=== PATIENT | female | born 1930 | race Caucasian/White ===

== ENCOUNTER 2017-02-23 10:06 | Day surgery (SDC) | payer MEDICARE, OTHER ==
[~2017-02-23 10:06] MED LIST: Lactated Ringers 1,000 ML IV SCH; Sodium Chloride 0.9% 10 ML Syringe FLUSH PRN
--- NOTE | 2017-02-23 11:15 | PCM.HPR ---
H & P Addendum review - H & P Addendum Review Date of Original H & P: 02/13/17 Date Reviewed: 02/23/17 Time Reviewed: 11:14 Patient was examined: No Changes
[2017-02-23] MEDS ORDERED: Propofol 200 MG/20 ML SDV ONE ×2 (11:19→11:25)
[2017-02-23] MEDS ORDERED: Midazolam 1 MG/ML 2 ML SDV ONE ×2 (11:19→11:25)
--- NOTE | 2017-02-23 11:45 | PCM.OPNOTE ---
- General Post-Op/Procedure Note Date of Surgery/Procedure: 02/23/17 Operative Procedure(s): Colonoscopy Findings: tics Pre Op Diagnosis: Hx Colon Polyps Post-Op Diagnosis: Same Anesthesia Technique: MAC Primary Surgeon: Jeancarlos Rushing Anesthesia Provider: Louise Omalley EBL in mLs: 0 Complications: None Condition: Good
--- NOTE | 2017-02-23 13:01 | OR ---
Date of Procedure: 02/23/2017 PREOPERATIVE DIAGNOSIS: History of colon polyps. POSTOPERATIVE DIAGNOSIS: Diverticulosis. PROCEDURE: Colonoscopy. ANESTHESIA: IV sedation. DESCRIPTION OF PROCEDURE: The patient was brought to the procedure room, where she was placed on her left side and IV sedation administered. Digital rectal exam was performed, which was normal. Colonoscope was inserted and advanced to the level of the cecum with some difficulty getting through a tortuous colon, requiring pressure on the abdomen. Cecal position was confirmed by identifying the appendiceal lumen and ileocecal valve. Prep was good and surfaces were well visualized. Upon withdrawing the scope, the ascending, transverse, and descending colon had a few diverticula present. Anastomosis of the rectosigmoid area was normal. There were no polyps visualized. Rectum and retroflexion were normal. Air was removed and the scope was withdrawn. The patient tolerated the procedure well and returned to recovery in stable condition. I do not feel any further colon screening is necessary since her last two have been normal and she is 86 years old. SHANTI CHOE MD /[id number]
[2017-02-23 13:50] VITALS: BP 120/65
== END 2017-02-23 12:40 | disposition home or self-care (01) ==
LOC: LL.SDS 10:06
PROVIDERS: ATTEND Surgery
DX: Z12.11 Encounter for screening for malignant neoplasm of colon (principal); K57.30 Diverticulosis of large intestine without perforation or abscess without bleeding; I10 Essential (primary) hypertension; E78.00 Pure hypercholesterolemia, unspecified; I07.1 Rheumatic tricuspid insufficiency; Z79.899 Other long term (current) drug therapy; Z90.710 Acquired absence of both cervix and uterus; Z98.890 Other specified postprocedural states
CPT/HCPCS: 00810; G0105; J2250; J2704; J7120

== ENCOUNTER 2017-08-28 11:10 | Inpatient (IN) | payer MEDICARE, OTHER ==
--- NOTE | 2017-08-28 11:54 | EDM.PDOC ---
ED HPI GENERAL MEDICAL PROBLEM - General Chief Complaint: General Stated Complaint: eye infection Time Seen by Provider: 08/28/17 11:10 Source of Information: Reports: Patient, Family (Daughter), Old Records ([facility] chart/EMR) History Limitations: Reports: No Limitations - History of Present Illness INITIAL COMMENTS - FREE TEXT/NARRATIVE: Patient was brought to the emergency room via private automobile by her daughter after recent initial and brief evaluation at the [facility] in [place] with no treatment given in that facility. Note that the patient has a 2 day history of increasing mildly purulent right ocular drainage, right eye swelling, and severe periorbital erythema with no known exposure to infection. Some borderline decreased vision by patient history, however difficult to assess secondary to her not being able to open her eyes. She has had some nonspecific URI symptoms, sore throat, and nonproductive cough during the last week with no history of fever, recent use of antipyretic medication, etc.. She has not used any recent cold medications, etc., athough she does have some moderate caffeine intake as below. The patient denies any chest pain/pressure, heart flutter, dizziness, orthostasis, orthopnea, diaphoresis, paresthesias, recent decreased exercise tolerance, or any other anginal-type symptoms. No recent history of abdominal pain, heartburn, nausea, diarrhea, melena, gross hematochezia, or any food intolerance, including fatty foods, etc.. Onset: Gradual Onset Date: 08/26/17 Duration: Getting Worse Location: Reports: Face. Denies: Head, Neck, Chest, Abdomen, Back, Radiates to Quality: Reports: Burning (Mild facial) Severity: Mild Improves with: Reports: None Worsens with: Reports: None Context: Reports: Other (As above). Denies: Sick Contact Associated Symptoms: Reports: Cough, Rash. Denies: Confusion, Chest Pain, cough w sputum, Diaphoresis, Fever/Chills, Headaches, Loss of Appetite, Malaise , Nausea/Vomiting, Seizure, Shortness of Breath, Syncope, Weakness Treatments DRIVE IN WAITER/WAITRESS: Reports: Other (see below) (None) Right Eye Pain Score (Numeric/FACES): 2 - Related Data Allergies Allergy/AdvReac Type Severity Reaction Status Date / Time No Known Allergies Allergy Verified 02/23/17 11:07 Home Meds: Home Meds Multivitamin [Multivitamins] 1 each PO DAILY 12/05/13 [History] Crosby-3/DHA/Epa/Fish Oil [Fish Oil Dr 500 mg Softgel] 1,000 mg PO DAILY [History] Calcium Carbonate/Vitamin D3 [Calcium 1,000 + D3 Caplet] 1 tab PO DAILY [History] Cholecalciferol (Vitamin D3) [Vitamin D3] 1,000 unit PO DAILY 02/23/17 [History] Lutein Extract/Zeaxanthin Ext [Lutein 15 MG Softgel] 1 cap PO DAILY 02/23/17 [ History] Vitamin E 1,000 unit PO DAILY 08/28/17 [History] Past Medical History HEENT History: Reports: Cataract, Impaired Vision. Denies: Allergic Rhinitis, Glaucoma, Hard of Hearing, Macular Degeneration, Retinal Detachment Other HEENT History: Wears glasses Cardiovascular History: Reports: Cardiomyopathy, Heart Murmur, High Cholesterol , Hypertension. Denies: Afib, Aneurysm, Arrhythmia, Blood Clots/VTE/DVT, CAD, Heart Failure, W[place], Pacemaker, PTCA, Pulmonary Hypertension, PVD, Syncope Other Cardiovascular History: Severe aortic valve stenosis and moderate left atrial enlargement with additional grade 1 diastolic dysfunction initially diagnosed by echocardiogram on 03/31/16 with persistent mild mitral valve insufficiency, tricuspid valve insufficiency and pulmonary valve insufficiency by previous echocardiogram as below Respiratory History: Reports: None, Intubation, Previous. Denies: Bronchitis, Recurrent, COPD, PE, Pneumonia, Recurrent, Pneumothorax, Sleep Apnea, TB Gastrointestinal History: Reports: Cholelithiasis, Colon Polyp, Diverticulosis, Fecal Incontinence, Gastritis, GERD, Hemorrhoids, Other (See Below). 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 Recurrent benign colonic polyps including removal of tubular adenoma from the ascending colon 12/05/13 and history of tubulovillous adenoma of the ascending colon and benign polyp of the transverse colon at time of colonoscopy on 03/28/13 with no evidence of recurrence at time of last colonoscopy as below Genitourinary History: Reports: Pyelonephritis, Renal Calculus, Urinary Incontinence, Other (See Below). 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 Denies: Dysfunctional Uterine Bleeding, Endometriosis, Fibroids, Spontaneous : 3 Para: 3 (Full term without complications during pregnancies or deliveries) LMP (Approximate): Menopausal (Surgical menopause 1983) Musculoskeletal History: Reports: Arthritis, Back Pain, Chronic, Fracture, Neck Pain, Chronic, Osteoarthritis, Osteoporosis, Other (See Below). Denies: Amputation, Gout, RA, SLE Other Musculoskeletal History: L1 compression fracture Neurological History: Reports: None. Denies: Alzheimers Disease, Brain Injury, Cerebral Aneurysms, Concussion, CVA, Headaches, Chronic, Head Trauma, Migraines , MS, Neuropathy, Peripheral, Parkinson's, Seizure, TIA Psychiatric History: Reports: Anxiety, Depression, Other (See Below). Denies: Abuse, Victim of, ADD, ADHD, Addiction, Alzheimers Disease, Dementia, Psych Hospitalization(s), PTSD, Suicide Attempt, Suicidal Ideation Other Psychiatric History: Anxiety depression disorder not currently requiring medical therapy Endocrine/Metabolic History: Reports: Osteopenia, Osteoporosis, Other (See Below ). Denies: Diabetes, Type I, Diabetes, Type II, Hypothyroidism, IDDM Other Endocrine/Metabolic History: Borderline hyperglycemia Hematologic History: Reports: None. Denies: Anemia, Blood Transfusion(s), Iron Deficiency Immunologic History: Reports: None. Denies: AIDS, HIV, SLE Oncologic (Cancer) History: Reports: None. Denies: Basal Cell Carcinoma, Breast , Cervix, Colon, Hodgkin's Lymphoma, Lymphoma, Malignant Melanoma, Non-Hodgkin' s Lymphoma, Ovarian, Squamous Cell Carcinoma, Uterine Dermatologic History: Reports: Seborrheic Dermatitis, Other (See Below). Denies : Eczema, Psoriasis Other Dermatologic History: Seborrheic dermatitis of the scalp region - Infectious Disease History Infectious Disease History: Reports: Chicken Pox, Measles, Mumps, Shingles ( Facial region side and date unknown). Denies: C-Difficile, Helicobacter Pylori , Meningitis, Mononucleosis, MRSA, Pertussis (Whooping Cough), Rheumatic Fever, Rubella, Scarlet Fever, TB, VRE - Past Surgical History Head Surgeries/Procedures: Reports: None HEENT Surgical History: Reports: Cataract Surgery, Oral Surgery, Other (See Below). Denies: Adenoidectomy, Eye Surgery, Laser Surgery, LASIK, Myringotomy w Tube(s), Naso-Sinus Surgery, Tonsillectomy Other HEENT Surgeries/Procedures: Bunker teeth extraction 4 in the , right cataract surgery in about 2013 Cardiovascular Surgical History: Reports: None. Denies: Carotid Endarterectomy , Coronary Artery Stent, Varicose, Vascular Surgery Respiratory Surgical History: Reports: None. Denies: Thoracentesis GI Surgical History: Reports: Colonoscopy, Polypectomy, Other (See Below). Denies: Appendectomy, Cholecystectomy, EGD, Hernia, Abdominal, Hernia, Inguinal , Hernia Repair/Other Other GI Surgeries/Procedures: Last colonoscopy on 02/23/17 with no recurrence of her previous colonic polyps with previous colonoscopies on 03/06/08, 11/15/04, and 12/05/13, previous distal rectosigmoid bowel resection secondary to benign colonic tumor in October 2000 Female Surgical History: Reports: Hysterectomy, Lithotripsy/ESWL, Oophorectomy, Salpingo-Oophorectomy, Other (See Below). Denies: Breast Biopsy, D&C, Tubal Ligation Other Female Surgeries/Procedures: Hysterectomy with left-sided oophorectomy secondary to uterine prolapse in 1983, incidental right salpingo-oophorectomy at time of sigmoid resection in October 2000, lithotripsy in about 2004 Endocrine Surgical History: Reports: None. Denies: Thyroid Biopsy Neurological Surgical History: Reports: None. Denies: C-Spine, Discectomy, Laminectomy, Lumbar Spine, Sacral Spine, Spinal Fusion, Vertebroplasty Musculoskeletal Surgical History: Reports: None. Denies: Carpal Tunnel, Ganglion Cyst, Joint Replacement, ORIF, Shoulder Surgery Oncologic Surgical History: Reports: None Dermatological Surgical History: Reports: None - Past Imaging History Past Imaging History: Reports: Cardiac Echo (Last echocardiogram on 03/31/16 with ejection fraction of greater than 70% with findings as above with previous echocardiogram on 03/08/13 with ejection fraction of 66%), CAT Scan (CT of the chest, abdomen and pelvis on 08/13/09), DEXA Scan (Last on 03/15/11), Mammogram ( Last on 10/5/17) Social & Family History - Family History HEENT: Reports: None. Denies: Glaucoma, Macular Degeneration, Retinal Detachment Cardiac: Reports: CAD, Heart Failure, High Cholesterol, Hypertension, [place], Other (See Below). Denies: Afib, Arrhythmia, Blood Clots/VTE/DVT, Bypass, PVD/COD, Stent Other Cardiac Family History: Father with fatal WV and CHF at age 79, daughter with hyperlipidemia, sister with hypertension Respiratory: Reports: None. Denies: Asthma, COPD, PE, Pneumothorax GI: Reports: None. Denies: Celiac Disease, Cholelithiasis, Colon Polyps, GERD, GI bleed, Hepatitis, Inflammatory Bowel Disease, Irritable Bowel Syndrome, PUD : Reports: None. Denies: Renal Calculus, Renal Disease/Insufficiency OBGYN: Reports: None. Denies: Endometriosis, Recurrent Spontaneous Musculoskeletal: Reports: Arthritis, Gout, Osteoarthritis, Osteoporosis, Other ( See Below) Other Musculoskeletal Family History: Sister with osteoarthritis, father with gout Neurological: Reports: Other (See Below). Denies: Alzheimers Disease, Cerebral Aneurysms, CVA, Dementia, Migraines, MS, Parkinson's, Seizure, TIA Other Neurological Family History: Daughter with cavernous malformation requiring surgery some mild secondary dystaxia and weakness Psychiatric: Reports: None. Denies: Abuse, Victim of, ADD, ADHD, Anxiety, Depression, Psych Hospitalization(s), Suicide Attempt Endocrine/Metabolic: Reports: Diabetes, type II, Other (See Below). Denies: Diabetes, Type I, Hypothyroidism, IDDM Other Endocrine/Metabolic Family History: Father with diabetes mellitus Hematologic: Reports: None. Denies: Anemia, Transfusion Reaction Immunologic: Reports: None. Denies: AIDS, HIV, SLE Dermatologic: Reports: None. Denies: Eczema, Psoriasis Oncologic: Reports: None. Denies: Brain, Breast, Cervix, Colon, Hodgkin's Lymphoma, Leukemia, Lymphoma, Non-Hodgkin's Lymphoma, Skin, Uterine - Tobacco Use Smoking Status *Q: Never Smoker Used Tobacco, but Quit: No Smoking Cessation Information Provided To Patient: No Second Hand Smoke Exposure: No Source of Second Hand Smoke Exposure: Not currently but did smoke in the past Second Hand Smoke Education Provided: No - Caffeine Use Caffeine Use: Reports: Coffee (1/2 pot per day). Denies: Energy Drinks, Soda, Tea - Alcohol Use Alcohol Use History: Yes Days Per Week of Alcohol Use: 0 (No previous DWIs, problems with alcohol abuse, etc.) Number of Drinks Per Day: 1 (Occasional wine or mixed drinks about 23 times per year) Total Drinks Per Week: 0 Alcohol Use Frequency: Rarely - Recreational Drug Use Recreational Drug Use: No Drug Use in Last 12 Months: No Recreational Drug Type: Denies: Amphetamines (Speed), Cocaine, Heroin, Inhalants (Glues, Solvents, Aerosols), LSD (Acid), Marijuana/Hashish, Methamphetamine, Morphine - Living Situation & Occupation Living situation: Reports: (2006, 3 children), with Family (Daughter) Occupation: Retired ([employer] ) ED ROS GENERAL - Review of Systems Review Of Systems: See Below Constitutional: Denies: Fever, Chills, Weakness, Fatigue, Night Sweats, Diaphoresis, Decreased Appetite, Weight Loss, Weight Gain HEENT: Reports: Eye Discharge, Eye Pain, Glasses, Rhinitis, Throat Pain, Vision Change. Denies: Dental Pain, Ear Discharge, Ear Pain, Hearing Loss, Sinus Problem, Throat Swelling, Vertigo Respiratory: Reports: Cough. Denies: Shortness of Breath, Wheezing, Pleuritic Chest Pain, Sputum, Hemoptysis Cardiovascular: Reports: No Symptoms. Denies: Chest Pain, Blood Pressure Problem, Claudication, Edema, Lightheadedness, Orthopnea, Palpitations, Syncope Endocrine: Reports: No Symptoms. Denies: Fatigue GI/Abdominal: Reports: No Symptoms. Denies: Abdominal Pain, Anorexia, Black Stool, Bloody Stool, Constipation, Diarrhea, Decreased Appetite, Difficulty Swallowing, Distension, Flatus, Hematemesis, Hematochezia, Melena, Nausea, Stool Incontinence, Vomiting : Reports: Incontinence (Occasional). Denies: Discharge, Dysuria, Flank Pain , Frequency, Hematuria, Pain, Urgency, Urinary Retention Musculoskeletal: Reports: No Symptoms. Denies: Neck Pain, Shoulder Pain, Arm Pain, Back Pain, Leg Pain Skin: Reports: Pruritis (Periorbital region), Rash (Facial as above). Denies: Diaphoresis, Bruising, Wound Neurological: Denies: Confusion, Dizziness, Headache, Numbness, Paresthesia, Seizure, Tingling, Weakness Psychiatric: Reports: No Symptoms. Denies: Agitation, Anxiety, Confusion, Depression, Hallucinations, Homicidal Ideation, Suicidal Ideation Hematologic/Lymphatic: Reports: No Symptoms Immunologic: Reports: No Symptoms ED EXAM, GENERAL - Physical Exam Exam: See Below Exam Limited By: No Limitations General Appearance: Alert, WD/WN, No Apparent Distress Eye Exam: Right Eye: Conjunctival Injection (Mild right-sided), EOMI, Periorbital Changes (+3+4 erythema with occasional vesicular changes in the periorbital changes with maximal diameter of about 6-8 cm in area), PERRL (Mild anisocoria with right pupil about 5 mm in diameter and left pupil about 7 mm in diameter), Proptosis (Upper eyelidright), Vision Changes (By history), Bilateral Eye: Normal Fundi Ears: Normal External Exam, Normal Canal, Hearing Grossly Normal, Normal TMs Nose: Normal Mucosa, No Blood, Nasal Drainage, Clear Rhinorrhea Throat/Mouth: Normal Inspection, Normal Lips, Normal Teeth, Normal Gums, Normal Oropharynx, Normal Voice, No Airway Compromise. No: Dysphagia, Perioral Cyanosis Head: Facial Swelling (Surrounding right-sided periorbital infection as above), Facial Tenderness (Mild localized tenderness in the area of rash as above). No : Sinus Tenderness Neck: Supple, Non-Tender, Full Range of Motion, Carotid Bruit (Moderate bilateral carotid bruits versus transmitted heart sounds). No: Lymphadenopathy (L), Lymphadenopathy (R), Thyromegaly Respiratory/Chest: No Respiratory Distress, Lungs Clear, Normal Breath Sounds, No Accessory Muscle Use, Chest Non-Tender. No: Rales, Pleural Rub, Retractions Cardiovascular: Normal Peripheral Pulses, No Edema, No Gallop, No JVD, No Rub, Tachycardia (Regular rhythm), Systolic Murmur (3/6 RAYSHAWN at the aortic valve with 2/6 RAYSHAWN of mitral valve). No: Gallop/S3, Gallop/S4, Friction Rub Peripheral Pulses: 2+: Radial (L), Radial (R), Dorsalis Pedis (L), Dorsalis Pedis (R) GI/Abdominal: Normal Bowel Sounds, Soft, Non-Tender, No Organomegaly, No Distention, No Abnormal Bruit, No Mass, Pelvis Stable. No: Guarding (Female) Exam: Deferred Rectal (Female) Exam: Deferred Back Exam: Normal Inspection, Full Range of Motion, Muscle Spasm. No: CVA Tenderness (L), CVA Tenderness (R) Extremities: Normal Inspection, Normal Range of Motion, Non-Tender, Normal Capillary Refill, No Pedal Edema Neurological: Alert, Oriented, CN II-XII Intact, Normal Cognition, Normal Gait, No Motor/Sensory Deficits Psychiatric: Normal Affect, Normal Mood Skin Exam: Rash (As above in the facial region). No: Diaphoretic Lymphatic: No Adenopathy Course - Vital Signs Last Recorded V/S: Last Vital Signs Temp 37.6 C 08/28/17 14:30 Pulse 134 H 08/28/17 15:11 Resp 20 08/28/17 15:10 BP 120/47 L 08/28/17 15:11 Pulse Ox 98 08/28/17 15:10 Vital Signs - 24 hr 08/28/17 08/28/17 08/28/17 11:10 14:30 15:10 Temperature [ 37.1 C Oral] Temperature [ 36.3 C 37.6 C Temporal] Pulse, Peripheral Pulse, 129 H Peripheral [ Left Brachial] Pulse, 120 H 130 H 135 H Peripheral [ Left Radial] Respiratory 15 22 H 20 Rate Blood Pressure Blood Pressure 131/61 122/56 L 120/47 L [Left Upper Arm ] O2 Sat by Pulse 97 97 98 Oximetry 08/28/17 08/28/17 15:11 15:29 Temperature [ Oral] Temperature [ Temporal] Pulse, 134 H Peripheral Pulse, 113 H Peripheral [ Left Brachial] Pulse, 113 H Peripheral [ Left Radial] Respiratory 23 H Rate Blood Pressure 120/47 L Blood Pressure 114/52 L [Left Upper Arm ] O2 Sat by Pulse 97 Oximetry - Orders/Labs/Meds Orders: Active Orders 24 hr Category Date Time Status Cardiac Monitoring [RC] . DIRECTED Care 08/28/17 14:30 Active Peripheral IV Care [RC] . DIRECTED Care 08/28/17 11:55 Active Heart Healthy Diet [DIET] Diet 08/28/17 Lunch Active CULTURE BLOOD [BC] Stat Lab 08/28/17 11:40 Received CULTURE BLOOD [BC] Stat Lab 08/28/17 12:07 Received CULTURE EYE [RM] Stat Lab 08/28/17 11:55 Received VIRAL CULTURE (REFLEX) Stat Lab 08/28/17 12:00 Received Acyclovir [Zovirax] 1,000 mg Med 08/28/17 12:15 Active Sodium Chloride 0.9% [Normal Saline] 250 ml IV Q8H Sodium Chloride 0.9% [Saline Flush] Med 08/28/17 11:54 Active 10 ml FLUSH ASDIRECTED PRN Trifluridine [Viroptic 1% Ophth Soln] Med 08/28/17 16:00 Active 1 ml EYERT QID cefTRIAXone [Rocephin] 1 gm Med 08/28/17 12:15 Active Sodium Chloride 0.9% [Normal Saline] 100 ml IV Q12H Blood Culture x2 Reflex Set [OM.PC] Urgent Oth 08/28/17 11:55 Ordered Obtain Past Medical Record [OM.PC] Routine Oth 08/28/17 12:01 Active Peripheral IV Insertion Adult [OM.PC] Routine Ot 08/28/17 11:55 Ordered Medication Orders Ceftriaxone Sodium 1 gm/ (Sodium Chloride) 100 mls @ 200 mls/hr IV Q12H [facility] Last Admin: 08/28/17 14:08 Dose: 200 mls/hr Acyclovir 1,000 mg/ Sodium (Chloride) 250 mls @ 250 mls/hr IV Q8H [facility] Last Admin: 08/28/17 12:41 Dose: 250 mls/hr Sodium Chloride (Saline Flush) 10 ml FLUSH ASDIRECTED PRN PRN Reason: Keep Vein Open Last Admin: 08/28/17 15:12 Dose: 10 ml Admin: 08/28/17 12:43 Dose: 10 ml Trifluridine (Viroptic 1% Ophth Soln) 1 ml EYERT QID EDWIN Last Admin: 08/28/17 14:08 Dose: 3 drop Labs: Laboratory Tests 08/28/17 08/28/17 08/28/17 Range/Units 11:40 11:40 11:40 WBC 31.6 H (4.0-10.2) K/uL RBC 4.48 (3.77-5.09) M/uL Hgb 13.4 (11.7-15.5) g/dL Hct 41.4 (34.0-46.0) % MCV 92.4 (84.0-98.0) fL MCH 29.9 (28.2-33.3) pg MCHC 32.4 (31.7-36.0) g/dL RDW 13.7 (11.2-14.1) % Plt Count 262 (150-350) K/uL Neut % (Auto) 34.0 L (45.0-80.0) % Lymph % (Auto) 60.6 H (10.0-50.0) % [place] % (Auto) 5.2 (2.0-14.0) % Eos % (Auto) 0.1 (0.0-5.0) % Baso % (Auto) 0.1 (0.0-2.0) % Neut # (Auto) 10.74 H (1.40-7.00) K/uL Lymph # (Auto) 19.17 H (0.50-3.50) K/uL [place] # (Auto) 1.66 H (0.00-1.00) K/uL Eos # (Auto) 0.02 (0.00-0.50) K/uL Baso # (Auto) 0.04 (0.00-0.20) K/uL Sodium 137 (136-145) mmol/L Potassium 3.9 (3.5-5.1) mmol/L Chloride 100 (98-107) mmol/L Carbon Dioxide 29.8 (21.0-32.0) mmol/L BUN 23 H (7-18) mg/dL Creatinine 0.80 (0.51-1.17) mg/dL Est Cr Clr Drug Dosing TNP Estimated GFR (MDRD) > 60 mL/min Glucose 151 H (74-106) mg/dL Lactic Acid 1.4 (0.4-2.0) mmol/L Calcium 9.8 (8.5-10.1) mg/dL Total Bilirubin 0.8 (0.2-1.0) mg/dL AST 18 (15-37) U/L ALT 18 (12-78) U/L Alkaline Phosphatase 90 (46-116) IU/L C-Reactive Protein 12.9 H (<=0.9) mg/dL Total Protein 8.1 (6.4-8.2) g/dL Albumin 3.6 (3.4-5.0) g/dL Blood cultures 2 collected Meds: Medications Generic Name Dose Route Start Last Admin Trade Name Freq PRN Reason Stop Dose Admin Ceftriaxone Sodium 1 gm/ 100 mls @ 200 mls/hr 08/28/17 12:15 08/28/17 14:08 Sodium Chloride IV 200 mls/hr Q12H EDWIN Administration Acyclovir 1,000 mg/ Sodium 250 mls @ 250 mls/hr 08/28/17 12:15 08/28/17 12:41 Chloride IV 250 mls/hr Q8H EDWIN Administration Sodium Chloride 10 ml 08/28/17 11:54 08/28/17 15:12 Saline Flush FLUSH 10 ml ASDIRECTED PRN Administration Keep Vein Open Trifluridine 1 ml 08/28/17 16:00 08/28/17 14:08 Viroptic 1% Ophth Soln EYERT 3 drop QID EDWIN Administration Discontinued Medications Generic Name Dose Route Start Last Admin Trade Name Freq PRN Reason Stop Dose Admin Metoprolol Tartrate 2.5 mg 08/28/17 15:02 08/28/17 15:11 Lopressor IVPUSH 08/28/17 15:03 2.5 mg ONETIME ONE Administration - Radiology Interpretation Free Text/Narrative:: learning and development 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 shows sinus tachycardia with heart rates in the 120s to 130s with no ectopy or arrhythmia and improved pulse in the 100s prior to admission Departure - Departure Time of Disposition: 16:05 Disposition: Admitted As Inpatient 68 Condition: Fair Clinical Impression: Herpes zoster ophthalmicus, Cellulitis, Sinus tachycardia, Osteoarthritis, Peptic reflux disease, Hyperlipidemia, Aortic valve stenosis, Mixed anxiety depressive disorder, Hyperglycemia - Discharge Information Instructions: Contact Precautions, Ceftriaxone injection, Shingles, Easy-to- Read, Acyclovir injection Referrals: lFor Frias PA [Primary Care Provider] - Forms: ED Department Discharge Care Plan Goals: See plan - Problem List & Annotations (1) Herpes zoster ophthalmicus SNOMED Code(s): 58808121 Code(s): B02.30 - ZOSTER OCULAR DISEASE, UNSPECIFIED Status: Acute Priority: High Current Visit: Yes Onset Date: ~08/26/17 Annotation/Comment :: IV acyclovir therapy and topical Viroptic initiated in the emergency room. Some delay in admission to inpatient bed secondary to multiple emergency room patients. No sequelae. Ophthalmology consultation depending on her clinical course. Further hospital transfer, etc., as symptoms remain refractory. Note significant lymphocytosis secondary to current viral infection with no direct evidence or history of leukemia, etc. in past. Further workup depending on her clinical course (2) Cellulitis SNOMED Code(s): 889314664 Code(s): L03.90 - CELLULITIS, UNSPECIFIED Status: Acute Priority: High Current Visit: Yes Onset Date: 08/26/17 Annotation/Comment:: IV Rocephin initiated in the emergency room. Continue during inpatient care. CT of the maxillofacial region to be conducted after admission Qualifiers: Site of cellulitis: face Qualified Code(s): L03.211 - Cellulitis of face (3) Aortic valve stenosis SNOMED Code(s): 77032070 Code(s): I35.0 - NONRHEUMATIC AORTIC (VALVE) STENOSIS Status: Acute Priority: Medium Current Visit: Yes Onset Date: 03/31/16 Annotation/ Comment:: No chest pain or anginal complaints. Note recent echocardiogram on . Continue telemetry for now. Note sinus tachycardia with no direct evidence of sepsis with normal lactic acid level. EKG and repeat blood work, including cardiac enzymes, TSH, etc. to be conducted in the a.m. Qualifiers: Cardiac valve disease etiology: nonrheumatic Qualified Code(s): I35.0 - Nonrheumatic aortic (valve) stenosis (4) Sinus tachycardia SNOMED Code(s): 19482477 Code(s): R00.0 - TACHYCARDIA, UNSPECIFIED Status: Acute Priority: Medium Current Visit: Yes Onset Date: 08/28/17 Annotation/Comment:: As above. Low-dose IV Lopressor given in the emergency room with overall good results. (5) Hyperlipidemia SNOMED Code(s): 48088934 Code(s): E78.5 - HYPERLIPIDEMIA, UNSPECIFIED Status: Chronic Priority: Medium Current Visit: Yes Annotation/Comment:: Observe for now with no current medical therapy Qualifiers: Hyperlipidemia type: unspecified Qualified Code(s): E78.5 - Hyperlipidemia , unspecified (6) Mixed anxiety depressive disorder SNOMED Code(s): 921060240 Code(s): F41.8 - OTHER SPECIFIED ANXIETY DISORDERS Status: Chronic Priority: Medium Current Visit: Yes Annotation/Comment:: Stable by patient history (7) Osteoarthritis SNOMED Code(s): 732485443 Code(s): M19.90 - UNSPECIFIED OSTEOARTHRITIS, UNSPECIFIED SITE Status: Chronic Priority: Medium Current Visit: Yes Annotation/Comment:: Stable by patient history with no history of gout however note previous history of urolithiasis Qualifiers: Osteoarthritis location: multiple joints Osteoarthritis type: primary Qualified Code(s): M15.0 - Primary generalized (osteo)arthritis (8) Peptic reflux disease SNOMED Code(s): 47449978 Code(s): K21.9 - GASTRO-ESOPHAGEAL REFLUX DISEASE WITHOUT ESOPHAGITIS Status: Chronic Priority: Medium Current Visit: Yes Annotation/Comment:: Stable by history (9) Hyperglycemia SNOMED Code(s): 10643471 Code(s): R73.9 - HYPERGLYCEMIA, UNSPECIFIED Status: Chronic Priority: Medium Current Visit: Yes Annotation/Comment:: Elevated random glucose today. Glycosylated hemoglobin in the a.m. - Problem List Review Problem List Initiated/Reviewed/Updated: Yes - My Orders Last 24 Hours: My Active Orders 08/28/17 11:40 CULTURE BLOOD [BC] Stat 08/28/17 11:54 Sodium Chloride 0.9% [Saline Flush] 10 ml FLUSH ASDIRECTED PRN 08/28/17 11:55 Peripheral IV Care [RC] . DIRECTED CULTURE EYE [RM] Stat Blood Culture x2 Reflex Set [OM.PC] Urgent Peripheral IV Insertion Adult [OM.PC] Routine 08/28/17 12:00 VIRAL CULTURE (REFLEX) Stat 08/28/17 12:01 Obtain Past Medical Record [OM.PC] Routine 08/28/17 12:07 CULTURE BLOOD [BC] Stat 08/28/17 12:15 Acyclovir [Zovirax] 1,000 mg Sodium Chloride 0.9% [Normal Saline] 250 ml IV Q8H cefTRIAXone [Rocephin] 1 gm Sodium Chloride 0.9% [Normal Saline] 100 ml IV Q12H 08/28/17 14:30 Cardiac Monitoring [RC] . DIRECTED 08/28/17 16:00 Trifluridine [Viroptic 1% Ophth Soln] 1 ml EYERT QID 08/28/17 Lunch Heart Healthy Diet [DIET] - Assessment/Plan Admission H&P: Please use this note as an admission H&P Last 24 Hours: My Active Orders 08/28/17 11:40 CULTURE BLOOD [BC] Stat 08/28/17 11:54 Sodium Chloride 0.9% [Saline Flush] 10 ml FLUSH ASDIRECTED PRN 08/28/17 11:55 Peripheral IV Care [RC] . DIRECTED CULTURE EYE [RM] Stat Blood Culture x2 Reflex Set [OM.PC] Urgent Peripheral IV Insertion Adult [OM.PC] Routine 08/28/17 12:00 VIRAL CULTURE (REFLEX) Stat 08/28/17 12:01 Obtain Past Medical Record [OM.PC] Routine 08/28/17 12:07 CULTURE BLOOD [BC] Stat 08/28/17 12:15 Acyclovir [Zovirax] 1,000 mg Sodium Chloride 0.9% [Normal Saline] 250 ml IV Q8H cefTRIAXone [Rocephin] 1 gm Sodium Chloride 0.9% [Normal Saline] 100 ml IV Q12H 08/28/17 14:30 Cardiac Monitoring [RC] . DIRECTED 08/28/17 16:00 Trifluridine [Viroptic 1% Ophth Soln] 1 ml EYERT QID 08/28/17 Lunch Heart Healthy Diet [DIET] Assessment:: As above Plan: As above. Extensive precautions were given to the patient and her 2 daughters, who are in agreement with the treatment plan. The patient will require about 3- 4 days of inpatient/acute care secondary to multiple health problems as above.
[2017-08-28 12:16] LABS: CHLORIDE,CL 100 mmol/L (98-107); SODIUM,NA 137 mmol/L (136-145)
[2017-08-28] MEDS: Sodium Chloride 0.9% 10 ML Syringe FLUSH PRN ×3 (12:43→23:36)
[2017-08-28] MEDS: TRIFLURIDINE EYERT SCH ×2 (14:08→21:14)
[2017-08-28] MEDS: cefTRIAXone 1 GM in Sodium Chloride 0.9% 100 ML IV SCH ×2 (14:08→23:36)
[2017-08-28] MEDS ORDERED: Metoprolol Tartrate 5 MG/5 ML SDV IVPUSH ONE (15:02)
[2017-08-28] MEDS ORDERED: Sodium Chloride 0.9% 10 ML Syringe FLUSH PRN (17:42)
[2017-08-28] MEDS ORDERED: Acetaminophen 325 MG Tab PO PRN (17:42)
[2017-08-28] MEDS ORDERED: Temazepam 15 MG Cap PO PRN (17:42)
[2017-08-29] MEDS: Sodium Chloride 0.9% 10 ML Syringe FLUSH PRN ×7 (03:16→23:33)
[2017-08-29 07:45] LABS: CHLORIDE,CL 105 mmol/L (98-107); SODIUM,NA 142 mmol/L (136-145)
[2017-08-29] MEDS ORDERED: Iopamidol 612 MG/ML 100 ML Bottle IVPUSH ONE (07:59)
[2017-08-29] MEDS ORDERED: LUTEIN EXTRACT PO SCH (08:00)
[2017-08-29] MEDS ORDERED: [UNRECOGNIZED DRUG - OTHER] PO SCH (08:00)
[2017-08-29] MEDS ORDERED: ZEAXANTHIN EXT PO SCH (08:00)
[2017-08-29] MEDS: TRIFLURIDINE EYERT SCH ×4 (08:44→19:53)
--- NOTE | 2017-08-29 09:29 | PCM.PN ---
- General Info Date of Service: 08/29/17 Admission Dx/Problem (Free Text): 1. Herpes zoster ophthalmicus 2. Right periorbital cellulitis Functional Status: Reports: Pain Controlled, Tolerating Diet, Ambulating, Urinating, New Symptoms. Denies: Incentive Spirometry Pain Score: 0 - Review of Systems General: Denies: Fever (Afebrile this morning with maximum temperature 37.6 during hospitalization), Weakness, Fatigue, Malaise, Chills, Night Sweats, Appetite (Appetite good) HEENT: Reports: Glasses, Rhinitis. Denies: Ear Pain, Eye Pain (Despite herpes infection), Headaches, Post Nasal Drip, Sinus Congestion, Sore Throat, Visual Changes Pulmonary: Reports: No Symptoms. Denies: Shortness of Breath, Pleuritic Chest Pain, Cough, Sputum, Hemoptysis, Wheezing Cardiovascular: Reports: Palpitations. Denies: Chest Pain, Dyspnea on Exertion , Orthopnea, PND, Edema, Lightheadedness Gastrointestinal: Reports: No Symptoms, Other (Normal bowel movement earlier this morning). Denies: Abdominal Pain, Constipation, Decreased Appetite, Diarrhea, Difficulty Swallowing, Flatus, Hematochezia, Melena, Nausea, Vomiting Genitourinary: Reports: No Symptoms. Denies: Dysuria, Frequency, Burning, Pain , Urgency, Incontinence, Hematuria, Retention, Flank Pain Musculoskeletal: Reports: No Symptoms. Denies: Neck Pain, Shoulder Pain, Arm Pain, Hand Pain, Back Pain, Leg Pain, Foot Pain, Joint Pain, Joint Swelling Skin: Reports: Rash (Persistent facial infection). Denies: Diaphoresis, Bruising, Pruritis Neurological: Reports: No Symptoms. Denies: Confusion, Dizziness, Headache, Numbness, Paresthesia, Tingling, Weakness Psychiatric: Reports: No Symptoms. Denies: Confusion, Depression, Anxiety, Agitation, Cravings, Hallucinations, Suicidal Ideation - Patient Data Vitals - Most Recent: Last Vital Signs Temp 36.7 C 08/29/17 04:00 Pulse 102 H 08/29/17 04:00 Resp 16 08/29/17 04:00 BP 131/74 08/29/17 04:00 Pulse Ox 100 08/29/17 04:00 Vital Signs - 24 hr 08/28/17 08/28/17 08/28/17 14:30 15:10 15:11 Temperature [ 37.6 C Temporal] Pulse, 134 H Peripheral Pulse, Peripheral [ Left Brachial] Pulse, 130 H 135 H Peripheral [ Left Radial] Respiratory 22 H 20 Rate Blood Pressure 120/47 L Blood Pressure 122/56 L 120/47 L [Left Upper Arm ] O2 Sat by Pulse 97 98 Oximetry 08/28/17 08/28/17 08/28/17 15:29 16:05 17:41 Temperature [ 37.6 C Temporal] Pulse, Peripheral Pulse, 113 H Peripheral [ Left Brachial] Pulse, 113 H 115 H Peripheral [ Left Radial] Respiratory 23 H 20 Rate Blood Pressure Blood Pressure 114/52 L 107/58 L [Left Upper Arm ] O2 Sat by Pulse 97 100 100 Oximetry 08/29/17 08/29/17 08/29/17 00:00 04:00 10:33 Temperature [ 37.3 C 36.7 C Temporal] Pulse, 113 H Peripheral Pulse, Peripheral [ Left Brachial] Pulse, 112 H 102 H Peripheral [ Left Radial] Respiratory 18 16 Rate Blood Pressure 129/65 Blood Pressure 124/60 131/74 [Left Upper Arm ] O2 Sat by Pulse 93 L 100 Oximetry Weight - Most Recent: 53.615 kg I&O - Last 24 Hours: Intake & Output 08/28/17 08/29/17 08/29/17 22:59 06:59 14:59 Intake Total 360 Balance 360 Imaging Impressions - Last 24 Hours: Senior Technical Support Engineer shows sinus tachycardia with heart rates in the 90s to 100s early this morning with maximum previous heart rate of 134 and average heart rate in the 110s no ectopy or other arrhythmia Chest x-ray, PA and lateral, shows moderate COPD changes with no pulmonary infiltrates. No cardiomegaly with mild aortic valve calcification present. Additional evidence of probable pulmonary hypertension and mild centralized CHF. No pneumothorax. Moderate osteophytic and osteoporotic changes present Lab Results Last 24 Hours: Laboratory Results - last 24 hr 08/29/17 08/29/17 08/29/17 Range/Units 05:00 07:05 07:05 Sodium 142 (136-145) mmol/L Potassium 4.5 (3.5-5.1) mmol/L Chloride 105 (98-107) mmol/L Carbon Dioxide 28.7 (21.0-32.0) mmol/L BUN 19 H (7-18) mg/dL Creatinine 0.70 (0.51-1.17) mg/dL Est Cr Clr Drug Dosing 50.64 mL/min Estimated GFR (MDRD) > 60 mL/min Glucose 107 H (74-106) mg/dL Hemoglobin A1c 5.7 (4.3-5.7) % Uric Acid 3.0 (2.6-7.2) mg/dL Calcium 8.6 (8.5-10.1) mg/dL Magnesium 2.0 (1.8-2.4) mg/dL Total Bilirubin 0.5 (0.2-1.0) mg/dL AST 17 (15-37) U/L ALT 13 (12-78) U/L Alkaline Phosphatase 71 (46-116) IU/L Creatine Kinase 57 (26-308) U/L Creatine Kinase Index 2.1 (0.0-2.5) % CK-MB (CK-2) 1.20 (0.00-3.60) ng/mL Troponin I 0.032 (0.000-0.056) ng/mL C-Reactive Protein 13.3 H (<=0.9) mg/dL NT-Pro-B Natriuret Pep 1990 H (0-125) pg/mL Total Protein 6.8 (6.4-8.2) g/dL Albumin 2.9 L (3.4-5.0) g/dL Triglycerides 71 (30-150) mg/dL Cholesterol 137 (100-200) mg/dL LDL Cholesterol, Calc 81 (0-100) mg/dL HDL Cholesterol 42 (40-60) mg/dL TSH, Ultra Sensitive 0.650 (0.358-3.740) mIU/mL Specimen Type Urincc Urine Color Yellow Urine Appearance Clear Urine pH 6.0 (5.0-9.0) Ur Specific [place] 1.015 (1.005-1.030) Urine Protein 30 H (NEGATIVE) mg/dL Urine Glucose (UA) Negative (NEGATIVE) mg/dL Urine Ketones Trace H (NEGATIVE) mg/dL Urine Occult Blood Small H (NEGATIVE) Urine Nitrite Negative (NEGATIVE) Urine Bilirubin Negative (NEGATIVE) Urine Urobilinogen 0.2 (0.2-1.0) E.U./dL Ur Leukocyte Esterase Negative (NEGATIVE) Urine RBC 5-10 H /HPF Urine WBC 5-10 H /HPF Ur Epithelial Cells Few /LPF Urine Bacteria Moderate H (NONE TO FEW) /HPF Hyaline Casts Few H (NEGATIVE) /LPF Urine Mucus Few H (NEGATIVE) /LPF Laboratory Tests 08/28/17 08/28/17 08/28/17 Range/Units 11:40 11:40 11:40 WBC 31.6 H (4.0-10.2) K/uL RBC 4.48 (3.77-5.09) M/uL Hgb 13.4 (11.7-15.5) g/dL Hct 41.4 (34.0-46.0) % MCV 92.4 (84.0-98.0) fL MCH 29.9 (28.2-33.3) pg MCHC 32.4 (31.7-36.0) g/dL RDW 13.7 (11.2-14.1) % Plt Count 262 (150-350) K/uL Neut % (Auto) 34.0 L (45.0-80.0) % Lymph % (Auto) 60.6 H (10.0-50.0) % [place] % (Auto) 5.2 (2.0-14.0) % Eos % (Auto) 0.1 (0.0-5.0) % Baso % (Auto) 0.1 (0.0-2.0) % Neut # (Auto) 10.74 H (1.40-7.00) K/uL Lymph # (Auto) 19.17 H (0.50-3.50) K/uL [place] # (Auto) 1.66 H (0.00-1.00) K/uL Eos # (Auto) 0.02 (0.00-0.50) K/uL Baso # (Auto) 0.04 (0.00-0.20) K/uL Add Manual Diff Neutrophils % (Manual) Band Neutrophils % Lymphocytes % (Manual) Monocytes % (Manual) Eosinophils % (Manual) Absolute Neutrophils Lymphocytes # (Manual) Monocytes # (Manual) Eosinophils # (Manual) Sodium 137 (136-145) mmol/L Potassium 3.9 (3.5-5.1) mmol/L Chloride 100 (98-107) mmol/L Carbon Dioxide 29.8 (21.0-32.0) mmol/L BUN 23 H (7-18) mg/dL Creatinine 0.80 (0.51-1.17) mg/dL Est Cr Clr Drug Dosing TNP Estimated GFR (MDRD) > 60 mL/min Glucose 151 H (74-106) mg/dL Hemoglobin A1c (4.3-5.7) % Lactic Acid 1.4 (0.4-2.0) mmol/L Uric Acid (2.6-7.2) mg/dL Calcium 9.8 (8.5-10.1) mg/dL Magnesium (1.8-2.4) mg/dL Total Bilirubin 0.8 (0.2-1.0) mg/dL AST 18 (15-37) U/L ALT 18 (12-78) U/L Alkaline Phosphatase 90 (46-116) IU/L Creatine Kinase (26-308) U/L Creatine Kinase Index (0.0-2.5) % CK-MB (CK-2) (0.00-3.60) ng/mL Troponin I (0.000-0.056) ng/mL C-Reactive Protein 12.9 H (<=0.9) mg/dL NT-Pro-B Natriuret Pep (0-125) pg/mL Total Protein 8.1 (6.4-8.2) g/dL Albumin 3.6 (3.4-5.0) g/dL Triglycerides (30-150) mg/dL Cholesterol (100-200) mg/dL LDL Cholesterol, Calc (0-100) mg/dL HDL Cholesterol (40-60) mg/dL TSH, Ultra Sensitive (0.358-3.740) mIU/mL Specimen Type Urine Color Urine Appearance Urine pH (5.0-9.0) Ur Specific [place] (1.005-1.030) Urine Protein (NEGATIVE) mg/dL Urine Glucose (UA) (NEGATIVE) mg/dL Urine Ketones (NEGATIVE) mg/dL Urine Occult Blood (NEGATIVE) Urine Nitrite (NEGATIVE) Urine Bilirubin (NEGATIVE) Urine Urobilinogen (0.2-1.0) E.U./dL Ur Leukocyte Esterase (NEGATIVE) Urine RBC /HPF Urine WBC /HPF Ur Epithelial Cells /LPF Urine Bacteria (NONE TO FEW) /HPF Hyaline Casts (NEGATIVE) /LPF Urine Mucus (NEGATIVE) /LPF 08/29/17 08/29/17 08/29/17 Range/Units 05:00 07:05 07:05 WBC 32.3 H (4.0-10.2) K/uL RBC 3.87 (3.77-5.09) M/uL Hgb 11.7 D (11.7-15.5) g/dL Hct 36.0 (34.0-46.0) % MCV 93.0 (84.0-98.0) fL MCH 30.2 (28.2-33.3) pg MCHC 32.5 (31.7-36.0) g/dL RDW 13.6 (11.2-14.1) % Plt Count 215 (150-350) K/uL Neut % (Auto) (45.0-80.0) % Lymph % (Auto) (10.0-50.0) % [place] % (Auto) (2.0-14.0) % Eos % (Auto) (0.0-5.0) % Baso % (Auto) (0.0-2.0) % Neut # (Auto) (1.40-7.00) K/uL Lymph # (Auto) (0.50-3.50) K/uL [place] # (Auto) (0.00-1.00) K/uL Eos # (Auto) (0.00-0.50) K/uL Baso # (Auto) (0.00-0.20) K/uL Add Manual Diff Yes Neutrophils % (Manual) 12 Band Neutrophils % 2 Lymphocytes % (Manual) 80 Monocytes % (Manual) 5 Eosinophils % (Manual) 1 Absolute Neutrophils 4.5220 Lymphocytes # (Manual) 25.8400 Monocytes # (Manual) 1.6150 Eosinophils # (Manual) 0.3230 Sodium 142 (136-145) mmol/L Potassium 4.5 (3.5-5.1) mmol/L Chloride 105 (98-107) mmol/L Carbon Dioxide 28.7 (21.0-32.0) mmol/L BUN 19 H (7-18) mg/dL Creatinine 0.70 (0.51-1.17) mg/dL Est Cr Clr Drug Dosing 50.64 Estimated GFR (MDRD) > 60 mL/min Glucose 107 H (74-106) mg/dL Hemoglobin A1c (4.3-5.7) % Lactic Acid (0.4-2.0) mmol/L Uric Acid 3.0 (2.6-7.2) mg/dL Calcium 8.6 (8.5-10.1) mg/dL Magnesium 2.0 (1.8-2.4) mg/dL Total Bilirubin 0.5 (0.2-1.0) mg/dL AST 17 (15-37) U/L ALT 13 (12-78) U/L Alkaline Phosphatase 71 (46-116) IU/L Creatine Kinase 57 (26-308) U/L Creatine Kinase Index 2.1 (0.0-2.5) % CK-MB (CK-2) 1.20 (0.00-3.60) ng/mL Troponin I 0.032 (0.000-0.056) ng/mL C-Reactive Protein 13.3 H (<=0.9) mg/dL NT-Pro-B Natriuret Pep 1990 H (0-125) pg/mL Total Protein 6.8 (6.4-8.2) g/dL Albumin 2.9 L (3.4-5.0) g/dL Triglycerides 71 (30-150) mg/dL Cholesterol 137 (100-200) mg/dL LDL Cholesterol, Calc 81 (0-100) mg/dL HDL Cholesterol 42 (40-60) mg/dL TSH, Ultra Sensitive 0.650 (0.358-3.740) mIU/mL Specimen Type Urincc Urine Color Yellow Urine Appearance Clear Urine pH 6.0 (5.0-9.0) Ur Specific [place] 1.015 (1.005-1.030) Urine Protein 30 H (NEGATIVE) mg/dL Urine Glucose (UA) Negative (NEGATIVE) mg/dL Urine Ketones Trace H (NEGATIVE) mg/dL Urine Occult Blood Small H (NEGATIVE) Urine Nitrite Negative (NEGATIVE) Urine Bilirubin Negative (NEGATIVE) Urine Urobilinogen 0.2 (0.2-1.0) E.U./dL Ur Leukocyte Esterase Negative (NEGATIVE) Urine RBC 5-10 H /HPF Urine WBC 5-10 H /HPF Ur Epithelial Cells Few /LPF Urine Bacteria Moderate H (NONE TO FEW) /HPF Hyaline Casts Few H (NEGATIVE) /LPF Urine Mucus Few H (NEGATIVE) /LPF 08/29/17 Range/Units 07:05 WBC (4.0-10.2) K/uL RBC (3.77-5.09) M/uL Hgb (11.7-15.5) g/dL Hct (34.0-46.0) % MCV (84.0-98.0) fL MCH (28.2-33.3) pg MCHC (31.7-36.0) g/dL RDW (11.2-14.1) % Plt Count (150-350) K/uL Neut % (Auto) (45.0-80.0) % Lymph % (Auto) (10.0-50.0) % [place] % (Auto) (2.0-14.0) % Eos % (Auto) (0.0-5.0) % Baso % (Auto) (0.0-2.0) % Neut # (Auto) (1.40-7.00) K/uL Lymph # (Auto) (0.50-3.50) K/uL [place] # (Auto) (0.00-1.00) K/uL Eos # (Auto) (0.00-0.50) K/uL Baso # (Auto) (0.00-0.20) K/uL Add Manual Diff Neutrophils % (Manual) Band Neutrophils % Lymphocytes % (Manual) Monocytes % (Manual) Eosinophils % (Manual) Absolute Neutrophils Lymphocytes # (Manual) Monocytes # (Manual) Eosinophils # (Manual) Sodium (136-145) mmol/L Potassium (3.5-5.1) mmol/L Chloride (98-107) mmol/L Carbon Dioxide (21.0-32.0) mmol/L BUN (7-18) mg/dL Creatinine (0.51-1.17) mg/dL Est Cr Clr Drug Dosing Estimated GFR (MDRD) mL/min Glucose (74-106) mg/dL Hemoglobin A1c 5.7 (4.3-5.7) % Lactic Acid (0.4-2.0) mmol/L Uric Acid (2.6-7.2) mg/dL Calcium (8.5-10.1) mg/dL Magnesium (1.8-2.4) mg/dL Total Bilirubin (0.2-1.0) mg/dL AST (15-37) U/L ALT (12-78) U/L Alkaline Phosphatase (46-116) IU/L Creatine Kinase (26-308) U/L Creatine Kinase Index (0.0-2.5) % CK-MB (CK-2) (0.00-3.60) ng/mL Troponin I (0.000-0.056) ng/mL C-Reactive Protein (<=0.9) mg/dL NT-Pro-B Natriuret Pep (0-125) pg/mL Total Protein (6.4-8.2) g/dL Albumin (3.4-5.0) g/dL Triglycerides (30-150) mg/dL Cholesterol (100-200) mg/dL LDL Cholesterol, Calc (0-100) mg/dL HDL Cholesterol (40-60) mg/dL TSH, Ultra Sensitive (0.358-3.740) mIU/mL Specimen Type Urine Color Urine Appearance Urine pH (5.0-9.0) Ur Specific [place] (1.005-1.030) Urine Protein (NEGATIVE) mg/dL Urine Glucose (UA) (NEGATIVE) mg/dL Urine Ketones (NEGATIVE) mg/dL Urine Occult Blood (NEGATIVE) Urine Nitrite (NEGATIVE) Urine Bilirubin (NEGATIVE) Urine Urobilinogen (0.2-1.0) E.U./dL Ur Leukocyte Esterase (NEGATIVE) Urine RBC /HPF Urine WBC /HPF Ur Epithelial Cells /LPF Urine Bacteria (NONE TO FEW) /HPF Hyaline Casts (NEGATIVE) /LPF Urine Mucus (NEGATIVE) /LPF Hemal Results Last 24 Hours: Microbiology 08/28/17 12:07 Blood - Venous - Lab Draw Aerobic Blood Culture - Preliminary NO GROWTH AFTER 1 DAY 08/28/17 12:07 Blood - Venous - Lab Draw Anaerobic Blood Culture - Preliminary NO GROWTH AFTER 1 DAY 08/28/17 11:40 Blood - Venous Aerobic Blood Culture - Preliminary NO GROWTH AFTER 1 DAY 08/28/17 11:40 Blood - Venous Anaerobic Blood Culture - Preliminary NO GROWTH AFTER 1 DAY Note pulmonary report of culture and sensitivity from the right eye does indicate possible Haemophilus infection with final culture and sensitivity pending Viral culture and sensitivity report from the right eye still pending Med Orders - Current: Current Medications Acetaminophen (Tylenol) 650 mg PO Q4H PRN PRN Reason: Pain (Mild 1-3)/fever Ceftriaxone Sodium 1 gm/ (Sodium Chloride) 100 mls @ 200 mls/hr IV Q12H [facility] Last Admin: 08/28/17 23:36 Dose: 200 mls/hr Acyclovir 1,000 mg/ Sodium (Chloride) 250 mls @ 250 mls/hr IV Q8H [facility] Last Admin: 08/29/17 03:15 Dose: 250 mls/hr Non-Formulary Medication (Lutein Extract/Zeaxanthin Ext [Lutein 15 Mg Softgel]) 1 cap PO DAILY [facility] Sodium Chloride (Saline Flush) 10 ml FLUSH ASDIRECTED PRN PRN Reason: Keep Vein Open Last Admin: 08/29/17 03:16 Dose: 10 ml Sodium Chloride (Saline Flush) 10 ml FLUSH Q12H PRN PRN Reason: Keep Vein Open Temazepam (Restoril) 15 mg PO BEDTIME PRN PRN Reason: Insomnia Trifluridine (Viroptic 1% Ophth Soln) 1 ml EYERT QID [facility] Last Admin: 08/29/17 08:44 Dose: 3 drop Discontinued Medications Iopamidol (Isovue-300 (61%)) 100 ml IVPUSH ONETIME ONE Stop: 08/29/17 08:00 Metoprolol Tartrate (Lopressor) 2.5 mg IVPUSH ONETIME ONE Stop: 08/28/17 15:03 Last Admin: 08/28/17 15:11 Dose: 2.5 mg - Exam Quality Assessment: Supplemental Oxygen, DVT Prophylaxis. No: Central Line/PICC , Urine Catheter, Skin Breakdown, Restraints General: Alert, Oriented, Cooperative, No Acute Distress HEENT: Pupils Equal, Pupils Reactive, EOMI, Mucous Membr. Moist/[place], Other ( Persistent mild right-sided conjunctival injection with improved/resolved previous anisocoria persistent mildly purulent drainage; no foreign body sensation or pain in the right eye despite current infection). No: Scleral Icterus Neck: Supple, Trachea Midline, No JVD, No Thyromegaly, Carotid Bruit (Moderate bilateral carotid bruits versus transmitted heart sounds). No: Lymphadenopathy , Thyromegaly Lungs: Normal Respiratory Effort, Rales (Mild bilateral basilar rales). No: Rhonchi, Rub, Wheezing Cardiovascular: Regular Rhythm, Tachycardia (As above), Murmurs (3/6 RAYSHAWN of the aortic valve with 2/6 RAYSHAWN at the mitral valve). No: Gallops, Rubs GI/Abdominal Exam: Normal Bowel Sounds, Soft, Non-Tender, No Organomegaly, No Distention, No Abnormal Bruit, No Mass. No: Guarding (Female) Exam: Deferred Back Exam: Normal Inspection, Full Range of Motion. No: CVA Tenderness (L), CVA Tenderness (R), Muscle Spasm Extremities: Normal Inspection, Normal Range of Motion, Non-Tender, No Pedal Edema, Normal Capillary Refill. No: Rj's Sign Peripheral Pulses: 2+: Radial (L), Radial (R), Dorsalis Pedis (L), Dorsalis Pedis (R) Skin: Rash (Somewhat improved +2 to +3 erythema in the right periorbital region with no significant drainage and improved vesicular formation) Wound/Incisions: Healing Well, Erythema Improving Neurological: No New Focal Deficit Psy/Mental Status: Alert, Normal Affect, Normal Mood. No: Agitated, Hallucinations, Withdrawal Symptoms EKG INTERPRETATION EKG Date: 08/29/17 Time: 07:28 Rhythm: Other (Sinus tachycardia) Rate (Beats/Min): 106 [place]: Normal (Neutral) P-Wave: Enlarged (Mild diffuse biphasic P waves) QRS: Normal (QRS interval of 0.09 seconds representing repolarization changes with T-wave inversion in lead V1 and extreme poor R-wave progression in the anterior leads) ST-T: Normal QT: Normal MS/PQ Interval: 0.14 seconds with no delta waves noted Comparison: NA - No Prior EKG (No recent EKG for comparison) EKG Interpretation Comments: 1. Sinus tachycardia 2. Left Atrial enlargement - Problem List & Annotations (1) Herpes zoster ophthalmicus SNOMED Code(s): 99302819 Code(s): B02.30 - ZOSTER OCULAR DISEASE, UNSPECIFIED Status: Acute Priority: High Current Visit: Yes Onset Date: ~08/26/17 Annotation/Comment :: Right eye viral culture still pending. Still clinical evidence of herpes zoster ophthalmicus. IV acyclovir therapy and topical Viroptic initiated in the emergency room and will be continued at this time. Ophthalmology consultation depending on her clinical course. Further hospital transfer, etc., if symptoms remain refractory. Note significant mildly progressive lymphocytosis secondary to current viral infection additional mild progression of her CRP elevation with no direct evidence or history of leukemia, etc. in past. Further workup depending on her clinical course (2) Cellulitis SNOMED Code(s): 162123433 Code(s): L03.90 - CELLULITIS, UNSPECIFIED Status: Acute Priority: High Current Visit: Yes Onset Date: 08/26/17 Qualifiers: Site of cellulitis: face Qualified Code(s): L03.211 - Cellulitis of face Annotation/Comment:: Secondary to progressive CRP elevation and leukocytosis additional IV vancomycin therapy to be initiated today. IV Rocephin initiated in the emergency room and this will be continued at this time. Note positive eye culture for possible Haemophilus as above. Continue during inpatient care. CT of the maxillofacial region was conducted earlier this morning with final report pending. employee relations assistant physician assumes care in a.m. I will follow the patient once again on 08/31. (3) Aortic valve stenosis SNOMED Code(s): 42785352 Code(s): I35.0 - NONRHEUMATIC AORTIC (VALVE) STENOSIS Status: Acute Priority: Medium Current Visit: Yes Onset Date: 03/31/16 Qualifiers: Cardiac valve disease etiology: nonrheumatic Qualified Code(s): I35.0 - Nonrheumatic aortic (valve) stenosis Annotation/Comment:: No chest pain or anginal complaints. Negative EKG and cardiac enzymes with exception of mild change in troponin I secondary to her CHF. Initiate Toprol-XL therapy this morning. Note recent echocardiogram on 03/31. Continue telemetry for now. Note sinus tachycardia with no direct evidence of sepsis with normal lactic acid level on admission. TSH normal this morning. Note mild persistent tachycardia this morning (4) CHF (congestive heart failure) SNOMED Code(s): 89929021 Code(s): I50.9 - HEART FAILURE, UNSPECIFIED Status: Acute Current Visit: Yes Qualifiers: Congestive heart failure type: combined Congestive heart failure chronicity : acute on chronic Qualified Code(s): I50.43 - Acute on chronic combined systolic (congestive) and diastolic (congestive) heart failure Annotation/Comment:: Initiate IV Lasix today. Repeat cardiac enzymes and blood work in 2 days. Note recent echocardiogram as above (5) Sinus tachycardia SNOMED Code(s): 62988255 Code(s): R00.0 - TACHYCARDIA, UNSPECIFIED Status: Acute Priority: Medium Current Visit: Yes Onset Date: 08/28/17 Annotation/Comment:: As above. Low-dose IV Lopressor given in the emergency room with initial overall good results. (6) Hyperlipidemia SNOMED Code(s): 97759584 Code(s): E78.5 - HYPERLIPIDEMIA, UNSPECIFIED Status: Chronic Priority: Medium Current Visit: Yes Qualifiers: Hyperlipidemia type: unspecified Qualified Code(s): E78.5 - Hyperlipidemia , unspecified Annotation/Comment:: Observe for now with no current medical therapy (7) Mixed anxiety depressive disorder SNOMED Code(s): 067741738 Code(s): F41.8 - OTHER SPECIFIED ANXIETY DISORDERS Status: Chronic Priority: Medium Current Visit: Yes Annotation/Comment:: Stable by patient history (8) Osteoarthritis SNOMED Code(s): 381481840 Code(s): M19.90 - UNSPECIFIED OSTEOARTHRITIS, UNSPECIFIED SITE Status: Chronic Priority: Medium Current Visit: Yes Qualifiers: Osteoarthritis location: multiple joints Osteoarthritis type: primary Qualified Code(s): M15.0 - Primary generalized (osteo)arthritis Annotation/Comment:: Stable by patient history with no history of gout however note previous history of urolithiasis (9) Peptic reflux disease SNOMED Code(s): 28812653 Code(s): K21.9 - GASTRO-ESOPHAGEAL REFLUX DISEASE WITHOUT ESOPHAGITIS Status: Chronic Priority: Medium Current Visit: Yes Annotation/Comment:: Stable by history (10) Hyperglycemia SNOMED Code(s): 06779497 Code(s): R73.9 - HYPERGLYCEMIA, UNSPECIFIED Status: Chronic Priority: Medium Current Visit: Yes Annotation/Comment:: Elevated random glucose in the emergency room. Glycosylated hemoglobin is normal today. (11) Hypoalbuminemia SNOMED Code(s): 048949545 Code(s): E88.09 - OTH DISORDERS OF PLASMA-PROTEIN METABOLISM, NEC Status: Acute Priority: Medium Current Visit: Yes Onset Date: 08/29/17 Annotation/Comment:: Initiate high-protein Glucerna supplements as snacks (12) UTI (urinary tract infection) SNOMED Code(s): 74107767 Code(s): N39.0 - URINARY TRACT INFECTION, SITE NOT SPECIFIED Status: Acute Priority: Medium Current Visit: Yes Onset Date: 08/29/17 Qualifiers: Urinary tract infection type: acute cystitis Annotation/Comment:: Possible UTI versus contamination. Urine culture and sensitivity pending. Note above antibiotic therapy (13) Anemia SNOMED Code(s): 496491951 Code(s): D64.9 - ANEMIA, UNSPECIFIED Status: Acute Current Visit: Yes Onset Date: 08/29/17 Qualifiers: Anemia type: unspecified type Qualified Code(s): D64.9 - Anemia, unspecified Annotation/Comment:: Mild progressive anemia today with no abdominal pain or evidence of GI bleed. Repeat CBC in the a.m. Hemoccults ordered. Further workup depending on her clinical course - Problem List Review Problem List Initiated/Reviewed/Updated: Yes - My Orders Last 24 Hours: My Active Orders 08/28/17 17:36 Anti-Embolism Stockings AK [Antiembolic Hose] [OM.PC] Routine Resuscitation Status Routine 08/28/17 17:37 Communication Order [RC] ROUTINE CULTURE URINE [RM] Routine DVT/VTE Prophylaxis Reflex [OM.PC] Routine 08/28/17 17:39 Daily Weight [Height and Weight] [RC] DAILY Intake and Output Strict [RC] ASDIRECTED GM Immunization Reflex [OM.PC] Click To Edit 08/28/17 17:40 Oxygen Therapy [RC] PRN OCCULT BLOOD DIAGNOSTIC [OP] Stat 08/28/17 17:41 Pulse Oximetry [RC] ASDIRECTED 08/28/17 17:42 Up With Assistance [RC] ASDIRECTED Vital Signs [RC] Q4HR Acetaminophen [Tylenol] 650 mg PO Q4H PRN Sodium Chloride 0.9% [Saline Flush] 10 ml FLUSH Q12H PRN Temazepam [Restoril] 15 mg PO BEDTIME PRN 08/28/17 17:43 Antiembolic Devices [RC] .Routine Antiembolic Devices [RC] 08,20 VTE/DVT Education [RC] PER UNIT ROUTINE 08/28/17 Dinner Heart Healthy Diet [DIET] 08/29/17 05:11 EKG Documentation Completion [RC] ASDIRECTED Chest 2V [CR] Routine Max Facial Sinus wo Cont [CT] Routine 08/29/17 07:05 CBC WITH AUTO DIFF [HEME] Routine 08/29/17 08:00 Lutein Extract/Zeaxanthin Ext [Lutein 15 MG Softgel] 1 cap PO DAILY - Assessment Assessment:: As above - Plan Plan:: As above. Anticipate an additional 2-3 days of inpatient care. Extensive precautions were given to the patient, who is in agreement with the treatment plan.
[2017-08-29] MEDS: Metoprolol Succinate 25 MG Tab.ER PO SCH (10:33)
[2017-08-29] MEDS: Furosemide 40 MG/4 ML VIAL IVPUSH SCH ×3 (10:33→23:34)
[2017-08-29] MEDS: Potassium Chloride 20 MEQ Tab.ER PO SCH ×2 (10:33→17:37)
--- NOTE | 2017-08-29 13:26 | PCM.SN ---
- Free Text/Narrative Note: Telephone consultation at 13:15 hours with the radiology department at [facility] in [place] discussing CT scan with IV contrast of the maxillofacial region. Positive findings for ethmoid sinus and facial abscess with mild preseptal ocular involvement. Patient informed of the above test results. Continue aggressive antibiotic therapy as above. Patient may need possible transfer to [place] in the future versus outpatient care for ENT evaluation and treatment. Continue IV antibiotics therapy secondary to suspicions of concomitant herpes zoster ophthalmicus.
[2017-08-29] MEDS: cefTRIAXone 1 GM in Sodium Chloride 0.9% 100 ML IV SCH ×2 (14:36→23:33)
[2017-08-30] MEDS: Sodium Chloride 0.9% 10 ML Syringe FLUSH PRN ×3 (03:44→13:25)
[2017-08-30] MEDS: Potassium Chloride 20 MEQ Tab.ER PO SCH (08:05)
[2017-08-30] MEDS: TRIFLURIDINE EYERT SCH ×2 (08:06→11:29)
[2017-08-30] MEDS: Metoprolol Succinate 25 MG Tab.ER PO SCH (08:06)
[2017-08-30] MEDS: Furosemide 40 MG/4 ML VIAL IVPUSH SCH (09:52)
--- NOTE | 2017-08-30 10:18 | PCM.DCSUM1 ---
Discharge Summary - Hospital Course Brief History: Patient admitted for treatment of will-ocular infection - Discharge Data Discharge Date: 08/30/17 Discharge Disposition: Home, Self-Care 01 Condition: Good - Discharge Diagnosis/Problem(s) (1) Cellulitis SNOMED Code(s): 270086612 ICD Code: L03.90 - CELLULITIS, UNSPECIFIED Status: Acute Priority: High Current Visit: Yes Onset Date: 08/26/17 Problem Details: Patient currently receiving IV Vancomycin and IV Rocephin. Note positive eye culture for possible Haemophilus as above. Continue during inpatient care. CT of the maxillofacial region showed area suspicious for Ethmoid sinus/facial abscess eith preseptal ocular involvment. Qualifiers: Site of cellulitis: face Qualified Code(s): L03.211 - Cellulitis of face (2) Herpes zoster ophthalmicus SNOMED Code(s): 14452604 ICD Code: B02.30 - ZOSTER OCULAR DISEASE, UNSPECIFIED Status: Acute Priority: High Current Visit: Yes Onset Date: ~08/26/17 Problem Details: Right eye viral culture still pending. Still clinical evidence of herpes zoster ophthalmicus. IV acyclovir therapy and topical Viroptic initiated in the emergency room. (3) Lymphocytosis SNOMED Code(s): 12868270 ICD Code: D72.820 - LYMPHOCYTOSIS (SYMPTOMATIC) Status: Acute Priority: High Current Visit: Yes Onset Date: Unknown Problem Details: Continued increasing WBC count with significant portion comprised of lymphocytes. (4) Aortic valve stenosis SNOMED Code(s): 35339005 ICD Code: I35.0 - NONRHEUMATIC AORTIC (VALVE) STENOSIS Status: Acute Priority: Medium Current Visit: Yes Onset Date: 03/31/16 Problem Details: No chest pain or anginal complaints. Negative EKG and cardiac enzymes with exception of mild change in troponin I secondary to her CHF. Initiated Toprol- XL therapy. Note recent echocardiogram on 03/31/16. Telemetry during stay. No direct evidence of sepsis. Normal lactic acid level. TSH normal. Note mild persistent tachycardia. Qualifiers: Cardiac valve disease etiology: nonrheumatic Qualified Code(s): I35.0 - Nonrheumatic aortic (valve) stenosis (5) Hyperglycemia SNOMED Code(s): 14888033 ICD Code: R73.9 - HYPERGLYCEMIA, UNSPECIFIED Status: Chronic Priority: Medium Current Visit: Yes Problem Details: Elevated random glucose in the emergency room. Glycosylated hemoglobin is normal. (6) Sinus tachycardia SNOMED Code(s): 66922679 ICD Code: R00.0 - TACHYCARDIA, UNSPECIFIED Status: Acute Priority: Medium Current Visit: Yes Onset Date: 08/28/17 Problem Details: As above. Low-dose IV Lopressor given in the emergency room with initial overall good results. (7) Hyperlipidemia SNOMED Code(s): 15008890 ICD Code: E78.5 - HYPERLIPIDEMIA, UNSPECIFIED Status: Chronic Priority: Medium Current Visit: Yes Problem Details: Observe for now with no current medical therapy Qualifiers: Hyperlipidemia type: unspecified Qualified Code(s): E78.5 - Hyperlipidemia , unspecified (8) Mixed anxiety depressive disorder SNOMED Code(s): 443556110 ICD Code: F41.8 - OTHER SPECIFIED ANXIETY DISORDERS Status: Chronic Priority: Medium Current Visit: Yes Problem Details: Stable by patient history (9) Osteoarthritis SNOMED Code(s): 404851099 ICD Code: M19.90 - UNSPECIFIED OSTEOARTHRITIS, UNSPECIFIED SITE Status: Chronic Priority: Medium Current Visit: Yes Problem Details: Stable by patient history with no history of gout however note previous history of urolithiasis Qualifiers: Osteoarthritis location: multiple joints Osteoarthritis type: primary Qualified Code(s): M15.0 - Primary generalized (osteo)arthritis (10) Peptic reflux disease SNOMED Code(s): 46081749 ICD Code: K21.9 - GASTRO-ESOPHAGEAL REFLUX DISEASE WITHOUT ESOPHAGITIS Status: Chronic Priority: Medium Current Visit: Yes Problem Details: Stable by history (11) Anemia SNOMED Code(s): 584346469 ICD Code: D64.9 - ANEMIA, UNSPECIFIED Status: Acute Current Visit: Yes Onset Date: 08/29/17 Problem Details: Mild progressive anemia noted. Stable today. Qualifiers: Anemia type: unspecified type Qualified Code(s): D64.9 - Anemia, unspecified (12) CHF (congestive heart failure) SNOMED Code(s): 60432304 ICD Code: I50.9 - HEART FAILURE, UNSPECIFIED Status: Acute Current Visit : Yes Problem Details: Initiate IV Lasix. Note recent echocardiogram as above Qualifiers: Congestive heart failure type: combined Congestive heart failure chronicity : acute on chronic Qualified Code(s): I50.43 - Acute on chronic combined systolic (congestive) and diastolic (congestive) heart failure (13) Hypoalbuminemia SNOMED Code(s): 449917320 ICD Code: E88.09 - OTH DISORDERS OF PLASMA-PROTEIN METABOLISM, NEC Status: Acute Priority: Medium Current Visit: Yes Onset Date: 08/29/17 Problem Details: Initiate high-protein Glucerna supplements as snacks (14) UTI (urinary tract infection) SNOMED Code(s): 77806264 ICD Code: N39.0 - URINARY TRACT INFECTION, SITE NOT SPECIFIED Status: Acute Priority: Medium Current Visit: Yes Onset Date: 08/29/17 Problem Details: Possible UTI versus contamination. Urine culture and sensitivity pending. Note above antibiotic therapy Qualifiers: Urinary tract infection type: acute cystitis - Patient Summary/Data Complications: None Hospital Course: Patient treated with IV Vanco, Rocephin, Acyclovir. Eye discomfort improved overall. CT however shows area concerning for possible abscess. Additionally, patient continues to have increasingly elevated WBC/lymphocytosis. Cannot rule out possible leukemia. Discussed patient with , hospitalist at [facility] [place] that patient would benefit from transfer in order to obtain ENT/ Ophth consult. May need involvement of Heme Onc. - Discharge Plan Home Medications: Home Meds Multivitamin [Multivitamins] 1 each PO DAILY 12/05/13 [History] [place]-3/DHA/Epa/Fish Oil [Fish Oil Dr 500 mg Softgel] 1,000 mg PO DAILY [History] Calcium Carbonate/Vitamin D3 [Calcium 1,000 + D3 Caplet] 1 tab PO DAILY [History] Cholecalciferol (Vitamin D3) [Vitamin D3] 1,000 unit PO DAILY 02/23/17 [History] Lutein Extract/Zeaxanthin Ext [Lutein 15 MG Softgel] 1 cap PO DAILY 02/23/17 [ History] Vitamin E 1,000 unit PO DAILY 08/28/17 [History] Patient Handouts: Contact Precautions, Ceftriaxone injection, Shingles, Easy-to -Read, Acyclovir injection Forms: ED Department Discharge Referrals: Flor Frias PA [Primary Care Provider] - - Discharge Summary/Plan Comment DC Time >30 min.: Yes (Waiting for bed to become available at [facility]. ) - General Info Date of Service: 08/30/17 Admission Dx/Problem (Free Text: 1. Herpes zoster ophthalmicus 2. Right periorbital cellulitis Subjective Update: Patient continues to have some crusting/weeping involving right eye. Mild self- reported vision change. Itchy. No overall change from yesterday. Denies worsening symptoms. Functional Status: Reports: Pain Controlled, Tolerating Diet, Ambulating, Urinating. Denies: New Symptoms - Review of Systems General: Reports: No Symptoms HEENT: Reports: Glasses, Visual Changes, Other (Redness/irritation/swelling around right eye, moreso underneath. Some report of mild throat discomfort/ sinus congestion. ) Pulmonary: Reports: No Symptoms Cardiovascular: Reports: No Symptoms Gastrointestinal: Reports: No Symptoms Genitourinary: Reports: No Symptoms Musculoskeletal: Reports: No Symptoms Skin: Reports: Pruritis, Other (see above) Neurological: Reports: No Symptoms Psychiatric: Reports: No Symptoms - Patient Data Vitals - Most Recent: Last Vital Signs Temp 36.8 C 08/30/17 06:00 Pulse 118 H 08/30/17 08:06 Resp 18 08/30/17 06:00 BP 114/54 L 08/30/17 08:06 Pulse Ox 94 L 08/30/17 06:00 Weight - Most Recent: 50.984 kg I&O - Last 24 hours: Intake & Output 08/29/17 08/30/17 08/30/17 22:59 06:59 14:59 Intake Total 240 700 120 Output Total 300 1200 Balance -60 -500 120 Lab Results - Last 24 hrs: Laboratory Results - last 24 hr 08/30/17 08/30/17 08/30/17 Range/Units 06:40 06:40 06:40 WBC 37.0 H (4.0-10.2) K/uL RBC 3.96 (3.77-5.09) M/uL Hgb 11.9 (11.7-15.5) g/dL Hct 36.7 (34.0-46.0) % MCV 92.7 (84.0-98.0) fL MCH 30.1 (28.2-33.3) pg MCHC 32.4 (31.7-36.0) g/dL RDW 13.7 (11.2-14.1) % Plt Count 266 (150-350) K/uL Add Manual Diff Yes Neutrophils % (Manual) 16 Lymphocytes % (Manual) 79 Monocytes % (Manual) 2 Eosinophils % (Manual) 3 Absolute Neutrophils 5.9200 Lymphocytes # (Manual) 29.2300 Monocytes # (Manual) 0.7400 Eosinophils # (Manual) 1.1100 Sodium 143 (136-145) mmol/L Potassium 3.5 (3.5-5.1) mmol/L Chloride 105 (98-107) mmol/L Carbon Dioxide 27.8 (21.0-32.0) mmol/L BUN 24 H (7-18) mg/dL Creatinine 0.90 (0.51-1.17) mg/dL Est Cr Clr Drug Dosing 39.38 mL/min Estimated GFR (MDRD) 60 mL/min Glucose 104 (74-106) mg/dL Lactic Acid 0.9 (0.4-2.0) mmol/L Calcium 8.8 (8.5-10.1) mg/dL CELE Results - Last 24 hrs: Microbiology 08/29/17 05:00 Urine Culture - Preliminary Urine, Clean Catch NO GROWTH AFTER 1 DAY Med Orders - Current: Current Medications Acetaminophen (Tylenol) 650 mg PO Q4H PRN PRN Reason: Pain (Mild 1-3)/fever Furosemide (Lasix) 40 mg IVPUSH Q12H [facility] Last Admin: 08/30/17 09:52 Dose: 40 mg Ceftriaxone Sodium 1 gm/ (Sodium Chloride) 100 mls @ 200 mls/hr IV Q12H [facility] Last Admin: 08/29/17 23:33 Dose: 200 mls/hr Acyclovir 1,000 mg/ Sodium (Chloride) 250 mls @ 250 mls/hr IV Q8H [facility] Last Admin: 08/30/17 03:43 Dose: 250 mls/hr Vancomycin HCl 1 gm/ Dextrose/ (Water) 250 mls @ 165 mls/hr IV Q24H [facility] Last Admin: 08/29/17 12:39 Dose: 165 mls/hr Metoprolol Succinate (Toprol Xl) 25 mg PO DAILY [facility] Last Admin: 08/30/17 08:06 Dose: 25 mg Potassium Chloride (Klor-Con M20) 20 meq PO BID [facility] Last Admin: 08/30/17 08:05 Dose: 20 meq Sodium Chloride (Saline Flush) 10 ml FLUSH ASDIRECTED PRN PRN Reason: Keep Vein Open Last Admin: 08/30/17 09:53 Dose: 10 ml Sodium Chloride (Saline Flush) 10 ml FLUSH Q12H PRN PRN Reason: Keep Vein Open Temazepam (Restoril) 15 mg PO BEDTIME PRN PRN Reason: Insomnia Trifluridine (Viroptic 1% Ophth Soln) 1 ml EYERT QID [facility] Last Admin: 08/30/17 08:06 Dose: 3 drop Discontinued Medications Iopamidol (Isovue-300 (61%)) 100 ml IVPUSH ONETIME ONE Stop: 08/29/17 08:00 Last Admin: 08/29/17 17:38 Dose: 100 ml Metoprolol Tartrate (Lopressor) 2.5 mg IVPUSH ONETIME ONE Stop: 08/28/17 15:03 Last Admin: 08/28/17 15:11 Dose: 2.5 mg Non-Formulary Medication (Lutein Extract/Zeaxanthin Ext [Lutein 15 Mg Softgel]) 1 cap PO DAILY [facility] Last Admin: 08/29/17 15:59 Dose: Not Given - Exam General: Reports: Alert, Oriented, Cooperative, No Acute Distress HEENT: Reports: Pupils Equal, Pupils Reactive, EOMI, Mucous Membr. Moist/[place], Other (mild edema upper and lower lids right eye, swollen/red/firm under right eye. Some crusting. ) Neck: Reports: Supple Lungs: Reports: Clear to Auscultation, Normal Respiratory Effort Cardiovascular: Reports: Regular Rhythm, Tachycardia, Murmurs GI/Abdominal Exam: Normal Bowel Sounds, Soft, Non-Tender (Female) Exam: Deferred Rectal (Female) Exam: Deferred Back Exam: Reports: Normal Inspection Extremities: Normal Inspection, Normal Range of Motion, Non-Tender, No Pedal Edema, Normal Capillary Refill Skin: Reports: Warm, Rash (see above) Neurological: Reports: No New Focal Deficit *Q Meaningful Use (DIS) - VTE *Q VTE Criteria *Q: - Stroke *Q Stroke Criteria *Q: - AMI *Q AMI Criteria *Q:
[2017-08-30 12:35] VITALS: BP 104/62
[2017-08-30] MEDS: cefTRIAXone 1 GM in Sodium Chloride 0.9% 100 ML IV SCH (13:21)
== END 2017-08-30 14:37 | DRG 602 ==
LOC: LL.ED 11:10 → LL.MS 16:01
PROVIDERS: ADMIT Family Medicine; ATTEND Family Medicine
DX: L03.213 Periorbital cellulitis (principal); L03.90 Cellulitis, unspecified; I50.43 Acute on chronic combined systolic (congestive) and diastolic (congestive) heart failure; B02.30 Zoster ocular disease, unspecified; I42.9 Cardiomyopathy, unspecified; N39.0 Urinary tract infection, site not specified; L03.211 Cellulitis of face; D72.820 Lymphocytosis (symptomatic); I10 Essential (primary) hypertension; R00.0 Tachycardia, unspecified; R73.9 Hyperglycemia, unspecified; M19.90 Unspecified osteoarthritis, unspecified site; K21.9 Gastro-esophageal reflux disease without esophagitis; E78.5 Hyperlipidemia, unspecified; I35.0 Nonrheumatic aortic (valve) stenosis; F41.8 Other specified anxiety disorders; K80.20 Calculus of gallbladder without cholecystitis without obstruction; N28.1 Cyst of kidney, acquired; H54.7 Unspecified visual loss; R32 Unspecified urinary incontinence; I11.0 Hypertensive heart disease with heart failure; D64.9 Anemia, unspecified
CPT/HCPCS: 96365; 96367; 99284; 85025; 36415; 80053; 83605; 86140; 87070; 87040 ×2; 87252; 87077; J0133; J0696; J7050 ×4; 70487; 71020; 80048; 80061; 81001; 82550; 82553; 83036; 83735; 83880; 84443; 84484; 84550; 87086; 87186; 93005; A9270-GY; J1940; J3370; J3490; J7060; Q9967

== ENCOUNTER 2018-04-14 18:48 | Emergency (ER) | payer MEDICARE, OTHER ==
[2018-04-14 19:18] VITALS: BP 131/45
[2018-04-14] MEDS: Ondansetron 4 MG/2 ML SDV IM SCH (19:33)
--- NOTE | 2018-04-14 19:35 | EDM.PDOC ---
ED HPI GENERAL MEDICAL PROBLEM - General Chief Complaint: Abdominal Pain Stated Complaint: lower abdominal cramping and nausea with dry heave Time Seen by Provider: 04/14/18 19:00 Source of Information: Reports: Patient History Limitations: Reports: No Limitations - History of Present Illness INITIAL COMMENTS - FREE TEXT/NARRATIVE: patient is a 87-year-old active female who is seen in the ER with chief complaint of lower abdominal cramping pain denies vomiting or diarrhea does have nausea this is been going on for the past 24 hours. Onset: Today Duration: Hour(s):, Intermittent Location: Reports: Abdomen Quality: Reports: Ache, Other (crampy) Severity: Mild Improves with: Reports: None Worsens with: Reports: None Context: Reports: Other Associated Symptoms: Reports: No Other Symptoms Lower Abdominal Pain Score (Numeric/FACES): 4 - Related Data Allergies Allergy/AdvReac Type Severity Reaction Status Date / Time No Known Allergies Allergy Verified 04/14/18 18:50 Home Meds: Home Meds Multivitamin [Multivitamins] 1 each PO DAILY 12/05/13 [History] [place]-3/DHA/Epa/Fish Oil [Fish Oil Dr 500 mg Softgel] 1,000 mg PO DAILY [History] Calcium Carbonate/Vitamin D3 [Calcium 1,000 + D3 Caplet] 1 tab PO DAILY [History] Cholecalciferol (Vitamin D3) [Vitamin D3] 1,000 unit PO DAILY 02/23/17 [History] Lutein Extract/Zeaxanthin Ext [Lutein 15 MG Softgel] 1 cap PO DAILY 02/23/17 [ History] Vitamin E 1,000 unit PO DAILY 08/28/17 [History] Past Medical History HEENT History: Reports: Cataract, Impaired Vision Other HEENT History: Wears glasses Cardiovascular History: Reports: Cardiomyopathy, Heart Murmur, High Cholesterol , Hypertension Other Cardiovascular History: Severe aortic valve stenosis and moderate left atrial enlargement with additional grade 1 diastolic dysfunction initially diagnosed by echocardiogram on 03/31/16 with persistent mild mitral valve insufficiency, tricuspid valve insufficiency and pulmonary valve insufficiency by previous echocardiogram as below Respiratory History: Reports: None, Intubation, Previous Gastrointestinal History: Reports: Cholelithiasis, Colon Polyp, Diverticulosis, Fecal Incontinence, Gastritis, GERD, Hemorrhoids, Other (See Below) Other Gastrointestinal History: 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 Recurrent benign colonic polyps including removal of tubular adenoma from the ascending colon 12/05/13 and history of tubulovillous adenoma of the ascending colon and benign polyp of the transverse colon at time of colonoscopy on 03/28/13 with no evidence of recurrence at time of last colonoscopy as below Genitourinary History: Reports: Pyelonephritis, Renal Calculus, Urinary Incontinence, Other (See Below) Other Genitourinary History: history of urolithiasis with procedure as below but side not known AERODYNAMICIST History: Reports: , Prolapsed Uterus Musculoskeletal History: Reports: Arthritis, Back Pain, Chronic, Fracture, Neck Pain, Chronic, Osteoarthritis, Osteoporosis, Other (See Below) Other Musculoskeletal History: L1 compression fracture Neurological History: Reports: None Psychiatric History: Reports: Anxiety, Depression, Other (See Below) Other Psychiatric History: Anxiety depression disorder not currently requiring medical therapy Endocrine/Metabolic History: Reports: Osteopenia, Osteoporosis, Other (See Below ) Other Endocrine/Metabolic History: Borderline hyperglycemia Hematologic History: Reports: None Immunologic History: Reports: None Oncologic (Cancer) History: Reports: None Dermatologic History: Reports: Seborrheic Dermatitis, Other (See Below) Other Dermatologic History: Seborrheic dermatitis of the scalp region - Infectious Disease History Infectious Disease History: Reports: Chicken Pox, Measles, Mumps, Shingles - Past Surgical History Head Surgeries/Procedures: Reports: None HEENT Surgical History: Reports: Cataract Surgery, Oral Surgery, Other (See Below) Other HEENT Surgeries/Procedures: [place] teeth extraction 4 in the , right cataract surgery in about 2013 Cardiovascular Surgical History: Reports: None Respiratory Surgical History: Reports: None GI Surgical History: Reports: Colonoscopy, Polypectomy, Other (See Below) Other GI Surgeries/Procedures: Last colonoscopy on 02/23/17 with no recurrence of her previous colonic polyps with previous colonoscopies on 03/06/08, 11/15/04, and 12/05/13, previous distal rectosigmoid bowel resection secondary to benign colonic tumor in October 2000 Female Surgical History: Reports: Hysterectomy, Lithotripsy/ESWL, Oophorectomy, Salpingo-Oophorectomy, Other (See Below) Other Female Surgeries/Procedures: Hysterectomy with left-sided oophorectomy secondary to uterine prolapse in 1983, incidental right salpingo-oophorectomy at time of sigmoid resection in October 2000, lithotripsy in about 2004 Endocrine Surgical History: Reports: None Neurological Surgical History: Reports: None Musculoskeletal Surgical History: Reports: None Oncologic Surgical History: Reports: None Dermatological Surgical History: Reports: None - Past Imaging History Past Imaging History: Reports: Cardiac Echo (Last echocardiogram on 03/31/16 with ejection fraction of greater than 70% with findings as above with previous echocardiogram on 03/08/13 with ejection fraction of 66%), CAT Scan (CT of the chest, abdomen and pelvis on 08/13/09), DEXA Scan (Last on 03/15/11), Mammogram ( Last on 08/10/17) Social & Family History - Family History HEENT: Reports: None Cardiac: Reports: CAD, Heart Failure, High Cholesterol, Hypertension, PA, Other (See Below) Other Cardiac Family History: Father with fatal PA and CHF at age 79, daughter with hyperlipidemia, sister with hypertension Respiratory: Reports: None GI: Reports: None : Reports: None OBGYN: Reports: None Musculoskeletal: Reports: Arthritis, Gout, Osteoarthritis, Osteoporosis, Other ( See Below) Other Musculoskeletal Family History: Sister with osteoarthritis, father with gout Neurological: Reports: Other (See Below) Other Neurological Family History: Daughter with cavernous malformation requiring surgery some mild secondary dystaxia and weakness Psychiatric: Reports: None Endocrine/Metabolic: Reports: Diabetes, type II, Other (See Below) Other Endocrine/Metabolic Family History: Father with diabetes mellitus Hematologic: Reports: None Immunologic: Reports: None Dermatologic: Reports: None Oncologic: Reports: None - Tobacco Use Smoking Status *Q: Never Smoker Second Hand Smoke Exposure: No - Caffeine Use Caffeine Use: Reports: Coffee - Recreational Drug Use Recreational Drug Use: No - Living Situation & Occupation Living situation: Reports: (2006, 3 children), with Family (Daughter) Occupation: Retired ([employer] ) ED ROS GENERAL - Review of Systems Review Of Systems: See Below Constitutional: Reports: Weakness HEENT: Reports: No Symptoms Respiratory: Reports: No Symptoms Cardiovascular: Reports: No Symptoms Endocrine: Reports: No Symptoms GI/Abdominal: Reports: Nausea, Other (abdominal cramping) : Reports: No Symptoms Musculoskeletal: Reports: No Symptoms Skin: Reports: No Symptoms ED EXAM, GI/ABD - Physical Exam Exam: See Below Exam Limited By: No Limitations General Appearance: Alert, WD/WN, No Apparent Distress Ears: Normal External Exam, Normal Canal, Hearing Grossly Normal, Normal TMs Nose: Normal Inspection, Normal Mucosa, No Blood Throat/Mouth: Normal Inspection, Normal Lips, Normal Teeth, Normal Gums, Normal Oropharynx, Normal Voice, No Airway Compromise Head: Atraumatic, Normocephalic Neck: Normal Inspection, Supple, Non-Tender, Full Range of Motion Respiratory/Chest: No Respiratory Distress, Lungs Clear, Normal Breath Sounds, No Accessory Muscle Use, Chest Non-Tender Cardiovascular: Systolic Murmur GI/Abdominal Exam: Normal Bowel Sounds, Soft, Non-Tender, No Organomegaly, No Distention, No Abnormal Bruit, No Mass (Female) Exam: Normal Bimanual Exam, Deferred Rectal (Female) Exam: Deferred Back Exam: Normal Inspection, Full Range of Motion, NT Extremities: Normal Inspection, Normal Range of Motion, Non-Tender, Normal Capillary Refill, No Pedal Edema Neurological: Alert, Oriented, CN II-XII Intact, Normal Cognition, Normal Gait, Normal Reflexes, No Motor/Sensory Deficits Psychiatric: Normal Affect, Normal Mood Skin Exam: Warm, Dry, Intact, Normal Color, No Rash Course - Vital Signs Last Recorded V/S: Last Vital Signs Temp 97.5 F 04/14/18 18:53 Pulse 101 H 04/14/18 18:53 Resp 18 04/14/18 18:53 BP 131/45 L 04/14/18 19:17 Pulse Ox 98 04/14/18 18:53 - Orders/Labs/Meds Orders: Active Orders 24 hr Category Date Time Status UA W/MICROSCOPIC [URIN] Stat Lab 04/14/18 19:37 Ordered Ondansetron [Zofran] Med 04/14/18 19:30 Active 4 mg IM Q8H Medication Orders Ondansetron HCl (Zofran) 4 mg IM Q8H [facility] Last Admin: 04/14/18 19:33 Dose: 4 mg Labs: Laboratory Tests 04/14/18 04/14/18 04/14/18 Range/Units 19:37 19:40 19:44 WBC 25.4 H (4.0-10.2) K/uL RBC 4.24 (3.77-5.09) M/uL Hgb 12.7 (11.7-15.5) g/dL Hct 39.6 (34.0-46.0) % MCV 93.4 (84.0-98.0) fL MCH 30.0 (28.2-33.3) pg MCHC 32.1 (31.7-36.0) g/dL RDW 13.9 (11.2-14.1) % Plt Count 180 D (150-350) K/uL Neut % (Auto) 34.6 L (45.0-80.0) % Lymph % (Auto) 57.7 H (10.0-50.0) % [place] % (Auto) 7.4 (2.0-14.0) % Eos % (Auto) 0.1 (0.0-5.0) % Baso % (Auto) 0.2 (0.0-2.0) % Neut # (Auto) 8.80 H (1.40-7.00) K/uL Lymph # (Auto) 14.64 H (0.50-3.50) K/uL [place] # (Auto) 1.89 H (0.00-1.00) K/uL Eos # (Auto) 0.02 (0.00-0.50) K/uL Baso # (Auto) 0.04 (0.00-0.20) K/uL Sodium 141 (136-145) mmol/L Potassium 4.4 (3.5-5.1) mmol/L Chloride 103 (98-107) mmol/L Carbon Dioxide 26.8 (21.0-32.0) mmol/L BUN 32 H (7-18) mg/dL Creatinine 0.84 (0.51-1.17) mg/dL Est Cr Clr Drug Dosing 40.25 mL/min Estimated GFR (MDRD) > 60 mL/min Glucose 206 H (74-106) mg/dL Calcium 9.7 (8.5-10.1) mg/dL Specimen Type Urinvoid Urine Color Yellow Urine Appearance Clear Urine pH 5.5 (5.0-9.0) Ur Specific [place] 1.020 (1.005-1.030) Urine Protein 30 H (NEGATIVE) mg/dL Urine Glucose (UA) Negative (NEGATIVE) mg/dL Urine Ketones 40 H (NEGATIVE) mg/dL Urine Occult Blood Moderate H (NEGATIVE) Urine Nitrite Negative (NEGATIVE) Urine Bilirubin Negative (NEGATIVE) Urine Urobilinogen 0.2 (0.2-1.0) E.U./dL Ur Leukocyte Esterase Negative (NEGATIVE) Urine RBC 50-75 H /HPF Urine WBC 0-5 /HPF Ur Epithelial Cells Few /LPF Urine Bacteria Rare (NONE TO FEW) /HPF Meds: Medications Generic Name Dose Route Start Last Admin Trade Name Freq PRN Reason Stop Dose Admin Ondansetron HCl 4 mg 04/14/18 19:30 04/14/18 19:33 Zofran IM 4 mg Q8H [facility] Administration Departure - Departure Time of Disposition: 20:10 Disposition: Home, Self-Care 01 Condition: Fair Clinical Impression: Hematuria due to acute cystitis - Discharge Information Referrals: Venessa Husain PA-C [Primary Care Provider] - Forms: ED Department Discharge Care Plan Goals: patient will be started on peritoneum. Him 100 mg 3 times a day for 3 days and Septra DS one tablet twice a day for 7 days of Septrafollow-up with primary physician for repeat UA. Patient's glucose was greater then 200 will refer back to primary for workup - My Orders Last 24 Hours: My Active Orders 04/14/18 19:30 Ondansetron [Zofran] 4 mg IM Q8H 04/14/18 19:37 UA W/MICROSCOPIC [URIN] Stat - Assessment/Plan Last 24 Hours: My Active Orders 04/14/18 19:30 Ondansetron [Zofran] 4 mg IM Q8H 04/14/18 19:37 UA W/MICROSCOPIC [URIN] Stat
[2018-04-14 19:57] LABS: CHLORIDE,CL 103 mmol/L (98-107); SODIUM,NA 141 mmol/L (136-145)
== END 2018-04-14 20:20 | disposition home or self-care (01) ==
LOC: LL.ED 18:48
DX: N30.01 Acute cystitis with hematuria (principal); E78.00 Pure hypercholesterolemia, unspecified; I10 Essential (primary) hypertension; F41.9 Anxiety disorder, unspecified; F32.9 Major depressive disorder, single episode, unspecified; Z79.899 Other long term (current) drug therapy
CPT/HCPCS: 36415; 80048; 81001; 83036; 85025; 96372; 99284; J2405

== ENCOUNTER 2018-04-15 19:10 | Inpatient (IN) | payer MEDICARE, OTHER ==
--- NOTE | 2018-04-15 19:26 | EDM.PDOC ---
ED HPI GENERAL MEDICAL PROBLEM - General Chief Complaint: Gastrointestinal Problem Stated Complaint: abdominal cramping, dark emesis Time Seen by Provider: 04/15/18 19:17 Source of Information: Reports: Patient History Limitations: Reports: No Limitations - History of Present Illness INITIAL COMMENTS - FREE TEXT/NARRATIVE: patient is a 87-year-old who was seen yesterday with lower abdominal cramps. exam revealed good bowel sounds urine was positive for blood. patient was started on Pyridium and Septra secondary to cystitis. Today woke up with occasional crampy pain & have multiple emesis. She states that there were dark in color described as coffee-ground. Onset: Gradual Duration: Day(s):, Getting Worse, Intermittent (pain) Location: Reports: Abdomen (lower abdomen) Quality: Reports: Other (crampy) Severity: Moderate Improves with: Reports: None, Other (has not had an appetite) Worsens with: Reports: Movement Context: Reports: Other (illness) Associated Symptoms: Reports: Nausea/Vomiting Abdominal Pain Score (Numeric/FACES): 5 - Related Data Allergies Allergy/AdvReac Type Severity Reaction Status Date / Time No Known Allergies Allergy Verified 04/15/18 19:12 Home Meds: Home Meds Multivitamin [Multivitamins] 1 each PO DAILY 12/05/13 [History] [place]-3/DHA/Epa/Fish Oil [Fish Oil Dr 500 mg Softgel] 1,000 mg PO DAILY [History] Calcium Carbonate/Vitamin D3 [Calcium 1,000 + D3 Caplet] 1 tab PO DAILY [History] Cholecalciferol (Vitamin D3) [Vitamin D3] 1,000 unit PO DAILY 02/23/17 [History] Lutein Extract/Zeaxanthin Ext [Lutein 15 MG Softgel] 1 cap PO DAILY 02/23/17 [ History] Vitamin E 1,000 unit PO DAILY 08/28/17 [History] Phenazopyridine [Pyridium] 100 mg PO TID PRN 04/15/18 [History] Sulfamethoxazole/Trimethoprim [Sulfamethoxazole-Tmp Ss Tablet] 1 each PO BID 08/23 [History] Past Medical History HEENT History: Reports: Cataract, Impaired Vision Other HEENT History: Wears glasses Cardiovascular History: Reports: Cardiomyopathy, Heart Murmur, High Cholesterol , Hypertension Other Cardiovascular History: Severe aortic valve stenosis and moderate left atrial enlargement with additional grade 1 diastolic dysfunction initially diagnosed by echocardiogram on 03/31/16 with persistent mild mitral valve insufficiency, tricuspid valve insufficiency and pulmonary valve insufficiency by previous echocardiogram as below Respiratory History: Reports: None, Intubation, Previous Gastrointestinal History: Reports: Cholelithiasis, Colon Polyp, Diverticulosis, Fecal Incontinence, Gastritis, GERD, Hemorrhoids, Other (See Below) Other Gastrointestinal History: 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 Recurrent benign colonic polyps including removal of tubular adenoma from the ascending colon 12/05/13 and history of tubulovillous adenoma of the ascending colon and benign polyp of the transverse colon at time of colonoscopy on 03/28/13 with no evidence of recurrence at time of last colonoscopy as below Genitourinary History: Reports: Pyelonephritis, Renal Calculus, Urinary Incontinence, Other (See Below) Other Genitourinary History: history of urolithiasis with procedure as below but side not known [employer] History: Reports: , Prolapsed Uterus Musculoskeletal History: Reports: Arthritis, Back Pain, Chronic, Fracture, Neck Pain, Chronic, Osteoarthritis, Osteoporosis, Other (See Below) Other Musculoskeletal History: L1 compression fracture Neurological History: Reports: None Psychiatric History: Reports: Anxiety, Depression, Other (See Below) Other Psychiatric History: Anxiety depression disorder not currently requiring medical therapy Endocrine/Metabolic History: Reports: Osteopenia, Osteoporosis, Other (See Below ) Other Endocrine/Metabolic History: Borderline hyperglycemia Hematologic History: Reports: None Immunologic History: Reports: None Oncologic (Cancer) History: Reports: None Dermatologic History: Reports: Seborrheic Dermatitis, Other (See Below) Other Dermatologic History: Seborrheic dermatitis of the scalp region - Infectious Disease History Infectious Disease History: Reports: Chicken Pox, Measles, Mumps, Shingles - Past Surgical History Head Surgeries/Procedures: Reports: None HEENT Surgical History: Reports: Cataract Surgery, Oral Surgery, Other (See Below) Other HEENT Surgeries/Procedures: [place] teeth extraction 4 in the , right cataract surgery in about 2013 Cardiovascular Surgical History: Reports: None Respiratory Surgical History: Reports: None GI Surgical History: Reports: Colonoscopy, Polypectomy, Other (See Below) Other GI Surgeries/Procedures: Last colonoscopy on 02/23/17 with no recurrence of her previous colonic polyps with previous colonoscopies on 03/06/08, 11/15/04, and 12/05/13, previous distal rectosigmoid bowel resection secondary to benign colonic tumor in October 2000 Female Surgical History: Reports: Hysterectomy, Lithotripsy/ESWL, Oophorectomy, Salpingo-Oophorectomy, Other (See Below) Other Female Surgeries/Procedures: Hysterectomy with left-sided oophorectomy secondary to uterine prolapse in 1983, incidental right salpingo-oophorectomy at time of sigmoid resection in October 2000, lithotripsy in about 2004 Endocrine Surgical History: Reports: None Neurological Surgical History: Reports: None Musculoskeletal Surgical History: Reports: None Oncologic Surgical History: Reports: None Dermatological Surgical History: Reports: None - Past Imaging History Past Imaging History: Reports: Cardiac Echo (Last echocardiogram on 03/31/16 with ejection fraction of greater than 70% with findings as above with previous echocardiogram on 03/08/13 with ejection fraction of 66%), CAT Scan (CT of the chest, abdomen and pelvis on 08/13/09), DEXA Scan (Last on 03/15/11), Mammogram ( Last on 08/10/17) Social & Family History - Family History HEENT: Reports: None Cardiac: Reports: CAD, Heart Failure, High Cholesterol, Hypertension, DC, Other (See Below) Other Cardiac Family History: Father with fatal DC and CHF at age 79, daughter with hyperlipidemia, sister with hypertension Respiratory: Reports: None GI: Reports: None : Reports: None OBGYN: Reports: None Musculoskeletal: Reports: Arthritis, Gout, Osteoarthritis, Osteoporosis, Other ( See Below) Other Musculoskeletal Family History: Sister with osteoarthritis, father with gout Neurological: Reports: Other (See Below) Other Neurological Family History: Daughter with cavernous malformation requiring surgery some mild secondary dystaxia and weakness Psychiatric: Reports: None Endocrine/Metabolic: Reports: Diabetes, type II, Other (See Below) Other Endocrine/Metabolic Family History: Father with diabetes mellitus Hematologic: Reports: None Immunologic: Reports: None Dermatologic: Reports: None Oncologic: Reports: None - Caffeine Use Caffeine Use: Reports: Coffee - Living Situation & Occupation Living situation: Reports: (2006, 3 children), with Family (Daughter) Occupation: Retired ([employer] ) ED ROS GENERAL - Review of Systems Review Of Systems: See Below Constitutional: Reports: No Symptoms HEENT: Reports: No Symptoms Respiratory: Reports: No Symptoms Cardiovascular: Reports: No Symptoms Endocrine: Reports: No Symptoms GI/Abdominal: Reports: Abdominal Pain (rampy), Distension. Denies: Other : Reports: No Symptoms Musculoskeletal: Reports: No Symptoms Skin: Reports: No Symptoms Neurological: Reports: No Symptoms Psychiatric: Reports: Anxiety Hematologic/Lymphatic: Reports: No Symptoms Immunologic: Reports: No Symptoms ED EXAM, GI/ABD - Physical Exam Exam: See Below Exam Limited By: No Limitations General Appearance: Alert, WD/WN, No Apparent Distress Ears: Normal External Exam, Normal Canal, Hearing Grossly Normal, Normal TMs Nose: Normal Inspection, Normal Mucosa, No Blood Throat/Mouth: Normal Inspection, Normal Lips, Normal Teeth, Normal Gums, Normal Oropharynx, Normal Voice, No Airway Compromise Head: Atraumatic, Normocephalic Neck: Normal Inspection, Supple, Non-Tender, Full Range of Motion Respiratory/Chest: No Respiratory Distress, Lungs Clear, Normal Breath Sounds, No Accessory Muscle Use, Chest Non-Tender Cardiovascular: Systolic Murmur, Other (3/6 systolic murmur) GI/Abdominal Exam: Tender, Abnormal Bowel Sounds (hypoactive), Other (multiple emesis coffee-ground) (Female) Exam: Deferred Rectal (Female) Exam: Deferred Back Exam: Normal Inspection, Full Range of Motion, NT Extremities: Normal Inspection, Normal Range of Motion, Non-Tender, Normal Capillary Refill, No Pedal Edema Neurological: Alert, Oriented, CN II-XII Intact, Normal Cognition, Normal Gait, Normal Reflexes, No Motor/Sensory Deficits Psychiatric: Normal Affect, Normal Mood Skin Exam: Warm, Dry, Intact, Normal Color, No Rash Lymphatic: No Adenopathy Course - Vital Signs Last Recorded V/S: Last Vital Signs Temp 97.5 F 04/17/18 08:00 Pulse 118 H 04/17/18 08:00 Resp 18 04/17/18 08:00 BP 139/42 L 04/17/18 08:00 Pulse Ox 93 L 04/17/18 08:00 - Orders/Labs/Meds Orders: Active Orders 24 hr Category Date Time Status OCCULT BLOOD, GASTRIC [OP] Stat Lab 04/16/18 20:00 Ordered Medication Orders Acetaminophen (Tylenol) 650 mg PO Q4H PRN PRN Reason: Pain Last Admin: 04/16/18 20:37 Dose: 650 mg Admin: 04/16/18 13:30 Dose: 650 mg Admin: 04/16/18 07:32 Dose: 650 mg Calcium Carbonate (Caltrate 600+D 1500 Mg-400 Units) 2 tab PO DAILY [facility] Last Admin: 04/17/18 07:57 Dose: 2 tab Cholecalciferol (Vitamin D3) 1,000 units PO DAILY [facility] Last Admin: 04/17/18 07:59 Dose: 1,000 units Docusate Sodium (Colace) 100 mg PO BID PRN PRN Reason: Constipation Last Admin: 04/17/18 07:59 Dose: 100 mg Admin: 04/16/18 20:36 Dose: 100 mg Admin: 04/16/18 07:33 Dose: 100 mg Fish Oil (Fish Oil) 1 gm PO DAILY [facility] Last Admin: 04/17/18 07:58 Dose: 1 gm Sodium Chloride (Normal Saline) 1,000 mls @ 150 mls/hr IV ASDIRECTED [facility] Last Admin: 04/17/18 12:10 Dose: 150 mls/hr Infusion: 04/17/18 12:10 Dose: 150 mls/hr Admin: 04/17/18 05:51 Dose: 150 mls/hr Infusion: 04/17/18 05:28 Dose: 150 mls/hr Admin: 04/16/18 22:47 Dose: 150 mls/hr Infusion: 04/16/18 22:47 Dose: 150 mls/hr Admin: 04/16/18 16:26 Dose: 150 mls/hr Infusion: 04/16/18 16:26 Dose: 150 mls/hr Admin: 04/16/18 09:47 Dose: 150 mls/hr Infusion: 04/16/18 09:35 Dose: 150 mls/hr Admin: 04/16/18 02:54 Dose: 150 mls/hr Infusion: 04/16/18 02:18 Dose: 150 mls/hr Admin: 04/15/18 19:37 Dose: 150 mls/hr Lorazepam (Ativan) 0.5 mg PO Q6H PRN PRN Reason: Anxiety Last Admin: 04/16/18 22:45 Dose: 0.5 mg Admin: 04/16/18 16:26 Dose: 0.5 mg Magnesium Hydroxide (Milk Of Magnesia) 30 ml PO DAILY PRN PRN Reason: Constipation Last Admin: 04/16/18 16:26 Dose: 30 ml Metoclopramide HCl (Reglan) 10 mg IVPUSH Q6H [facility] Stop: 04/18/18 13:00 Last Admin: 04/17/18 12:06 Dose: 10 mg Admin: 04/17/18 08:00 Dose: 10 mg Admin: 04/17/18 00:13 Dose: 10 mg Admin: 04/16/18 20:32 Dose: 10 mg Admin: 04/16/18 13:26 Dose: 10 mg Multivitamins/Minerals/Vitamin C (Tab-A-Sridhar) 1 tab PO DAILY [facility] Last Admin: 04/17/18 07:59 Dose: 1 tab Ondansetron HCl (Zofran) 4 mg IVPUSH Q6H PRN PRN Reason: Nausea/Vomiting Last Admin: 04/17/18 09:39 Dose: 4 mg Admin: 04/17/18 03:06 Dose: 4 mg Phenazopyridine HCl (Urinary Pain Relief) 95 mg PO TID PRN PRN Reason: Pain Sodium Chloride (Saline Flush) 10 ml FLUSH ASDIRECTED PRN PRN Reason: Keep Vein Open Last Admin: 04/17/18 12:06 Dose: 10 ml Admin: 04/17/18 09:39 Dose: 10 ml Admin: 04/17/18 08:00 Dose: 10 ml Trimethoprim/Sulfamethoxazole (Septra Ds) 1 tab PO BID@08,20 [facility] Last Admin: 04/17/18 07:59 Dose: 1 tab Admin: 04/16/18 20:31 Dose: 1 tab Admin: 04/16/18 16:26 Dose: 1 tab Vitamin E (Vitamin E) 1,200 units PO DAILY [facility] Last Admin: 04/17/18 07:58 Dose: 1,200 units Labs: Laboratory Tests 04/15/18 04/15/18 Range/Units 19:35 19:35 WBC 67.7 H* (4.0-10.2) K/uL RBC 4.43 (3.77-5.09) M/uL Hgb 13.3 (11.7-15.5) g/dL Hct 40.6 (34.0-46.0) % MCV 91.6 (84.0-98.0) fL MCH 30.0 (28.2-33.3) pg MCHC 32.8 (31.7-36.0) g/dL RDW 14.1 (11.2-14.1) % Plt Count 215 (150-350) K/uL Add Manual Diff Yes Neutrophils % (Manual) 30 Band Neutrophils % 4 Lymphocytes % (Manual) 64 Monocytes % (Manual) 2 Sodium 136 (136-145) mmol/L Potassium 4.2 (3.5-5.1) mmol/L Chloride 99 (98-107) mmol/L Carbon Dioxide 26.5 (21.0-32.0) mmol/L BUN 34 H (7-18) mg/dL Creatinine 0.89 (0.51-1.17) mg/dL Est Cr Clr Drug Dosing 38.09 mL/min Estimated GFR (MDRD) > 60 mL/min Glucose 156 H (74-106) mg/dL Calcium 9.3 (8.5-10.1) mg/dL Meds: Medications Generic Name Dose Route Start Last Admin Trade Name [place] PRN Reason Stop Dose Admin Acetaminophen 650 mg 04/16/18 07:18 04/16/18 20:37 Tylenol PO 650 mg Q4H PRN Administration Pain Calcium Carbonate 2 tab 04/16/18 16:27 04/17/18 07:57 Caltrate 600+D 1500 Mg-400 Units PO 2 tab DAILY [facility] Administration Cholecalciferol 1,000 units 04/16/18 16:26 04/17/18 07:59 Vitamin D3 PO 1,000 units DAILY [facility] Administration Docusate Sodium 100 mg 04/16/18 07:18 04/17/18 07:59 Colace PO 100 mg BID PRN Administration Constipation Fish Oil 1 gm 04/16/18 16:25 04/17/18 07:58 Fish Oil PO 1 gm DAILY [facility] Administration Sodium Chloride 1,000 mls @ 150 mls/hr 04/15/18 19:30 04/17/18 12:10 Normal Saline IV 150 mls/hr ASDIRECTED [facility] Administration Lorazepam 0.5 mg 04/15/18 20:50 04/16/18 22:45 Ativan PO 0.5 mg Q6H PRN Administration Anxiety Magnesium Hydroxide 30 ml 04/16/18 16:13 04/16/18 16:26 Milk Of Magnesia PO 30 ml DAILY PRN Administration Constipation Metoclopramide HCl 10 mg 04/16/18 13:00 04/17/18 12:06 Reglan IVPUSH 04/18/18 13:00 10 mg Q6H [facility] Administration Multivitamins/Minerals/Vitamin C 1 tab 04/16/18 16:25 04/17/18 07:59 Tab-A-Sridhar PO 1 tab DAILY [facility] Administration Ondansetron HCl 4 mg 04/15/18 20:43 04/17/18 09:39 Zofran IVPUSH 4 mg Q6H PRN Administration Nausea/Vomiting Phenazopyridine HCl 95 mg 04/16/18 16:24 Urinary Pain Relief PO TID PRN Pain Sodium Chloride 10 ml 04/15/18 19:18 04/17/18 12:06 Saline Flush FLUSH 10 ml ASDIRECTED PRN Administration Keep Vein Open Trimethoprim/Sulfamethoxazole 1 tab 04/16/18 15:42 04/17/18 07:59 Septra Ds PO 1 tab BID@08,20 [facility] Administration Vitamin E 1,200 units 04/16/18 16:23 04/17/18 07:58 Vitamin E PO 1,200 units DAILY [facility] Administration Discontinued Medications Generic Name Dose Route Start Last Admin Trade Name Freq PRN Reason Stop Dose Admin Pantoprazole Sodium 40 mg/ 100 mls @ 200 mls/hr 04/15/18 19:51 04/15/18 20:08 Sodium Chloride IV 04/15/18 20:20 200 mls/hr ONETIME ONE Administration Pantoprazole Sodium 40 mg/ 100 mls @ 200 mls/hr 04/15/18 20:42 04/15/18 21:12 Sodium Chloride IV 04/15/18 21:11 Not Given DAILY ONE Non-Formulary Medication 1 tab 04/16/18 08:00 04/16/18 07:34 Calcium Carbonate/Vitamin D3 [Calcium 1,000 + D3 Caplet] PO Not Given DAILY [facility] Non-Formulary Medication 1,000 unit 04/16/18 08:00 04/16/18 07:34 Cholecalciferol (Vitamin D3) [Vitamin D3] PO Not Given DAILY [facility] Non-Formulary Medication 1 each 04/16/18 08:00 04/16/18 07:34 Multivitamin [Multivitamins] PO Not Given DAILY [facility] Non-Formulary Medication 1,000 mg 04/16/18 08:00 04/16/18 07:34 [place]-3/Dha/Epa/Fish Oil [Fish Oil Dr 500 Mg Softgel] PO Not Given DAILY [facility] Non-Formulary Medication 100 mg 04/15/18 20:40 Phenazopyridine [Pyridium] PO TID PRN Pain Non-Formulary Medication 1,000 unit 04/16/18 08:00 04/16/18 07:34 Vitamin E [Vitamin E] PO Not Given DAILY [facility] Ondansetron HCl 8 mg 04/15/18 19:52 04/15/18 20:04 Zofran IVPUSH 04/15/18 19:53 8 mg ONETIME ONE Administration Departure - Departure Time of Disposition: 20:25 Disposition: Refer to Observation Clinical Impression: Dehydration, Gastroenteritis Gastritis Qualifiers: Gastritis type: unspecified gastritis Chronicity: acute Gastritis bleeding: presence of bleeding unspecified Qualified Code(s): K29.00 - Acute gastritis without bleeding - Discharge Information - Problem List & Annotations (1) Gastritis SNOMED Code(s): 7248744 Code(s): K29.70 - GASTRITIS, UNSPECIFIED, WITHOUT BLEEDING Status: Acute Current Visit: Yes Annotation/Comment:: Patient states that prior to coming she had a couple of emesis with coffee-ground stained Hemoccult was done negative were pending on further Hemoccult an orogastric occult Qualifiers: Gastritis type: unspecified gastritis Chronicity: acute Gastritis bleeding: presence of bleeding unspecified Qualified Code(s): K29.00 - Acute gastritis without bleeding (2) Dehydration SNOMED Code(s): 12886761 Code(s): E86.0 - DEHYDRATION Status: Acute Current Visit: Yes Annotation/Comment:: IV fluids initiated (3) Gastroenteritis SNOMED Code(s): 91552774 Code(s): K52.9 - NONINFECTIVE GASTROENTERITIS AND COLITIS, UNSPECIFIED Status: Acute Current Visit: Yes - Problem List Review Problem List Initiated/Reviewed/Updated: Yes - My Orders Last 24 Hours: My Active Orders 04/16/18 20:00 OCCULT BLOOD, GASTRIC [OP] Stat - Assessment/Plan Admission H&P: Please use this note as an admission H&P Last 24 Hours: My Active Orders 04/16/18 20:00 OCCULT BLOOD, GASTRIC [OP] Stat Plan: Plan to refer patient to [facility] for IV fluids and control of abdominal pain
[2018-04-15] MEDS: Sodium Chloride 0.9% 1,000 ML IV SCH (19:37)
[2018-04-15] MEDS ORDERED: Pantoprazole 40 MG in Sodium Chloride 0.9% 100 ML IV ONE ×2 (19:51→20:42)
[2018-04-15] MEDS ORDERED: Ondansetron 4 MG/2 ML SDV IVPUSH ONE (19:52)
[2018-04-15 19:53] LABS: CHLORIDE,CL 99 mmol/L (98-107); SODIUM,NA 136 mmol/L (136-145)
[2018-04-15] MEDS ORDERED: PHENAZOPYRIDINE 100 MG PO PRN (20:40)
[2018-04-16] MEDS: Sodium Chloride 0.9% 1,000 ML IV SCH ×4 (02:54→22:47)
[2018-04-16] MEDS: Acetaminophen 325 MG Tab PO PRN ×3 (07:32→20:37)
[2018-04-16] MEDS: Docusate Sodium 100 MG Cap PO PRN ×2 (07:33→20:36)
[2018-04-16] MEDS ORDERED: EPA PO SCH (08:00)
[2018-04-16] MEDS ORDERED: Non-Formulary Medication 1 Each (Multivitamin [Multivitamins] 1 EACH) PO SCH (08:00)
[2018-04-16] MEDS ORDERED: OMEGA PO SCH (08:00)
[2018-04-16] MEDS ORDERED: [UNRECOGNIZED DRUG - OTHER] PO SCH (08:00)
[2018-04-16] MEDS ORDERED: FISH OIL PO SCH (08:00)
[2018-04-16] MEDS ORDERED: DHA PO SCH (08:00)
[2018-04-16] MEDS ORDERED: VITAMIN E 1000 UNIT PO SCH (08:00)
[2018-04-16] MEDS ORDERED: Non-Formulary Medication 1 Each (Cholecalciferol (Vitamin D3) [Vitamin D3] 1,000 UNIT) PO SCH (08:00)
--- NOTE | 2018-04-16 12:54 | PCM.PN ---
- General Info Date of Service: 04/16/18 Functional Status: Reports: Ambulating - Review of Systems General: Reports: No Symptoms HEENT: Reports: No Symptoms Pulmonary: Reports: No Symptoms Cardiovascular: Reports: No Symptoms Gastrointestinal: Reports: Abdominal Pain, Constipation, Hematochezia, Nausea ( Overall symptoms improving) Genitourinary: Reports: No Symptoms Musculoskeletal: Reports: No Symptoms Skin: Reports: No Symptoms Neurological: Reports: No Symptoms Psychiatric: Reports: Anxiety, Agitation - Patient Data Vitals - Most Recent: Last Vital Signs Temp 98.5 F 04/16/18 08:00 Pulse 115 H 04/16/18 08:00 Resp 18 04/16/18 08:00 BP 123/63 04/16/18 08:00 Pulse Ox 93 L 04/16/18 08:00 Weight - Most Recent: 115 lb 1.583 oz I&O - Last 24 Hours: Intake & Output 04/15/18 04/16/18 04/16/18 22:59 06:59 14:59 Intake Total 1359 944 Balance 1359 944 Lab Results Last 24 Hours: Laboratory Results - last 24 hr 04/15/18 04/15/18 Range/Units 19:35 19:35 WBC 67.7 H* (4.0-10.2) K/uL RBC 4.43 (3.77-5.09) M/uL Hgb 13.3 (11.7-15.5) g/dL Hct 40.6 (34.0-46.0) % MCV 91.6 (84.0-98.0) fL MCH 30.0 (28.2-33.3) pg MCHC 32.8 (31.7-36.0) g/dL RDW 14.1 (11.2-14.1) % Plt Count 215 (150-350) K/uL Add Manual Diff Yes Neutrophils % (Manual) 30 Band Neutrophils % 4 Lymphocytes % (Manual) 64 Monocytes % (Manual) 2 Sodium 136 (136-145) mmol/L Potassium 4.2 (3.5-5.1) mmol/L Chloride 99 (98-107) mmol/L Carbon Dioxide 26.5 (21.0-32.0) mmol/L BUN 34 H (7-18) mg/dL Creatinine 0.89 (0.51-1.17) mg/dL Est Cr Clr Drug Dosing 38.09 mL/min Estimated GFR (MDRD) > 60 mL/min Glucose 156 H (74-106) mg/dL Calcium 9.3 (8.5-10.1) mg/dL Hemal Results Last 24 Hours: Microbiology 04/15/18 20:02 Stool Occult Blood (HEMAL) - Final Stool / Feces NEGATIVE OCCULT BLOOD Med Orders - Current: Current Medications Acetaminophen (Tylenol) 650 mg PO Q4H PRN PRN Reason: Pain Last Admin: 04/16/18 07:32 Dose: 650 mg Docusate Sodium (Colace) 100 mg PO BID PRN PRN Reason: Constipation Last Admin: 04/16/18 07:33 Dose: 100 mg Sodium Chloride (Normal Saline) 1,000 mls @ 150 mls/hr IV ASDIRECTED [facility] Last Admin: 04/16/18 09:47 Dose: 150 mls/hr Lorazepam (Ativan) 0.5 mg PO Q6H PRN PRN Reason: Anxiety Non-Formulary Medication (Calcium Carbonate/Vitamin D3 [Calcium 1,000 + D3 Caplet]) 1 tab PO DAILY [facility] Last Admin: 04/16/18 07:34 Dose: Not Given Non-Formulary Medication (Cholecalciferol (Vitamin D3) [Vitamin D3]) 1,000 unit PO DAILY [facility] Last Admin: 04/16/18 07:34 Dose: Not Given Non-Formulary Medication (Multivitamin [Multivitamins]) 1 each PO DAILY [facility] Last Admin: 04/16/18 07:34 Dose: Not Given Non-Formulary Medication ([place]-3/Dha/Epa/Fish Oil [Fish Oil Dr 500 Mg Softgel] ) 1,000 mg PO DAILY [facility] Last Admin: 04/16/18 07:34 Dose: Not Given Non-Formulary Medication (Phenazopyridine [Pyridium]) 100 mg PO TID PRN PRN Reason: Pain Non-Formulary Medication (Vitamin E [Vitamin E]) 1,000 unit PO DAILY [facility] Last Admin: 04/16/18 07:34 Dose: Not Given Ondansetron HCl (Zofran) 4 mg IVPUSH Q6H PRN PRN Reason: Nausea/Vomiting Sodium Chloride (Saline Flush) 10 ml FLUSH ASDIRECTED PRN PRN Reason: Keep Vein Open Discontinued Medications Pantoprazole Sodium 40 mg/ (Sodium Chloride) 100 mls @ 200 mls/hr IV ONETIME ONE Stop: 04/15/18 20:20 Last Admin: 04/15/18 20:08 Dose: 200 mls/hr Pantoprazole Sodium 40 mg/ (Sodium Chloride) 100 mls @ 200 mls/hr IV DAILY ONE Stop: 04/15/18 21:11 Last Admin: 04/15/18 21:12 Dose: Not Given Ondansetron HCl (Zofran) 8 mg IVPUSH ONETIME ONE Stop: 04/15/18 19:53 Last Admin: 04/15/18 20:04 Dose: 8 mg - Exam General: Alert, Oriented HEENT: Pupils Equal, Pupils Reactive, EOMI, Mucous Membr. Moist/[place] Neck: Supple Lungs: Clear to Auscultation, Normal Respiratory Effort Cardiovascular: Regular Rate, Regular Rhythm GI/Abdominal Exam: Distended, Abnormal Bowel Sounds (Hypoactive) (Female) Exam: Deferred Back Exam: Normal Inspection, Full Range of Motion Extremities: Normal Inspection, Normal Range of Motion, Non-Tender, No Pedal Edema, Normal Capillary Refill Skin: Warm, Dry, Intact Neurological: No New Focal Deficit Psy/Mental Status: Anxious - Problem List & Annotations (1) Dehydration SNOMED Code(s): 82782055 Code(s): E86.0 - DEHYDRATION Status: Acute Current Visit: Yes Annotation/Comment:: Patient started on IV fluids last night doing much better today (2) Gastritis SNOMED Code(s): 7202840 Code(s): K29.70 - GASTRITIS, UNSPECIFIED, WITHOUT BLEEDING Status: Acute Current Visit: Yes Qualifiers: Gastritis type: unspecified gastritis Chronicity: acute Gastritis bleeding: presence of bleeding unspecified Qualified Code(s): K29.00 - Acute gastritis without bleeding Annotation/Comment:: Patient states that prior to coming she had a couple of emesis with coffee-ground stained Hemoccult was done negative were pending on further Hemoccult an orogastric occult - Problem List Review Problem List Initiated/Reviewed/Updated: Yes - My Orders Last 24 Hours: My Active Orders 04/15/18 19:17 Saline Lock Insert [OM.PC] Stat 04/15/18 19:18 Abdomen 2V AP Flat Upright [CR] Stat Sodium Chloride 0.9% [Saline Flush] 10 ml FLUSH ASDIRECTED PRN 04/15/18 19:30 Sodium Chloride 0.9% [Normal Saline] 1,000 ml IV ASDIRECTED 04/15/18 19:48 OCCULT BLOOD, GASTRIC [OP] Stat 04/15/18 20:02 OCCULT BLOOD DIAGNOSTIC [OP] Stat 04/15/18 20:28 Patient Status [ADT] Routine Ambulate [RC] ASDIRECTED Bedrest Bathroom Privileges [RC] ASDIRECTED Oxygen Therapy [RC] PRN Up to Chair [RC] ASDIRECTED VTE/DVT Education [RC] PER UNIT ROUTINE Vital Signs [RC] Q4H Resuscitation Status Routine 04/15/18 20:39 Pulse Oximetry [RC] PRN 04/15/18 20:40 Phenazopyridine [Pyridium] 100 mg PO TID PRN 04/15/18 20:43 Ondansetron [Zofran] 4 mg IVPUSH Q6H PRN 04/15/18 20:45 Communication Order [RC] ASDIRECTED 04/15/18 20:50 LORazepam [Ativan] 0.5 mg PO Q6H PRN 04/15/18 Dinner Full Liquid Diet [DIET] 04/16/18 07:18 Acetaminophen [Tylenol] 650 mg PO Q4H PRN Docusate Sodium [Colace] 100 mg PO BID PRN 04/16/18 08:00 Calcium Carbonate/Vitamin D3 [Calcium 1,000 + D3 Caplet] 1 tab PO DAILY Cholecalciferol (Vitamin D3) [Vitamin D3] 1,000 unit PO DAILY Multivitamin [Multivitamins] 1 each PO DAILY [place]-3/DHA/Epa/Fish Oil [Fish Oil Dr 500 mg Softgel] 1,000 mg PO DAILY Vitamin E [Vitamin E] 1,000 unit PO DAILY 04/16/18 12:42 Antiembolic Devices [RC] .Routine VTE/DVT Education [RC] PER UNIT ROUTINE VTE Pharmacological Contraindications [AST] Per Unit Routine - Plan Plan:: Continue hydrating once bowel movement start we will release her consider doing upper and lower GI
[2018-04-16] MEDS: Metoclopramide 10 MG/2 ML SDV IVPUSH SCH ×2 (13:26→20:32)
[2018-04-16] MEDS ORDERED: Magnesium Hydroxide 400 MG/5 ML Susp 30 ML Cup PO PRN (16:13)
[2018-04-16] MEDS ORDERED: Phenazopyridine 95 MG Tab PO PRN (16:24)
[2018-04-16] MEDS: LORazepam 0.5 MG Tab PO PRN ×2 (16:26→22:45)
[2018-04-16] MEDS: Sulfamethoxazole/Trimethoprim 800-160 MG Tab PO SCH ×2 (16:26→20:31)
[2018-04-17] MEDS: Metoclopramide 10 MG/2 ML SDV IVPUSH SCH ×4 (00:13→20:00)
[2018-04-17] MEDS: Ondansetron 4 MG/2 ML SDV IVPUSH PRN ×2 (03:06→09:39)
[2018-04-17] MEDS: Sodium Chloride 0.9% 1,000 ML IV SCH ×3 (05:51→20:09)
[2018-04-17] MEDS: Calcium Carbonate/Vitamin D3 1500 MG-400 Units Tab PO SCH (07:57)
[2018-04-17] MEDS: Fish Oil/Omega-3 Fatty Acids 1 Gm Cap PO SCH (07:58)
[2018-04-17] MEDS: Vitamin E (dl-alpha-tocopherol acetate) 400 Unit Cap PO SCH (07:58)
[2018-04-17] MEDS: Sulfamethoxazole/Trimethoprim 800-160 MG Tab PO SCH ×2 (07:59→20:00)
[2018-04-17] MEDS: Cholecalciferol (Vitamin D3) 1,000 Unit Tab PO SCH (07:59)
[2018-04-17] MEDS: Docusate Sodium 100 MG Cap PO PRN (07:59)
[2018-04-17] MEDS: Multivitamin Tab PO SCH (07:59)
[2018-04-17] MEDS: Sodium Chloride 0.9% 10 ML Syringe FLUSH PRN ×3 (08:00→12:06)
[2018-04-17 08:50] LABS: CHLORIDE,CL 101 mmol/L (98-107); SODIUM,NA 136 mmol/L (136-145)
--- NOTE | 2018-04-17 14:37 | PCM.PN ---
- General Info Date of Service: 04/17/18 Functional Status: Reports: Pain Controlled (Patient reports its better), Urinating. Denies: Tolerating Diet (only taking in liquids at this time) - Review of Systems General: Reports: No Symptoms HEENT: Reports: No Symptoms Pulmonary: Reports: No Symptoms Cardiovascular: Reports: No Symptoms Gastrointestinal: Reports: Abdominal Pain, Constipation, Decreased Appetite, Nausea, Vomiting Genitourinary: Reports: No Symptoms Musculoskeletal: Reports: No Symptoms Skin: Reports: No Symptoms Neurological: Reports: No Symptoms Psychiatric: Reports: No Symptoms - Patient Data Vitals - Most Recent: Last Vital Signs Temp 97.5 F 04/17/18 08:00 Pulse 118 H 04/17/18 08:00 Resp 18 04/17/18 08:00 BP 139/42 L 04/17/18 08:00 Pulse Ox 93 L 04/17/18 08:00 Weight - Most Recent: 115 lb 1.583 oz I&O - Last 24 Hours: Intake & Output 04/16/18 04/17/18 04/17/18 22:59 06:59 14:59 Intake Total 2047 1450 1168 Output Total 1725 300 Balance 2047 -275 868 Lab Results Last 24 Hours: Laboratory Results - last 24 hr 04/17/18 04/17/18 Range/Units 08:31 08:31 WBC 43.0 H* (4.0-10.2) K/uL RBC 4.03 (3.77-5.09) M/uL Hgb 12.1 (11.7-15.5) g/dL Hct 37.5 (34.0-46.0) % MCV 93.1 (84.0-98.0) fL MCH 30.0 (28.2-33.3) pg MCHC 32.3 (31.7-36.0) g/dL RDW 14.1 (11.2-14.1) % Plt Count 193 (150-350) K/uL Neut % (Auto) Physician Scientist Lymph % (Auto) Physician Scientist [place] % (Auto) Physician Scientist Eos % (Auto) Physician Scientist Baso % (Auto) Physician Scientist Neut # (Auto) Physician Scientist Lymph # (Auto) Physician Scientist [place] # (Auto) Physician Scientist Eos # (Auto) Physician Scientist Baso # (Auto) Physician Scientist Add Manual Diff Yes Neutrophils % (Manual) 36 Band Neutrophils % 5 Lymphocytes % (Manual) 21 Monocytes % (Manual) 8 Sodium 136 (136-145) mmol/L Potassium 4.0 (3.5-5.1) mmol/L Chloride 101 (98-107) mmol/L Carbon Dioxide 24.3 (21.0-32.0) mmol/L BUN 21 H (7-18) mg/dL Creatinine 0.74 (0.51-1.17) mg/dL Est Cr Clr Drug Dosing 45.81 mL/min Estimated GFR (MDRD) > 60 mL/min Glucose 150 H (74-106) mg/dL Calcium 8.3 L (8.5-10.1) mg/dL Hemal Results Last 24 Hours: Microbiology 04/17/18 00:05 Gastric Occult Blood - Final Gastric Fluid 04/16/18 20:00 Gastric Occult Blood - Final Gastric Fluid Med Orders - Current: Current Medications Acetaminophen (Tylenol) 650 mg PO Q4H PRN PRN Reason: Pain Last Admin: 04/16/18 20:37 Dose: 650 mg Calcium Carbonate (Caltrate 600+D 1500 Mg-400 Units) 2 tab PO DAILY [facility] Last Admin: 04/17/18 07:57 Dose: 2 tab Cholecalciferol (Vitamin D3) 1,000 units PO DAILY [facility] Last Admin: 04/17/18 07:59 Dose: 1,000 units Docusate Sodium (Colace) 100 mg PO BID PRN PRN Reason: Constipation Last Admin: 04/17/18 07:59 Dose: 100 mg Fish Oil (Fish Oil) 1 gm PO DAILY [facility] Last Admin: 04/17/18 07:58 Dose: 1 gm Sodium Chloride (Normal Saline) 1,000 mls @ 150 mls/hr IV ASDIRECTED [facility] Last Admin: 04/17/18 12:10 Dose: 150 mls/hr Lorazepam (Ativan) 0.5 mg PO Q6H PRN PRN Reason: Anxiety Last Admin: 04/16/18 22:45 Dose: 0.5 mg Magnesium Hydroxide (Milk Of Magnesia) 30 ml PO DAILY PRN PRN Reason: Constipation Last Admin: 04/16/18 16:26 Dose: 30 ml Metoclopramide HCl (Reglan) 10 mg IVPUSH Q6H [facility] Stop: 04/18/18 13:00 Last Admin: 04/17/18 12:06 Dose: 10 mg Multivitamins/Minerals/Vitamin C (Tab-A-Sridhar) 1 tab PO DAILY [facility] Last Admin: 04/17/18 07:59 Dose: 1 tab Ondansetron HCl (Zofran) 4 mg IVPUSH Q6H PRN PRN Reason: Nausea/Vomiting Last Admin: 04/17/18 09:39 Dose: 4 mg Phenazopyridine HCl (Urinary Pain Relief) 95 mg PO TID PRN PRN Reason: Pain Sodium Chloride (Saline Flush) 10 ml FLUSH ASDIRECTED PRN PRN Reason: Keep Vein Open Last Admin: 04/17/18 12:06 Dose: 10 ml Trimethoprim/Sulfamethoxazole (Septra Ds) 1 tab PO BID@08,20 [facility] Last Admin: 04/17/18 07:59 Dose: 1 tab Vitamin E (Vitamin E) 1,200 units PO DAILY [facility] Last Admin: 04/17/18 07:58 Dose: 1,200 units Discontinued Medications Pantoprazole Sodium 40 mg/ (Sodium Chloride) 100 mls @ 200 mls/hr IV ONETIME ONE Stop: 04/15/18 20:20 Last Admin: 04/15/18 20:08 Dose: 200 mls/hr Pantoprazole Sodium 40 mg/ (Sodium Chloride) 100 mls @ 200 mls/hr IV DAILY ONE Stop: 04/15/18 21:11 Last Admin: 04/15/18 21:12 Dose: Not Given Non-Formulary Medication (Calcium Carbonate/Vitamin D3 [Calcium 1,000 + D3 Caplet]) 1 tab PO DAILY [facility] Last Admin: 04/16/18 07:34 Dose: Not Given Non-Formulary Medication (Cholecalciferol (Vitamin D3) [Vitamin D3]) 1,000 unit PO DAILY [facility] Last Admin: 04/16/18 07:34 Dose: Not Given Non-Formulary Medication (Multivitamin [Multivitamins]) 1 each PO DAILY [facility] Last Admin: 04/16/18 07:34 Dose: Not Given Non-Formulary Medication ([place]-3/Dha/Epa/Fish Oil [Fish Oil Dr 500 Mg Softgel] ) 1,000 mg PO DAILY [facility] Last Admin: 04/16/18 07:34 Dose: Not Given Non-Formulary Medication (Phenazopyridine [Pyridium]) 100 mg PO TID PRN PRN Reason: Pain Non-Formulary Medication (Vitamin E [Vitamin E]) 1,000 unit PO DAILY [facility] Last Admin: 04/16/18 07:34 Dose: Not Given Ondansetron HCl (Zofran) 8 mg IVPUSH ONETIME ONE Stop: 04/15/18 19:53 Last Admin: 04/15/18 20:04 Dose: 8 mg - Exam General: Alert, Oriented HEENT: Pupils Equal, Pupils Reactive, EOMI, Mucous Membr. Moist/[place]: Supple Lungs: Clear to Auscultation, Normal Respiratory Effort Cardiovascular: Regular Rate, Regular Rhythm GI/Abdominal Exam: Soft, No Abnormal Bruit, No Mass, Pelvis Stable, Tender, Abnormal Bowel Sounds (Female) Exam: Deferred Back Exam: Normal Inspection, Full Range of Motion Extremities: Normal Inspection, Normal Range of Motion, Non-Tender, No Pedal Edema, Normal Capillary Refill Skin: Warm, Dry, Intact Neurological: No New Focal Deficit Psy/Mental Status: Alert, Normal Affect, Normal Mood - Problem List & Annotations (1) Gastritis SNOMED Code(s): 8658464 Code(s): K29.70 - GASTRITIS, UNSPECIFIED, WITHOUT BLEEDING Status: Acute Current Visit: Yes Qualifiers: Gastritis type: unspecified gastritis Chronicity: acute Gastritis bleeding: presence of bleeding unspecified Qualified Code(s): K29.00 - Acute gastritis without bleeding Annotation/Comment:: Gastrocult positive. Will schedule for gastroscopy on . Patient had multiple emesis today. Considered NG tube but will hold on since patient tolerated liquids for lunch. (2) Dehydration SNOMED Code(s): 66875019 Code(s): E86.0 - DEHYDRATION Status: Acute Current Visit: Yes Annotation/Comment:: IV fluids still running (3) Gastroenteritis SNOMED Code(s): 12440511 Code(s): K52.9 - NONINFECTIVE GASTROENTERITIS AND COLITIS, UNSPECIFIED Status: Acute Current Visit: Yes (4) Nausea & vomiting SNOMED Code(s): 52573615 Code(s): R11.2 - NAUSEA WITH VOMITING, UNSPECIFIED Status: Acute Current Visit: Yes Qualifiers: Vomiting type: hematemesis Qualified Code(s): K92.0 - Hematemesis Annotation/Comment:: considered NG tube. Will hold off due to patient tolerating liquids for lunch. Will schedule gastroscopy on . (5) Anxiety SNOMED Code(s): 36131137 Code(s): F41.9 - ANXIETY DISORDER, UNSPECIFIED Status: Acute Current Visit: Yes - Problem List Review Problem List Initiated/Reviewed/Updated: Yes - My Orders Last 24 Hours: My Active Orders 04/16/18 15:42 Sulfamethoxazole/Trimethoprim [Septra DS] 1 tab PO BID@08,20 04/16/18 16:13 Magnesium Hydroxide [Milk of Magnesia] 30 ml PO DAILY PRN 04/16/18 16:23 Vitamin E (dl, acetate) [Vitamin E] 1,200 units PO DAILY 04/16/18 16:24 Phenazopyridine [Urinary Pain Relief] 95 mg PO TID PRN 04/16/18 16:25 Fish Oil/[place]-3 Fatty Acids [Fish Oil] 1 gm PO DAILY Multivitamins [Tab-A-Sridhar] 1 tab PO DAILY 04/16/18 16:26 Cholecalciferol (Vitamin D3) [Vitamin D3] 1,000 units PO DAILY 04/16/18 16:27 Calcium Carbonate/Vitamin D3 [Caltrate 600+D 1500 MG-400 Units] 2 tab PO DAILY 04/16/18 20:00 OCCULT BLOOD, GASTRIC [OP] Stat 04/17/18 00:05 OCCULT BLOOD, GASTRIC [OP] Stat 04/17/18 08:24 Abdomen 2V AP Flat Upright [CR] Routine 04/17/18 14:30 Patient Status [ADT] Routine - Plan Plan:: Plan is to schedule patient for gastroscopy . Will consult surgeon. Will hold off on NG tube since patient tolerating clear liquids at lunch. Will consider CT scan with oral and/or IV contrast if still vomiting. Patient reports pain has improved, but still having nausea/vomiting. Switched patient to inpatient today r/to vomiting and positive gastrocult.
[2018-04-17] MEDS ORDERED: Iopamidol 612 MG/ML 100 ML Bottle IARTIC ONE (15:36)
[2018-04-17] MEDS ORDERED: Iopamidol 612 MG/ML 100 ML Bottle IVPUSH ONE (15:48)
[2018-04-18] MEDS ORDERED: Pantoprazole 40 MG Vial IVPUSH SCH
[2018-04-18] MEDS ORDERED: cefTRIAXone 1 GM in Sodium Chloride 0.9% 100 ML IV SCH (00:01)
[2018-04-18] MEDS: Metoclopramide 10 MG/2 ML SDV IVPUSH SCH ×2 (00:02→07:15)
[2018-04-18] MEDS: Sodium Chloride 0.9% 10 ML Syringe FLUSH PRN (00:04)
[2018-04-18] MEDS: metroNIDAZOLE/Normal Saline 500 MG in Premix Bag 1 BAG IV SCH ×2 (02:11→07:15)
[2018-04-18] MEDS: Sodium Chloride 0.9% 1,000 ML IV SCH (06:15)
--- NOTE | 2018-04-18 06:56 | PCM.SN ---
- Free Text/Narrative Note: Patient hasn't had a bowel movement for several days with several episodes of emeses yesterday, although only one emesis earlier this evening. Note posiitive Gastroccult with surgical consult already ordered. Significant leukocytosis although improved- ALL vs. CLL? IV Protonix, Rocephin and Flagyl ordered last evening. Extra labs ordered for this AM. CT of the abdomen/pelvis report from yesterday afternoon still pending. Consider Acute abdominal xray, NG tube, etc. depending on clinical course. Note NO CODE status with extremely poor stem assembler prognosis. Patient afebrile with mild tachycardia but otherwise VSS. Lactic acid also ordered for this AM. IV fluids in effect with rate to be evaluated by Dr. Hua this AM, and nurses to update him STEPHEN at rounds. No sign of CHF to this point.
[2018-04-18] MEDS: Cholecalciferol (Vitamin D3) 1,000 Unit Tab PO SCH (07:15)
[2018-04-18] MEDS: Calcium Carbonate/Vitamin D3 1500 MG-400 Units Tab PO SCH (07:15)
[2018-04-18] MEDS: Multivitamin Tab PO SCH (07:15)
[2018-04-18] MEDS: Sulfamethoxazole/Trimethoprim 800-160 MG Tab PO SCH (07:15)
[2018-04-18] MEDS: Fish Oil/Omega-3 Fatty Acids 1 Gm Cap PO SCH (07:15)
[2018-04-18] MEDS: Vitamin E (dl-alpha-tocopherol acetate) 400 Unit Cap PO SCH (07:15)
[2018-04-18 07:42] LABS: CHLORIDE,CL 101 mmol/L (98-107); SODIUM,NA 135 mmol/L (136-145)
[2018-04-18] MEDS ORDERED: Sodium Chloride 0.9% 1,000 ML IV SCH (08:00)
--- NOTE | 2018-04-18 09:37 | PCM.PN ---
- General Info Date of Service: 04/18/18 Functional Status: Reports: Ambulating. Denies: Tolerating Diet - Review of Systems General: Reports: Other (Multiple emesis during the day) HEENT: Reports: No Symptoms Pulmonary: Reports: Shortness of Breath, Cough, Other (Hypoxia) Cardiovascular: Reports: No Symptoms Gastrointestinal: Reports: Constipation, Nausea, Vomiting Genitourinary: Reports: No Symptoms Musculoskeletal: Reports: No Symptoms Skin: Reports: No Symptoms Neurological: Reports: No Symptoms Psychiatric: Reports: No Symptoms - Patient Data Vitals - Most Recent: Last Vital Signs Temp 98.2 F 04/18/18 08:00 Pulse 121 H 04/18/18 08:00 Resp 17 04/18/18 08:00 BP 116/60 04/18/18 08:00 Pulse Ox 92 L 04/18/18 08:00 Weight - Most Recent: 115 lb 1.583 oz I&O - Last 24 Hours: Intake & Output 04/17/18 04/18/18 04/18/18 22:59 06:59 14:59 Intake Total 120 2629 120 Output Total 900 1200 Balance -780 1429 120 Lab Results Last 24 Hours: Laboratory Results - last 24 hr 04/18/18 04/18/18 04/18/18 Range/Units 07:10 07:10 07:10 WBC 33.5 H (4.0-10.2) K/uL RBC 3.98 (3.77-5.09) M/uL Hgb 11.9 (11.7-15.5) g/dL Hct 36.2 (34.0-46.0) % MCV 91.0 (84.0-98.0) fL MCH 29.9 (28.2-33.3) pg MCHC 32.9 (31.7-36.0) g/dL RDW 13.9 (11.2-14.1) % Plt Count 221 (150-350) K/uL Neut % (Auto) 38.5 L (45.0-80.0) % Lymph % (Auto) 54.2 H (10.0-50.0) % [place] % (Auto) 7.3 (2.0-14.0) % Eos % (Auto) 0.0 (0.0-5.0) % Baso % (Auto) 0.0 (0.0-2.0) % Neut # (Auto) 12.86 H (1.40-7.00) K/uL Lymph # (Auto) 18.16 H (0.50-3.50) K/uL [place] # (Auto) 2.45 H (0.00-1.00) K/uL Eos # (Auto) 0.00 (0.00-0.50) K/uL Baso # (Auto) 0.01 (0.00-0.20) K/uL Sodium 135 L (136-145) mmol/L Potassium 3.5 (3.5-5.1) mmol/L Chloride 101 (98-107) mmol/L Carbon Dioxide 21.9 (21.0-32.0) mmol/L BUN 19 H (7-18) mg/dL Creatinine 0.68 (0.51-1.17) mg/dL Est Cr Clr Drug Dosing 49.85 mL/min Estimated GFR (MDRD) > 60 mL/min Glucose 122 H (74-106) mg/dL Lactic Acid 1.4 (0.4-2.0) mmol/L Calcium 8.1 L (8.5-10.1) mg/dL Total Bilirubin 1.0 (0.2-1.0) mg/dL Direct Bilirubin 0.3 H (0.0-0.2) mg/dL AST 36 (15-37) U/L ALT 26 (12-78) U/L Alkaline Phosphatase 63 (46-116) IU/L Lactate Dehydrogenase 262 H (81-234) U/L Total Protein 6.2 L (6.4-8.2) g/dL Albumin 2.5 L (3.4-5.0) g/dL Amylase 25 (25-115) U/L Lipase 48 L (73-393) U/L Hemal Results Last 24 Hours: Microbiology 04/17/18 00:05 Gastric Occult Blood - Final Gastric Fluid 04/16/18 20:00 Gastric Occult Blood - Final Gastric Fluid Med Orders - Current: Current Medications Acetaminophen (Tylenol) 650 mg PO Q4H PRN PRN Reason: Pain Last Admin: 04/16/18 20:37 Dose: 650 mg Calcium Carbonate (Caltrate 600+D 1500 Mg-400 Units) 2 tab PO DAILY [facility] Last Admin: 04/18/18 07:15 Dose: 2 tab Cholecalciferol (Vitamin D3) 1,000 units PO DAILY [facility] Last Admin: 04/18/18 07:15 Dose: 1,000 units Docusate Sodium (Colace) 100 mg PO BID PRN PRN Reason: Constipation Last Admin: 04/17/18 07:59 Dose: 100 mg Fish Oil (Fish Oil) 1 gm PO DAILY [facility] Last Admin: 04/18/18 07:15 Dose: 1 gm Ceftriaxone Sodium 1 gm/ (Sodium Chloride) 100 mls @ 200 mls/hr IV Q12H [facility] Last Admin: 04/18/18 01:16 Dose: 200 mls/hr Metronidazole 500 mg/ Premix 100 mls @ 100 mls/hr IV Q8H [facility] Last Admin: 04/18/18 07:15 Dose: 100 mls/hr Sodium Chloride (Normal Saline) 1,000 mls @ 100 mls/hr IV ASDIRECTED [facility] Last Admin: 04/18/18 09:31 Dose: 100 mls/hr Lorazepam (Ativan) 0.5 mg PO Q6H PRN PRN Reason: Anxiety Last Admin: 04/16/18 22:45 Dose: 0.5 mg Magnesium Hydroxide (Milk Of Magnesia) 30 ml PO DAILY PRN PRN Reason: Constipation Last Admin: 04/16/18 16:26 Dose: 30 ml Metoclopramide HCl (Reglan) 10 mg IVPUSH Q6H [facility] Stop: 04/18/18 13:00 Last Admin: 04/18/18 07:15 Dose: 10 mg Multivitamins/Minerals/Vitamin C (Tab-A-Sridhar) 1 tab PO DAILY [facility] Last Admin: 04/18/18 07:15 Dose: 1 tab Ondansetron HCl (Zofran) 4 mg IVPUSH Q6H PRN PRN Reason: Nausea/Vomiting Last Admin: 04/17/18 09:39 Dose: 4 mg Pantoprazole Sodium (Protonix Iv) 40 mg IVPUSH Q12H [facility] Last Admin: 04/18/18 01:16 Dose: 40 mg Phenazopyridine HCl (Urinary Pain Relief) 95 mg PO TID PRN PRN Reason: Pain Sodium Chloride (Saline Flush) 10 ml FLUSH ASDIRECTED PRN PRN Reason: Keep Vein Open Last Admin: 04/18/18 00:04 Dose: 10 ml Trimethoprim/Sulfamethoxazole (Septra Ds) 1 tab PO BID@08,20 [facility] Last Admin: 04/18/18 07:15 Dose: 1 tab Vitamin E (Vitamin E) 1,200 units PO DAILY [facility] Last Admin: 04/18/18 07:15 Dose: 1,200 units Discontinued Medications Sodium Chloride (Normal Saline) 1,000 mls @ 150 mls/hr IV ASDIRECTED [facility] Last Admin: 04/18/18 06:15 Dose: 150 mls/hr Pantoprazole Sodium 40 mg/ (Sodium Chloride) 100 mls @ 200 mls/hr IV ONETIME ONE Stop: 04/15/18 20:20 Last Admin: 04/15/18 20:08 Dose: 200 mls/hr Pantoprazole Sodium 40 mg/ (Sodium Chloride) 100 mls @ 200 mls/hr IV DAILY ONE Stop: 04/15/18 21:11 Last Admin: 04/15/18 21:12 Dose: Not Given Iopamidol (Isovue-300 (61%)) 100 ml IVPUSH ONETIME ONE Stop: 04/17/18 15:49 Non-Formulary Medication (Calcium Carbonate/Vitamin D3 [Calcium 1,000 + D3 Caplet]) 1 tab PO DAILY [facility] Last Admin: 04/16/18 07:34 Dose: Not Given Non-Formulary Medication (Cholecalciferol (Vitamin D3) [Vitamin D3]) 1,000 unit PO DAILY [facility] Last Admin: 04/16/18 07:34 Dose: Not Given Non-Formulary Medication (Multivitamin [Multivitamins]) 1 each PO DAILY [facility] Last Admin: 04/16/18 07:34 Dose: Not Given Non-Formulary Medication ([place]-3/Dha/Epa/Fish Oil [Fish Oil Dr 500 Mg Softgel] ) 1,000 mg PO DAILY [facility] Last Admin: 04/16/18 07:34 Dose: Not Given Non-Formulary Medication (Phenazopyridine [Pyridium]) 100 mg PO TID PRN PRN Reason: Pain Non-Formulary Medication (Vitamin E [Vitamin E]) 1,000 unit PO DAILY [facility] Last Admin: 04/16/18 07:34 Dose: Not Given Ondansetron HCl (Zofran) 8 mg IVPUSH ONETIME ONE Stop: 04/15/18 19:53 Last Admin: 04/15/18 20:04 Dose: 8 mg - Problem List & Annotations (1) Gastritis SNOMED Code(s): 1095479 Code(s): K29.70 - GASTRITIS, UNSPECIFIED, WITHOUT BLEEDING Status: Acute Current Visit: Yes Qualifiers: Gastritis type: unspecified gastritis Chronicity: acute Gastritis bleeding: presence of bleeding unspecified Qualified Code(s): K29.00 - Acute gastritis without bleeding Annotation/Comment:: Today review CT no obstruction seen still multiple bowel sounds heard CT shows significant stool in the rectal vault we'll go ahead and do soapsuds enema 2 digital exam removed multiple small hard stool Hemoccult negative. (2) Dehydration SNOMED Code(s): 04029872 Code(s): E86.0 - DEHYDRATION Status: Acute Current Visit: Yes Annotation/Comment:: IV fluids still running (3) Gastroenteritis SNOMED Code(s): 26358191 Code(s): K52.9 - NONINFECTIVE GASTROENTERITIS AND COLITIS, UNSPECIFIED Status: Acute Current Visit: Yes Annotation/Comment:: CT showed significant stool in the rectal bolt and dilated loops of bowel I could not see any obstruction radiology report pending (4) Nausea & vomiting SNOMED Code(s): 59576418 Code(s): R11.2 - NAUSEA WITH VOMITING, UNSPECIFIED Status: Acute Current Visit: Yes Qualifiers: Vomiting type: hematemesis Qualified Code(s): K92.0 - Hematemesis Annotation/Comment:: considered NG tube. Will hold off due to patient tolerating liquids for lunch. Will schedule gastroscopy on . (5) Anxiety SNOMED Code(s): 41234049 Code(s): F41.9 - ANXIETY DISORDER, UNSPECIFIED Status: Acute Current Visit: Yes (6) Pneumonia SNOMED Code(s): 353366978 Code(s): J18.9 - PNEUMONIA, UNSPECIFIED ORGANISM Status: Acute Current Visit: Yes Qualifiers: Pneumonia type: due to unspecified organism Laterality: left Lung location: lower lobe of lung Qualified Code(s): J18.1 - Lobar pneumonia, unspecified organism Annotation/Comment:: CT of abdomen and pelvis revealed consolidation on the left lower lobe with a small pleural effusion at this time we will treat with Unasyn and Levaquin pharmacy to adjust dose for age and renal function (7) Pneumonia SNOMED Code(s): 981074037 Code(s): J18.9 - PNEUMONIA, UNSPECIFIED ORGANISM Status: Acute Current Visit: Yes - Problem List Review Problem List Initiated/Reviewed/Updated: Yes - My Orders Last 24 Hours: My Active Orders 04/17/18 14:30 Patient Status [ADT] Routine 04/17/18 14:38 Abdomen w Cont [CT] Routine 04/17/18 14:39 Consult to Physician [CONS] Routine 04/17/18 14:41 Communication Order [RC] ASDIRECTED Notify Provider Consults [RC] ASDIRECTED 04/17/18 15:10 Abdomen Pelvis w Cont [CT] Routine 04/18/18 07:55 Chest 2V [CR] Routine 04/18/18 08:00 Sodium Chloride 0.9% [Normal Saline] 1,000 ml IV ASDIRECTED 04/19/18 05:11 BASIC METABOLIC PANEL,BMP [CHEM] AM CBC WITH AUTO DIFF [HEME] AM - Plan Plan:: Plan is to schedule patient for gastroscopy . Will consult surgeon. Will hold off on NG tube since patient tolerating clear liquids at lunch. Will consider CT scan with oral and/or IV contrast if still vomiting. Patient reports pain has improved, but still having nausea/vomiting. Switched patient to inpatient today r/to vomiting and positive gastrocult.
--- NOTE | 2018-04-18 11:05 | PCM.DCSUM1 ---
Discharge Summary - Hospital Course Free Text/Narrative:: Patient is a 87-year-old female who was seen in the ER with chief complaint of abdominal pain and constipation we went ahead and admitted her with gastroenteritis and AND dehydration hydrated her and did serial lipase and upright of the abdomen patient was not improving and a CT was done which revealed free fluid in the pelvis and air in the abdominal cavity therefore we decided to transfer her to [facility]. - Discharge Data Discharge Date: 04/18/18 Discharge Disposition: DC/Tfer to Acute Hospital 02 Condition: Stable - Discharge Diagnosis/Problem(s) (1) Gastritis SNOMED Code(s): 6680572 ICD Code: K29.70 - GASTRITIS, UNSPECIFIED, WITHOUT BLEEDING Status: Acute Current Visit: Yes Problem Details: Spoke with radiologist Dr. Balbuena revealed that there was some free fluid in the pelvis and some air in the abdominal cavity. At this time the diagnosis change to perforation of bowel and therefore we will go ahead and transfer her to [facility]. Qualifiers: Gastritis type: unspecified gastritis Chronicity: acute Gastritis bleeding: presence of bleeding unspecified Qualified Code(s): K29.00 - Acute gastritis without bleeding (2) Dehydration SNOMED Code(s): 26460789 ICD Code: E86.0 - DEHYDRATION Status: Acute Current Visit: Yes Problem Details: IV fluids still running (3) Gastroenteritis SNOMED Code(s): 21084724 ICD Code: K52.9 - NONINFECTIVE GASTROENTERITIS AND COLITIS, UNSPECIFIED Status: Acute Current Visit: Yes Problem Details: CT showed significant stool in the rectal bolt and dilated loops of bowel I could not see any obstruction radiology report pending (4) Nausea & vomiting SNOMED Code(s): 17160394 ICD Code: R11.2 - NAUSEA WITH VOMITING, UNSPECIFIED Status: Acute Current Visit: Yes Problem Details: considered NG tube. Will hold off due to patient tolerating liquids for lunch. Will schedule gastroscopy on . Qualifiers: Vomiting type: hematemesis Qualified Code(s): K92.0 - Hematemesis (5) Anxiety SNOMED Code(s): 43268725 ICD Code: F41.9 - ANXIETY DISORDER, UNSPECIFIED Status: Acute Current Visit: Yes (6) Pneumonia SNOMED Code(s): 205798920 ICD Code: J18.9 - PNEUMONIA, UNSPECIFIED ORGANISM Status: Acute Current Visit: Yes Problem Details: CT of abdomen and pelvis revealed consolidation on the left lower lobe with a small pleural effusion at this time we will treat with Unasyn and Levaquin pharmacy to adjust dose for age and renal function Qualifiers: Pneumonia type: due to unspecified organism Laterality: left Lung location: lower lobe of lung Qualified Code(s): J18.1 - Lobar pneumonia, unspecified organism (7) Pneumonia SNOMED Code(s): 225036111 ICD Code: J18.9 - PNEUMONIA, UNSPECIFIED ORGANISM Status: Acute Current Visit: Yes - Patient Summary/Data Consults: Consultations 04/17/18 14:39 Consult to Physician [CONS] Routine - Patient Instructions Notify Provider of: Nausea and/or Vomiting - Discharge Plan Home Medications: Home Meds Multivitamin [Multivitamins] 1 each PO DAILY 12/05/13 [History] [place]-3/DHA/Epa/Fish Oil [Fish Oil Dr 500 mg Softgel] 1,000 mg PO DAILY [History] Calcium Carbonate/Vitamin D3 [Calcium 1,000 + D3 Caplet] 1 tab PO DAILY [History] Cholecalciferol (Vitamin D3) [Vitamin D3] 1,000 unit PO DAILY 02/23/17 [History] Lutein Extract/Zeaxanthin Ext [Lutein 15 MG Softgel] 1 cap PO DAILY 02/23/17 [ History] Vitamin E 1,000 unit PO DAILY 08/28/17 [History] Phenazopyridine [Pyridium] 100 mg PO TID PRN 04/15/18 [History] Sulfamethoxazole/Trimethoprim [Sulfamethoxazole-Tmp Ss Tablet] 1 each PO BID 08/23 [History] Patient Handouts: Metoclopramide injection Forms: ED Department Discharge Referrals: Av Hua MD [Emergency Provider] - Venessa Husain PA-C [Primary Care Provider] - - Discharge Summary/Plan Comment DC Time >30 min.: Yes Discharge Summary/Plan Comment: Patient will be discharged and transferred via ambulance to [facility] for general surgery secondary to perforation of bowel - General Info Functional Status: Reports: Ambulating - Review of Systems General: Reports: No Symptoms HEENT: Reports: No Symptoms Pulmonary: Reports: Shortness of Breath, Other (CT showed pleural effusion and consolidation left lower lobe) Cardiovascular: Reports: No Symptoms Gastrointestinal: Reports: Abdominal Pain (Minimal), Constipation, Nausea, Vomiting Genitourinary: Reports: No Symptoms Musculoskeletal: Reports: No Symptoms Skin: Reports: No Symptoms Neurological: Reports: No Symptoms Psychiatric: Reports: No Symptoms - Patient Data Vitals - Most Recent: Last Vital Signs Temp 98.2 F 04/18/18 08:00 Pulse 121 H 04/18/18 08:00 Resp 17 04/18/18 08:00 BP 116/60 04/18/18 08:00 Pulse Ox 92 L 04/18/18 08:00 Weight - Most Recent: 115 lb 1.583 oz I&O - Last 24 hours: Intake & Output 04/17/18 04/18/18 04/18/18 22:59 06:59 14:59 Intake Total 120 2629 120 Output Total 900 1200 Balance -780 1429 120 Lab Results - Last 24 hrs: Laboratory Results - last 24 hr 04/18/18 04/18/18 04/18/18 Range/Units 07:10 07:10 07:10 WBC 33.5 H (4.0-10.2) K/uL RBC 3.98 (3.77-5.09) M/uL Hgb 11.9 (11.7-15.5) g/dL Hct 36.2 (34.0-46.0) % MCV 91.0 (84.0-98.0) fL MCH 29.9 (28.2-33.3) pg MCHC 32.9 (31.7-36.0) g/dL RDW 13.9 (11.2-14.1) % Plt Count 221 (150-350) K/uL Neut % (Auto) 38.5 L (45.0-80.0) % Lymph % (Auto) 54.2 H (10.0-50.0) % [place] % (Auto) 7.3 (2.0-14.0) % Eos % (Auto) 0.0 (0.0-5.0) % Baso % (Auto) 0.0 (0.0-2.0) % Neut # (Auto) 12.86 H (1.40-7.00) K/uL Lymph # (Auto) 18.16 H (0.50-3.50) K/uL [place] # (Auto) 2.45 H (0.00-1.00) K/uL Eos # (Auto) 0.00 (0.00-0.50) K/uL Baso # (Auto) 0.01 (0.00-0.20) K/uL Sodium 135 L (136-145) mmol/L Potassium 3.5 (3.5-5.1) mmol/L Chloride 101 (98-107) mmol/L Carbon Dioxide 21.9 (21.0-32.0) mmol/L BUN 19 H (7-18) mg/dL Creatinine 0.68 (0.51-1.17) mg/dL Est Cr Clr Drug Dosing 49.85 mL/min Estimated GFR (MDRD) > 60 mL/min Glucose 122 H (74-106) mg/dL Lactic Acid 1.4 (0.4-2.0) mmol/L Calcium 8.1 L (8.5-10.1) mg/dL Total Bilirubin 1.0 (0.2-1.0) mg/dL Direct Bilirubin 0.3 H (0.0-0.2) mg/dL AST 36 (15-37) U/L ALT 26 (12-78) U/L Alkaline Phosphatase 63 (46-116) IU/L Lactate Dehydrogenase 262 H (81-234) U/L Total Protein 6.2 L (6.4-8.2) g/dL Albumin 2.5 L (3.4-5.0) g/dL Amylase 25 (25-115) U/L Lipase 48 L (73-393) U/L Med Orders - Current: Current Medications Acetaminophen (Tylenol) 650 mg PO Q4H PRN PRN Reason: Pain Last Admin: 04/16/18 20:37 Dose: 650 mg Calcium Carbonate (Caltrate 600+D 1500 Mg-400 Units) 2 tab PO DAILY EDWIN Last Admin: 04/18/18 07:15 Dose: 2 tab Cholecalciferol (Vitamin D3) 1,000 units PO DAILY EDWIN Last Admin: 04/18/18 07:15 Dose: 1,000 units Docusate Sodium (Colace) 100 mg PO BID PRN PRN Reason: Constipation Last Admin: 04/17/18 07:59 Dose: 100 mg Fish Oil (Fish Oil) 1 gm PO DAILY EDWIN Last Admin: 04/18/18 07:15 Dose: 1 gm Metronidazole 500 mg/ Premix 100 mls @ 100 mls/hr IV Q8H COUNT INCLUDES THE [facility] Last Admin: 04/18/18 07:15 Dose: 100 mls/hr Sodium Chloride (Normal Saline) 1,000 mls @ 100 mls/hr IV ASDIRECTED COUNT INCLUDES THE [facility] Last Admin: 04/18/18 09:31 Dose: 100 mls/hr Levofloxacin/Dextrose 750 mg/ (Premix) 150 mls @ 100 mls/hr IV Q48H COUNT INCLUDES THE [facility] Piperacillin Sod/Tazobactam (Sod 2.25 gm/ Sodium Chloride) 100 mls @ 200 mls/ hr IV Q6H COUNT INCLUDES THE [facility] Lorazepam (Ativan) 0.5 mg PO Q6H PRN PRN Reason: Anxiety Last Admin: 04/16/18 22:45 Dose: 0.5 mg Magnesium Hydroxide (Milk Of Magnesia) 30 ml PO DAILY PRN PRN Reason: Constipation Last Admin: 04/16/18 16:26 Dose: 30 ml Metoclopramide HCl (Reglan) 10 mg IVPUSH Q6H COUNT INCLUDES THE [facility] Stop: 04/18/18 13:00 Last Admin: 04/18/18 07:15 Dose: 10 mg Multivitamins/Minerals/Vitamin C (Tab-A-Sridhar) 1 tab PO DAILY COUNT INCLUDES THE [facility] Last Admin: 04/18/18 07:15 Dose: 1 tab Ondansetron HCl (Zofran) 4 mg IVPUSH Q6H PRN PRN Reason: Nausea/Vomiting Last Admin: 04/17/18 09:39 Dose: 4 mg Pantoprazole Sodium (Protonix Iv) 40 mg IVPUSH Q12H COUNT INCLUDES THE [facility] Last Admin: 04/18/18 01:16 Dose: 40 mg Phenazopyridine HCl (Urinary Pain Relief) 95 mg PO TID PRN PRN Reason: Pain Sodium Chloride (Saline Flush) 10 ml FLUSH ASDIRECTED PRN PRN Reason: Keep Vein Open Last Admin: 04/18/18 00:04 Dose: 10 ml Trimethoprim/Sulfamethoxazole (Septra Ds) 1 tab PO BID@08,20 COUNT INCLUDES THE [facility] Last Admin: 04/18/18 07:15 Dose: 1 tab Vitamin E (Vitamin E) 1,200 units PO DAILY COUNT INCLUDES THE [facility] Last Admin: 04/18/18 07:15 Dose: 1,200 units Discontinued Medications Sodium Chloride (Normal Saline) 1,000 mls @ 150 mls/hr IV ASDIRECTED COUNT INCLUDES THE [facility] Last Admin: 04/18/18 06:15 Dose: 150 mls/hr Pantoprazole Sodium 40 mg/ (Sodium Chloride) 100 mls @ 200 mls/hr IV ONETIME ONE Stop: 04/15/18 20:20 Last Admin: 04/15/18 20:08 Dose: 200 mls/hr Pantoprazole Sodium 40 mg/ (Sodium Chloride) 100 mls @ 200 mls/hr IV DAILY ONE Stop: 04/15/18 21:11 Last Admin: 04/15/18 21:12 Dose: Not Given Ceftriaxone Sodium 1 gm/ (Sodium Chloride) 100 mls @ 200 mls/hr IV Q12H COUNT INCLUDES THE [facility] Last Admin: 04/18/18 01:16 Dose: 200 mls/hr Iopamidol (Isovue-300 (61%)) 100 ml IVPUSH ONETIME ONE Stop: 04/17/18 15:49 Non-Formulary Medication (Calcium Carbonate/Vitamin D3 [Calcium 1,000 + D3 Caplet]) 1 tab PO DAILY COUNT INCLUDES THE [facility] Last Admin: 04/16/18 07:34 Dose: Not Given Non-Formulary Medication (Cholecalciferol (Vitamin D3) [Vitamin D3]) 1,000 unit PO DAILY COUNT INCLUDES THE [facility] Last Admin: 04/16/18 07:34 Dose: Not Given Non-Formulary Medication (Multivitamin [Multivitamins]) 1 each PO DAILY COUNT INCLUDES THE [facility] Last Admin: 04/16/18 07:34 Dose: Not Given Non-Formulary Medication ([place]-3/Dha/Epa/Fish Oil [Fish Oil Dr 500 Mg Softgel] ) 1,000 mg PO DAILY COUNT INCLUDES THE [facility] Last Admin: 04/16/18 07:34 Dose: Not Given Non-Formulary Medication (Phenazopyridine [Pyridium]) 100 mg PO TID PRN PRN Reason: Pain Non-Formulary Medication (Vitamin E [Vitamin E]) 1,000 unit PO DAILY COUNT INCLUDES THE [facility] Last Admin: 04/16/18 07:34 Dose: Not Given Ondansetron HCl (Zofran) 8 mg IVPUSH ONETIME ONE Stop: 04/15/18 19:53 Last Admin: 04/15/18 20:04 Dose: 8 mg - Exam Quality Assessment: Reports: Supplemental Oxygen General: Reports: Alert, Oriented HEENT: Reports: Pupils Equal, Pupils Reactive, EOMI, Mucous Membr. Moist/[place] Neck: Reports: Supple Lungs: Reports: Rales (Left base) Cardiovascular: Reports: Regular Rate, Regular Rhythm, Murmurs (36 systolic murmur) GI/Abdominal Exam: Distended, Abnormal Bowel Sounds (No bowel sounds), Other ( Rectal exam revealed stool in vault removed manually Hemoccult-negative) (Female) Exam: Normal External Exam, Normal Speculum Exam, Normal Bimanual Exam Rectal (Female) Exam: Decreased Rectal Tone Back Exam: Reports: Normal Inspection, Full Range of Motion Extremities: Normal Inspection, Normal Range of Motion, Non-Tender, No Pedal Edema, Normal Capillary Refill Skin: Reports: Warm, Dry, Intact Neurological: Reports: No New Focal Deficit *Q Meaningful Use (DIS) - VTE *Q VTE Pharmacological Contraindications *Q: Risk of Bleeding
[2018-04-18 11:07] VITALS: BP 99/70
[2018-04-18] MEDS ORDERED: Piperacillin/Tazobactam 2.25 GM in Sodium Chloride 0.9% 100 ML IV SCH (13:00)
[2018-04-18] MEDS ORDERED: Levofloxacin/Dextrose 5%-Water 750 MG in Premix Bag 1 BAG IV SCH (14:00)
== END 2018-04-18 11:45 | DRG 393 ==
LOC: LL.ED 19:10 → LL.MS 20:25 → OBSVTOIN 04-17 14:30
PROVIDERS: ADMIT Family Medicine; ATTEND Family Medicine
DX: K63.1 Perforation of intestine (nontraumatic) (principal); J18.9 Pneumonia, unspecified organism; I42.9 Cardiomyopathy, unspecified; E86.0 Dehydration; K29.00 Acute gastritis without bleeding; K52.9 Noninfective gastroenteritis and colitis, unspecified; I35.0 Nonrheumatic aortic (valve) stenosis; K21.9 Gastro-esophageal reflux disease without esophagitis; Z86.010 Personal history of colon polyps; F41.9 Anxiety disorder, unspecified; Z79.899 Other long term (current) drug therapy; E78.00 Pure hypercholesterolemia, unspecified; I10 Essential (primary) hypertension
CPT/HCPCS: 36415; 71046; 74019; 74177; 80048; 80076; 82150; 82270; 82271; 82272; 83605; 83615; 83690; 85025; 96374; 96375; 99285; A9270-GY; C9113; J0696; J2405; J2765; J7030; J7050

== ENCOUNTER 2019-08-07 11:17 | Emergency (ER) | payer MEDICARE, OTHER ==
[2019-08-07] MEDS ORDERED: Famotidine 20 MG/2 ML SDV IVPUSH ONE (11:29)
--- NOTE | 2019-08-07 11:29 | EDM.PDOC ---
ED HPI GENERAL MEDICAL PROBLEM - General Chief Complaint: Cardiovascular Problem Stated Complaint: Shortness of breath Time Seen by Provider: 08/07/19 11:17 Source of Information: Reports: Patient, Family (Daughter, Stephanie), Old Records ([facility] chart/EMR), Other ([facility]) History Limitations: Reports: No Limitations - History of Present Illness INITIAL COMMENTS - FREE TEXT/NARRATIVE: The patient was brought to the emergency room via private automobile by her daughter for evaluation of progressive one-week history of moderate dyspnea, dependent edema, and nonspecific generalized fatigue and weakness with patient seeing her regular provider about one week ago. At the time of that visit her metoprolol was decreased and patient was started on Celexa, however the patient has been somewhat noncompliant with this medication secondary to nonspecific intolerance, including nausea, dizziness, etc.. She did restart her low-dose Lopressor yesterday, however. She has also had a known history of critical aortic valve stenosis by previous echocardiogram as below with apparent current observation. The patient denies any chest pain/pressure, heart flutter, orthostasis, orthopnea, diaphoresis, paresthesias, or any other anginal-type symptoms, however no decreased exercise tolerance during the last week as above. He has had some nonspecific epigastric spasms during the last week with these usually only lasting a few seconds. She did have a normal bowel movement earlier today. No recent history of other abdominal pain, heartburn, emesis, diarrhea, melena, gross hematochezia, or any food intolerance, including fatty foods, etc.. She denies any gross hematuria, colic, or other UTI symptoms. Onset: Gradual Duration: Getting Worse Location: Reports: Abdomen (Nonspecific spasms as above). Denies: Head, Face, Neck, Chest, Back, Pelvis, Upper Extremity, Left, Upper Extremity, Right, Radiates to Quality: Reports: Same as Previous Episode Severity: Moderate (Dyspnea) Improves with: Reports: Rest Worsens with: Reports: Movement Context: Reports: Other (As above). Denies: Sick Contact, Trauma Associated Symptoms: Reports: Nausea/Vomiting (Secondary to medications?), Shortness of Breath, Weakness (Nonspecific generalized). Denies: Confusion, Chest Pain, Cough, Diaphoresis, Fever/Chills, Headaches, Loss of Appetite, Malaise, Rash, Seizure, Syncope Treatments ETL PROGRAMMER: Reports: Other (see below) (None) - Related Data Allergies Allergy/AdvReac Type Severity Reaction Status Date / Time No Known Allergies Allergy Verified 08/07/19 11:27 Home Meds: Home Meds Multivitamin [Multivitamins] 1 each PO DAILY@1200 12/05/13 [History] [place]-3/DHA/Epa/Fish Oil [Fish Oil Dr 500 mg Softgel] 1,000 mg PO DAILY@1800 [History] Calcium Carbonate/Vitamin D3 [Calcium 1,000 + D3 Caplet] 1 tab PO DAILY@1200, 1800 02/23/17 [History] Lutein Extract/Zeaxanthin Ext [Lutein 15 MG Softgel] 1 cap PO DAILY 02/23/17 [ History] Vitamin E 1,000 unit PO DAILY@1800 08/28/17 [History] L.acidoph,Paracasei, B.lactis [Probiotic] 1 each PO DAILY@1200 08/07/19 [History ] Metoprolol Tartrate 25 mg PO BID@08,20 08/07/19 [History] Non-Formulary Medication [NF Drug] 1 tab PO DAILY 08/07/19 [History] Past Medical History HEENT History: Reports: Cataract, Impaired Vision. Denies: Allergic Rhinitis, Epistaxis, Glaucoma, Hard of Hearing, Macular Degeneration, Otitis Media, Retinal Detachment Other HEENT History: Wears glasses Cardiovascular History: Reports: Arrhythmia, Cardiomyopathy, Heart Failure, Heart Murmur, High Cholesterol, Hypertension. Denies: Afib, Aneurysm, Blood Clots/VTE/DVT, CAD, MT, PTCA, PVD, Stents, Syncope Other Cardiovascular History: Note critical aortic valve stenosis by recent echocardiogram on 04/18/18 with ejection fraction of 65% and previous echocardiogram showing Severe aortic valve stenosis and moderate left atrial enlargement with additional grade 1 diastolic dysfunction initially diagnosed by echocardiogram on 03/31/16 with persistent mild mitral valve insufficiency, tricuspid valve insufficiency and pulmonary valve insufficiency by previous echocardiogram as below. PACs, PVCs, couplets, bigeminy, and brief runs by Holter monitors her study in July 2014 as below. Respiratory History: Reports: Intubation, Previous. Denies: Asthma, Bronchitis , Recurrent, COPD, Intubation, Difficult, PE, Pneumothorax, Pulmonary Fibrosis, Sleep Apnea, TB Gastrointestinal History: Reports: Bowel Obstruction, Cholelithiasis, Colon Polyp, Diverticulosis, Fecal Incontinence, Gastritis, GERD, Hemorrhoids, Other ( See Below). Denies: Celiac Disease, Chronic Constipation, Chronic Diarrhea Other Gastrointestinal History: History of small bowel obstruction requiring surgery as below in April 2018. Right peritoneal abscess requiring aspiration as below in April 2018. 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 Recurrent benign colonic polyps including removal of tubular adenoma from the ascending colon 12/05/13 and history of tubulovillous adenoma of the ascending colon and benign polyp of the transverse colon at time of colonoscopy on 03/28/13 with no evidence of recurrence at time of last colonoscopy as below. Nonsymptomatic cholelithiasis by CT scan. Fatty liver. Genitourinary History: Reports: Pyelonephritis, Renal Calculus, Urinary Incontinence, Other (See Below). Denies: Acute Renal Failure, Chronic Renal Insuffiency, STD, UTI, Recurrent Other Genitourinary History: History of urolithiasis with lithotripsy as below. Benign renal cysts. LEATHER FLESHER History: Reports: , Prolapsed Uterus : 3 Para: 3 LMP (Approximate): Other (See Below) Other LEATHER FLESHER History: Surgical menopause in 1984 secondary to prolapsed uterus as below. Full term without complications during pregnancies or deliveries Musculoskeletal History: Reports: Arthritis, Back Pain, Chronic, Fracture, Neck Pain, Chronic, Osteoarthritis, Osteoporosis, Other (See Below). Denies: Amputation, Gout, RA, SLE Other Musculoskeletal History: L1L2 compression fractures Neurological History: Reports: None. Denies: Cerebral Aneurysms, Concussion, CVA, Headaches, Chronic, Head Trauma, Migraines, Neuropathy, Peripheral, Parkinson's, Seizure, TIA, Vertigo Psychiatric History: Reports: Anxiety, Depression, Other (See Below). Denies: Abuse, Victim of, ADD, ADHD, Addiction, Alzheimers Disease, Dementia, Hallucinations, PTSD, Suicide Attempt, Suicidal Ideation Other Psychiatric History: Anxiety depression disorder with initiation of medical therapy in July 2019. Endocrine/Metabolic History: Reports: Osteopenia, Osteoporosis, Other (See Below ). Denies: Diabetes, Gestational, Diabetes, Type II, Diabetes Mellitus, Type 3c , Hyperparathyroidism, Hypothyroidism, IDDM Other Endocrine/Metabolic History: Borderline hyperglycemia. Hypoalbuminemia. Hematologic History: Reports: Other (See Below). Denies: Anemia, B12 Deficiency , Blood Transfusion(s), Iron Deficiency Other Hematologic History: CLL as below. Immunologic History: Reports: Immunosuppression, Other (See Below). Denies: AIDS, HIV, SLE Other Immunologic History: CLL Oncologic (Cancer) History: Reports: Leukemia, Other (See Below). Denies: Basal Cell Carcinoma, Breast, Cervix, Colon, Hodgkin's Lymphoma, Lymphoma, Malignant Melanoma, Non-Hodgkin's Lymphoma, Ovarian, Squamous Cell Carcinoma, Uterine Other Oncologic History: CLL currently under observation. Dermatologic History: Reports: Cellulitis, Seborrheic Dermatitis, Other (See Below). Denies: Eczema, Psoriasis, Venous Stasis Dermatitis Other Dermatologic History: Severe right periorbital cellulitis with borderline sinus abscess by CT scan on 08/29/17. Seborrheic dermatitis of the scalp region - Infectious Disease History Infectious Disease History: Reports: Chicken Pox, Measles, Mumps, Shingles ( Herpes zoster ophthalmicusright sided in August 2017). Denies: C-Difficile, Meningitis, Mononucleosis, MRSA, Pertussis (Whooping Cough), Rheumatic Fever, Rubella, Scarlet Fever, TB, VRE - Past Surgical History Head Surgeries/Procedures: Reports: None HEENT Surgical History: Reports: Cataract Surgery, Oral Surgery, Other (See Below). Denies: Adenoidectomy, Eye Surgery, Laser Surgery, LASIK, Myringotomy w Tube(s), Naso-Sinus Surgery, Tonsillectomy Other HEENT Surgeries/Procedures: [place] teeth extraction 4 in the , right cataract surgery in about 2013 Cardiovascular Surgical History: Reports: None. Denies: Varicose Respiratory Surgical History: Reports: Thoracentesis, Other (See Below) Other Respiratory Surgeries/Procedures: Left-sided thoracentesis secondary to pleural effusion on 04/24/18. GI Surgical History: Reports: Colon, Colonoscopy, Polypectomy, Small Bowel, Other (See Below). Denies: Appendectomy, Cholecystectomy, EGD, Hernia, Abdominal, Hernia, Inguinal, Hernia Repair/Other Other GI Surgeries/Procedures: Distal small bowel resection on 04/22/18 secondary to obstruction with additional aspiration of large right pelvic/ peritoneal abscess at that time. Last colonoscopy on 02/23/17 with no recurrence of her previous colonic polyps with previous colonoscopies on 03/06/08, 11/15/04, and 12/05/13, previous distal rectosigmoid bowel resection secondary to benign colonic tumor in October 2000. Excision of multiple colonic polyps as above. Female Surgical History: Reports: Hysterectomy, Lithotripsy/ESWL, Oophorectomy, Salpingo-Oophorectomy, Other (See Below). Denies: Breast Biopsy, Section, D&C Other Female Surgeries/Procedures: Hysterectomy with left-sided oophorectomy secondary to uterine prolapse in 1984, incidental right salpingo-oophorectomy at time of sigmoid resection in October 2000, left-sided lithotripsy in about 1988. Endocrine Surgical History: Reports: None. Denies: Thyroid Biopsy Neurological Surgical History: Reports: None. Denies: C-Spine, Discectomy, Laminectomy, Lumbar Spine, Sacral Spine, Spinal Fusion, Thoracic Spine, Vertebroplasty Musculoskeletal Surgical History: Reports: None. Denies: Arthroscopic Knee, Arthroscopic Procedure, Carpal Tunnel, Ganglion Cyst, Joint Replacement, ORIF, Shoulder Surgery Oncologic Surgical History: Reports: None. Denies: Bone Marrow Aspiration Dermatological Surgical History: Reports: None - Past Imaging History Past Imaging History: Reports: Cardiac Echo (Last echocardiogram on 04/22/18 with critical aortic valve stenosis at that time with ejection fraction of 65% and otherwise findings as above. Previous echocardiogram on 01/11/16, 03/31/16, and 03/08/13), CAT Scan (CT of the abdomen and pelvis on 04/22/18 and 04/17/18. CTA of the abdomen and pelvis on 04/19/18. CT of the maxillofacial region on . CT of the chest, abdomen and pelvis on 08/13/09), DEXA Scan (Last on 03/31/15 and 03/15/11), Holter Monitor (07/24/19 positive for arrhythmia as above.), Mammogram (Last on 08/10/17) Social & Family History - Family History HEENT: Reports: None. Denies: Glaucoma, Macular Degeneration, Retinal Detachment Cardiac: Reports: CAD, Heart Failure, High Cholesterol, Hypertension, MT, Other (See Below). Denies: Afib, Aneurysm, Arrhythmia, Blood Clots/VTE/DVT, Bypass, Heart Murmur, PVD/COD, Syncope Other Cardiac Family History: Father with fatal MT and CHF at age 79, daughter and son with hyperlipidemia, sister with hypertension Respiratory: Reports: None. Denies: Asthma, COPD, PE, Pneumothorax, Sleep Apnea GI: Reports: None. Denies: Celiac Disease, Cholelithiasis, Colon Polyps, GERD, GI bleed, Inflammatory Bowel Disease, Irritable Bowel Syndrome, PUD : Reports: None. Denies: Renal Calculus, Renal Disease/Insufficiency OBGYN: Reports: None. Denies: Dysfunctional uterine bleeding, Endometriosis, Recurrent Spontaneous Musculoskeletal: Reports: Arthritis, Gout, Osteoarthritis, Osteoporosis, Other ( See Below). Denies: RA, SLE Other Musculoskeletal Family History: Sister with osteoarthritis, father with gout Neurological: Reports: Other (See Below). Denies: Alzheimers Disease, Cerebral Aneurysms, CVA, Dementia, Migraines, MS, Parkinson's, Seizure, TIA Other Neurological Family History: Daughter with cavernous malformation requiring surgery some mild secondary dystaxia and weakness Psychiatric: Reports: None. Denies: Abuse, Victim of, ADD, ADHD, Anxiety, Depression, Psych Hospitalization(s), PTSD, Suicide Attempt Endocrine/Metabolic: Reports: Diabetes, type II, Other (See Below). Denies: Diabetes, Gestational, Diabetes, Type I, Diabetes Mellitus, Type 3c, Hypothyroidism, IDDM Other Endocrine/Metabolic Family History: Father with diabetes mellitus Hematologic: Reports: None. Denies: Anemia Immunologic: Reports: None. Denies: AIDS, HIV, SLE Dermatologic: Reports: None, Angiodema. Denies: Eczema, Psoriasis Oncologic: Reports: None - Tobacco Use Smoking Status *Q: Never Smoker Tobacco Use Within Last Twelve Months: No Used Tobacco, but Quit: No Smoking Cessation Information Provided To Patient: No Second Hand Smoke Exposure: No Second Hand Smoke Education Provided: No - Caffeine Use Caffeine Use: Reports: Coffee (12 cups per day). Denies: Energy Drinks, Soda, Tea - Alcohol Use Alcohol Use History: Yes Days Per Week of Alcohol Use: 0 Number of Drinks Per Day: 1 Total Drinks Per Week: 0 Total Drinks Per Week Comment: Occasional wine or mixed drinks about 23 times per year. No previous DWIs, problems with alcohol abuse, etc. Alcohol Use in Last Twelve Months: Yes - Recreational Drug Use Recreational Drug Use: No Drug Use in Last 12 Months: No Recreational Drug Type: Denies: Amphetamines (Speed), Cocaine, Heroin, Inhalants (Glues, Solvents, Aerosols), LSD (Acid), Marijuana/Hashish, Methamphetamine, Morphine, Oxycodone - Living Situation & Occupation Living situation: Reports: (2006, 3 children), with Family (Daughter) Occupation: Retired ([employer] ) ED ROS GENERAL - Review of Systems Review Of Systems: ROS reveals no pertinent complaints other than HPI. ED EXAM, GENERAL - Physical Exam Exam: See Below Exam Limited By: No Limitations General Appearance: Alert, WD/WN, No Apparent Distress, Anxious (Mild) Eye Exam: Bilateral Eye: EOMI, Normal Inspection (Patient wearing glasses. No nystagmus), PERRL Ears: Normal External Exam, Normal Canal, Hearing Grossly Normal, Normal TMs Nose: Normal Inspection, Normal Mucosa, No Blood Throat/Mouth: Normal Inspection, Normal Lips, Normal Teeth, Normal Gums, Normal Oropharynx, Normal Voice, No Airway Compromise. No: Dysphagia, Perioral Cyanosis Head: Atraumatic, Normocephalic. No: Facial Swelling, Facial Tenderness, Sinus Tenderness Neck: Supple, Non-Tender, Full Range of Motion, Carotid Bruit (Moderate bilateral carotid bruits versus transmitted heart sounds.). No: Limited Range of Motion, Lymphadenopathy (L), Lymphadenopathy (R), Thyromegaly Respiratory/Chest: No Accessory Muscle Use, Chest Non-Tender, Respiratory Distress (Brief borderline with episodes of bradycardia and arrhythmia as below) , Decreased Breath Sounds (As below), Rales (Moderate diffuse bilateral basilar rales with decreased breath sounds in the bases bilaterally), Accessory Muscle Use. No: Pleural Rub, Retractions Cardiovascular: Normal Peripheral Pulses, No Gallop, No JVD, No Rub, Systolic Murmur (23/6 RAYSHAWN of the aortic and mitral valves.), Extra Beats (Regular rate) . No: No Edema (Dependent edema as below), No Murmur, Gallop/S3, Gallop/S4, Friction Rub Peripheral Pulses: 2+: Radial (L), Radial (R), Dorsalis Pedis (L), Dorsalis Pedis (R) GI/Abdominal: Normal Bowel Sounds, Soft, Non-Tender, No Organomegaly, No Distention, No Abnormal Bruit, No Mass, Pelvis Stable. No: Guarding (Female) Exam: Deferred Rectal (Female) Exam: Deferred Back Exam: Normal Inspection, Full Range of Motion. No: CVA Tenderness (L), CVA Tenderness (R), Muscle Spasm Extremities: Normal Range of Motion, Non-Tender, Normal Capillary Refill, Pedal Edema (+1+2 bilateral pedal/pretibial edema). No: No Pedal Edema, Rj's Sign Neurological: Alert, Oriented, CN II-XII Intact, Normal Cognition, Normal Gait, Normal Reflexes (Negative Babinski's), No Motor/Sensory Deficits Psychiatric: Anxious (Mild). No: Depressed Mood Skin Exam: Warm. No: Diaphoretic, Ecchymosis, Wound/Incision Lymphatic: No Adenopathy EKG INTERPRETATION EKG Date: 08/07/19 Time: 11:35 Rhythm: NSR Rate (Beats/Min): 85 [place]: RAD-Right [place] Deviation (Right cardiac axis) P-Wave: Enlarged (Mild diffuse biphasic P waves with extreme poor R-wave progression in the anterior leads) QRS: Normal (0.08 seconds with left ventricular hypertrophy by voltage) ST-T: Other (1 mm downsloping depressions in leads 2, 3, aVF, and V5V6 consistent with new inferolateral cardiac ischemia) QT: Normal IL/PQ Interval: 0.15 seconds Comparison: Change From Previous EKG (New Inferolateral cardiac ischemia and change from neutral to right cardiac axis since last EKG on 08/29/17) EKG Interpretation Comments: 1. Inferolateral cardiac ischemia 2. Left Atrial enlargement 3. Left ventricular hypertrophy by voltage Repeat EKG at 14:00 hours shows change from previous right to a neutral cardiac axis with resolution of previous downsloping ST changes in leads 2, 3, and aVF, however increased prominence of [address] depressions in leads V5 and V6 KG earlier today Course - Vital Signs Last Recorded V/S: Last Vital Signs Temp 36.4 C 08/07/19 14:55 Pulse 94 08/07/19 14:55 Resp 24 H 08/07/19 14:55 BP 123/53 L 08/07/19 14:55 Pulse Ox 96 08/07/19 14:55 Vital Signs - 24 hr 08/07/19 08/07/19 08/07/19 11:20 11:29 11:31 Temperature [ 36.8 C 36.8 C Temporal] Pulse, 86 83 Peripheral [ Left Pulse Oximetry] Respiratory 18 18 Rate Blood Pressure 131/56 L 114/52 L [Left Upper Arm ] O2 Sat by Pulse 100 98 Oximetry O2 Sat by Pulse 99 Oximetry [Room Air] 08/07/19 08/07/19 08/07/19 11:40 12:13 12:25 Temperature [ 36.7 C Temporal] Pulse, 85 86 90 Peripheral [ Left Pulse Oximetry] Respiratory 16 16 18 Rate Blood Pressure 117/47 L 115/52 L 110/85 [Left Upper Arm ] O2 Sat by Pulse 94 L 95 97 Oximetry O2 Sat by Pulse Oximetry [Room Air] 08/07/19 08/07/19 08/07/19 12:55 13:10 13:45 Temperature [ 36.6 C Temporal] Pulse, 89 90 91 Peripheral [ Left Pulse Oximetry] Respiratory 18 18 20 Rate Blood Pressure 115/56 L 102/40 L 106/77 [Left Upper Arm ] O2 Sat by Pulse 95 96 97 Oximetry O2 Sat by Pulse Oximetry [Room Air] 08/07/19 08/07/19 08/07/19 13:55 14:10 14:40 Temperature [ Temporal] Pulse, 92 95 89 Peripheral [ Left Pulse Oximetry] Respiratory 20 20 24 H Rate Blood Pressure 132/49 L 160/46 H 122/39 L [Left Upper Arm ] O2 Sat by Pulse 97 96 97 Oximetry O2 Sat by Pulse Oximetry [Room Air] 08/07/19 14:55 Temperature [ 36.4 C Temporal] Pulse, 94 Peripheral [ Left Pulse Oximetry] Respiratory 24 H Rate Blood Pressure 123/53 L [Left Upper Arm ] O2 Sat by Pulse 96 Oximetry O2 Sat by Pulse Oximetry [Room Air] - Orders/Labs/Meds Orders: Active Orders 24 hr Category Date Time Status Cardiac Monitoring [RC] . DIRECTED Care 08/07/19 11:29 Active EKG Documentation Completion [RC] ASDIRECTED Care 08/07/19 11:29 Active EKG Documentation Completion [RC] ASDIRECTED Care 08/07/19 13:59 Active Influenza Vaccine Charge [RC] .DISCHARGE Care 08/07/19 12:04 Active Oxygen Therapy, ED [RC] PRN Care 08/07/19 11:29 Active Peripheral IV Care [RC] . DIRECTED Care 08/07/19 11:29 Active Pulse Oximetry [RC] CONTINUOUS Care 08/07/19 11:29 Active Up With Assistance [RC] PFP Care 08/07/19 11:29 Active Vital Signs [RC] PFP Care 08/07/19 11:29 Active Nothing per Oral Now Diet [DIET] Diet 08/07/19 Breakfast Active Chest 1V Frontal [CR] Stat Exams 08/07/19 11:29 Taken Chest PE [Ang Chest] [CT] Stat Exams 08/07/19 12:20 Taken Pharmacy to Dose - InFluenza V [Pharmacy to Dose - Med 08/07/19 12:03 Pending InFluenza Vaccine] 1 each IM ONETIME ONE Sodium Chloride 0.9% [Saline Flush] Med 08/07/19 11:29 Active 10 ml FLUSH ASDIRECTED PRN Obtain Past Medical Record [OM.PC] Urgent Oth 08/07/19 11:29 Active Peripheral IV Insertion Adult [OM.PC] Stat Oth 08/07/19 11:29 Ordered Resuscitation Status Stat Resus Stat 08/07/19 11:29 Ordered Medication Orders Influenza Virus Vaccine (Pharmacy To Dose - Influenza Vaccine) 1 each IM ONETIME ONE Stop: 08/07/19 12:04 Sodium Chloride (Saline Flush) 10 ml FLUSH ASDIRECTED PRN PRN Reason: Keep Vein Open Last Admin: 08/07/19 12:31 Dose: 10 ml Admin: 08/07/19 12:11 Dose: 10 ml Labs: Laboratory Tests 08/07/19 08/07/19 08/07/19 Range/Units 11:35 11:35 11:35 WBC 67.0 H* (4.0-10.2) K/uL RBC 4.40 (3.77-5.09) M/uL Hgb 13.0 (11.7-15.5) g/dL Hct 41.9 (34.0-46.0) % MCV 95.2 D (84.0-98.0) fL MCH 29.5 (28.2-33.3) pg MCHC 31.0 L (31.7-36.0) g/dL RDW 15.8 H (11.2-14.1) % Plt Count 216 (150-350) K/uL Add Manual Diff Yes Neutrophils % (Manual) 2 Lymphocytes % (Manual) 95 Monocytes % (Manual) 2 Eosinophils % (Manual) 1 Absolute Neutrophils 1.3400 Lymphocytes # (Manual) 63.6500 Monocytes # (Manual) 1.3400 Eosinophils # (Manual) 0.6700 PT 11.5 (9.5-12.0) SEC INR 1.1 APTT 25.7 (21.0-31.3) SEC D-Dimer, Quantitative 868 H (0-400) ng/mL Sodium (136-145) mmol/L Potassium (3.5-5.1) mmol/L Chloride (98-107) mmol/L Carbon Dioxide (21.0-32.0) mmol/L BUN (7-18) mg/dL Creatinine (0.51-1.17) mg/dL Est Cr Clr Drug Dosing Estimated GFR (MDRD) mL/min Glucose (74-106) mg/dL Lactic Acid (0.4-2.0) mmol/L Uric Acid (2.6-7.2) mg/dL Calcium (8.5-10.1) mg/dL Magnesium (1.8-2.4) mg/dL Total Bilirubin (0.2-1.0) mg/dL AST (15-37) U/L ALT (12-78) U/L Alkaline Phosphatase (46-116) IU/L Creatine Kinase (26-308) U/L Creatine Kinase Index (0.0-2.5) % CK-MB (CK-2) (0.00-3.60) ng/mL Troponin I (0.000-0.056) ng/mL NT-Pro-B Natriuret Pep (0-125) pg/mL Total Protein (6.4-8.2) g/dL Albumin (3.4-5.0) g/dL TSH, Ultra Sensitive (0.358-3.740) mIU/mL 08/07/19 08/07/19 Range/Units 11:35 11:35 WBC (4.0-10.2) K/uL RBC (3.77-5.09) M/uL Hgb (11.7-15.5) g/dL Hct (34.0-46.0) % MCV (84.0-98.0) fL MCH (28.2-33.3) pg MCHC (31.7-36.0) g/dL RDW (11.2-14.1) % Plt Count (150-350) K/uL Add Manual Diff Neutrophils % (Manual) Lymphocytes % (Manual) Monocytes % (Manual) Eosinophils % (Manual) Absolute Neutrophils Lymphocytes # (Manual) Monocytes # (Manual) Eosinophils # (Manual) PT (9.5-12.0) SEC INR APTT (21.0-31.3) SEC D-Dimer, Quantitative (0-400) ng/mL Sodium 148 H D (136-145) mmol/L Potassium 3.7 (3.5-5.1) mmol/L Chloride 111 H (98-107) mmol/L Carbon Dioxide 22.8 (21.0-32.0) mmol/L BUN 34 H (7-18) mg/dL Creatinine 0.99 (0.51-1.17) mg/dL Est Cr Clr Drug Dosing TNP Estimated GFR (MDRD) 53 mL/min Glucose 143 H (74-106) mg/dL Lactic Acid 2.4 H (0.4-2.0) mmol/L Uric Acid 6.0 (2.6-7.2) mg/dL Calcium 9.1 (8.5-10.1) mg/dL Magnesium 1.8 (1.8-2.4) mg/dL Total Bilirubin 1.1 H (0.2-1.0) mg/dL AST 57 H (15-37) U/L ALT 81 H (12-78) U/L Alkaline Phosphatase 122 H (46-116) IU/L Creatine Kinase 66 (26-308) U/L Creatine Kinase Index 4.4 H (0.0-2.5) % CK-MB (CK-2) 2.90 (0.00-3.60) ng/mL Troponin I 0.178 H* (0.000-0.056) ng/mL NT-Pro-B Natriuret Pep 23563 H (0-125) pg/mL Total Protein 7.3 (6.4-8.2) g/dL Albumin 4.0 (3.4-5.0) g/dL TSH, Ultra Sensitive 3.128 (0.358-3.740) mIU/mL Meds: Medications Generic Name Dose Route Start Last Admin Trade Name Freq PRN Reason Stop Dose Admin Influenza Virus Vaccine 1 each 08/07/19 12:03 Pharmacy To Dose - Influenza Vaccine IM 08/07/19 12:04 ONETIME ONE Sodium Chloride 10 ml 08/07/19 11:29 08/07/19 12:31 Saline Flush FLUSH 10 ml ASDIRECTED PRN Administration Keep Vein Open Discontinued Medications Generic Name Dose Route Start Last Admin Trade Name Freq PRN Reason Stop Dose Admin Aspirin 324 mg 08/07/19 12:18 08/07/19 12:22 Aspirin CHEW 08/07/19 12:19 324 mg ONETIME ONE Administration Famotidine 40 mg 08/07/19 11:29 08/07/19 12:06 Pepcid IVPUSH 08/07/19 11:30 40 mg ONETIME ONE Administration Furosemide 60 mg 08/07/19 12:20 08/07/19 12:25 Lasix IVPUSH 08/07/19 12:21 60 mg NOW ONE Administration Iopamidol 100 ml 08/07/19 12:23 08/07/19 13:19 Isovue-370 (76%) IVPUSH 08/07/19 12:24 100 ml ONETIME ONE Administration Iopamidol Confirm 08/07/19 12:28 Isovue-370 (76%) Administered 08/07/19 12:29 Dose 100 ml .ROUTE .STK-MED ONE Ticagrelor 180 mg 08/07/19 12:19 08/07/19 12:22 Brilinta PO 08/07/19 12:20 180 mg ONETIME ONE Administration - Radiology Interpretation Free Text/Narrative:: monitoring manager shows sinus rhythm with occasional uniform PVCs and PACs with average heart rate in the ascending 90s. No tachycardia or other significant arrhythmia. At the end of your care of the patient began to exhibit recurrent short periods of brief bradycardia in the 40s-60s with brief bigeminy and trigeminy with subsequent brief tachycardia in the 100s however return to previous sinus rhythm in the 90s as above. Chest x-ray, portable, shows evidence of mild to moderate mostly centralized CHF with mild to moderate bilateral pleural effusions. Moderate aortic valve calcification. No cardiomegaly, pneumothorax, etc. Possible right middle lobe atelectasis versus pulmonary infiltrates. Telephone consultation at 13:36 hours with the radiology department at [facility] in [place] with preliminary verbal report of CTA of the chest using PE protocol. This study was negative for PE, however confirmation of pleural effusions and likely right-sided heart failure. CT Results Date: 08/07/19 CT Results Time: 13:36 Departure - Departure Time of Disposition: 15:10 Disposition: DC/Tfer to Acute Hospital 02 Reason for Transfer *Q: Other (Cardiology consultation on arrival) Condition: Fair Clinical Impression: CLL (chronic lymphocytic leukemia), Hyperlipidemia, Mixed anxiety depressive disorder, CHF (congestive heart failure), Peptic reflux disease, Osteoarthritis , Aortic valve stenosis, Elevated d-dimer, Hyponatremia, Elevated lactic acid level Referrals: Venessa Husain PA-C [Primary Care Provider] - Forms: ED Department Discharge, Interfacility Transfer EMTALA - Problem List & Annotations (1) Aortic valve stenosis SNOMED Code(s): 81457610 Code(s): I35.0 - NONRHEUMATIC AORTIC (VALVE) STENOSIS Status: Acute Priority: Medium Current Visit: Yes Onset Date: 03/31/16 Annotation/ Comment:: Note progressive symptomatically aortic valve stenosis during the last week as above. Patient did exhibit several episodes of brief dyspnea associated with bradycardia, increased arrhythmia, etc., however no chest pain with symptoms usually lasting only a few seconds. Symptoms were relieved when the patient leaned forward. Note echocardiogram on 04/22/18 show progressive critical aortic Stenosis with otherwise findings as above. Patient is currently apparently under observation for this disorder. Telephone consultation at 14:[address] Reddy, hospitalist at [facility] in [place], who does accept the patient for direct admission, with no further treatment recommendations given. Chest pain protocol was not initiated upon patient's arrival to the emergency room secondary to absence of anginal type symptoms, however ASA 81 mg 4 and Brilinta 180 mg by mouth were given after cardiac enzyme results were obtained. Note moderate troponin I elevation likely secondary to her CHF with artifactually elevated CK index secondary to her low baseline CK. Note significant BNP elevation and positive d-dimer. Ambulance transfer with bowling ball grader and marker accompaniment. Vital signs and clinical exam are stable at time of transfer. Note that the patient had not taken any metoprolol during the last week until 11 AM yesterday with reduced dose at that time per instructions from her regular provider in one week ago. Qualifiers: Cardiac valve disease etiology: nonrheumatic Qualified Code(s): I35.0 - Nonrheumatic aortic (valve) stenosis (2) CHF (congestive heart failure) SNOMED Code(s): 44871232 Code(s): I50.9 - HEART FAILURE, UNSPECIFIED Status: Acute Current Visit: Yes Annotation/Comment:: Known history of diastolic dysfunction with acute CHF likely secondary to her critical aortic valve stenosis. Patient was not previously on any diuretic therapy. High-dose IV Lasix initiated in the emergency room with overall good results prior to transfer.. Note previous echocardiogram as above with cardiology consultation and repeat echocardiogram advisable. (3) Hyperlipidemia SNOMED Code(s): 01238557 Code(s): E78.5 - HYPERLIPIDEMIA, UNSPECIFIED Status: Chronic Priority: Medium Current Visit: Yes Annotation/Comment:: Observe for now with no current medical therapy Qualifiers: Hyperlipidemia type: unspecified Qualified Code(s): E78.5 - Hyperlipidemia , unspecified (4) Mixed anxiety depressive disorder SNOMED Code(s): 892436097 Code(s): F41.8 - OTHER SPECIFIED ANXIETY DISORDERS Status: Chronic Priority: Medium Current Visit: Yes Annotation/Comment:: The patient was initiated on Lexapro about one week ago by her regular provider, although she shortly stopped these medications thereafter secondary to her cardiac symptoms as above. (5) Osteoarthritis SNOMED Code(s): 864999485 Code(s): M19.90 - UNSPECIFIED OSTEOARTHRITIS, UNSPECIFIED SITE Status: Chronic Priority: Medium Current Visit: Yes Annotation/Comment:: Stable by patient history with no history of gout however note previous history of urolithiasis Qualifiers: Osteoarthritis location: multiple joints Osteoarthritis type: primary Qualified Code(s): M15.0 - Primary generalized (osteo)arthritis (6) Peptic reflux disease SNOMED Code(s): 401677592 Code(s): K21.9 - GASTRO-ESOPHAGEAL REFLUX DISEASE WITHOUT ESOPHAGITIS Status: Chronic Priority: Medium Current Visit: Yes Annotation/Comment:: Stable by history. High-dose IV Pepcid given as GI prophylaxis. No evidence of abdominal pain or acute GI bleed. (7) CLL (chronic lymphocytic leukemia) SNOMED Code(s): 05844491 Code(s): C91.10 - CHRONIC LYMPHOCYTIC LEUK OF B-CELL TYPE NOT ACHIEVE REMIS Status: Chronic Priority: High Current Visit: Yes Annotation/Comment:: Note significant leukocytosis secondary to her CLL, which is currently under observation program. No recent fever, signs of infection, bronchitic type symptoms, etc. (8) Elevated d-dimer SNOMED Code(s): 757909878 Code(s): R79.89 - OTHER SPECIFIED ABNORMAL FINDINGS OF BLOOD CHEMISTRY Status: Acute Priority: High Current Visit: Yes Onset Date: 08/07/19 Annotation/Comment:: Note negative CTA of the chest as above. Final report received prior to patient transfer. No clinical evidence of DVT or PE. Venous Doppler studies of the lower extremities advisable. (9) Elevated lactic acid level SNOMED Code(s): 6944651 Code(s): R79.89 - OTHER SPECIFIED ABNORMAL FINDINGS OF BLOOD CHEMISTRY Status: Acute Priority: High Current Visit: Yes Onset Date: 08/07/19 Annotation/Comment:: Mildly elevated lactic acid level with no history of fever , known exposure to infection, or evidence of sepsis. Consider repeating lactic acid level upon patient's arrival to [place]. (10) Hyponatremia SNOMED Code(s): 98542806 Code(s): E87.1 - HYPO-OSMOLALITY AND HYPONATREMIA Status: Acute Priority : Medium Current Visit: Yes Onset Date: 08/07/19 Annotation/Comment:: Observe for now. IV Lasix given in the emergency room. No clinical evidence of dehydration. - Problem List Review Problem List Initiated/Reviewed/Updated: Yes - My Orders Last 24 Hours: My Active Orders 08/07/19 11:29 Cardiac Monitoring [RC] . DIRECTED EKG Documentation Completion [RC] ASDIRECTED Oxygen Therapy, ED [RC] PRN Peripheral IV Care [RC] . DIRECTED Pulse Oximetry [RC] CONTINUOUS Up With Assistance [RC] PFP Vital Signs [RC] PFP Chest 1V Frontal [CR] Stat Sodium Chloride 0.9% [Saline Flush] 10 ml FLUSH ASDIRECTED PRN Obtain Past Medical Record [OM.PC] Urgent Peripheral IV Insertion Adult [OM.PC] Stat Resuscitation Status Stat 08/07/19 12:03 Pharmacy to Dose - InFluenza V [Pharmacy to Dose - InFluenza Vaccine] 1 each IM ONETIME ONE 08/07/19 12:04 Influenza Vaccine Charge [RC] .DISCHARGE 08/07/19 12:20 Chest PE [Ang Chest] [CT] Stat 08/07/19 13:59 EKG Documentation Completion [RC] ASDIRECTED 08/07/19 Breakfast Nothing per Oral Now Diet [DIET] - Assessment/Plan Last 24 Hours: My Active Orders 08/07/19 11:29 Cardiac Monitoring [RC] . DIRECTED EKG Documentation Completion [RC] ASDIRECTED Oxygen Therapy, ED [RC] PRN Peripheral IV Care [RC] . DIRECTED Pulse Oximetry [RC] CONTINUOUS Up With Assistance [RC] PFP Vital Signs [RC] PFP Chest 1V Frontal [CR] Stat Sodium Chloride 0.9% [Saline Flush] 10 ml FLUSH ASDIRECTED PRN Obtain Past Medical Record [OM.PC] Urgent Peripheral IV Insertion Adult [OM.PC] Stat Resuscitation Status Stat 08/07/19 12:03 Pharmacy to Dose - InFluenza V [Pharmacy to Dose - InFluenza Vaccine] 1 each IM ONETIME ONE 08/07/19 12:04 Influenza Vaccine Charge [RC] .DISCHARGE 08/07/19 12:20 Chest PE [Ang Chest] [CT] Stat 08/07/19 13:59 EKG Documentation Completion [RC] ASDIRECTED 08/07/19 Breakfast Nothing per Oral Now Diet [DIET] Assessment:: As above Plan: As above. Extensive precautions were given to the patient and her daughter, Rhonda, who are in agreement with the treatment plan. Ambulance transfer with bowling ball grader and marker accompaniment to [facility] in [place].
[2019-08-07] MEDS: Sodium Chloride 0.9% 10 ML Syringe FLUSH PRN ×2 (12:11→12:31)
[2019-08-07 12:16] LABS: CHLORIDE,CL 111 mmol/L (98-107); SODIUM,NA 148 mmol/L (136-145)
[2019-08-07] MEDS ORDERED: Aspirin 81 MG Tab.Chew CHEW ONE (12:18)
[2019-08-07] MEDS ORDERED: Ticagrelor 90 MG Tab PO ONE (12:19)
[2019-08-07] MEDS ORDERED: Furosemide 40 MG/4 ML VIAL IVPUSH ONE (12:20)
[2019-08-07] MEDS ORDERED: Iopamidol 755 Mg/ML 100 ML Bottle IVPUSH ONE (12:23)
[2019-08-07] MEDS ORDERED: Iopamidol 755 Mg/ML 100 ML Bottle ONE (12:28)
[2019-08-07 15:03] VITALS: BP 123/53; PULSE 94
--- OUTSIDE RECORDS SUMMARY | 2019-08-12 16:11 | XMSREPORT ---
:1930 Author Organization and [facility] Address [address] [place] [address] Care Team Providers Name Role Phone Venessa Husain PA-C Primary Care Provider Venessa Husain PA-C Attributed Provider Reason for Referral [facility] (Routine) Status Reason Specialty Diagnoses / Referred By Referred To Procedures Contact Contact New Request CARDIOLOGY Diagnoses Aortic valve stenosis, etiology of cardiac valve disease unspecified Sunny Cardoza Cardiology Sc MD Roly [address] [facility] [address] [place], [place] [id number] Phone: Scheduling Instructions This is an electronic referral. Reason for Visit Reason Comments Auth/Cert Status Reason Specialty Diagnoses / Procedures Referred By Contact Referred To Contact Encounter Details Date Type Department Care Team Description 08/07/2019 - Hospital Encounter [facility] Provider, Generic Hosp Procedure NSTEMI (non-ST 08/12/2019 CENTER 6CD Parish Song MD [address] [place] [address] [phone] elevated myocardial [address] Roly Cardoza MD [address] [place] [address] [phone] infarction) (FORMERLY [facility]) [place] [address] Yulisa Reddy MD [address] [place] [address] [phone] Allergies No Known Allergiesdocumented as of this encounter (statuses as of 08/12/2019) Medications Medication Sig Dispensed Refills Start Date End Date Status aspirin (ECOTRIN Take 1 tablet 30 tablet 0 08/13/2019 Active LOW STRENGTH) 81 (81 mg) by MG enteric coated mouth 1 time tabletIndications per day : NSTEMI (non-ST elevated myocardial infarction) ([facility]) furosemide Take 1 tablet 30 tablet 0 08/13/2019 Active (LASIX) 40 mg (40 mg) by 9 tabletIndications mouth 1 time : Lactic acidosis per day magnesium oxide Take 1 tablet 8 tablet 0 08/12/2019 Active 500 mg TABS (500 mg) by 9 tabletIndications mouth 2 times : Acute diastolic a day for 4 CHF (congestive days heart failure) ([facility]) metoprolol Take 1 tablet 30 tablet 0 08/13/2019 Active succinate (TOPROL (25 mg) by XL) 25 mg SR mouth 1 time tablet (24 per day hr)Indications: NSTEMI (non-ST elevated myocardial infarction) ([facility]) potassium Take 2 60 tablet 0 08/13/2019 Active chloride (K-TAB) tablets (20 9 10 mEq CR mEq) by mouth tabletIndications 1 time per : Acute diastolic day CHF (congestive heart failure) ([facility]) omega-3 fatty Take 1,000 mg 0 Discontinued acids (FISH OIL) by mouth 1 9 (Stop Taking at 1000 mg capsule time per day. Discharge) Multiple Vitamin Take 1 tablet 0 Discontinued (MULTI-VITAMIN) by mouth 1 9 (Stop Taking at tablet time per day. Discharge) calcium carbonate Take 500 mg 0 Discontinued (OSCAL 500) 500 by mouth 3 9 (Stop Taking at mg tablet times a day Discharge) with meals. vitamin D3, Take 1,000 0 Discontinued cholecalciferol, Units by 9 (Stop Taking at 1000 UNITS tablet mouth 1 time Discharge) per day. Lutein-Zeaxanthin Take 1 0 Discontinued 20-1 MG CAPS capsule by 9 (Stop Taking at mouth 1 time Discharge) per day metoprolol Take 0.5 30 tablet 0 08/05/2019 Discontinued tartrate tablets (12.5 9 (Stop Taking at (LOPRESSOR) 25 mg mg) by mouth Discharge) tabletIndications 2 times a day : Chronic tachycardia documented as of this encounter (statuses as of 08/12/2019) Active Problems Problem Noted Date Nonrheumatic mitral valve stenosis with insufficiency 08/09/2019 Pulmonary HTN 08/09/2019 NSTEMI (non-ST elevated myocardial infarction) 08/07/2019 Acute diastolic CHF (congestive heart failure) 08/07/2019 Lactic acidosis 08/07/2019 Hypernatremia 08/07/2019 Leukocytosis 08/07/2019 Pleural effusion, bilateral 08/07/2019 CLL (chronic lymphocytic leukemia) 09/13/2017 Hx of colonic polyps 02/14/2017 Aortic stenosis 05/07/2015 Overview: Echocardiogram done at outside facility 2009 did not show any significant stenosis and an echocardiogram done 03/31/2015 shows a peak velocity of 437 cm so second calculated aortic valve area 0.87 cm with a mean gradient of 46. Asymptomatic Tricuspid regurgitation 01/12/2015 History of benign colon tumor 01/12/2015 Abnormal glucose 01/12/2015 Osteoporosis 03/20/2007 Hemorrhoids 02/08/2006 Pure hypercholesterolemia 12/19/2003 Essential hypertension 12/19/2003 Seborrheic dermatitis 12/19/2003 documented as of this encounter (statuses as of 08/12/2019) Resolved Problems Problem Noted Date Resolved Date Bowel perforation 04/18/2018 08/07/2019 Cellulitis, face 08/30/2017 08/07/2019 documented as of this encounter (statuses as of 08/12/2019) Immunizations Name Administration Dates Next Due FLU VACCINE HIGH DOSE 65YR+(Fluzone) 08/08/2019, 08/06/2018, 08/02/2017, 08/16/2016, 08/10/2015, 08/07/2014, 08/05/2013, 08/02/2011 Influenza Vaccine,unspecified 07/22/2009, 09/03/2008, 09/28/2004 Pneumococcal Conj PCV13 02/02/2016 Pneumococcal Polysaccharide PPSV23 03/12/2012, 02/27/2008 TDAP 04/03/2014 Td 02/27/2008 Tetanus Toxoid,not adsorbed 02/27/2008 Zoster Live(Zostavax) 10/18/2010 documented as of this encounter Social History Tobacco Use Types Packs/Day Years Used Date Never Smoker Smokeless Tobacco: Never Used Alcohol Use Drinks/Week oz/Week Comments No 0 Standard drinks or equivalent 0.0 Sex Assigned at Date Recorded Not on file Job Start Date Occupation Industry Not on file Not on file Not on file Travel History Travel Start Travel End No recent travel history available. documented as of this encounter Last Filed Vital Signs Vital Sign Reading Time Taken Comments Blood Pressure 101/53 08/12/2019 12:20 PM CDT Pulse 95 08/12/2019 12:20 PM CDT Temperature 36.6 C (97.8 F) 08/12/2019 12:20 PM CDT Respiratory Rate 16 08/12/2019 12:20 PM CDT Oxygen Saturation 97% 08/12/2019 12:20 PM CDT Inhaled Oxygen Concentration - - Weight 46.2 kg (101 lb 12.8 oz) 08/12/2019 7:00 AM CDT Height 162.6 cm (5' 4") 08/07/2019 4:56 PM CDT Body Mass Index 17.47 08/07/2019 4:56 PM CDT documented in this encounter Functional Status Functional Status Response Date of Assessment Is the person deaf or does he/she have serious difficulty No 08/07/2019 hearing? Is this person blind or does he/she have difficulty Yes 08/07/2019 seeing even when wearing glasses? Do you have difficulty with walking, balance, climbing No 08/07/2019 stairs, or had a fall in the last 3 months? Does the patient have difficulty dressing or bathing? No 08/07/2019 Because of a physical, mental, or emotional condition; No 08/07/2019 does this person have difficulty doing errands alone such as visiting a doctor's office or shopping? Cognitive Status Response Date of Assessment Because of a physical, mental, or emotional condition; No 08/07/2019 does this person have serious difficulty concentrating, remembering, or making decisions? documented as of this encounter Discharge Summaries Not on filedocumented in this encounter Discharge Instructions Vanessa Bonilla RN - 08/12/2019 Heart Failure: Being Active You have a condition called heart failure. Being active doesnt mean that you have to wear yourself out. Even a little movement each day helps to strengthen your heart. If you cant get out to exercise, you can do simple stretching and strengthening exercises at home. These are good ways to keep you well- conditioned and prevent you and your heart from becoming excessively weak. Ideas to get you started Add a little movement to things you do now. Walk to mail letters. Park your car at the far end ofthe parking lot and walk to the store. Walk up a flight of stairs instead of taking the elevator. Choose activities you enjoy. You might walk, swim, or ride an exercise bike. Things like gardening and washing the car count, too. Other possibilities include: washing dishes, walking the dog, walking around the mall, and doing aerobic activities with friends. Join a group exercise program at a [facility] or [facility], a senior center, or a community center. Or look into a hospital cardiac rehabilitation program. Ask your doctor if you qualify. Tips to keep you going Get up and get dressed each day. Go to a coffee shop and read a newspaper or go somewhere that you'll be in the presence of other active people. Youll feel more like being active. Make a plan. Choose one or more activities that you enjoy and that you can easily do. Then plan to do at least one each day. You might write your plan on a calendar. Go with a friend or a group if you like company. This can help you feel supported and stay motivated, too. Plan social events that you enjoy. This will keep you mentally engaged as well as physically motivated to do things you find pleasure in. For your safety Talk with your healthcare provider before starting an exercise program. Exercise indoors when its too hot or too cold outside, or when the air quality is poor. Try walking at a shopping mall. Wear socks and sturdy shoes to maintain your balance and prevent falls. Start slowly. Do a few minutes several times a day at first. Increase your time and speed little by little. Stop and rest whenever you feel tired or get short of breath. Dont push yourself on days when you dont feel well. Date Last Reviewed: 01/24/201619997736-0377 [employer]. [address] [place] [address], [place] [address]. All rights reserved. This information is not intended as a substitute for professional medical care. Always follow your healthcare professional's instructions. documented in this encounter Medications at Time of Discharge Medication Sig Dispensed Refills Start Date End Date aspirin (ECOTRIN LOW Take 1 tablet (81 mg) 30 tablet 0 08/13/2019 STRENGTH) 81 MG enteric by mouth 1 time per coated day tabletIndications: NSTEMI (non-ST elevated myocardial infarction) ([facility]) furosemide (LASIX) 40 mg Take 1 tablet (40 mg) 30 tablet 0 08/13/201905/2019 tabletIndications: by mouth 1 time per Lactic acidosis day magnesium oxide 500 mg Take 1 tablet (500 8 tablet 0 08/12/2019 08/16/2019 TABS tabletIndications: mg) by mouth 2 times Acute diastolic CHF a day for 4 days (congestive heart failure) ([facility]) metoprolol succinate Take 1 tablet (25 mg) 30 tablet 0 08/13/2019 (TOPROL XL) 25 mg SR by mouth 1 time per tablet (24 day hr)Indications: NSTEMI (non-ST elevated myocardial infarction) ([facility]) potassium chloride Take 2 tablets (20 60 tablet 0 08/13/2019 09/12/2019 (K-TAB) 10 mEq CR mEq) by mouth 1 time tabletIndications: Acute per day diastolic CHF (congestive heart failure) ([facility]) documented as of this encounter Progress Notes Oscar Ayon MD - 08/12/2019 10:50 AM CDTCT Surgery Pt seen and studies reviewed Admitted with severe SOB/MEEK MEEK last 3-4 months worsening in intensity Known since 2016 Severe by criteria High risk for SAVR Agree with indication for TAVR For TAVR this week I have discussed risks benefits and alternatives with patient who understands and wishes to proceed.Electronically signed by Oscar Ayon MD at 2018 10:52 AM RONANroxGorge vaughan MD - 08/11/2019 6:53 AM CDT DAILY PROGRESS NOTE Jaylon Bray is a 88yr old female admitted on 08/07/2019 4:29 PM. Impression / Plan Active Problems: Pure hypercholesterolemia Essential hypertension Tricuspid regurgitation Aortic stenosis NSTEMI (non-ST elevated myocardial infarction) ([facility]) Acute diastolic CHF (congestive heart failure) (HCC) Lactic acidosis Hypernatremia Leukocytosis Pleural effusion, bilateral Nonrheumatic mitral valve stenosis with insufficiency Pulmonary HTN (HCC) Resolved Problems: * No resolved hospital problems. * Summary of care from OSH: Recently had holter monitor placed by primary care and showed tachycardia with heart rate in 130s. avg heart rate of 97. Xray chest done on 08/07 showed moderate-large pleural effusion w/compressive atelectasis. CT chest done 08/07 showed no PE, bilateral pleural effusion and reflux of IV contrast consistent w / HF. D dimer at OSH elevated at 868. Lactic at OSH was 2.4, total bili 1.1, AST -57, ALT 81, WBC-67. EKG showed NSR with LVH and T wave inversion in lateral leads consistent with ischemia. # NSTEMI, Type 2 secondary to demand from Aortic Stenosis Troponin at outside facility was 0.178. Last troponin was 0.155. Currently stable. Plan: - Cardiology following - Toprol XL 25mg once daily. - hydroxyzine prn for anxiety # Systolic CHF secondary to aortic stenosis and mitral stenosis # Pleural effusion secondary to above Previous echo in April of 2018 showed an EF of 65% with critical aortic stenosis and mean gradient of100 mmhg. Estimated aortic valve area is 0.6. Mild to moderate mitral stenosis. Echo done 08/08 showing EF of 40% with diffuse hypokinesis of left ventricle. Severe with eccentrically directed regurgitant jet. Aortic valve mean gradient is 72mmhg estimated aortic valve gradient is 0.6. Severe mitral stenosis with moderate mitral regurgitation. Lipomatous hypertrophy of atrial septum. Thoracentesis done 08/08 in addition to angiogram. Patient 750 ml drained from right and 550 from theleft. Fluid was sent for analysis. A repeat CXR was done and showed decrease in pleural effusion. CTchest and abdomen done 08/10 and showed small pleural effusions, hepatomegaly, splenomegaly, cholelithiasis, non obstructive nephrolithiasis, and compression of L1. Plan: - Lasix 40mg PO - Gonzalo to be done at [facility] next week. - K 20meq daily # moderate (non-severe) protein calorie malnutrition Plan: - nutrition following - K and mg supplemented Chronic Conditions # CLL- last white count was 63.8 # hyperlipidemia Code status: full Pain Meds: prn tylenol DVT prophylaxis: heparin 5000U Therapies: nutrition Disposition: med/surg Diet: Heart Healthy Interval History HPI Patient seen at bedside this am and reports that she is doing well and has no issues. State sthat she has been urinating and having bowel movements regularly. States that she has not had nay chest painor shortness of breath. Reports that she has been sleeping well and not having any issues with lyingflat. She has been ambulating the hallways. Review of Systems Review of Systems Constitutional: Negative for activity change, appetite change, diaphoresis and fatigue. HENT: Negative for congestion and trouble swallowing. Eyes: Negative for photophobia, discharge, redness and visual disturbance. Respiratory: Negative for cough, choking, chest tightness and shortness of breath. Cardiovascular: Negative for chest pain, palpitations and leg swelling. Gastrointestinal: Negative for abdominal distention, abdominal pain, constipation, diarrhea, nausea and vomiting. Endocrine: Negative for cold intolerance and heat intolerance. Genitourinary: Negative for difficulty urinating and dysuria. Musculoskeletal: Negative for arthralgias, neck pain and neck stiffness. Skin: Negative for color change. Neurological: Negative for seizures, syncope and light-headedness. Psychiatric/Behavioral: Negative for agitation, behavioral problems, confusion, decreased concentration and hallucinations. The patient is not nervous/anxious and is not hyperactive. Physical Exam Vital Signs: Temp: 97.8 F (36.6 C) | BP: 103/47 | Pulse: 90 | Resp: 18 | Pain Ratin (out of 10) | Weight: 46.9 kg (103 lb 6.4 oz) | O2 Device: Room Air O2 Flow Rate (L/min): 0 l/min | SpO2: 96 % Maximum Temperatures (last 24 hours) Temperature Maximum Max Temp 98.4 F (36.9 C) Intake and Output: 08/10 0700 - 08/11 0659 In: 600 [Oral:600] Out: 1375 [Urine:1375] Physical Exam Constitutional: She is oriented to person, place, and time. She appears well- developed and well-nourished. No distress. HENT: Head: Normocephalic and atraumatic. Eyes: EOM are normal. Right eye exhibits no discharge. Left eye exhibits no discharge. No scleral icterus. Neck: Normal range of motion. Neck supple. No tracheal deviation present. Cardiovascular: Normal rate and regular rhythm. Murmur heard. Pulmonary/Chest: Effort normal. No respiratory distress. She exhibits no tenderness. Crackles on left and right base, improved Abdominal: Soft. Bowel sounds are normal. She exhibits no distension. There is no tenderness. There is no rebound. Musculoskeletal: Normal range of motion. She exhibits no edema, tenderness or deformity. Neurological: She is alert and oriented to person, place, and time. No cranial nerve deficit. Skin: Skin is warm. She is not diaphoretic. Psychiatric: She has a normal mood and affect. Her behavior is normal. Thought content normal. Labs Labs (Last day) 08/10/19811 - 08/10/19811 CBC 08/10/19811 CBC WBC 4.0-11.0 (K/uL) 63.8 RBC 3.80-5.30 (M/uL) 4.20 Hemoglobin 11.5-15.8 (g/dL) 11.9 Hematocrit 35.0-45.0 (%) 39.6 MCV 80.0-98.0 (fL) 94.3 MCH 25.5-34.0 (pg) 28.3 MCHC 31.5-36.5 (g/dL) 30.1 RDW-CV 11.5-15.5 (%) 14.8 RDW-SD 35.5-50.0 (fl) 50.3 Platelet Count 140-400 (K/uL) 161 MPV 8.5-12.0 (fL) 11.2 08/10/19811 - 08/10/19811 CHEMISTRY 08/10/1981108/10/19811 CHEMISTRY Glucose 70-100 (mg/dL) 95 Sodium 135-145 (meq/L) 143 Potassium 3.5-5.3 (meq/L) 3.7 Chloride 99-110 (meq/L) 105 CO2 20-29 (meq/L) 26 Anion Gap with K 6-20 (meq/L) 16 BUN 6-22 (mg/dL) 33 Creatinine 0.60-1.10 (mg/dL) 1.07 BUN/Creatinine Ratio 10.0-25.0 30.8 Calcium 8.5-10.5 (mg/dL) 9.4 Phosphorus 2.5-4.5 (mg/dL) 3.4 Magnesium 1.8-2.4 (mg/dL) 1.7 Albumin 3.5-5.0 (g/dL) 4.2 eGFR >=60 (mL/min/1.73m2) 59 eGFR Non- >=60 (mL/min/1.73m2) 49 08/10/19 0812 - 08/10/19 0812 OTHER 08/10/19 0812 OTHER Age (Years) 88 Medical Decision making Medical Decision Making 9 :07 PM CDT Associated attestation - Parish [place] MD - 08/11/2019 9:07 PM CDTI discussed the patient with the resident and personally interviewed and examined the patient. I agree with the resident's diagnosis and management. Gorge Lynn MD - 08/10/2019 6:59 AM CDT DAILY PROGRESS NOTE Jaylon Bray is a 88yr old female admitted on 08/07/2019 4:29 PM. Impression / Plan Active Problems: Pure hypercholesterolemia Essential hypertension Tricuspid regurgitation Aortic stenosis NSTEMI (non-ST elevated myocardial infarction) (HCC) Acute diastolic CHF (congestive heart failure) (HCC) Lactic acidosis Hypernatremia Leukocytosis Pleural effusion, bilateral Nonrheumatic mitral valve stenosis with insufficiency Pulmonary HTN (HCC) Resolved Problems: * No resolved hospital problems. * Summary of care from OSH: Recently had holter monitor placed by primary care and showed tachycardia with heart rate in 130s. avg heart rate of 97. Xray chest done on 08/07 showed moderate-large pleural effusion w/compressive atelectasis. CT chest done 08/07 showed no PE, bilateral pleural effusion and reflux of IV contrast consistent w / HF. D dimer at OSH elevated at 868. Lactic at OSH was 2.4, total bili 1.1, AST -57, ALT 81, WBC-67. EKG showed NSR with LVH and T wave inversion in lateral leads consistent with ischemia. CMP showed ALT of 62 and AST of 45. LDH is 328. MG normal. GFR of 49. # NSTEMI, Type 2 secondary to demand from Aortic Stenosis Troponin at outside facility was 0.178. Last troponin was 0.155. Currently stable. Plan: - Tele monitoring- sinus rhythm, with PACs and occasional PVC rate in 80s. - IVF at 75ml/hr - Cardiology following - Lopressor 12.5 BID - Toprol XL 25mg once daily. - hydroxyzine prn for anxiety # Systolic CHF secondary to aortic stenosis and mitral stenosis # Pleural effusion secondary to above Previous echo in April of 2018 showed an EF of 65% with critical aortic stenosis and mean gradient of100 mmhg. Estimated aortic valve area is 0.6. Mild to moderate mitral stenosis. Echo done 08/08 showing EF of 40% with diffuse hypokinesis of left ventricle. Severe with eccentrically directed regurgitant jet. Aortic valve mean gradient is 72mmhg estimated aortic valve gradient is 0.6. Severe mitral stenosis with moderate mitral regurgitation. Lipomatous hypertrophy of atrial septum. Thoracentesis done 08/08 in addition to angiogram. Patient 750 ml drained from right and 550 from theleft. Fluid was sent for analysis. A repeat CXR was done and showed decrease in pleural effusion. CTchest and abdomen done 08/10 and showed small pleural effusions, hepatomegaly, splenomegaly, cholelithiasis, non obstructive nephrolithiasis, and compression of L1. Plan: - Lasix 40mg PO started - Gonzalo to be done at [facility] next week. - K 20meq daily # moderate (non-severe) protein calorie malnutrition Plan: - nutrition following - K and mg supplemented Chronic Conditions # CLL- last white count was 63.8 # hyperlipidemia Code status: full Pain Meds: prn tylenol DVT prophylaxis: heparin 5000U Therapies: nutrition Disposition: med/surg Diet: Heart Healthy Interval History HPI Patient seen at bedside this am and reports that she is doing very well ever since the fluid was drained off of her lungs. We discussed her treatment and the cause and effect of aortic valve stenosis and the reasons for procedures. She states that she feels better than she has in a while and that she was able to lie flat last night for the first time while she slept. Denied having any further episodes of confusion and reports that she has not had any chest pain or shortness of breath. Denied cough. Last BM was yesterday. Denied any issues with urination. Review of Systems Review of Systems Constitutional: Negative for activity change, appetite change, diaphoresis and fatigue. HENT: Negative for congestion and trouble swallowing. Eyes: Negative for photophobia, discharge, redness and visual disturbance. Respiratory: Negative for cough, choking, chest tightness and shortness of breath. Cardiovascular: Negative for chest pain, palpitations and leg swelling. Gastrointestinal: Negative for abdominal distention, abdominal pain, constipation, diarrhea, nausea and vomiting. Endocrine: Negative for cold intolerance and heat intolerance. Genitourinary: Negative for difficulty urinating and dysuria. Musculoskeletal: Negative for arthralgias, neck pain and neck stiffness. Skin: Negative for color change. Neurological: Negative for seizures, syncope and light-headedness. Psychiatric/Behavioral: Negative for agitation, behavioral problems, confusion, decreased concentration and hallucinations. The patient is not nervous/anxious and is not hyperactive. Physical Exam Vital Signs: Temp: 98.2 F (36.8 C) | BP: 97/63 | Pulse: 89 | Resp: 18 | Pain Ratin (out of 10) | Weight: 48.3 kg (106 lb 7.7 oz) | O2 Device: Room Air | SpO2: 97 % Maximum Temperatures (last 24 hours) Temperature Maximum Max Temp 98.2 F (36.8 C) Intake and Output: 08/09 0700 - 08/10 0659 In: 240 [Oral:240] Out: - Physical Exam Constitutional: She is oriented to person, place, and time. She appears well- developed and well-nourished. No distress. HENT: Head: Normocephalic and atraumatic. Eyes: EOM are normal. Right eye exhibits no discharge. Left eye exhibits no discharge. No scleral icterus. Neck: Normal range of motion. Neck supple. No tracheal deviation present. Cardiovascular: Normal rate and regular rhythm. Murmur heard. Pulmonary/Chest: Effort normal. No respiratory distress. She exhibits no tenderness. Crackles on left and right base, improved Abdominal: Soft. Bowel sounds are normal. She exhibits no distension. There is no tenderness. There is no rebound. Musculoskeletal: Normal range of motion. She exhibits edema. She exhibits no tenderness or deformity. Neurological: She is alert and oriented to person, place, and time. No cranial nerve deficit. Skin: Skin is warm. She is not diaphoretic. Psychiatric: She has a normal mood and affect. Her behavior is normal. Thought content normal. Labs Labs (Last day) No results found within the past day. Medical Decision making Medical Decision Making 9 :07 PM CDT Associated attestation - Parish [place] MD - 08/11/2019 9:07 PM CDTI discussed the patient with the resident and personally interviewed and examined the patient. I agree with the resident's diagnosis and management. Kusum Pierce, [employer] - 08/09/2019 10:49 AM CDT CARDIOLOGY PROGRESS NOTE Patient ID: Jaylon Bray is a 88yr female. PCP: Venessa Husain PA-C Attending Provider: Parish Stephens MD Date of admission: 08/07/2019 Date of service: 08/09/2019 Primary Manager Planning: Dr. Cyndie Gregorio Active Problems: Active Problems: Pure hypercholesterolemia Essential hypertension Tricuspid regurgitation Aortic stenosis NSTEMI (non-ST elevated myocardial infarction) ([facility]) Acute diastolic CHF (congestive heart failure) ([facility]) Lactic acidosis Hypernatremia Leukocytosis Pleural effusion, bilateral Resolved Problems: * No resolved hospital problems. * Assessment & Plan: Plan: - CTA of chest, abd pelvis pre- TAVR - given metoprolol prior - Planning TAVR next with Dr. Gregorio - K=3.3 - given 40 meq - Start aspirin 81mg EC - General cardiology will be here over weekend if any issues. Please call if any concerns. Otherwise interventional cardiology will see again on Monday. #. Valvular heart disease #. Critical Aortic stenosis with severe AI #. Severe mitral stenosis with moderate MR #. Pulmonary HTN - 08/07/19 Echo - EF=40% with basal anterior, mid anterior, mid anteroseptal, apical anterior, apical septal, apical lateral and apex wall segments are hypokinetic. DD2, Severe AI, Critical with AV mean grad 72mmHg. JULIA 0.6. Mitral Valve: Restricted mobility of the posterior mitral leaflet. Moderate mitral regurgitation. Severe mitral stenosis. Mitral valve mean gradient is 10 mmHg.(Heart rate=95bpm.) Reduced RV systolic fxn. Severe Pulm HTN with PASP 65mmHg. Mild TR & CO. No significant pericardial effusion. Bilateral pleural effusion. - TAVR next 08/15/[address] Gregorio #. Non - ST-Elevated Myocardial Infarction type II #. Acute on Chronic Systolic, Diastolic & Valvular Congestive Heart Failure - 08/08/19 LHC - normal coronaries. AV mean gradient 54mmHg - 08/07/19 Echo - EF=40% with basal anterior, mid anterior, mid anteroseptal, apical anterior, apical septal, apical lateral and apex wall segments are hypokinetic. DD2, Severe AI, Critical with AV mean grad 72mmHg. JULIA 0.6. Mitral Valve: Restricted mobility of the posterior mitral leaflet. Moderate mitral regurgitation. Severe mitral stenosis. Mitral valve mean gradient is 10 mmHg.(Heart rate=95bpm.) Reduced RV systolic fxn. Severe Pulm HTN with PASP 65mmHg. Mild TR & CO. No significant pericardial effusion. Bilateral pleural effusion. - Troponin trending flat - I/O=(-) 1800, Admit Weight: 51.7 kg (113 lb 14.4 oz) -> 47.9 today - Hbg=10.8 Vp=617, K=3.3 Cr=1.0, Mg=1.8 - healthy heart low sodium diet, strict I/O, daily weights - Tobacco status: never smoked - Heart medications: - Aspirin 81mg daily. - metoprolol 12.5mg tonight and change to XL tomorrow (EF40 & WMA) - Low B/p so no BRIAN-I but consider in future - Lasix 40mg IV daily - KCL 40meq today Recent Labs 08/07/19 1846 08/08/19 0011 TROPONINI 0.157* 0.155* Subjective: Jaylon Bray is awake and alert. Denies chest pain, shortness of breath, nausea or dizziness. Denies any significant pain or swelling in her right wrist.. [facility] any [facility] symptoms. She relates she is feeling much better with her breathing. Diuresing well with IV lasix. Got CTA for valve sizing and TAVR planning. Patient is tolerating oral intake. Urine output is adequate. Telemetry: sinus rhythm in 80s. Physical Exam & Vital Signs: Temp: 98 F (36.7 C) BP: 100/50 Pulse: 77 O2 Device: Room Air Resp: 17 Pain Ratin (out of 10) Weight: 47.9 kg (105 lb 9.6 oz) SpO2: 99 % Body mass index is 18.13 kg/m. Admit Weight: Weight: 51.7 kg (113 lb 14.4 oz) Wt Readings from Last 1 Encounters: 08/09/19 47.9 kg (105 lb 9.6 oz) Intake/Output Summary (Last 24 hours) at 08/09/2019 1049 Last data filed at 08/08/2019 1859 Gross per 24 hour Intake 200 ml Output 1900 ml Net -1700 ml Physical Exam Constitutional:Jaylon Bray is a 88yr old female who is alert and orientated and in no apparent distress. Skin: Skin is pink, warm, and dry. Good color and turgor. Respiratory: chest symmetrical expansion, lungs clear to auscultation throughout bilaterally. Cardiovascular: heart rate regular, normal S1, S2. 26 soft systolic murmur, No rubs, clicks, or gallops. Neck Supple. No jugular venous distention. Bilateral trace ankle edema. Right radial non-tender, without hematoma. Right radial artery 2+. CMS and ROM intact right hand. Gastrointestinal: abdomen soft, nontender, bowel sounds active x 4 quadrants. No bruits appreciated. Musculoskeletal: strength equal bilaterally of all extremities. Full ROM Neurologic: Grossly intact. Psychiatric: Mood and affect appropriate. Labs & Imaging: Recent Labs 05/02/19 0803 06/03/19 0808 07/18/19 1407 08/08/19 0826 08/09/19 0700 WBC 67.8* 47.3* 69.6* 65.5* 65.1* NEUTROABS 4.7 3.3 5.6 -- -- HEMOGLOBIN 13.0 12.5 12.2 11.6 10.8* HEMATOCRIT 42.5 42.7 38.9 38.1 35.0 MCV 97.9 99.3* 94.6 94.1 92.8 PLTCOUNT 257 185 206 178 146 Recent Labs 07/18/19 1407 08/08/19 0826 08/09/19 0700 NA 140 144 145 POTASSIUM 4.3 3.8 3.3* CL 105 109 110 CO2 25 24 22 BUN 29* 35* 34* CREATSERUM 0.92 1.07 1.00 CA 10.1 9.4 8.6 MAGNESIUM -- 1.8 -- PHOSPHORUS -- -- 4.3 GLUCOSE 122* 105* 95 Recent Labs 08/07/19 1846 08/08/19 0011 TROPONINI 0.157* 0.155* Recent Labs 05/02/19 0803 07/18/19 1407 08/08/19 0826 08/09/19 0700 AST 28 33 45* -- ALT 17 26 62* -- ALKPHOS 107 94 90 -- BILITOTAL 0.7 1.0 1.1 -- PROTEINTOTAL 7.7 7.3 6.4 -- ALBUMIN 4.6 4.6 4.1 3.5 Recent Labs 01/10/19 0904 HGBA1C 5.0 Recent Labs 01/10/19 0904 CHOLESTEROL 195 TRIGLYCERIDE 74 HDLCHOL 70 LDL 110 Recent Labs 07/18/19 1407 TSH 1.40 MILO Ayala Interventional Cardiology [facility] Gorge churchill MD - 08/09/2019 8:50 AM CDT DAILY PROGRESS NOTE Jaylon Bray is a 88yr old female admitted on 08/07/2019 4:29 PM. Impression / Plan Active Problems: Pure hypercholesterolemia Essential hypertension Tricuspid regurgitation Aortic stenosis NSTEMI (non-ST elevated myocardial infarction) (HCC) Acute diastolic CHF (congestive heart failure) (HCC) Lactic acidosis Hypernatremia Leukocytosis Pleural effusion, bilateral Resolved Problems: * No resolved hospital problems. * Summary: Patient is very anxious and reports worsening in the past week. Recently had holter monitor placed by primary care and showed tachycardia with heart rate in 130s. avg heart rate of 97. Xray chest done on 08/07 showed moderate-large pleural effusion w/compressive atelectasis. CT chest done 08/07 showed no PE, bilateral pleural effusion and reflux of IV contrast consistent w/ HF. D dimer at OSH elevated at 868. Lactic at OSH was 2.4, total bili 1.1, AST-57, ALT 81, WBC-67. EKG showed NSR with LVH and Twave inversion in lateral leads consistent with ischemia. CMP showed ALT of 62 and AST of 45. LDH is328. MG normal. GFR of 49. # NSTEMI, Type 2 secondary to demand from Aortic Stenosis Troponin at outside facility was 0.178. Last troponin was 0.155. EKG done showed NSR with left ventricular hypertrophy. Plan: - Tele monitoring- sinus rhythm, with PACs and occasional PVC rate in 80s. - IVF at 75ml/hr - Cardiology following - hydroxyzine prn for anxiety # Systolic CHF secondary to aortic stenosis and mitral stenosis # Pleural effusion secondary to above Previous echo in April of 2018 showed an EF of 65% with critical aortic stenosis and mean gradient of100 mmhg. Estimated aortic valve area is 0.6. Mild to moderate mitral stenosis. Echo done 08/08 showing EF of 40% with diffuse hypokinesis of left ventricle. Severe with eccentrically directed regurgitant jet. Aortic valve mean gradient is 72mmhg estimated aortic valve gradient is 0.6. Severe mitral stenosis with moderate mitral regurgitation. Lipomatous hypertrophy of atrial septum. Thoracentesis done 08/08 in addition to angiogram. Patient 750 ml drained from right and 550 from theleft. Fluid was sent for analysis. A repeat CXR was done and showed decrease in pleural effusion. Labs on 08/09 show K of 3.3. Plan: - Lasix 40mg IV daily. Transition to oral tomorrow. - Gonzalo to be done at [facility] next week. - Lopressor changed to 50 BID - CT chest and abdomen scheduled today. - K supplemented via 40meq dose today and 20meq ktabs starting tomorrow. # moderate (non-severe) protein calorie malnutrition Plan: - nutrition following Chronic Conditions # CLL # hyperlipidemia Code status: full Pain Meds: prn tylenol DVT prophylaxis: heparin 5000U Therapies: nutrition Disposition: med/surg Diet: clear liquid Interval History HPI Patient seen at bedside this am and reports that overnight she had a few episodes of confusion in which she woke up and thought she was at home. She states that she was able to go to the window and recognize that she was in the hospital but still was unsure why she wasn't at home. She states that it took some redirection to realize she was in the hospital. Reports that she has never had this before. She had a catheterization and thoracentesis was done yesterday. She states that today she has significantly less issues with breathing and that she was able to sleep well at night with slight elevation of the bed. She reports that she went up to go to the bathroom and di not have any lightheadedness asbefore. Denied chest pain. Reports that she has not had a cough and overall has not felt short of breath. Review of Systems Review of Systems Constitutional: Negative for activity change, appetite change, diaphoresis and fatigue. HENT: Negative for congestion and trouble swallowing. Eyes: Negative for photophobia, discharge, redness and visual disturbance. Respiratory: Positive for shortness of breath. Negative for cough, choking and chest tightness. Cardiovascular: Negative for chest pain, palpitations and leg swelling. Gastrointestinal: Negative for abdominal distention, abdominal pain, constipation, diarrhea, nausea and vomiting. Endocrine: Negative for cold intolerance and heat intolerance. Genitourinary: Negative for difficulty urinating and dysuria. Musculoskeletal: Negative for arthralgias, neck pain and neck stiffness. Skin: Negative for color change. Neurological: Negative for seizures, syncope and light-headedness. Psychiatric/Behavioral: Positive for confusion. Negative for agitation, behavioral problems, decreased concentration and hallucinations. The patient is nervous/anxious. The patient is not hyperactive. Physical Exam Vital Signs: Temp: 98 F (36.7 C) | BP: 98/50 | Pulse: 93 | Resp: 17 | Pain Ratin (out of 10)| Weight: 47.9 kg (105 lb 9.6 oz) | O2 Device: Room Air | SpO2: 93 % Maximum Temperatures (last 24 hours) Temperature Maximum Max Temp 98 F (36.7 C) Intake and Output: 08/08 0700 - 08/09 0659 In: 200 [Oral:200] Out: 2000 [Urine:700] Physical Exam Constitutional: She is oriented to person, place, and time. She appears well- developed and well-nourished. No distress. HENT: Head: Normocephalic and atraumatic. Eyes: EOM are normal. Right eye exhibits no discharge. Left eye exhibits no discharge. No scleral icterus. Neck: Normal range of motion. Neck supple. No tracheal deviation present. Cardiovascular: Normal rate and regular rhythm. Murmur heard. Pulmonary/Chest: Effort normal. No respiratory distress. She exhibits no tenderness. Crackles on left base, improved Abdominal: Soft. Bowel sounds are normal. She exhibits no distension. There is no tenderness. There is no rebound. Musculoskeletal: Normal range of motion. She exhibits edema. She exhibits no tenderness or deformity. Neurological: She is alert and oriented to person, place, and time. No cranial nerve deficit. Skin: Skin is warm. She is not diaphoretic. Psychiatric: She has a normal mood and affect. Her behavior is normal. Thought content normal. Labs Labs (Last day) 08/09/19 07 - 08/09/19 07 CBC 08/09/19 07 CBC WBC 4.0-11.0 (K/uL) 65.1 RBC 3.80-5.30 (M/uL) 3.77 Hemoglobin 11.5-15.8 (g/dL) 10.8 Hematocrit 35.0-45.0 (%) 35.0 MCV 80.0-98.0 (fL) 92.8 MCH 25.5-34.0 (pg) 28.6 MCHC 31.5-36.5 (g/dL) 30.9 RDW-CV 11.5-15.5 (%) 14.8 RDW-SD 35.5-50.0 (fl) 49.5 Platelet Count 140-400 (K/uL) 146 MPV 8.5-12.0 (fL) 10.8 08/09/19 07 - 08/08/19 1137 CHEMISTRY 08/09/19 0700 08/08/19 1137 CHEMISTRY Glucose 70-100 (mg/dL) 95 Sodium 135-145 (meq/L) 145 Potassium 3.5-5.3 (meq/L) 3.3 Chloride 99-110 (meq/L) 110 CO2 20-29 (meq/L) 22 Anion Gap with K 6-20 (meq/L) 16 BUN 6-22 (mg/dL) 34 Creatinine 0.60-1.10 (mg/dL) 1.00 BUN/Creatinine Ratio 10.0-25.0 34.0 Calcium 8.5-10.5 (mg/dL) 8.6 Corrected Calcium 8.5-10.5 (mg/dL) 9.0 Phosphorus 2.5-4.5 (mg/dL) 4.3 LDH Total 125-245 (U/L) 328 Albumin 3.5-5.0 (g/dL) 3.5 eGFR >=60 (mL/min/1.73m2) 64 eGFR Non- >=60 (mL/min/1.73m2) 53 08/08/19 1427 - 08/08/19 142 MISCELLANEOUS MICRO 08/08/19 1427 08/08/19 1427 08/08/19 1427 08/08/19 142 MISCELLANEOUS MICRO Gram Stain Many (>25/LPF) WBC's Many (>25/LPF) RBC's No epithelial cells seen No organisms seen 08/08/191426 - 08/08/191426 OTHER BODY FLUIDS 08/08/19142608/08/19 1427 08/08/19 1427 08/08/19 1427 01/22 OTHER BODY FLUIDS Specimen Source Pleural Fluid-Right Pleural Fluid Pleural Fluid Pleural Fluid Pleural Fluid BF Clarity/Appearance Slightly Cloudy BF Nucleated Cells (/uL) 1,510 Glucose Body Fluid (mg/dL) 113 LDH Body Fluid (U/L) 102 pH Body Fluid 7.48 Protein Body Fluid (g/dL) 1.9 08/08/191426 - 08/08/191426 OTHER BODY FLUIDS 08/08/191426 OTHER BODY FLUIDS % Neutrophils BF (%) 1 % Lymphocytes BF (%) 95 % Macrophage/Monocyte BF (%) 4 08/09/19 0700 - 08/09/19 0700 OTHER 08/09/19 0700 OTHER Age (Years) 88 Medical Decision making Medical Decision Making 3 :22 PM CDT Associated attestation - Parish Stephens MD - 08/09/2019 3:22 PM CDTI discussed the patient with the resident and personally interviewed and examined the patient. I agree with the resident's diagnosis and management. Kirill Cormier, MED STUDENT - 08/09/2019 6:47 AM CDT Hospital Progress Note Jaylon Bray is a 88yr old female with PMH of CLL, hyperlipidemia, and aortic stenosis with CHF admitted on 08/07/2019 with anxiety and worsening SOB. Assessment / Plan On 07/24/19 had holter monitor placed by primary care and showed tachycardia with heart rate in 130s.avg heart rate of 97. Xray chest done on 08/07 showed moderate-large pleural effusion w/compressive atelectasis. CT chest done 08/07 showed no PE, bilateral pleural effusion and reflux of IV contrast consistent w / HF. D dimer at OSH elevated at 868. Lactic at OSH was 2.4, total bili 1.1, AST -57, ALT 81,WBC-67. EKG showed NSR with LVH and T wave inversion in lateral leads consistent with ischemia. CMP showed ALT of 62 and AST of 45. LDH is 328. MG normal. GFR of 49. Systolic CHF with worsening Bilateral pleural effusion secondary to CHF History of aortic stenosis, tricuspid regurgitation, and mitral stenosis. Previous echo in April of 2018 showed an EF of 65% with critical aortic stenosis and mean gradient of 100 mmhg. Estimated aortic valve area is 0.6. Mild to moderate mitral stenosis. Echo done 08/08 showing EF of 40% with diffusehypokinesis of left ventricle. Severe with eccentrically directed regurgitant jet. Aortic valve mean gradient is 72 mmHg estimated aortic valve gradient is 0.6. Severe mitral stenosis with moderate mitral regurgitation. Lipomatous hypertrophy of atrial septum. IR did bilateral thoracentesis in clinical laboratory director and followed with balloon valvuloplasty 08/08: right 750ml fluid, left 550 mls fluid removed. Net I/Os were 2625 mL out and weight was 47.9kg (08/09). Plan: - Lasix 40mg IV - Monitor for increase in pleural fluid -Cardiology consult -CTA planned for Monday, 08/12 -Possible transcatheter aortic valve replacement NSTEMI Type II Troponin at outside facility was 0.178 08/07. Last troponin was 0.155 on 08/08. EKG done showed NSR with left ventricular hypertrophy. Plan: - Tele monitoring- NSR with PACs overnight with rate in 90s. - Cardiology following -coronary angiogram 08/08 normal coronaries. - continue home lopressor 12.5 bid - hydroxyzine prn for anxiety Chronic Conditions CLL: WBC 65 08/09 Hyperlipidemia HTN: Lopressor 50 mg BID Code status:full Pain Meds:prn tylenol DVT prophylaxis:heparin 5000U Therapies:nutrition Disposition:med/surg Diet:clear liquid Interval History: This morning 08/09 Jaylon was sitting up in bed, alert. She stated that when she woke up she was confused about where she was. She thought she was at home. She stated it took her a while to recognize thatesvine was in the hospital. She was very talkative and concerned about not remembering that she was hospitalized. Her SOB has much improved since yesterday. She is able to get to and from the bathroom without much difficulty since the thoracentesis 08/08. She stated she has no pain. She denies chest pain, palpitations, nausea. She had a BM yesterday. HPI / History / ROS Patient presents after becoming extremely short of breath overnight while she was lying flat. She karla direct admit from [facility] in [place]. She reports an ongoing history of this shortness of breath for the past few months and states that her breathing had been worsening when she lied flat or when she walked around outside or did things in the garden. She also reports that she had issues going up the stairs at her daughters home. She states that when she gets short of breath that she sometimes feels nauseated but denied any episodes of chest pain during these events. She states that lately she has become significantly more anxious than usual and has even sought treatment for her anxiety in the form ofa SSRI which she states made her nauseous. She states that overnight she became so short of breath when she lied flat that she continuously hadto get up from bed to sit up or walk around due to her shortness of breath. She states that this wasvery concerning to her and she decided to seek treatment due to the acute worsening of the shortnessof breath. Review of Systems Constitutional: Negative for appetite change, chills and fever. HENT: Negative for congestion and facial swelling. Eyes: Negative for visual disturbance. Respiratory: Negative for cough and wheezing. SOB had improved Cardiovascular: Negative for chest pain and palpitations. Gastrointestinal: Negative for abdominal pain, constipation, nausea and vomiting. Genitourinary: Negative for difficulty urinating. Musculoskeletal: Negative for back pain and neck pain. Skin: Negative for rash. Neurological: Negative for dizziness and light-headedness. Psychiatric/Behavioral: Positive for confusion. Had some confusion when she woke up this morning. She was aware of where she was when I spoke with her. Physical / Results Current Vital Signs Temp: 97.6 F (36.4 C) BP: 93/52 Weight: 47.9 kg (105 lb 9.6 oz) SpO2: 97 % Resp: 18 Pulse: 88 Current BMI (>50=increased risk): 19.54 O2 Device: Room Air Pain Ratin Physical Exam Constitutional: She is oriented to person, place, and time. She appears well- developed and well-nourished. HENT: Head: Normocephalic and atraumatic. Eyes: EOM are normal. Neck: No thyromegaly present. Cardiovascular: Normal rate, regular rhythm and intact distal pulses. Systolic murmur heard over left sternal border. Diastolic murmur heard under left axilla in 5th intercostal space. Pulmonary/Chest: Effort normal. No respiratory distress. She has no wheezes. She exhibits no tenderness. Mild crackles at the base of left lung. Abdominal: Soft. Bowel sounds are normal. Musculoskeletal: Normal range of motion. Mild non-pitting edema. Lymphadenopathy: She has no cervical adenopathy. Neurological: She is alert and oriented to person, place, and time. Skin: Skin is warm and dry. Psychiatric: She has a normal mood and affect. Her behavior is normal. Nursing note and vitals reviewed. Cyndie Clark MD - 08/08/2019 2:08 PM CDT Physician Pre-Procedure Sedation Plan (Moderate Sedation) (Note: A complete H&P is required for procedures requiring anesthesia and for inpatients.) Indication for Care: I affirm the indication for the procedure is still present. History & Physical: [x] An up to date H&P has been completed and is available for this procedure. [] Short form H&P for this procedure is documented below: Vitals: Temp: 97.8 F (36.6 C) | BP: 96/48 | Pulse: 77 | Resp: 16 | Pain Ratin | O2 Device: Room Air | SpO2: 97 % Weight: 49.8 kg (109 lb 12.8 oz) Height: 162.6 cm (5' 4") Chief Complaint/HPI/Reason for Procedure: SOB Past Medical History: Past Medical History: Diagnosis Date Anxiety Bowel perforation (HCC) 04/18/2018 CHF (congestive heart failure) (HCC) Hemorrhoids History of benign colon tumor 1999 Hyperlipidemia Hypertension Nephrolithiasis 1897 lithotripsy Osteoporosis completed 5 years of fosamax therapy 03/2013 Seborrheic dermatitis of scalp Tricuspid regurgitation 03/2010 per ECHO 2009 in [place], EF 66% Current medications: Current Facility-Administered Medications Medication Dose Route Frequency Last Rate Last Dose sodium chloride 0.9% flush (adult) 10 mL 10 mL IV 2 times a day and prn sodium chloride 0.9% IV solution IV Continuous fentaNYL 100 mcg/2 mL preservative free injection solution 25-300 mcg 25- 300 mcg IV PRN per parameter midazolam (VERSED) injection solution 0.5-10 mg 0.5-10 mg IV PRN per parameter nitroglycerin (100 mcg/mL) in NS 100-300 mcg Intra-arterial PRN per parameter verapamil-hEParin in normal saline (radial cocktail) Intra-arterial Now lidocaine PF (XYLOCAINE-MPF) 1 % preservative free injection solution 1-10 mL 1-10 mL Subcutaneous 1 time iohexol (OMNIPAQUE) 350 mg/mL solution 0-300 mL 0-300 mL Intra-arterial 1 time sodium chloride 0.9% flush (adult) 10 mL 10 mL IV 2 times a day and prn 10 mL at 08/08/19 0936 acetaminophen (TYLENOL) tablet 650 mg 650 mg Oral Every 4 hours prn metoclopramide (REGLAN) inj soln 5 mg 5 mg IV Every 6 hours prn vitamin D3 (cholecalciferol) tablet 1,000 Units 1,000 Units Oral daily 1, 000 Units at 08/08/19 0935 metoprolol tartrate (LOPRESSOR) half-tablet 12.5 mg 12.5 mg Oral 2 times a day 12.5 mg at 08/08/19 0935 nitroglycerin (NITROSTAT) sublingual tablet 0.4 mg 0.4 mg Sublingual Every 5 minutes prn furosemide (LASIX) injection solution 40 mg 40 mg IV daily 40 mg at 08/08 0935 heparin (porcine) injection solution 5,000 Units 5,000 Units Subcutaneous Every 12 hours 5,000 Units at 08/08/19 0935 melatonin tablet 3 mg 3 mg Oral Bedtime prn senna-docusate sodium (SENOKOT-S;PERICOLACE) tablet 2 tablet 2 tablet Oral 2 times a day prn And bisacodyl (DULCOLAX) suppository 10 mg 10 mg Rectal 1 time a day prn And docusate sodium (THEREVAC-SB MINI;ENEMEEZ MINI) 283 MG enema 1 enema 1 enema Rectal 1 time a day prn ondansetron (ZOFRAN ODT) dispersible tablet 4 mg 4 mg Oral Every 4 hours prn And ondansetron (ZOFRAN) injection solution 4 mg 4 mg IV Every 4 hours prn hydrOXYzine (ATARAX) tablet 25 mg 25 mg Oral 4 times a day prn influenza immunization reminder 1 each Does not apply Give STEPHEN if patient qualifies for vaccine Medications Prior to Admission Medication Sig Dispense Refill Last Dose metoprolol tartrate (LOPRESSOR) 25 mg tablet Take 0.5 tablets (12.5 mg) by mouth 2 times a day 30 tablet 0 08/07/2019 at 0800 Lutein-Zeaxanthin 20-1 MG CAPS Take 1 capsule by mouth 1 time per day 08/07 at 0800 vitamin D3, cholecalciferol, 1000 UNITS tablet Take 1,000 Units by mouth 1 time per day. 08/06/2019 at 2100 Multiple Vitamin (MULTI-VITAMIN) tablet Take 1 tablet by mouth 1 time per day. 08/07/2019 at 0900 calcium carbonate (OSCAL 500) 500 mg tablet Take 500 mg by mouth 3 times a day with meals. 08/07/2019 at 0800 omega-3 fatty acids (FISH OIL) 1000 mg capsule Take 1,000 mg by mouth 1 time per day. 08/06/2019 at 2100 Physical Examination: Surgical Site: Normal Mental Status: Normal Lung: Normal Heart: Normal Sedation Plan: Moderate Sedation: ASA Score=2 Mallampati Class=II (soft palate, uvula, fauces visible) Physician's Affirmation of Discussion: I have explained the known risks, benefits, potential complications, and alternatives to the procedure or treatment and/or sedation. I have assessed the patient and vital signs immediately prior to sedation and concur with sedation plan. Gorge Rai MD - 08/08/2019 1:57 PM CDT DAILY PROGRESS NOTE Jaylon Bray is a 88yr old female admitted on 08/07/2019 4:29 PM. Impression / Plan Active Problems: Pure hypercholesterolemia Essential hypertension Tricuspid regurgitation Aortic stenosis NSTEMI (non-ST elevated myocardial infarction) (HCC) Acute diastolic CHF (congestive heart failure) (HCC) Lactic acidosis Hypernatremia Leukocytosis Pleural effusion, bilateral Resolved Problems: * No resolved hospital problems. * Patient is very anxious and reports worsening in the past week. Recently had holter monitor placed by primary care and showed tachycardia with heart rate in 130s. avg heart rate of 97. Xray chest done on 08/07 showed moderate-large pleural effusion w/compressive atelectasis. CT chest done 08/07 showed no PE, bilateral pleural effusion and reflux of IV contrast consistent w/ HF. D dimer at OSH elevated at 868. Lactic at OSH was 2.4, total bili 1.1, AST-57, ALT 81, WBC-67. EKG showed NSR with LVH and Twave inversion in lateral leads consistent with ischemia. CMP showed ALT of 62 and AST of 45. LDH is328. MG normal. GFR of 49. # NSTEMI Troponin at outside facility was 0.178. Last troponin was 0.155. EKG done showed NSR with left ventricular hypertrophy. Plan: - Tele monitoring- NSR with PACs overnight with rate in 90s. - Cardiology following - continue home lopressor 12.5 bid - hydroxyzine prn for anxiety # Diastolic CHF presumably due to worsening # Pleural effusion secondary to above Previous echo in April of 2018 showed an EF of 65% with critical aortic stenosis and mean gradient of100 mmhg. Estimated aortic valve area is 0.6. Mild to moderate mitral stenosis. Echo done 08/08 showing EF of 40% with diffuse hypokinesis of left ventricle. Severe with eccentrically directed regurgitant jet. Aortic valve mean gradient is 72mmhg estimated aortic valve gradient is 0.6. Severe mitral stenosis with moderate mitral regurgitation. Lipomatous hypertrophy of atrial septum. Plan: - Lasix 40mg IV - IR to do thoracentesis in clinical laboratory director and follow this with balloon valvuloplasty. Likely to have TAVIoutpatient. Chronic Conditions # CLL # hyperlipidemia Code status: full Pain Meds: prn tylenol DVT prophylaxis: heparin 5000U Therapies: nutrition Disposition: med/surg Diet: clear liquid Interval History HPI Patient seen at bedside this am and states that her shortness of breath has improved compared to yesterday. Still reports some residual difficulties with lying down flat and reports poor sleep overnight. Denied having any chest pain overnight and states that she is not having any issues with urination. Reports having a bowel movement this am. Denied having any issues with nausea or vomiting. Review of Systems Review of Systems Constitutional: Negative for activity change, appetite change, diaphoresis and fatigue. HENT: Negative for congestion and trouble swallowing. Eyes: Negative for photophobia, discharge, redness and visual disturbance. Respiratory: Positive for shortness of breath. Negative for cough, choking and chest tightness. Cardiovascular: Negative for chest pain, palpitations and leg swelling. Gastrointestinal: Negative for abdominal distention, abdominal pain, constipation, diarrhea, nausea and vomiting. Endocrine: Negative for cold intolerance and heat intolerance. Genitourinary: Negative for difficulty urinating and dysuria. Musculoskeletal: Negative for arthralgias, neck pain and neck stiffness. Skin: Negative for color change. Neurological: Negative for seizures, syncope and light-headedness. Psychiatric/Behavioral: Negative for agitation, behavioral problems, confusion, decreased concentration and hallucinations. The patient is nervous/anxious. The patient is not hyperactive. Physical Exam Vital Signs: Temp: 97.8 F (36.6 C) | BP: 96/48 | Pulse: 77 | Resp: 16 | Pain Ratin (out of 10) | Weight: 49.8 kg (109 lb 12.8 oz) | O2 Device: Room Air | SpO2: 97 % Maximum Temperatures (last 24 hours) Temperature Maximum Max Temp 98.3 F (36.8 C) Intake and Output: 08/07 0700 - 08/08 0659 In: - Out: 825 [Urine:825] Physical Exam Constitutional: She is oriented to person, place, and time. She appears well- developed and well-nourished. No distress. HENT: Head: Normocephalic and atraumatic. Eyes: EOM are normal. Right eye exhibits no discharge. Left eye exhibits no discharge. No scleral icterus. Neck: Normal range of motion. Neck supple. No tracheal deviation present. Cardiovascular: Normal rate and regular rhythm. Murmur heard. Pulmonary/Chest: Effort normal. No respiratory distress. She exhibits no tenderness. Crackles on left base Abdominal: Soft. Bowel sounds are normal. She exhibits no distension. There is no tenderness. There is no rebound. Musculoskeletal: Normal range of motion. She exhibits edema. She exhibits no tenderness or deformity. Neurological: She is alert and oriented to person, place, and time. No cranial nerve deficit. Skin: Skin is warm. She is not diaphoretic. Psychiatric: She has a normal mood and affect. Her behavior is normal. Thought content normal. Labs Labs (Last day) 08/08/19 001 - 08/07/191845 CARDIAC MARKERS 08/08/191008/07/191845 CARDIAC MARKERS Troponin I 0.000-0.028 (ng/mL) 0.155 0.157 08/08/19825 - 08/08/19825 CBC 08/08/19825 CBC WBC 4.0-11.0 (K/uL) 65.5 RBC 3.80-5.30 (M/uL) 4.05 Hemoglobin 11.5-15.8 (g/dL) 11.6 Hematocrit 35.0-45.0 (%) 38.1 MCV 80.0-98.0 (fL) 94.1 MCH 25.5-34.0 (pg) 28.6 MCHC 31.5-36.5 (g/dL) 30.4 RDW-CV 11.5-15.5 (%) 14.8 RDW-SD 35.5-50.0 (fl) 50.5 Platelet Count 140-400 (K/uL) 178 MPV 8.5-12.0 (fL) 11.6 08/08/19 1137 - 08/07/191845 CHEMISTRY 08/08/19 1137 08/08/19 0808/08/19 0808/08/1982508/07/191845 CHEMISTRY Glucose 70-100 (mg/dL) 105 Sodium 135-145 (meq/L) 144 Potassium 3.5-5.3 (meq/L) 3.8 Chloride 99-110 (meq/L) 109 CO2 20-29 (meq/L) 24 Anion Gap with K 6-20 (meq/L) 15 BUN 6-22 (mg/dL) 35 Creatinine 0.60-1.10 (mg/dL) 1.07 BUN/Creatinine Ratio 10.0-25.0 32.7 Calcium 8.5-10.5 (mg/dL) 9.4 Magnesium 1.8-2.4 (mg/dL) 1.8 Bilirubin Total 0.2-1.2 (mg/dL) 1.1 Bilirubin Direct 0.0-0.4 (mg/dL) 0.5 Bilirubin Indirect 0.0-0.8 (mg/dL) 0.6 Alkaline Phosphatase 30-150 (U/L) 90 ALT - SGPT 0-55 (U/L) 62 AST - SGOT 0-35 (U/L) 45 LDH Total 125-245 (U/L) 328 Protein Total 6.0-8.2 (g/dL) 6.4 Albumin 3.5-5.0 (g/dL) 4.1 Lactic Acid 0.5-2.2 (mmol/L) 2.2 eGFR >=60 (mL/min/1.73m2) 59 eGFR Non- >=60 (mL/min/1.73m2) 49 08/07/191825 - 08/07/191825 ECG/EKG 08/07/191825 ECG/EKG EKG WAVEFORM Normal sinus rhythm Possible Left atrial enlargement LVH with repolarization abnormality Cannot exclude Septal infarct , age undetermined Abnormal ECG When compared with ECG of 18-APR-2018 14:34, Nonspecific T wave abnormality now evident in Inferior leads T wave inversion now evident in Lateral leads Ventricular Rate: 86 BPM Atrial Rate: 86 BPM P-R Interval: 148 ms QRS Duration: 100 ms Q-T Interval: 392 ms QTc Calculation(Bazett): 469 ms Calculated P [place]: 34 degrees Calculated R [place]: 24 degrees Calculated T [place]: 122 degrees 08/08/19 0826 - 08/08/19 0826 OTHER 08/08/19 08 OTHER Age (Years) 88 Medical Decision making Medical Decision Making 3 :22 PM CDT Associated attestation - Parish Stephens MD - 08/09/2019 3:22 PM CDTI discussed the patient with the resident and personally interviewed and examined the patient. I agree with the resident's diagnosis and management. documented in this encounter Plan of Treatment Date Type Specialty Care Team Description 08/12/2019 Anesthesia Event Waiter/Waitress First Class Rito Wayne MD [address] [place] [address] [phone] 08/15/2019 Hospital Encounter General Surgery Oscar Ayon, Aortic valve stenosis [address] [place] [address] [phone] 08/15/2019 Surgery General Surgery Oscar Ayon, TRANSFEMORAL AORTIC MD VALVE IMPLANT, [address] [place], NO OR, [place] [address] RM #5, SENTINEL [phone] DEVICE 08/21/2019 [facility] Visit [facility] V[facility]a [facility]ain, TRUMAN [address] [place] [phone] Name Type Priority Associated Diagnoses Order Schedule CLINIC REFERRAL Referral Routine Aortic valve stenosis, Ordered: 08/12/2019 CARDIOLOGY ONE CHART etiology of cardiac valve disease unspecified documented as of this encounter Procedures Procedure Name Priority Date/Time Associated Comments Diagnosis PROTIME/INR STAT 08/12/2019 11:34 Results for this AM CDT procedure are in the results section. FIBRINOGEN STAT 08/12/2019 11:34 Results for this AM CDT procedure are in the results section. LAB ONLY-MANUAL Routine 08/12/2019 11:30 Results for this DIFFERENTIAL AM CDT procedure are in the results section. LAB ONLY-COMPLETE STAT 08/12/2019 11:30 Results for this BLOOD COUNT WITH AM CDT procedure are in DIFFERENTIAL the results section. TYPE AND SCREEN STAT 08/12/2019 11:30 Results for this AM CDT procedure are in the results section. BASIC METABOLIC PANEL STAT 08/12/2019 11:30 Results for this AM CDT procedure are in the results section. LAB ONLY-COMPLETE STAT 08/12/2019 11:30 Results for this BLOOD COUNT WITH AM CDT procedure are in DIFFERENTIAL the results section. LAB ONLY-URINE STAT 08/12/2019 11:22 Results for this MICROSCOPIC REFLEX AM CDT procedure are in the results section. URINE DIP, REFLEX TO STAT 08/12/2019 11:22 Results for this MICROSCOPIC, REFLEX AM CDT procedure are in TO CULTURE the results section. MAGNESIUM Routine 08/11/2019 10:34 Results for this AM CDT procedure are in the results section. RENAL FUNCTION PANEL Routine 08/11/2019 10:34 Results for this AM CDT procedure are in the results section. COMPLETE BLOOD COUNT Routine 08/10/2019 8:12 Results for this WITHOUT DIFFERENTIAL AM CDT procedure are in the results section. MAGNESIUM Routine 08/10/2019 8:12 Results for this AM CDT procedure are in the results section. RENAL FUNCTION PANEL Routine 08/10/2019 8:12 Results for this AM CDT procedure are in the results section. CTA ABDOMEN PELVIS STEPHEN 08/09/2019 10:45 Results for this AM CDT procedure are in the results section. CTA CHEST STEPHEN 08/09/2019 10:45 Results for this AM CDT procedure are in the results section. COMPLETE BLOOD COUNT Routine 08/09/2019 7:00 Results for this WITHOUT DIFFERENTIAL AM CDT procedure are in the results section. RENAL FUNCTION PANEL Routine 08/09/2019 7:00 Results for this AM CDT procedure are in the results section. XRAY CHEST PORTABLE Routine 08/08/2019 5:32 Results for this PM CDT procedure are in the results section. CARDIAC CATH POSSIBLE Routine 08/08/2019 3:06 Results for this ANGIOPLASTY STENT PM CDT procedure are in BOX CLOSING MACHINE OPERATOR the results section. IR THORACENTESIS Routine 08/08/2019 2:30 Results for this PM CDT procedure are in the results section. LAB Routine 08/08/2019 2:27 Results for this ONLY-DIFFERENTIAL, PM CDT procedure are in BODY FLUID the results section. LAB ONLY-CELL COUNT, Routine 08/08/2019 2:27 Results for this BODY FLUID PM CDT procedure are in the results section. CULTURE BACTERIAL, Routine 08/08/2019 2:27 Results for this OTHER WITH GRAM STAIN PM CDT procedure are in the results section. CELL COUNT AND DIFF, Routine 08/08/2019 2:27 Results for this BODY FLUID PM CDT procedure are in the results section. PH, BODY FLUID Routine 08/08/2019 2:27 Results for this PM CDT procedure are in the results section. PROTEIN, BODY FLUID Routine 08/08/2019 2:27 Results for this PM CDT procedure are in the results section. LDH, BODY FLUID Routine 08/08/2019 2:27 Results for this PM CDT procedure are in the results section. GLUCOSE, BODY FLUID Routine 08/08/2019 2:27 Results for this PM CDT procedure are in the results section. LDH TOTAL Routine 08/08/2019 11:37 Results for this AM CDT procedure are in the results section. ECHO ADULT COMPLETE Routine 08/08/2019 10:08 Results for this AM CDT procedure are in the results section. COMPLETE BLOOD COUNT Routine 08/08/2019 8:26 Results for this WITHOUT DIFFERENTIAL AM CDT procedure are in the results section. HEPATIC FUNCTION Routine 08/08/2019 8:26 Results for this PANEL AM CDT procedure are in the results section. MAGNESIUM Routine 08/08/2019 8:26 Results for this AM CDT procedure are in the results section. BASIC METABOLIC PANEL Routine 08/08/2019 8:26 Results for this AM CDT procedure are in the results section. TROPONIN I Timed Routine 08/08/2019 12:11 Results for this AM CDT procedure are in the results section. CYTOLOGY-BODY Routine 08/08/2019 Results for this FLUID/OTHER procedure are in the results section. TROPONIN I Timed Routine 08/07/2019 6:46 Results for this PM CDT procedure are in the results section. LACTIC ACID Routine 08/07/2019 6:46 Results for this PM CDT procedure are in the results section. EKG Routine 08/07/2019 6:26 Results for this PM CDT procedure are in the results section. documented in this encounter Results FIBRINOGEN (08/12/2019 11:34 AM CDT) Fibrinogen 323 200 - 450 mg/dL [address] Specimen Blood Performing Organization Address City/State/Zipcode Phone Number [address] [place] [address] PROTIME/INR (08/12/2019 11:34 AM CDT) Protime 13.5 12.0 - 14.[address] INR 1.1 (L) 2.0 - 3.[address] Specimen Blood Narrative Performed At Normal INR reference range (patients not on oral [address] anticoagulants)0.9-1.1. INR Standard Intensity=(2.0 - 3.0) INR Higher Intensity=(2.5 - 3.5) Performing Organization Address [facility] Phone Number [address] [address] LAB ONLY-MANUAL DIFFERENTIAL (08/12/2019 11:30 AM CDT) Neutrophils Abs. 6,130 /uL [address] (Segs and Bands) Seg Neut Absolute 6.1 1.8 - 8.0 K/uL [address] Lymphocytes Absolute 54.6 (H) 0.8 - 4.1 K/uL [address] Eosinophils Absolute 0.6 0.0 - 0.7 K/uL [address] Neutrophils Percent 10.0 % [address] Lymphocytes Percent 89.0 % [address] Eosinophils Percent 1.0 % [address] Platelet Morphology Normal [address] RBC Morphology Normal [address] Specimen Blood Performing Organization Address [facility] [place] Number [address] [place] [address] LAB ONLY-COMPLETE BLOOD COUNT WITH DIFFERENTIAL (08/12/2019 11:30 AM CDT) [facility] WBC 61.3 (H) 4.0 - 11.0 K/uL [address] RBC 4.08 3.80 - 5.30 M/uL [address] Hemoglobin 11.8 11.5 - 15.8 g/dL [address] Hematocrit 38.3 35.0 - 45.0 % [address] MCV 93.9 80.0 - 98.[address] MCH 28.9 25.5 - 34.[address] MCHC 30.8 (L) 31.5 - 36.5 g/dL [address] RDW-CV 14.8 11.5 - 15.5 % [address] RDW-SD 50.7 (H) 35.5 - 50.[address] Platelet Count 150 140 - 400 K/uL [address] MPV 11.4 8.5 - 12.[address] Specimen Blood Narrative Performed At A previously reported component Auto NRBCs is no longer reported. [place] [id number] CLIN[facility] Performing Organization Address [facility] Phone Number [place] [address] [facility] [address] [place] [address] TYPE AND SCREEN (08/12/2019 11:30 AM CDT) Pathologist [facility] ABO Type O [address] BLOOD BANK Rh Type Positive [address] BLOOD BANK Antibody Screen Negative [address] Comment: BLOOD BANK 6CD 08/12/19 Allogenic Red Cells Available Expiration Date 08/15/2019 23:[address] BLOOD BANK Specimen Blood Performing Organization Address [facility] Phone Number [address] BLOOD BANK [address] [place] [address], [place] [address] BASIC METABOLIC PANEL (08/12/2019 11:30 AM CDT) Pathologist [facility] Glucose 93 70 - 100 mg/dL [address] BUN 29 (H) 6 - 22 mg/dL [address] Creatinine 0.96 0.60 - 1.[address] mg/dL BUN/Creatinine Ratio 30.2 (H) 10.0 - 25.[address] Sodium 140 135 - 145 meq/L [address] Potassium 4.3 3.5 - 5.3 meq/L [address] Chloride 103 99 - 110 meq/L [address] CO2 27 20 - 29 meq/L [address] Anion Gap with K 14 6 - 20 meq/L [address] Calcium 9.2 8.5 - 10.[address] mg/dL Age [address] eGFR Non- 55 (L) >=[address] [place] mL/min/1.73m2 eGFR 67 >=[address] mL/min/1.73m2 Specimen Blood Performing Organization Address [facility] Phone Number [address] [place] [address] LAB ONLY-URINE MICROSCOPIC REFLEX (08/12/2019 11:22 AM CDT) WBC Urine 0-5 /hpf Negative, 0-5 [place] I- /hpf CLINIC RBC Urine 6-10 /hpf (A) Negative, 0-2 [place] I- /hpf CLINIC Squamous Few (11-20) /lpf Negative, Occ [place] [address] Epithelial Cells (0-10) /lpf, Few CLINIC (11-20) /lpf Bacteria Negative Negative [address] Hyaline Cast 3-5 /lpf (A) 0-2 /lpf [address] Specimen Urine Narrative Performed At Culture not performed - reflex criteria not met. [address] Culture is only performed when the urine macroscopic color is reported as Bright Maria Stein, or whentwoor more of the following criteria are met: Positive Nitrite, Positive Leukocyte Esterase, WBC's >5 cells/hpf. Performing Organization Address [facility] Phone Number [address] [place] [address], [place] [address] URINE DIP, REFLEX TO MICROSCOPIC, REFLEX TO CULTURE (08/12/2019 11:22 AM CDT) Color Urine Yellow [place], Dark [place] [address] Yellow, Straw, CLINIC Yellow, Colorless Clarity Urine Clear Clear [address] Glucose Urine Negative Negative [address] Bilirubin Urine Negative Negative [address] Ketones Urine Negative Negative, 5 [place] [address] mg/dL, 10 mg/dL [facility] Specific [place] 1.013 1.002 - 1.[address] Blood Urine Small (1+) (A) Negative [address] PH Urine 5.5 5.0, 5.5, 6.0, [place] [address] 6.5, 7.0, 7.5, CLINIC 8.0 Protein Urine Trace (10-20) Negative [place] [address] mg/dL (A) [facility] Urobilinogen < 2 mg/dL < 2 mg/dL [address] Nitrite Negative Negative [address] Leukocyte Esterase Negative Negative [place] [address] Urine CLINIC Specimen Urine Narrative Performed At Microscopic Exam Reflexed [address] Performing Organization Address [facility] Phone Number [address] [place] [address], [place] [address] MAGNESIUM (08/11/2019 10:34 AM CDT) Pathologist [facility] Magnesium 1.6 (L) 1.8 - 2.4 mg/dL [place] [address] CLINIC Specimen Blood Performing Organization Address [facility] Phone Number [address] [place] [address] RENAL FUNCTION PANEL (08/11/2019 10:34 AM CDT) [facility] Glucose 120 (H) 70 - 100 mg/dL [place] [address] CLINIC BUN 28 (H) 6 - 22 mg/dL [address] Creatinine 0.90 0.60 - 1.[address] mg/dL BUN/Creatinine Ratio 31.1 (H) 10.0 - 25.[address] Sodium 143 135 - 145 meq/L [address] Potassium 3.8 3.5 - 5.3 meq/L [address] Chloride 106 99 - 110 meq/L [address] CO2 26 20 - 29 meq/L [address] Anion Gap with K 15 6 - 20 meq/L [address] Calcium 8.9 8.5 - 10.[address] mg/dL Phosphorus 3.0 2.5 - 4.5 mg/dL [address] Albumin 3.9 3.5 - 5.0 g/dL [address] Corrected Calcium 9.0 8.5 - 10.[address] mg/dL Age [address] eGFR Non- 59 (L) >=[address] [place] mL/min/1.73m2 eGFR 72 >=[address] mL/min/1.73m2 Specimen Blood Performing Organization Address [facility] Phone Number [address] [place] [address], [place] [address] COMPLETE BLOOD COUNT WITHOUT DIFFERENTIAL (08/10/2019 8:12 AM CDT) Pathologist [facility] WBC 63.8 (H) 4.0 - 11.0 K/uL [address] RBC 4.20 3.80 - 5.30 M/uL [address] Hemoglobin 11.9 11.5 - 15.8 g/dL [address] Hematocrit 39.6 35.0 - 45.0 % [address] MCV 94.3 80.0 - 98.[address] MCH 28.3 25.5 - 34.[address] MCHC 30.1 (L) 31.5 - 36.5 g/dL [address] RDW-CV 14.8 11.5 - 15.5 % [address] RDW-SD 50.3 (H) 35.5 - 50.[address] Platelet Count 161 140 - 400 K/uL [address] MPV 11.2 8.5 - 12.[address] Specimen Blood Performing Organization Address [facility] Phone Number [address] [place] [address] MAGNESIUM (08/10/2019 8:12 AM CDT) Magnesium 1.7 (L) 1.8 - 2.4 mg/dL [address] Specimen Blood Performing Organization Address [facility] Phone Number [address] [place] [address] RENAL FUNCTION PANEL (08/10/2019 8:12 AM CDT) Glucose 95 70 - 100 mg/dL [address] BUN 33 (H) 6 - 22 mg/dL [address] Creatinine 1.07 0.60 - 1.[address] mg/dL BUN/Creatinine Ratio 30.8 (H) 10.0 - 25.[address] Sodium 143 135 - 145 meq/L [address] Potassium 3.7 3.5 - 5.3 meq/L [address] Chloride 105 99 - 110 meq/L [place] [address] CLINIC CO2 26 20 - 29 meq/L [address] Anion Gap with K 16 6 - 20 meq/L [address] Calcium 9.4 8.5 - 10.[address] mg/dL Phosphorus 3.4 2.5 - 4.5 mg/dL [address] Albumin 4.2 3.5 - 5.0 g/dL [address] Age [address] eGFR Non- 49 (L) >=[address] [place] mL/min/1.73m2 eGFR 59 (L) >=[address] mL/min/1.73m2 Specimen Blood Performing Organization Address City/State/Zipcode Phone Number [address] [place] [address] CTA ABDOMEN PELVIS (08/09/2019 10:45 AM CDT) Specimen Narrative Performed At [facility] Patient Name: JAYLON RBAY Date of :1930 Procedure: CTA ABDOMEN PELVIS Date of Service: 08/09/2019 EXAM: CTA CHEST, CTA ABDOMEN PELVIS INDICATION:TAVR COMPARISON(S): CTA of the chest from 08/07/2019. CT of the abdomen and pelvis from 04/22/2018. TECHNIQUE: Non contrast axial images acquired through the chest. CTA of the chest, abdomen and pelvis was then performed following IV contrast. Chest CTA was performed utilizing cardiac gating and CTA performed of the abdomen and pelvis, nongated. Sagittal and coronal reformats were performed including with MIP technique as well as multiplanar reformations with post processing to evaluate the aortic valve including the relationship/measurement to the LCA and RCA.Vessel analysis was performed on an independent workstation measuring the diameters of the aorta, common iliacs and femoral arteries. These were reported as mean values. 3-D reconstructions of the vasculature were performed. CTA CHEST FINDINGS: RCA to aortic valve distance: 9 mm Left main to aortic valve distance: 10 mm Vascular: There is calcification of the aortic valve leaflets. Mild scattered atherosclerosis of the thoracic aorta. The thoracic aorta is nonaneurysmal. The tubular ascending aorta is mildly dilated, measuring 3.9 cm. Normal three-vessel branching pattern of the aortic arch. The visualized aortic arch branch vessels are widely patent. Non-vascular: There are small left and [id number] right pleural effusions with associated compressive atelectasis. There is also mild subsegmental atelectasis and/or scarring at the lung bases bilaterally. No pneumothorax. The central airways are widely patent. The heart is normal in size. No mediastinal or hilar lymphadenopathy. There is a 1 cm hypodense nodule in the right lobe of the thyroid. CTA ABDOMEN AND PELVIS FINDINGS: Vascular: There is scattered atherosclerosis of the abdominal aorta without aneurysmal dilatation. Atherosclerosis causes mild narrowing at the origin of the celiac artery. The superior mesenteric artery is widely patent. The right and left renal arteries are widely patent. The inferior mesenteric artery is patent. There is mild scattered atherosclerosis of the visualized bilateral iliofemoral arteries. The bilateral common, internal, and external iliac arteries and the bilateral common femoral arteries are widely patent. Mild narrowing at the origin of the left profundofemoral artery. The visualized proximal portions of the right profunda femoral artery and bilateral superficial femoral arteries are widely patent. Non-vascular: The liver is normal in contour. There is hepatomegaly. No hepatic lesions are identified. No biliary ductal dilatation. There is cholelithiasis. No gallbladder wall thickening or pericholecystic fluid. The spleen is mildly enlarged, measuring 13.6 cm in length. The pancreas and adrenal glands are unremarkable. There is bilateral nonobstructive nephrolithiasis. No hydronephrosis. No concerning renal lesions. The stomach, small bowel, and colon show no concerning abnormalities. No free intraperitoneal air or significant free fluid. No abdominal or pelvic lymphadenopathy. Urinary bladder is partially decompressed and otherwise unremarkable. No aggressive osseous lesions. Mild chronic compression deformity and anterior wedging of the L1 vertebral body Measurements: Aorta just below renal artery: 12 mm Aorta bifurcation point: 15 mm Right proximal common iliac artery: 9 mm Right middle common iliac artery: 10 mm Right distal common iliac artery: 10 mm Right proximal external iliac artery: 8 mm Right middle external iliac artery: 7 mm Right common femoral artery: 8 mm Left proximal common iliac artery: 9 mm Left middle common iliac artery: 11 mm Left distal common iliac artery: 12 mm Left proximal external iliac artery: 8 mm Left middle external iliac artery: 7 mm Left common femoral artery: 7 mm IMPRESSION: 1.Vascular measurements, as above. 2.Small left and small to moderate right pleural effusions. 3.Hepatomegaly. 4.Mild splenomegaly. The spleen measures 18.6 cm in length. 5.Cholelithiasis. 6.Bilateral nonobstructive nephrolithiasis. 7.Mild chronic compression deformity and anterior wedging of the L1 vertebral body. Finalized by: Jeancarlos Oliver MD on 08/09/2019 12:15 PM CDT Patient/Procedure Information: [facility] MRN/JOHN: [id number] Order Number: [id number] Accession Number: [id number] Ordering Provider: HARVEY MORA Authorizing Provider: HARVEY MORA Procedure Note Interface, Radiantres - 08/09/2019 12:17 PM CDT Patient Name: JAYLON BRAY Date of : 1930 Procedure: CTA ABDOMEN PELVIS Date of Service: 08/09/2019 EXAM: CTA CHEST, CTA ABDOMEN PELVIS INDICATION:TAVR COMPARISON(S): CTA of the chest from 08/07/2019. CT of the abdomen and pelvis from 04/22/2018. TECHNIQUE: Non contrast axial images acquired through the chest. CTA of the chest, abdomen and pelvis was then performed following IV contrast. Chest CTA was performed utilizing cardiac gating and CTA performed of the abdomen and pelvis, nongated. Sagittal and coronal reformats were performed including with MIP technique as well as multiplanar reformations with post processing to evaluate the aortic valve including the relationship/measurement to the LCA and RCA. Vessel analysis was performed on an independent workstation measuring the diameters of the aorta, common iliacs and femoral arteries. These were reported as mean values. 3-D reconstructions of the vasculature were performed. CTA CHEST FINDINGS: RCA to aortic valve distance: 9 mm Left main to aortic valve distance: 10 mm Vascular: There is calcification of the aortic valve leaflets. Mild scattered atherosclerosis of the thoracic aorta. The thoracic aorta is nonaneurysmal. The tubular ascending aorta is mildly dilated, measuring 3.9 cm. Normal three-vessel branching pattern of the aortic arch. The visualized aortic arch branch vessels are widely patent. Non-vascular: There are small left and rxnnr-zr-swgfghoe right pleural effusions with associated compressive atelectasis. There is also mild subsegmental atelectasis and/or scarring at the lung bases bilaterally. No pneumothorax. The central airways are widely patent. The heart is normal in size. No mediastinal or hilar lymphadenopathy. There is a 1 cm hypodense nodule in the right lobe of the thyroid. CTA ABDOMEN AND PELVIS FINDINGS: Vascular: There is scattered atherosclerosis of the abdominal aorta without aneurysmal dilatation. Atherosclerosis causes mild narrowing at the origin of the celiac artery. The superior mesenteric artery is widely patent. The right and left renal arteries are widely patent. The inferior mesenteric artery is patent. There is mild scattered atherosclerosis of the visualized bilateral iliofemoral arteries. The bilateral common, internal, and external iliac arteries and the bilateral common femoral arteries are widely patent. Mild narrowing at the origin of the left profundofemoral artery. The visualized proximal portions of the right profunda femoral artery and bilateral superficial femoral arteries are widely patent. Non-vascular: The liver is normal in contour. There is hepatomegaly. No hepatic lesions are identified. No biliary ductal dilatation. There is cholelithiasis. No gallbladder wall thickening or pericholecystic fluid. The spleen is mildly enlarged, measuring 13.6 cm in length. The pancreas and adrenal glands are unremarkable. There is bilateral nonobstructive nephrolithiasis. No hydronephrosis. No concerning renal lesions. The stomach, small bowel, and colon show no concerning abnormalities. No free intraperitoneal air or significant free fluid. No abdominal or pelvic lymphadenopathy. Urinary bladder is partially decompressed and otherwise unremarkable. No aggressive osseous lesions. Mild chronic compression deformity and anterior wedging of the L1 vertebral body Measurements: Aorta just below renal artery: 12 mm Aorta bifurcation point: 15 mm Right proximal common iliac artery: 9 mm Right middle common iliac artery: 10 mm Right distal common iliac artery: 10 mm Right proximal external iliac artery: 8 mm Right middle external iliac artery: 7 mm Right common femoral artery: 8 mm Left proximal common iliac artery: 9 mm Left middle common iliac artery: 11 mm Left distal common iliac artery: 12 mm Left proximal external iliac artery: 8 mm Left middle external iliac artery: 7 mm Left common femoral artery: 7 mm IMPRESSION: 1. Vascular measurements, as above. 2. Small left and small to moderate right pleural effusions. 3. Hepatomegaly. 4. Mild splenomegaly. The spleen measures 18.6 cm in length. 5. Cholelithiasis. 6. Bilateral nonobstructive nephrolithiasis. 7. Mild chronic compression deformity and anterior wedging of the L1 vertebral body. Finalized by: Jeancarlos Oliver MD on 08/09/2019 12:15 PM CDT Patient/Procedure Information: [facility] MRN/JOHN: [id number] Order Number: [id number] Accession Number: [id number] Ordering Provider: HARVEY MORA Authorizing Provider: HARVEY MORA Performing Organization Address City/State/Zipcode Phone Number [id number] CTA CHEST (08/09/2019 10:45 AM CDT) Specimen Narrative Performed At [facility] Patient Name: JAYLON BRAY Date of :1930 Procedure: CTA CHEST Date of Service: 08/09/2019 EXAM: CTA CHEST, CTA ABDOMEN PELVIS INDICATION:TAVR COMPARISON(S): CTA of the chest from 08/07/2019. CT of the abdomen and pelvis from 04/22/2018. TECHNIQUE: Non contrast axial images acquired through the chest. CTA of the chest, abdomen and pelvis was then performed following IV contrast. Chest CTA was performed utilizing cardiac gating and CTA performed of the abdomen and pelvis, nongated. Sagittal and coronal reformats were performed including with MIP technique as well as multiplanar reformations with post processing to evaluate the aortic valve including the relationship/measurement to the LCA and RCA.Vessel analysis was performed on an independent workstation measuring the diameters of the aorta, common iliacs and femoral arteries. These were reported as mean values. 3-D reconstructions of the vasculature were performed. CTA CHEST FINDINGS: RCA to aortic valve distance: 9 mm Left main to aortic valve distance: 10 mm Vascular: There is calcification of the aortic valve leaflets. Mild scattered atherosclerosis of the thoracic aorta. The thoracic aorta is nonaneurysmal. The tubular ascending aorta is mildly dilated, measuring 3.9 cm. Normal three-vessel branching pattern of the aortic arch. The visualized aortic arch branch vessels are widely patent. Non-vascular: There are small left and jledg-eg-lwdovvdo right pleural effusions with associated compressive atelectasis. There is also mild subsegmental atelectasis and/or scarring at the lung bases bilaterally. No pneumothorax. The central airways are widely patent. The heart is normal in size. No mediastinal or hilar lymphadenopathy. There is a 1 cm hypodense nodule in the right lobe of the thyroid. CTA ABDOMEN AND PELVIS FINDINGS: Vascular: There is scattered atherosclerosis of the abdominal aorta without aneurysmal dilatation. Atherosclerosis causes mild narrowing at the origin of the celiac artery. The superior mesenteric artery is widely patent. The right and left renal arteries are widely patent. The inferior mesenteric artery is patent. There is mild scattered atherosclerosis of the visualized bilateral iliofemoral arteries. The bilateral common, internal, and external iliac arteries and the bilateral common femoral arteries are widely patent. Mild narrowing at the origin of the left profundofemoral artery. The visualized proximal portions of the right profunda femoral artery and bilateral superficial femoral arteries are widely patent. Non-vascular: The liver is normal in contour. There is hepatomegaly. No hepatic lesions are identified. No biliary ductal dilatation. There is cholelithiasis. No gallbladder wall thickening or pericholecystic fluid. The spleen is mildly enlarged, measuring 13.6 cm in length. The pancreas and adrenal glands are unremarkable. There is bilateral nonobstructive nephrolithiasis. No hydronephrosis. No concerning renal lesions. The stomach, small bowel, and colon show no concerning abnormalities. No free intraperitoneal air or significant free fluid. No abdominal or pelvic lymphadenopathy. Urinary bladder is partially decompressed and otherwise unremarkable. No aggressive osseous lesions. Mild chronic compression deformity and anterior wedging of the L1 vertebral body Measurements: Aorta just below renal artery: 12 mm Aorta bifurcation point: 15 mm Right proximal common iliac artery: 9 mm Right middle common iliac artery: 10 mm Right distal common iliac artery: 10 mm Right proximal external iliac artery: 8 mm Right middle external iliac artery: 7 mm Right common femoral artery: 8 mm Left proximal common iliac artery: 9 mm Left middle common iliac artery: 11 mm Left distal common iliac artery: 12 mm Left proximal external iliac artery: 8 mm Left middle external iliac artery: 7 mm Left common femoral artery: 7 mm IMPRESSION: 1.Vascular measurements, as above. 2.Small left and small to moderate right pleural effusions. 3.Hepatomegaly. 4.Mild splenomegaly. The spleen measures 18.6 cm in length. 5.Cholelithiasis. 6.Bilateral nonobstructive nephrolithiasis. 7.Mild chronic compression deformity and anterior wedging of the L1 vertebral body. Finalized by: Jeancarlos Oliver MD on 08/09/2019 12:15 PM CDT Patient/Procedure Information: [facility] MRN/JOHN: [id number] Order Number: [id number] Accession Number: [id number] Ordering Provider: HARVEY MORA Authorizing Provider: HARVEY MORA Procedure Note Interface, Radiantres - 08/09/2019 12:17 PM CDT Patient Name: JAYLON BRAY Date of : 1930 Procedure: CTA CHEST Date of Service: 08/09/2019 EXAM: CTA CHEST, CTA ABDOMEN PELVIS INDICATION:TAVR COMPARISON(S): CTA of the chest from 08/07/2019. CT of the abdomen and pelvis from 04/22/2018. TECHNIQUE: Non contrast axial images acquired through the chest. CTA of the chest, abdomen and pelvis was then performed following IV contrast. Chest CTA was performed utilizing cardiac gating and CTA performed of the abdomen and pelvis, nongated. Sagittal and coronal reformats were performed including with MIP technique as well as multiplanar reformations with post processing to evaluate the aortic valve including the relationship/measurement to the LCA and RCA. Vessel analysis was performed on an independent workstation measuring the diameters of the aorta, common iliacs and femoral arteries. These were reported as mean values. 3-D reconstructions of the vasculature were performed. CTA CHEST FINDINGS: RCA to aortic valve distance: 9 mm Left main to aortic valve distance: 10 mm Vascular: There is calcification of the aortic valve leaflets. Mild scattered atherosclerosis of the thoracic aorta. The thoracic aorta is nonaneurysmal. The tubular ascending aorta is mildly dilated, measuring 3.9 cm. Normal three-vessel branching pattern of the aortic arch. The visualized aortic arch branch vessels are widely patent. Non-vascular: There are small left and azdzd-qv-sgzsiyht right pleural effusions with associated compressive atelectasis. There is also mild subsegmental atelectasis and/or scarring at the lung bases bilaterally. No pneumothorax. The central airways are widely patent. The heart is normal in size. No mediastinal or hilar lymphadenopathy. There is a 1 cm hypodense nodule in the right lobe of the thyroid. CTA ABDOMEN AND PELVIS FINDINGS: Vascular: There is scattered atherosclerosis of the abdominal aorta without aneurysmal dilatation. Atherosclerosis causes mild narrowing at the origin of the celiac artery. The superior mesenteric artery is widely patent. The right and left renal arteries are widely patent. The inferior mesenteric artery is patent. There is mild scattered atherosclerosis of the visualized bilateral iliofemoral arteries. The bilateral common, internal, and external iliac arteries and the bilateral common femoral arteries are widely patent. Mild narrowing at the origin of the left profundofemoral artery. The visualized proximal portions of the right profunda femoral artery and bilateral superficial femoral arteries are widely patent. Non-vascular: The liver is normal in contour. There is hepatomegaly. No hepatic lesions are identified. No biliary ductal dilatation. There is cholelithiasis. No gallbladder wall thickening or pericholecystic fluid. The spleen is mildly enlarged, measuring 13.6 cm in length. The pancreas and adrenal glands are unremarkable. There is bilateral nonobstructive nephrolithiasis. No hydronephrosis. No concerning renal lesions. The stomach, small bowel, and colon show no concerning abnormalities. No free intraperitoneal air or significant free fluid. No abdominal or pelvic lymphadenopathy. Urinary bladder is partially decompressed and otherwise unremarkable. No aggressive osseous lesions. Mild chronic compression deformity and anterior wedging of the L1 vertebral body Measurements: Aorta just below renal artery: 12 mm Aorta bifurcation point: 15 mm Right proximal common iliac artery: 9 mm Right middle common iliac artery: 10 mm Right distal common iliac artery: 10 mm Right proximal external iliac artery: 8 mm Right middle external iliac artery: 7 mm Right common femoral artery: 8 mm Left proximal common iliac artery: 9 mm Left middle common iliac artery: 11 mm Left distal common iliac artery: 12 mm Left proximal external iliac artery: 8 mm Left middle external iliac artery: 7 mm Left common femoral artery: 7 mm IMPRESSION: 1. Vascular measurements, as above. 2. Small left and small to moderate right pleural effusions. 3. Hepatomegaly. 4. Mild splenomegaly. The spleen measures 18.6 cm in length. 5. Cholelithiasis. 6. Bilateral nonobstructive nephrolithiasis. 7. Mild chronic compression deformity and anterior wedging of the L1 vertebral body. Finalized by: Jeancarlos Oliver MD on 08/09/2019 12:15 PM CDT Patient/Procedure Information: [facility] MRN/JOHN: [id number] Order Number: [id number] Accession Number: [id number] Ordering Provider: HARVEY MORA Authorizing Provider: HARVEY MORA Performing Organization Address City/State/Zipcode Phone Number [id number] COMPLETE BLOOD COUNT WITHOUT DIFFERENTIAL (08/09/2019 7:00 AM CDT) WBC 65.1 (H) 4.0 - 11.0 K/uL [address] RBC 3.77 (L) 3.80 - 5.30 M/uL [address] Hemoglobin 10.8 (L) 11.5 - 15.8 g/dL [address] Hematocrit 35.0 35.0 - 45.0 % [address] MCV 92.8 80.0 - 98.[address] MCH 28.6 25.5 - 34.[address] MCHC 30.9 (L) 31.5 - 36.5 g/dL [address] RDW-CV 14.8 11.5 - 15.5 % [address] RDW-SD 49.5 35.5 - 50.[address] Platelet Count 146 140 - 400 K/uL [address] MPV 10.8 8.5 - 12.0 fL [place] [address] [facility] Specimen Blood Performing Organization Address [facility] Phone Number [address] [place] [id number] RENAL FUNCTION PANEL (08/09/2019 7:00 AM CDT) Glucose 95 70 - 100 mg/dL [address] BUN 34 (H) 6 - 22 mg/dL [address] Creatinine 1.00 0.60 - 1.[address] mg/dL BUN/Creatinine Ratio 34.0 (H) 10.0 - 25.[address] Sodium 145 135 - 145 meq/L [address] Potassium 3.3 (L) 3.5 - 5.3 meq/L [address] Chloride 110 99 - 110 meq/L [address] CO2 22 20 - 29 meq/L [address] Anion Gap with K 16 6 - 20 meq/L [address] Calcium 8.6 8.5 - 10.[address] mg/dL Phosphorus 4.3 2.5 - 4.5 mg/dL [address] Albumin 3.5 3.5 - 5.0 g/dL [address] Corrected Calcium 9.0 8.5 - 10.[address] mg/dL Age [address] eGFR Non- 53 (L) >=[address] Salv[place] mL/min/1.73m2 eGFR 64 >=[address] mL/min/1.73m2 Specimen Blood Performing Organization Address [facility] Phone Number [address] [place] [address] XRAY CHEST PORTABLE - (08/08/2019 5:32 PM CDT) Specimen Narrative Performed At [facility] Patient Name: KATARINAJAYLON Date of :1930 Procedure: XRAY CHEST PORTABLE Date of Service: 08/08/2019 EXAM: XRAY CHEST PORTABLE INDICATION: post-thoracentesis COMPARISON: CT 08/07/2019 TECHNIQUE: 2 view chest FINDING/IMPRESSION: Pleural effusions appear decreased in size. No pneumothorax identified. Unchanged cardiomegaly. Prominent interstitial lung markings persist. Finalized by: Emre Mcclure MD on 08/08/2019 6:59 PM CDT Patient/Procedure Information: [facility] MRN/JOHN: [id number] Order Number: [id number] Accession Number: [id number] Ordering Provider: LALITHA GRACE Authorizing Provider: PARISH STEPHENS Procedure Note Interface, Radiantres - 08/08/2019 7:01 PM CDT Patient Name: JAYLON BRAY Date of : 1930 Procedure: XRAY CHEST PORTABLE Date of Service: 08/08/2019 EXAM: XRAY CHEST PORTABLE INDICATION: post-thoracentesis COMPARISON: CT 08/07/2019 TECHNIQUE: 2 view chest FINDING/IMPRESSION: Pleural effusions appear decreased in size. No pneumothorax identified. Unchanged cardiomegaly. Prominent interstitial lung markings persist. Finalized by: Emre Mcclure MD on 08/08/2019 6:59 PM CDT Patient/Procedure Information: [facility] MRN/JOHN: [id number] Order Number: [id number] Accession Number: [id number] Ordering Provider: LALITHA GRACE Authorizing Provider: PARISH STEPHENS Performing Organization Address City/State/Zipcode Phone Number [id number] Cardiac Cath Possible Angioplasty Stent Waiter/Waitress First Class - Left; With grafts? No (2018 3:06 PM CDT) Specimen Narrative Performed At [facility] Patient: JAYLON BRAY [facility] Exam Date: 08/08/[address] Exam Time:03:06 PM-03 :23 PM [place], [place] [address] Department of Interventional Cardiology Diagnostic Left Heart Catheterization Report : 02/02/1931Fluoro Time: 8.1 min. Patient Status: InpatientAge: 88 year(s)Cath Status: Patient Room: [facility] Gender: Female Referring Physician:ELIANA NOWAK MD Diagnostic Manager Planning:CYNDIE GREGORIO MD Indication:severe . CHF. Procedures Performed: Fluoro 0.1-60 Minutes. Medication/Infusion/Drip. Art Access - R radial artery. Selective Lt Coronary Angiography. Selective Rt Coronary Angiography. Left Heart Cath No Ventriculogram. Radial Artery Compression Device. Diagnostic Findings: Coronary Angiography The coronary circulation is right dominant. Left Main Left main artery: The segment is large. Angiography shows no disease. Left Anterior Descending Left anterior descending artery: The segment is large. Angiography shows no disease. Circumflex Circumflex artery: The segment is large. Angiography shows no disease. Right Coronary Right coronary artery: The segment is large. Angiography shows no disease. Left Heart Cath Ejection fraction was not calculated. Procedure Narrative: Access Right radial artery: Vascular access was obtained using modified seldinger technique. Coronary Angiography Left Coronary System: A catheter was positioned into the Vessel Ostium under fluoroscopic guidance. Contrast injections were performed using hand injection. Angiograms were obtained in multiple views. Right Coronary System: A catheter was positioned into the Vessel Ostium under fluoroscopic guidance. Contrast injections were performed using hand injection. Angiograms were obtained in multiple views. Hemodynamic Impressions Hemodynamic Findings Pressures: Baseline: LVpressure 175mmHg, EDP 30.Baseline: AO pressure 112/44mmHg, mean 71. Baseline: Aortic Valve Splice LVpressure 175/8 mmHg.Baseline: Aortic Valve Splice AOpressure 132/29 mmHg. Valves: Aortic Valve Gradient Mean value 55.66 mmHg. Hemodynamic Pressures-Phase: Baseline Location : LV Pressure s : 175 mmHg Pressure ed : 30 mmHg HR : 78 bpm Hemodynamic Pressures-Phase: Baseline Location : Ao Pressure s : 112 mmHg Pressure d : 44 mmHg Pressure m : 71 mmHg HR : 82 bpm Hemodynamic Pressures-Phase: Baseline Location : Aortic Valve Splice LV Pressure s : 175 mmHg Pressure d : 8 mmHg HR : 81 bpm Hemodynamic Pressures-Phase: Baseline Location : Aortic Valve Splice AO Pressure s : 132 mmHg Pressure d : 29 mmHg HR : 81 bpm Flow Calculations, Phase: Baseline VO2: 226.31 ml/min Shunts Aortic, Phase: Baseline HR: 81 bpm SEP: 16.54 sec/min AVGmean: 55.66 mmHg Contrast: DescriptionDose Unit HIS No. Reference No. Serial No. Lot No. [id number] X-Ray: Exam total DAP:2476.00cGycm-sq Air Kerma/Exam Total Dose:313 mGy Acute complication: none Ordering Physician:JESSICA GARCIA CCL Corrosion Control Technician:MAYNOR SWAN RN CCL Corrosion Control Technician:LIA ROY RN Monitor: OSMANY DAWSON Primary Manager Planning:CYNDIE GREGORIO MD Scrub: ESTEFANI PEREYRAIS Scrub: SOCORRO REYES Belt Weaver: LEORA BOOGIE RT(R) (No Signature Object) Procedure Note Interface, Inc Results No Pull Forward - 08/09/2019 10:03 AM CDT Patient: JAYLON BRAY [facility] Exam Date: 08/08/[address] Exam Time: 03:06 PM-03:23 [place] [address] Department of Interventional Cardiology Diagnostic Left Heart Catheterization Report : 1930 Fluoro Time: 8.1 min. Patient Status: Inpatient Age: 88 year(s) Cath Status: Patient Room: [facility] Gender: Female Referring Physician: ELIANA NOWAK MD Diagnostic Manager Planning: CYNDIE GREGORIO MD Indication: severe . CHF. Procedures Performed: Fluoro 0.1-60 Minutes. Medication/Infusion/Drip. Art Access - R radial artery. Selective Lt Coronary Angiography. Selective Rt Coronary Angiography. Left Heart Cath No Ventriculogram. Radial Artery Compression Device. Diagnostic Findings: Coronary Angiography The coronary circulation is right dominant. Left Main Left main artery: The segment is large. Angiography shows no disease. Left Anterior Descending Left anterior descending artery: The segment is large. Angiography shows no disease. Circumflex Circumflex artery: The segment is large. Angiography shows no disease. Right Coronary Right coronary artery: The segment is large. Angiography shows no disease. Left Heart Cath Ejection fraction was not calculated. Procedure Narrative: Access Right radial artery: Vascular access was obtained using modified seldinger technique. Coronary Angiography Left Coronary System: A catheter was positioned into the Vessel Ostium under fluoroscopic guidance. Contrast injections were performed using hand injection. Angiograms were obtained in multiple views. Right Coronary System: A catheter was positioned into the Vessel Ostium under fluoroscopic guidance. Contrast injections were performed using hand injection. Angiograms were obtained in multiple views. Hemodynamic Impressions Hemodynamic Findings Pressures: Baseline: LV pressure 175mmHg, EDP 30. Baseline: AO pressure 112/ 44mmHg, mean 71. Baseline: Aortic Valve Splice LV pressure 175/8 mmHg. Baseline: Aortic Valve Splice AO pressure 132/29 mmHg. Valves: Aortic Valve Gradient Mean value 55.66 mmHg. Hemodynamic Pressures-Phase: Baseline Location : LV Pressure s : 175 mmHg Pressure ed : 30 mmHg HR : 78 bpm Hemodynamic Pressures-Phase: Baseline Location : Ao Pressure s : 112 mmHg Pressure d : 44 mmHg Pressure m : 71 mmHg HR : 82 bpm Hemodynamic Pressures-Phase: Baseline Location : Aortic Valve Splice LV Pressure s : 175 mmHg Pressure d : 8 mmHg HR : 81 bpm Hemodynamic Pressures-Phase: Baseline Location : Aortic Valve Splice AO Pressure s : 132 mmHg Pressure d : 29 mmHg HR : 81 bpm Flow Calculations, Phase: Baseline VO2: 226.31 ml/min Shunts Aortic, Phase: Baseline HR: 81 bpm SEP: 16.54 sec/min AVGmean: 55.66 mmHg Contrast: Description Dose Unit HIS No. Reference No. Serial No. Lot No. Omnipaque 50.000 ml C34 C34 X-Ray: Exam total DAP: 2476.00 cGycm-sq Air Kerma/Exam Total Dose: 313 mGy Acute complication: none Ordering Physician: JESSICA GARCIA CCL Corrosion Control Technician: MAYNOR SWAN RN CCL Corrosion Control Technician: LIA ROY RN Monitor: OSMANY DAWSON Primary Manager Planning: CYNDIE GREGORIO MD Scrub: LESVIA PEREYRA Scrub: SOCORRO REYES Belt Weaver: RT MONSE(R) (No Signature Object) Performing Organization Address City/State/Zipcode Phone Number [facility] [place], [place] IR THORACENTESIS (08/08/2019 2:30 PM CDT) Specimen Narrative Performed At [facility] Patient Name: JAYLON BRAY Date of :1930 Procedure: IR THORACENTESIS Date of Service: 08/08/2019 ULTRASOUND GUIDED BILATERAL THORACENTESIS INDICATION: Pleural effusion SEDATION:Local anesthesia used. TECHNIQUE:Informed consent was obtained.Patient placed sitting upright position on the interventional table.Ultrasound was performed identifying bilateral pleural effusions.Image was recorded.The skin overlying bilateral posterior chests was prepped and draped in the usual sterile fashion.The skin was infiltrated with lidocaine.Using real-time ultrasound guidance, a Yueh needle was advanced into the pleural space on each side with subsequent drainage of pleural fluid.Samples of the fluid sent for appropriate laboratory testing if requested.Catheters were removed and a sterile dressing applied. ESTIMATED BLOOD LOSS:Minimal. CONDITION: Stable. FINDINGS:Ultrasound demonstrates bilateral pleural effusions. IMPRESSION: 1.Successful ultrasound guided bilateral thoracentesis with drainage of 750 mL of keeley clear right pleural fluid and 550 mL of keeley clear left pleural fluid. Finalized by: Ricardo Carlos MD on 08/08/2019 3:22 PM CDT Patient/Procedure Information: [facility] MRN/JOHN: [id number] Order Number: [id number] Accession Number: [id number] Ordering Provider: LALITHA GRACE Authorizing Provider: PARISH STEPHENS Procedure Note Candido, Luz Elena - 08/08/2019 3:24 PM CDT Patient Name: JAYLON BRAY Date of : 1930 Procedure: IR THORACENTESIS Date of Service: 08/08/2019 ULTRASOUND GUIDED BILATERAL THORACENTESIS INDICATION: Pleural effusion SEDATION: Local anesthesia used. TECHNIQUE: Informed consent was obtained. Patient placed sitting upright position on the interventional table. Ultrasound was performed identifying bilateral pleural effusions. Image was recorded. The skin overlying bilateral posterior chests was prepped and draped in the usual sterile fashion. The skin was infiltrated with lidocaine. Using real-time ultrasound guidance, a Yueh needle was advanced into the pleural space on each side with subsequent drainage of pleural fluid. Samples of the fluid sent for appropriate laboratory testing if requested. Catheters were removed and a sterile dressing applied. ESTIMATED BLOOD LOSS: Minimal. CONDITION: Stable. FINDINGS: Ultrasound demonstrates bilateral pleural effusions. IMPRESSION: 1. Successful ultrasound guided bilateral thoracentesis with drainage of 750 mL of keeley clear right pleural fluid and 550 mL of keeley clear left pleural fluid. Finalized by: Ricardo Carlos MD on 08/08/2019 3:22 PM CDT Patient/Procedure Information: [facility] MRN/JOHN: [id number] Order Number: [id number] Accession Number: [id number] Ordering Provider: LALITHA GRACE Authorizing Provider: PARISH STEPHENS Performing Organization Address [facility] Phone Number [id number] LAB ONLY-DIFFERENTIAL, BODY FLUID (08/08/2019 2:27 PM CDT) [facility] % Neutrophils BF 1 % [address] % Lymphocytes BF 95 % [address] % Macrophage/Monocyte BF 4 % [address] Specimen Fluid Performing Organization Address [facility] Phone Number [address] [place] [phone] LAB ONLY-CELL COUNT, BODY FLUID (08/08/2019 2:27 PM CDT) Pathologist [facility] Specimen Source Pleural Fluid [address] BF Slightly Cloudy [address] Clarity/Appearance BF Nucleated Cells 1,510 /uL [address] Specimen Fluid Narrative Performed At The reference range and other method performance specifications [address] are unavailable for this body fluid. Comparison of this result with the concentration in the blood, serum, or plasma is recommended. Performing Organization Address [facility] Phone Number [address] [place] [phone] GLUCOSE, BODY FLUID (08/08/2019 2:27 PM CDT) [facility] Glucose Body Fluid 113 mg/dL [facility] Specimen Source Pleural Fluid [facility] Specimen Fluid Narrative Performed At The reference range and other method performance [facility] specifications are unavailable for this body fluid.Comparison of this result with the concentration in the blood, serum, or plasma is recommended. Performing Organization Address [facility] Phone Number [address] [place] [address] PROTEIN, BODY FLUID (08/08/2019 2:27 PM CDT) [facility] Protein Body Fluid 1.9 g/dL [facility] Specimen Source Pleural Fluid [facility] Specimen Fluid Narrative Performed At The reference range and other method performance [facility] specifications are unavailable for this body fluid.Comparison of this result with the concentration in the blood, serum, or plasma is recommended. Performing Organization Address [facility] Phone Number [address] [address] LDH, BODY FLUID (08/08/2019 2:27 PM CDT) LDH Body Fluid 102 U/L [facility] Specimen Source Pleural Fluid [facility] Specimen Fluid Narrative Performed At The reference range and other method performance [facility] specifications are unavailable for this body fluid.Comparison of this result with the concentration in the blood, serum, or plasma is recommended. Performing Organization Address [facility] Phone Number [address] [address] PH, BODY FLUID (08/08/2019 2:27 PM CDT) Specimen Source Pleural -[facility] - RESPIRATORY THERAPY pH Body Fluid 7.48 [facility] - RESPIRATORY THERAPY Specimen Fluid Narrative Performed At The reference range and other method [facility] - performance specifications are unavailable RESPIRATORY THERAPY for this body fluid.Comparison of this result with the concentration in the blood, serum, or plasma is recommended. Performing Organization Address [facility] Phone Number [facility] - [address] [place] [address] RESPIRATORY THERAPY CULTURE BACTERIAL, OTHER WITH GRAM STAIN (08/08/2019 2:27 PM CDT) Pathologist [facility] Culture Result No growth [facility] Gram Stain Many (>25/LPF) WBC's [facility] Gram Stain Many (>25/LPF) RBC's [facility] Gram Stain No epithelial cells [facility] Gram Stain No organisms seen [facility] Specimen Fluid Performing Organization Address [facility] Phone Number [address] [address] LDH TOTAL (08/08/2019 11:37 AM CDT) LDH Total 328 (H) 125 - 245 U/L [address] Specimen Blood Performing Organization Address City/State/Zipcode Phone Number [address] [place] [address] ECHO ADULT COMPLETE (08/08/2019 10:08 AM CDT) Specimen Narrative Performed At [facility] Patient: JAYLON BRAY MR#: [id number] Exam Date: 08/08/2019 Transthoracic Echocardiogram [facility] [address] [place], [id number] : 109/67 mmHg HR:87 bpm : 1930Exam Location: Bedside Height:64.00 "( 162.6 cm) Age: 88 year(s)[facility] 49.44 kg) Gender:FemalePatient Status: Inpatient BSA: 1.51 m2 Quality Assurance Director:JACK IVY RDCS () Reading Physician:ALEJANDRINA MCFADDEN MD Ordering Physician: PARISH STEPHENS MD Referring Physician:ELIANA NOWAK MD Procedure Indication(s): Congestive heart failure Examination: TTE Complete 2D(m-mode), Complete Spectral Doppler, Color Doppler Conclusions Overall Conclusions This is an markedly abnormal study with significant changes from prior. Left Ventricle: Moderately reduced left ventricular systolic function. The ejection fraction is visually estimated to be 40 %. Aortic Valve: Severe aortic regurgitation. Critical aortic stenosis. Aortic valve mean gradient is 72 mmHg. Could be underestimated due to decreased EF. AR PHT: 0.141 s. Mitral Valve: Moderate mitral regurgitation. Severe mitral stenosis. Mitral valve mean gradient is 10 mmHg.(Heart rate=95 bpm.) Right Ventricle: Reduced right ventricular systolic function. Pulmonary artery systolic pressure is measured at 65 mmHg. Pulmonary Artery: Severe pulmonary artery hypertension. IVC: Dilated IVC with minimal respirophasic changes. Pericardium: No significant pericardial effusion. Comparison Study Comparison Date: 04/18/2018 Comparison Study: Transthoracic Echocardiogram LV overall function has decreased from 65% to40% , Worsening of valvular lesions and pulmonary Hypertension. Findings Left Ventricle: Normal left ventricular size. Normal left ventricular wall thickness. Moderately reduced left ventricular systolic function. The ejection fraction is visually estimated to be 40 %. The basal anterior, mid anterior, mid anteroseptal, apical anterior, apical septal, apical lateral and apex wall segments are hypokinetic. Grade 2 left ventricular diastolic dysfunction. Left Atrium: Moderately dilated left atrium. Aortic Valve: The aortic valve is probably tricuspid. Marked aortic cuspal calcification. Severe aortic regurgitation. Eccentrically directed regurgitant jet. Critical aortic stenosis. Aortic valve mean gradient is 72 mmHg. Could be underestimated due to decreased EF. Estimated aortic valve area (by Vmax) is 0.6 cm-sq. AR PHT: 0.141 s. Aorta: The sinus of valsalva is normal in size. The ascending aorta is normal in size measuring 35.0 mm. Mitral Valve: Vqzr-go-eozepeiy mitral Leaflet thickening. Mild mitral leaflet calcification. Restricted mobility of the posterior mitral leaflet. Mild chordal thickening is present. Moderate mitral regurgitation. Severe mitral stenosis. Transmitral velocity is increased due to valvular stenosis. Mitral valve mean gradient is 10 mmHg.(Heart rate=95 bpm.) IAS: There is increased thickness of the atrial septum; consistent with lipomatous hypertrophy. No gross evidence of shunt flow seen; however the possibility of a PFO cannot be completely ruled out. Right Ventricle: Normal right ventricular size. Reduced right ventricular systolic function. Pulmonary artery systolic pressure is measured at 65 mmHg. TAPSE measures 13 mm. Tricuspid valve lateral annulus peak systolic velocity is 11.7 cm/sec. Pulmonary Artery: Severe pulmonary artery hypertension. Right Atrium: Mildly dilated right atrium. Tricuspid Valve: Mild tricuspid regurgitation. Pulmonic Valve: Mild pulmonary regurgitation. IVC: Dilated IVC with minimal respirophasic changes. Pericardium: No significant pericardial effusion. Bilateral pleural effusion. Measurements Left Ventricle Aortic Valve Label ValueNormal Value Label Value Normal Value LVDd, 2D46.2 mm LVOT Vmax 109 cm/s LVDs, 2D38 mm AV Vmax 523 cm/s IVSd, 2D10.3 mm LVOTd 19 mm LVPWd, 2D 10.3 mm LVOT VTI25.1 cm FS, 2D18 % LVOT PGmax5 mmHg LVEF, QXZ564 % AV Nmvie923 cm/s LVEF, BP32 % AV VGD830 cm LVEF, MYF910 % AV YQxwl580 mmHg LVEDV, 2D 98 ml AR Vmax 404 cm/s LVESV, 2D 62 ml AR Slope8.4 m/s-sq Cardiac Output6.18 L/min AR ZDP160 ms Cardiac Index 4.09 AV Vmax, Zejnclr785 cm/s L/min/m-sq Obstructive Index 0.21 LVEDVI, 2D64.9 ml/m2 (Vmax) LVESVI, 2D41.1 ml/m2 JULIA(VTI)0.5 cm-sq Stroke Index47.02 Obstruction Index 0.19 ml/m-sq(VTI) Right Ventricle JULIA (Vmax)0.6 cm-sq Label ValueNormal Value AV PGmean 72 mmHg TAPSE 13 mm AR PHT0.14 s S' Tissue Doppler 11.7 Mitral Valve cm/sec Label ValueNormal Value Left Atrium MV E Vmax 246 cm/s Label ValueNormal Value MV A Vmax 144 cm/s LADs Long.61 mm MV E/A1.71 LA Volume Index 44.2 ml/m-sq MV E/E' lateral 45.1 Aorta MV E/E' ezqppw03.1 Label ValueNormal Value MV Dec Time 116 ms Ao Asc35 mm MV E' septal3.3 cm/s Ao Sinus, MM31 mm MV VTI56.1 cm Heart Rate MVA (VTI) 1.3 cm-sq Label ValueNormal Value MV PGmax24 mmHg Heart Rate87 bpm MV PHT0.07 s MVA PHT 3.4 cm-sq MR Reg. Nwthmn41 ml MR Vmax 484 cm/s MR ZCD131 cm MR Defect Area (ERO)0.3 cm-sq MV E' lateral 5.4 cm/s MR PISA Alias V.37.5 cm/s MR PISA Radius9 mm MV PGmean 10 mmHg Tricuspid Valve Label ValueNormal Value TR Vmax 352 cm/s TR Pmax 50 mmHg RA Pressure 15 mmHg RVSP65 mmHg Pulmonic Valve Label ValueNormal Value PV Vmax 62 cm/s PV PGmax2 mmHg at 11: 52 AM Wall Motion Scores -1 - Not Scored, 0 - Unknown, 1 - Normal or hyperkinesia,2 - Hypokinesia, 3 - Akinesia, 4 - Dyskinesia, 5 - Aneurysm Procedure Note Interface, Inc Results No Pull Forward - 08/08/2019 11:53 AM CDT Patient: JAYLON BRAY MR#: [id number] Exam Date: 08/08/2019 Transthoracic Echocardiogram [facility] [address] [place] [address] BP: 109/67 mmHg HR: 87 bpm : 1930 Exam Location: Bedside Height: 64.00 "(162.6 cm) Age: 88 year(s) Patient Room: [facility] Weight: 109 lbs.(49.44 kg) Gender: Female Patient Status: Inpatient BSA: 1.51 m2 Quality Assurance Director: JACK IVY RDCS (PE) Reading Physician: ALEJANDRINA MCFADDEN MD Ordering Physician: PARISH STEPHENS MD Referring Physician: ELIANA NOWAK MD Procedure Indication(s): Congestive heart failure Examination: TTE Complete 2D(m-mode), Complete Spectral Doppler, Color Doppler Conclusions Overall Conclusions This is an markedly abnormal study with significant changes from prior. Left Ventricle: Moderately reduced left ventricular systolic function. The ejection fraction is visually estimated to be 40 %. Aortic Valve: Severe aortic regurgitation. Critical aortic stenosis. Aortic valve mean gradient is 72 mmHg. Could be underestimated due to decreased EF. AR PHT: 0.141 s. Mitral Valve: Moderate mitral regurgitation. Severe mitral stenosis. Mitral valve mean gradient is 10 mmHg.(Heart rate=95 bpm.) Right Ventricle: Reduced right ventricular systolic function. Pulmonary artery systolic pressure is measured at 65 mmHg. Pulmonary Artery: Severe pulmonary artery hypertension. IVC: Dilated IVC with minimal respirophasic changes. Pericardium: No significant pericardial effusion. Comparison Study Comparison Date: 04/18/2018 Comparison Study: Transthoracic Echocardiogram LV overall function has decreased from 65% to40% , Worsening of valvular lesions and pulmonary Hypertension. Findings Left Ventricle: Normal left ventricular size. Normal left ventricular wall thickness. Moderately reduced left ventricular systolic function. The ejection fraction is visually estimated to be 40 %. The basal anterior, mid anterior, mid anteroseptal, apical anterior, apical septal, apical lateral and apex wall segments are hypokinetic. Grade 2 left ventricular diastolic dysfunction. Left Atrium: Moderately dilated left atrium. Aortic Valve: The aortic valve is probably tricuspid. Marked aortic cuspal calcification. Severe aortic regurgitation. Eccentrically directed regurgitant jet. Critical aortic stenosis. Aortic valve mean gradient is 72 mmHg. Could be underestimated due to decreased EF. Estimated aortic valve area (by Vmax) is 0.6 cm-sq. AR PHT: 0.141 s. Aorta: The sinus of valsalva is normal in size. The ascending aorta is normal in size measuring 35.0 mm. Mitral Valve: Jket-rc-dpsmysjt mitral Leaflet thickening. Mild mitral leaflet calcification. Restricted mobility of the posterior mitral leaflet. Mild chordal thickening is present. Moderate mitral regurgitation. Severe mitral stenosis. Transmitral velocity is increased due to valvular stenosis. Mitral valve mean gradient is 10 mmHg.(Heart rate=95 bpm.) IAS: There is increased thickness of the atrial septum; consistent with lipomatous hypertrophy. No gross evidence of shunt flow seen; however the possibility of a PFO cannot be completely ruled out. Right Ventricle: Normal right ventricular size. Reduced right ventricular systolic function. Pulmonary artery systolic pressure is measured at 65 mmHg. TAPSE measures 13 mm. Tricuspid valve lateral annulus peak systolic velocity is 11.7 cm/sec. Pulmonary Artery: Severe pulmonary artery hypertension. Right Atrium: Mildly dilated right atrium. Tricuspid Valve: Mild tricuspid regurgitation. Pulmonic Valve: Mild pulmonary regurgitation. IVC: Dilated IVC with minimal respirophasic changes. Pericardium: No significant pericardial effusion. Bilateral pleural effusion. Measurements Left Ventricle Aortic Valve Label Value Normal Value Label Value Normal Value LVDd, 2D 46.2 mm LVOT Vmax 109 cm/s LVDs, 2D 38 mm AV Vmax 523 cm/s IVSd, 2D 10.3 mm LVOTd 19 mm LVPWd, 2D 10.3 mm LVOT VTI 25.1 cm FS, 2D 18 % LVOT PGmax 5 mmHg LVEF, MOD4 31 % AV Vmean 369 cm/s LVEF, BP 32 % AV VTI 135 cm LVEF, MOD2 29 % AV PGmax 109 mmHg LVEDV, 2D 98 ml AR Vmax 404 cm/s LVESV, 2D 62 ml AR [place] 8.4 m/s-sq Cardiac Output 6.18 L/min AR PHT 141 ms Cardiac Index 4.09 AV Vmax, Caliper 507 cm/s L/min/m-sq Obstructive Index 0.21 LVEDVI, 2D 64.9 ml/m2 (Vmax) LVESVI, 2D 41.1 ml/m2 JULIA (VTI) 0.5 cm-sq Stroke Index 47.02 Obstruction Index 0.19 ml/m-sq (VTI) Right Ventricle JULIA (Vmax) 0.6 cm-sq Label Value Normal Value AV PGmean 72 mmHg TAPSE 13 mm AR PHT 0.14 s S' Tissue Doppler 11.7 Mitral Valve cm/sec Label Value Normal Value Left Atrium MV E Vmax 246 cm/s Label Value Normal Value MV A Vmax 144 cm/s LADs Long. 61 mm MV E/A 1.71 LA Volume Index 44.2 ml/m-sq MV E/E' lateral 45.1 Aorta MV E/E' septal 74.1 Label Value Normal Value MV Dec Time 116 ms Ao Asc 35 mm MV E' septal 3.3 cm/s Ao Sinus, MM 31 mm MV VTI 56.1 cm Heart Rate MVA (VTI) 1.3 cm-sq Label Value Normal Value MV PGmax 24 mmHg Heart Rate 87 bpm MV PHT 0.07 s MVA PHT 3.4 cm-sq MR Reg. Volume 66 ml MR Vmax 484 cm/s MR VTI 159 cm MR Defect Area (ERO) 0.3 cm-sq MV E' lateral 5.4 cm/s MR PISA Alias V. 37.5 cm/s MR PISA Radius 9 mm MV PGmean 10 mmHg Tricuspid Valve Label Value Normal Value TR Vmax 352 cm/s TR Pmax 50 mmHg RA Pressure 15 mmHg RVSP 65 mmHg Pulmonic Valve Label Value Normal Value PV Vmax 62 cm/s PV PGmax 2 mmHg at 11: 52 AM Wall Motion Scores -1 - Not Scored, 0 - Unknown, 1 - Normal or hyperkinesia, 2 - Hypokinesia, 3 - Akinesia, 4 - Dyskinesia, 5 - Aneurysm Performing Organization Address [facility] Phone Number [facility] [place], [place] MAGNESIUM (08/08/2019 8:26 AM CDT) Magnesium 1.8 1.8 - 2.4 mg/dL [address] Specimen Blood Performing Organization Address [facility] Phone Number [address] [place] [address] HEPATIC FUNCTION PANEL (08/08/2019 8:26 AM CDT) Alkaline Phosphatase 90 30 - 150 U/L [address] AST - SGOT 45 (H) 0 - 35 U/L [address] ALT - SGPT 62 (H) 0 - 55 U/L [address] Bilirubin Total 1.1 0.2 - 1.2 mg/dL [address] Bilirubin Indirect 0.6 0.0 - 0.8 mg/dL [address] Bilirubin Direct 0.5 (H) 0.0 - 0.4 mg/dL [address] Albumin 4.1 3.5 - 5.0 g/dL [address] Protein Total 6.4 6.0 - 8.2 g/dL [address] Specimen Blood Performing Organization Address [facility] Phone Number [address] [place] [phone] COMPLETE BLOOD COUNT WITHOUT DIFFERENTIAL (08/08/2019 8:26 AM CDT) WBC 65.5 (H) 4.0 - 11.0 K/uL [address] RBC 4.05 3.80 - 5.30 M/uL [address] Hemoglobin 11.6 11.5 - 15.8 g/dL [address] Hematocrit 38.1 35.0 - 45.0 % [address] MCV 94.1 80.0 - 98.[address] MCH 28.6 25.5 - 34.[address] MCHC 30.4 (L) 31.5 - 36.5 g/dL [address] RDW-CV 14.8 11.5 - 15.5 % [address] RDW-SD 50.5 (H) 35.5 - 50.[address] Platelet Count 178 140 - 400 K/uL [address] MPV 11.6 8.5 - 12.[address] Specimen Blood Performing Organization Address [facility] Phone Number [address] [place] [address], [place] [address] BASIC METABOLIC PANEL (08/08/2019 8:26 AM CDT) Glucose 105 (H) 70 - 100 mg/dL [address] BUN 35 (H) 6 - 22 mg/dL [address] Creatinine 1.07 0.60 - 1.[address] mg/dL BUN/Creatinine Ratio 32.7 (H) 10.0 - 25.[address] Sodium 144 135 - 145 meq/L [address] Potassium 3.8 3.5 - 5.3 meq/L [address] Chloride 109 99 - 110 meq/L [address] CO2 24 20 - 29 meq/L [address] Anion Gap with K 15 6 - 20 meq/L [address] Calcium 9.4 8.5 - 10.[address] mg/dL Age [address] eGFR Non- 49 (L) >=[address] Salvadorean mL/min/1.73m2 eGFR 59 (L) >=[address] mL/min/1.73m2 Specimen Blood Performing Organization Address [facility] Phone Number [address] [place] [address] TROPONIN I (08/08/2019 12:11 AM CDT) Troponin I 0.155 (H) 0.000 - 0.028 ng/mL [address] Specimen Blood Performing Organization Address [facility] Phone Number [address] [place] [address] CYTOLOGY-BODY FLUID/OTHER (08/08/2019) CASE REPORT Medical Cytology Report Case: [id number] [facility] Authorizing Provider:Parish Stephens MDCollected: 08/08/2019 CLINIC Ordering Location: [facility] 6CD Received: 08/08/2019 1432 [facility] Pathologist: Brie Jimenez MD Specimen:Pleural, symptomatic, large, right pleural effusion FINAL DIAGNOSIS A. Right pleural effusion: [facility] Electronically Negative for malignancy. CLINIC signed by Tony, - Benign and reactive mesothelial cells, and blood elements with numerous lymphocytes. MD Brie on 08/12/2019 at 1:02 PM GROSS DESCRIPTION RECEIVED 90 ML YELLOW FLUID WITH RED CHUNKS [facility] PREPARED 2 SLIDES AND CELL BLOCK USING CONCENTRATION TECHNIQUE. [facility] EMBEDDED IMAGES [facility] Specimen Fluid Performing Organization Address [facility] Phone Number [facility] [address] [place] [address] [facility] [address] [place] [id number] LACTIC ACID (08/07/2019 6:46 PM CDT) Lactic Acid 2.2 0.5 - 2.2 mmol/L [address] Specimen Blood Performing Organization Address [facility] Phone Number [address], [place] [address] TROPONIN I (08/07/2019 6:46 PM CDT) Troponin I 0.157 (H) 0.000 - 0.028 ng/mL [address] Specimen Blood Performing Organization Address [facility] Phone Number [address], [place] [address] EKG (08/07/2019 6:26 PM CDT) EKG [facility] [employer] [facility] [employer] Normal sinus rhythm Possible Left atrial enlargement LVH with repolarization abnormality Cannot exclude Septal infarct , age undetermined Abnormal ECG When compared with ECG of 18-APR-2018 14:34, Nonspecific T wave abnormality now evident in Inferior leads T wave inversion now evident in Lateral leads Ventricular Rate: 86 BPM Atrial Rate: 86 BPM P-R Interval: 148 ms QRS Duration: 100 ms Q-T Interval: 392 ms QTc Calculation(Bazett): 469 ms Calculated P [place]: 34 degrees Calculated R [place]: 24 degrees Calculated T [place]: 122 degrees Specimen Narrative Performed At Performing Organization Address [facility] Phone Number [facility] [employer] documented in this encounter Visit Diagnoses Diagnosis Aortic valve stenosis, etiology of cardiac valve disease unspecified - Primary NSTEMI (non-ST elevated myocardial infarction) ([facility]) Acute myocardial infarction, subendocardial infarction, episode of care unspecified Acute diastolic CHF (congestive heart failure) ([facility]) Acute diastolic heart failure Lactic acidosis Acidosis Hypernatremia Hyperosmolality and/or hypernatremia Leukocytosis Leukocytosis, unspecified Pleural effusion, bilateral Unspecified pleural effusion Essential hypertension Unspecified essential hypertension Pure hypercholesterolemia Tricuspid regurgitation 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 a. No pain (0) b. Mild pain level (1-3) c. Moderate pain level (4-6) d. Severe pain level (greater than or equal to 7), aspirin enteric coated tablet 81 mg Given 08/12/2019 8:26 AM CDT 81 mg 81 mg, Oral, Daily, First dose on 08/10/19 at 0900, Until Discontinued, Tablet should be swallowed whole and not be divided, crushed or chewed. Take with food, Given 08/11/2019 8:11 AM CDT 81 mg Given 08/10/2019 9:29 AM CDT 81 mg bisacodyl (DULCOLAX) suppository 10 mg 10 mg, Rectal, One time a day prn, Starting Mon08/07/19 at 1824, Until Discontinued, constipation, Use SECOND for constipation. If patient cannot take oral medications, use first for constipation., docusate sodium (THEREVAC-SB MINI;ENEMEEZ MINI) 283 MG enema 1 enema 1 enema, Rectal, One time a day prn, Starting Mon08/07/19 at 1824, Until Discontinued, constipation, Use THIRD for constipation - if no BM 8 hours after ducolax suppository. If patient cannot take oral medications, use second for constipation., furosemide (LASIX) tablet 40 mg Given 08/12/2019 1:02 AM CDT 40 mg 40 mg, Oral, DAILY, First dose on 08/11/19 at 0100, Until Discontinued, Hold for SBP less than 100, Given 08/11/2019 1:21 AM CDT 40 mg heparin (porcine) injection solution Given 08/12/2019 8:26 AM CDT 5,000 Units 5,000 Units 5,000 Units, Subcutaneous, Every twelve hours, First dose on Mon08/07/19 at 2100, Until Discontinued, 1 mL Given 08/11/2019 9:30 PM CDT 5,000 Units Given 08/11/2019 8:13 AM CDT 5,000 Units hydrOXYzine (ATARAX) tablet 25 mg 25 mg, Oral, Four times a day prn, Starting 08/07/19 at 2008, Until Discontinued, anxiety magnesium oxide tablet 500 mg Given 08/12/2019 8:26 AM CDT 500 mg 500 mg, Oral, Two times a day, 6 doses, First dose on 08/12/19 at 0900, Last dose on Mon08/14/19 at 2100 metoclopramide (REGLAN) inj soln 5 mg 5 mg, IV, Every six hours prn, Starting 08/07/19 at 1633, Until Discontinued , nausea, vomiting, 2 mL, Use SECOND. If ineffective and ondansetron used, call physician for alternative If preference is to further dilute for IV administration: First draw up patient-specific dose, then dilute to 10 mL with 0.9% sodium chloride., metoprolol succinate (TOPROL XL) SR tablet Given 08/12/2019 8:26 AM CDT 25 mg (24 hr) 25 mg 25 mg, Oral, Daily, First dose on 08/10/19 at 0900, Until Discontinued, Tablet may be broken in half, but should not be crushed or chewed. Hold for SBP less than 100 Hold for HR less than 55, Given 08/11/2019 8:11 AM CDT 25 mg Given 08/10/2019 9:29 AM CDT 25 mg metoprolol tartrate (LOPRESSOR) IV solution 5 mg 5 mg, IV, Every five minutes prn, Starting Purnima 08/08/19 at 1633, Until Discontinued, specified parameter, to maintain heart rate less than 60. May repeat to obtain heart rate goal with a maximum dose of 50 mg., 5 mL, Pre-Procedure (IR), procedural area to release ondansetron (ZOFRAN ODT) dispersible tablet 4 mg 4 mg, Oral, Every four hours prn, Starting 08/07/19 at 1825, Until Discontinued, nausea, vomiting, Use FIRST. If ineffective after 30 minutes use ondansetron IV , ondansetron (ZOFRAN) injection solution 4 mg 4 mg, IV, Every four hours prn, Starting 08/07/19 at 1825, Until Discontinued, nausea, vomiting, 2 mL, Use SECOND. If ineffective after 30 minutes and ondansetron ODT used, call physician for alternative. If preference is to further dilute for IV administration: First draw up patient-specific dose, then dilute to 10 mL with 0.9% sodium chloride., potassium chloride (K-TAB) CR tablet 20 mEq Given 08/12/2019 8:25 AM CDT 20 mEq 20 mEq, Oral, Daily, First dose on 08/10/19 at 0900, Until Discontinued, Tablet should not be crushed or chewed., Given 08/11/2019 8:11 AM CDT 20 mEq Given 08/10/2019 9:29 AM CDT 20 mEq senna-docusate sodium (SENOKOT-S;PERICOLACE) tablet 2 tablet 2 tablet, Oral, Two times a day prn, Starting 08/07/19 at 1824, Until Discontinued, constipation, Use FIRST for constipation unless patient cannot take oral medications., sodium chloride 0.9% flush (adult) 10 mL Given 08/12/2019 8:26 AM CDT 10 mL 10 mL, IV, Two times a day and prn, First dose on 08/07/19 at 2100, Until Discontinued, 10 mL, Flush IV line as scheduled and as often as necessary before and after meds., Given 08/11/2019 9:31 PM CDT 10 mL Given 08/11/2019 8:15 AM CDT 10 mL sodium chloride 0.9% flush (adult) 10 mL Given 08/12/2019 8:26 AM CDT 10 mL 10 mL, IV, Two times a day and prn, First dose on Purnima 08/08/19 at 2100, Until Discontinued, 10 mL, Prep Orders (Cath) if inpatient - floor RN to release, Flush IV line as scheduled and as often as necessary before and after meds., Given 08/11/2019 9:31 PM CDT 10 mL Given 08/10/2019 9:50 PM CDT 10 mL Medication Order MAR Action Action Date Dose Rate Site aspirin tablet 325 mg Given 08/08/2019 2:00 PM CDT 325 mg 325 mg, Oral, One time, 1 dose, Purnima 08/08/19 at 1455, Prep Orders (Cath) if inpatient - floor RN to release, Patient to receive 325 mg aspirin prior to procedure If patient currently taking aspirin at home and has not taken their dose today prior to procedure: hold this dose and administer 325 mg, fentaNYL 100 mcg/2 mL preservative free Given 08/08/2019 3:07 PM CDT 25 mcg injection solution 25-300 mcg 25-300 mcg, IV, PRN per parameter, Starting Purnima 08/08/19 at 1354, Until 08/10/19 at 0927, other (Specify), sedation for cardiac catheterization, 6 mL, Pre-Procedure (Cath), procedural area to release, For sedation under direction provider privileged to perform sedation., furosemide (LASIX) injection solution 20 mg Given 08/07/2019 8:00 PM CDT 20 mg 20 mg, IV, One time, 1 dose, 08/07/19 at 1850, 2 mL, If preference is to further dilute for IV administration: First draw up patient-specific dose, then dilute to 10 mL with 0.9% sodium chloride. Administer SLOW IV push., furosemide (LASIX) injection solution 40 mg Given 08/10/2019 9:31 AM CDT 40 mg 40 mg, IV, DAILY, First dose on Purnima 08/08/19 at 0900, Until Discontinued, 4 mL, If preference is to further dilute for IV administration: First draw up patient-specific dose, then dilute to 10 mL with 0.9% sodium chloride. Administer SLOW IV push., Given 08/09/2019 8:23 AM CDT 40 mg Given 08/08/2019 9:35 AM CDT 40 mg influenza HIGH DOSE virus Given 08/08/2019 10:06 PM CDT 0.5 mL Left Deltoid IM vaccine split preservative free IM injection 0.5 mL 0.5 mL, Intramuscular, Now, 1 dose, Purnima 08/08/19 at 2200, 0.5 mL iohexol (OMNIPAQUE) 350 mg/mL solution 0-300 Given 08/08/2019 3:25 PM CDT 50 mL mL 0-300 mL, Intra-arterial, One time, 1 dose, Purnima 08/08/19 at 1455, 300 mL, Prep Orders (Cath) if inpatient - floor RN to release, Do NOT administer on the floor. Radiology to administer for CCL Procedure ONLY., iohexol (OMNIPAQUE) 350 mg/mL solution 150 Given 08/09/2019 10:45 AM CDT 149 mL mL 150 mL, IV, Now imaging, 1 dose, Starting 08/09/19 at 1103, Until Mon08/09/19 at 1045, 150 mL lidocaine PF (XYLOCAINE-MPF) 1 % preservative Given 08/08/2019 3:06 PM CDT 1 mL free injection solution 1-10 mL 1-10 mL, Subcutaneous, One time, 1 dose, Purnima 08/08/19 at 1455, 10 mL, Prep Orders (Cath) if inpatient - floor RN to release magnesium oxide tablet 500 mg Given 08/10/2019 1:09 PM CDT 500 mg 500 mg, Oral, Every eight hours, 2 doses, First dose on 08/10/19 at 0845, Last dose on 08/10/19 at 1400 Given 08/10/2019 9:29 AM CDT 500 mg metoprolol tartrate (LOPRESSOR) half-tablet Given 08/08/2019 9:35 AM CDT 12.5 mg 12.5 mg 12.5 mg, Oral, Two times a day, First dose on Mon08/07/19 at 2100, Until Discontinued, {Hold for SBP less than 100 Hold for HR less than 55, Given 08/07/2019 8:00 PM CDT 12.5 mg metoprolol tartrate (LOPRESSOR) tablet 50 mg Given 08/09/2019 8:23 AM CDT 50 mg 50 mg, Oral, Two times a day, First dose on Purnima 08/08/19 at 2100, Until Discontinued, {Hold for SBP less than 100 Hold for HR less than 55, midazolam (VERSED) injection solution 0.5-10 Given 08/08/2019 3:07 PM CDT 1 mg mg 0.5-10 mg, IV, PRN per parameter, Starting Purnima 08/08/19 at 1354, Until 08/10/19 at 0927, other (Specify), sedation for cardiac catheterization, 10 mL, Pre-Procedure (Cath), procedural area to release, For sedation under direction provider privileged to perform sedation. Do not give on the floor., potassium chloride (K-TAB) CR tablet 40 mEq Given 08/09/2019 11:51 AM CDT 40 mEq 40 mEq, Oral, One time, 1 dose, Mon08/09/19 at 1145, Tablet should not be crushed or chewed., verapamil-hEParin in normal saline (radial Given 08/08/2019 3:08 PM CDT cocktail) Intra-arterial, Now, 1 dose, Purnima 08/08/19 at 1355, 10 mL, Prep Orders (Cath) if inpatient - floor RN to release, Do NOT administer on the floor. Procedural/CCL ONLY product. Provider must be present., vitamin D3 (cholecalciferol) tablet Given 08/10/2019 9:29 AM CDT 1,000 Units 1,000 Units 1,000 Units, Oral, DAILY, First dose on Purnima 08/08/19 at 0900, Until Discontinued Given 08/09/2019 8:23 AM CDT 1,000 Units Given 08/08/2019 9:35 AM CDT 1,000 Units documented in this encounter
== END 2019-08-07 15:05 ==
LOC: LL.ED 11:17
DX: C91.10 Chronic lymphocytic leukemia of B-cell type not having achieved remission (principal); E78.5 Hyperlipidemia, unspecified; F32.9 Major depressive disorder, single episode, unspecified; K21.9 Gastro-esophageal reflux disease without esophagitis; M19.90 Unspecified osteoarthritis, unspecified site; I35.0 Nonrheumatic aortic (valve) stenosis; E87.1 Hypo-osmolality and hyponatremia; I11.0 Hypertensive heart disease with heart failure; I50.9 Heart failure, unspecified; R79.1 Abnormal coagulation profile; R74.0 Nonspecific elevation of levels of transaminase and lactic acid dehydrogenase [LDH]; H26.9 Unspecified cataract; Z79.899 Other long term (current) drug therapy
CPT/HCPCS: 36415; 71045; 71275; 80053; 82550; 82553; 83605; 83735; 83880; 84443; 84484; 84550; 85025; 85379; 85610; 85730; 93005; 96374; 99285; A9270; J1940; J3490; Q9967

== ENCOUNTER 2020-03-28 11:03 | Emergency (ER) | payer MEDICARE, OTHER ==
[2020-03-28 11:10] VITALS: BP 140/66; PULSE 96
--- NOTE | 2020-03-28 11:15 | EDM.PDOC ---
ED HPI GENERAL MEDICAL PROBLEM - General Chief Complaint: General Stated Complaint: blood in urine, abd cramps Time Seen by Provider: 03/28/20 11:10 Source of Information: Reports: Patient, Old Records ([facility] chart/EMR), Other ([facility] reviewed on 08/07/19 with [facility] records from hospitalization on 08/1010 also available in our records) History Limitations: Reports: No Limitations - History of Present Illness INITIAL COMMENTS - FREE TEXT/NARRATIVE: The patient was brought to the emergency room via private automobile by her daughter, Rhonda, for evaluation of persistent moderate hematuria with symptoms starting at about 7:00 a.m. this morning. She does have a previous history of urolithiasis, however she denies any true UTI symptoms, colic, etc. She did have some mild brief nonspecific nausea earlier this morning with 2-3 normal bowel movements yesterday and no nausea at this time. No recent history of abdominal pain, heartburn, emesis, diarrhea, melena, gross hematochezia, or any food intolerance, including fatty foods, etc.. The patient denies any chest pain /pressure, heart flutter, dizziness, orthostasis, orthopnea, diaphoresis, paresthesias, recent decreased exercise tolerance, or any other anginal-type symptoms. The patient also denies any recent fever, cough, wheezing, dyspnea, etc.. She denies any current pain or discomfort. Onset: Gradual Onset Date: 03/28/20 Onset Time: 07:00 Duration: Getting Worse, Other (No pain) Quality: Reports: Same as Previous Episode Severity: Mild (To moderate hematuria) Improves with: Reports: None Worsens with: Reports: None Context: Reports: Other (As above). 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) - Related Data Allergies Allergy/AdvReac Type Severity Reaction Status Date / Time No Known Allergies Allergy Verified 03/28/20 11:11 Home Meds: Home Meds Multivitamin [Multivitamins] 1 each PO DAILY@1200 12/05/13 [History] [place]-3/DHA/Epa/Fish Oil [Fish Oil Dr 500 mg Softgel] 1,000 mg PO DAILY@1800 [History] Calcium Carbonate/Vitamin D3 [Calcium 1,000 + D3 Caplet] 1 tab PO DAILY@1200, 1800 02/23/17 [History] Lutein Extract/Zeaxanthin Ext [Lutein 15 MG Softgel] 1 cap PO DAILY 02/23/17 [ History] Vitamin E 1,000 unit PO DAILY@1800 08/28/17 [History] Non-Formulary Medication [NF Drug] 1 tab PO DAILY 08/07/19 [History] Amoxicillin 2,000 mg PO ONETIME PRN 03/28/20 [History] Aspirin [Aspirin EC] 1 tab PO DAILY 03/28/20 [History] Furosemide 20 mg PO DAILY 03/28/20 [History] Metoprolol Succinate [Toprol XL] 25 mg PO DAILY 03/28/20 [History] Potassium Chloride [Klor-Con M10] 10 meq PO DAILY 03/28/20 [History] lisinopriL [Lisinopril] 2.5 mg PO DAILY 03/28/20 [History] Past Medical History HEENT History: Reports: Cataract, Impaired Vision. Denies: Allergic Rhinitis, Epistaxis, Glaucoma, Hard of Hearing, Macular Degeneration, Otitis Media, Retinal Detachment Other HEENT History: Wears glasses Cardiovascular History: Reports: Arrhythmia, Cardiomyopathy, Heart Failure, Heart Murmur, High Cholesterol, Hypertension, Pulmonary Hypertension. Denies: Afib, Aneurysm, Blood Clots/VTE/DVT, CAD, VT, PTCA, PVD, Stents, Syncope Other Cardiovascular History: Note status post porcine TVAR as below with known critical aortic valve stenosis by echocardiogram on 04/18/18 with ejection fraction of 65% and previous echocardiogram showing Severe aortic valve stenosis and moderate left atrial enlargement with additional grade 1 diastolic dysfunction initially diagnosed by echocardiogram on 03/31/16 with persistent mild mitral valve insufficiency, tricuspid valve insufficiency and pulmonary valve insufficiency by previous echocardiogram as below. Postprocedural echocardiogram on 08/15/19 did show some decreased ejection fraction of 3540 percent with the patient complaining our cardiac rehabilitation program. PACs, PVCs, couplets, bigeminy, and brief runs by Holter monitors per study in July 2014 as below. Respiratory History: Reports: Intubation, Previous. Denies: Asthma, Bronchitis , Recurrent, COPD, Intubation, Difficult, PE, Pneumothorax, Pulmonary Fibrosis, Sleep Apnea, TB Gastrointestinal History: Reports: Bowel Obstruction, Cholelithiasis, Chronic Diarrhea, Colon Polyp, Diverticulosis, Fecal Incontinence, Gastritis, GERD, Hemorrhoids, Other (See Below). Denies: Celiac Disease, GI Bleed, Hepatitis, Hiatal Hernia, Inflammatory Bowel Disease, Irritable Bowel Syndrome, Jaundice, Pancreatitis, PUD Other Gastrointestinal History: History of small bowel obstruction requiring surgery as below in April 2018. Right peritoneal abscess requiring aspiration as below in April 2018. 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 Recurrent benign colonic polyps including removal of tubular adenoma from the ascending colon 12/05/13 and history of tubulovillous adenoma of the ascending colon and benign polyp of the transverse colon at time of colonoscopy on 03/28/13 with no evidence of recurrence at time of last colonoscopy as below. Nonsymptomatic cholelithiasis by CT scan. Fatty liver. Genitourinary History: Reports: Pyelonephritis, Renal Calculus, Urinary Incontinence, Other (See Below). Denies: Acute Renal Failure, Chronic Renal Insuffiency, STD, UTI, Recurrent Other Genitourinary History: History of urolithiasis with lithotripsy as below. Benign renal cysts. 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 Denies: Dysfunctional Uterine Bleeding, Endometriosis, Fibroids, Spontaneous : 3 Para: 3 LMP (Approximate): Other (See Below) Other COMMUNITY FUNDRAISER History: Surgical menopause in 1984 secondary to prolapsed uterus as below. Full term without complications during pregnancies or deliveries Musculoskeletal History: Reports: Arthritis, Back Pain, Chronic, Fracture, Neck Pain, Chronic, Osteoarthritis, Osteoporosis, Other (See Below). Denies: Amputation, Gout, RA, SLE Other Musculoskeletal History: L1L2 compression fractures Neurological History: Reports: None. Denies: Cerebral Aneurysms, Concussion, CVA, Headaches, Chronic, Head Trauma, Migraines, Neuropathy, Peripheral, Parkinson's, Seizure, TIA, Vertigo Psychiatric History: Reports: Anxiety, Depression, Other (See Below). Denies: Abuse, Victim of, ADD, ADHD, Addiction, Alzheimers Disease, Dementia, Hallucinations, PTSD, Suicide Attempt, Suicidal Ideation Other Psychiatric History: Anxiety depression disorder with initiation of medical therapy in July 2019. Endocrine/Metabolic History: Reports: Hypokalemia, Hypomagnesemia, Osteopenia, Osteoporosis, Other (See Below). Denies: Diabetes, Gestational, Diabetes, Type II, Diabetes Mellitus, Type 3c, Hyperparathyroidism, Hypothyroidism, IDDM Other Endocrine/Metabolic History: Borderline hyperglycemia. Hypoalbuminemia. Hematologic History: Reports: Other (See Below). Denies: Anemia, B12 Deficiency , Blood Transfusion(s), Iron Deficiency Other Hematologic History: CLL as below. Immunologic History: Reports: Immunosuppression, Other (See Below). Denies: AIDS, HIV, SLE Other Immunologic History: CLL Oncologic (Cancer) History: Reports: Leukemia, Other (See Below). Denies: Basal Cell Carcinoma, Breast, Cervix, Colon, Hodgkin's Lymphoma, Lymphoma, Malignant Melanoma, Non-Hodgkin's Lymphoma, Ovarian, Squamous Cell Carcinoma, Uterine Other Oncologic History: CLL currently under observation. Dermatologic History: Reports: Cellulitis, Seborrheic Dermatitis, Other (See Below). Denies: Eczema, Psoriasis, Venous Stasis Dermatitis Other Dermatologic History: Severe right periorbital cellulitis with borderline sinus abscess by CT scan on 08/29/17. Seborrheic dermatitis of the scalp region - Infectious Disease History Infectious Disease History: Reports: Chicken Pox, Measles, Mumps, Shingles ( Herpes zoster ophthalmicusright sided in August 2017). Denies: C-Difficile, Meningitis, Mononucleosis, MRSA, Pertussis (Whooping Cough), Rheumatic Fever, Rubella, Scarlet Fever, TB, VRE - Past Surgical History Head Surgeries/Procedures: Reports: None HEENT Surgical History: Reports: Cataract Surgery, Oral Surgery, Other (See Below). Denies: Adenoidectomy, Eye Surgery, Laser Surgery, LASIK, Myringotomy w Tube(s), Naso-Sinus Surgery, Tonsillectomy Other HEENT Surgeries/Procedures: [place] teeth extraction 4 in the , right cataract surgery in about 2013 Cardiovascular Surgical History: Reports: Valve Replacement, Other (See Below). 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 Respiratory Surgical History: Reports: Thoracentesis, Other (See Below) Other Respiratory Surgeries/Procedures: Bilateral thoracentesis on 08/15/19 with previous similar procedure on 08/08/19 and left-sided thoracentesis secondary to pleural effusion on 04/24/18. GI Surgical History: Reports: Colon, Colonoscopy, Polypectomy, Small Bowel, Other (See Below). Denies: Appendectomy, Cholecystectomy, EGD, Hernia, Abdominal, Hernia, Inguinal, Hernia Repair/Other Other GI Surgeries/Procedures: Distal small bowel resection on 04/22/18 secondary to obstruction with additional aspiration of large right pelvic/ peritoneal abscess at that time. Last colonoscopy on 02/23/17 with no recurrence of her previous colonic polyps with previous colonoscopies on 03/06/08, 11/15/04, and 12/05/13, previous distal rectosigmoid bowel resection secondary to benign colonic tumor in October 2000. Excision of multiple colonic polyps as above. Female Surgical History: Reports: Hysterectomy, Lithotripsy/ESWL, Oophorectomy, Salpingo-Oophorectomy, Other (See Below). Denies: Breast Biopsy, Section, D&C Other Female Surgeries/Procedures: Hysterectomy with left-sided oophorectomy secondary to uterine prolapse in 1984, incidental right salpingo-oophorectomy at time of sigmoid resection in October 2000, left-sided lithotripsy in about 1988. Endocrine Surgical History: Reports: None. Denies: Thyroid Biopsy Neurological Surgical History: Reports: None. Denies: C-Spine, Discectomy, Laminectomy, Lumbar Spine, Sacral Spine, Spinal Fusion, Thoracic Spine, Vertebroplasty Musculoskeletal Surgical History: Reports: None. Denies: Arthroscopic Knee, Arthroscopic Procedure, Carpal Tunnel, Ganglion Cyst, Joint Replacement, ORIF, Shoulder Surgery Oncologic Surgical History: Reports: None. Denies: Bone Marrow Aspiration Dermatological Surgical History: Reports: None - Past Imaging History Past Imaging History: Reports: Cardiac Echo (Last post TAVR echocardiogram on with previous echocardiogram on 04/22/18 with critical aortic valve stenosis at that time with ejection fraction of 65% and otherwise findings as above. Additional echocardiograms on 01/11/16, 03/31/16, and 03/08/13), CAT Scan ( CTA of the chest on 08/07/19. CT of the abdomen and pelvis on 04/22/18 and . CTA of the abdomen and pelvis on 04/19/18. CT of the maxillofacial region on 08/29/17. CT of the chest, abdomen and pelvis on 08/13/09), DEXA Scan (Last on and 03/15/11), Holter Monitor (07/24/19 positive for arrhythmia as above.), Mammogram (Last on 08/10/17), Stress Testing (Low level cardiac stress test on .) Social & Family History - Family History HEENT: Reports: None. Denies: Glaucoma, Macular Degeneration, Retinal Detachment Cardiac: Reports: CAD, Heart Failure, High Cholesterol, Hypertension, VT, Other (See Below). Denies: Afib, Aneurysm, Arrhythmia, Blood Clots/VTE/DVT, Bypass, Heart Murmur, PVD/COD, Syncope Other Cardiac Family History: Father with fatal VT and CHF at age 79, daughter and son with hyperlipidemia, sister with hypertension Respiratory: Reports: None. Denies: Asthma, COPD, PE, Pneumothorax, Sleep Apnea GI: Reports: None. Denies: Celiac Disease, Cholelithiasis, Colon Polyps, GERD, GI bleed, Inflammatory Bowel Disease, Irritable Bowel Syndrome, PUD : Reports: None. Denies: Renal Calculus, Renal Disease/Insufficiency OBGYN: Reports: None. Denies: Dysfunctional uterine bleeding, Endometriosis, Recurrent Spontaneous Musculoskeletal: Reports: Arthritis, Gout, Osteoarthritis, Osteoporosis, Other ( See Below). Denies: RA, SLE Other Musculoskeletal Family History: Sister with osteoarthritis, father with gout Neurological: Reports: Other (See Below). Denies: Alzheimers Disease, Cerebral Aneurysms, CVA, Dementia, Migraines, MS, Parkinson's, Seizure, TIA Other Neurological Family History: Daughter with cavernous malformation requiring surgery some secondary mild secondary dystaxia and weakness. Psychiatric: Reports: None. Denies: Abuse, Victim of, ADD, ADHD, Anxiety, Depression, Psych Hospitalization(s), PTSD, Suicide Attempt Endocrine/Metabolic: Reports: Diabetes, type II, Other (See Below). Denies: Diabetes, Gestational, Diabetes, Type I, Diabetes Mellitus, Type 3c, Hypothyroidism, IDDM Other Endocrine/Metabolic Family History: Father with diabetes mellitus Hematologic: Reports: None. Denies: Anemia Immunologic: Reports: None. Denies: AIDS, HIV, SLE Dermatologic: Reports: None, Angiodema. Denies: Eczema, Psoriasis Oncologic: Reports: None - Tobacco Use Smoking Status *Q: Never Smoker Tobacco Use Within Last Twelve Months: No Used Tobacco, but Quit: No Smoking Cessation Information Provided To Patient: No Second Hand Smoke Exposure: No Second Hand Smoke Education Provided: No - Caffeine Use Caffeine Use: Reports: Coffee (12 cups per day). Denies: Energy Drinks, Soda, Tea - Alcohol Use Alcohol Use History: Yes Days Per Week of Alcohol Use: 0 Number of Drinks Per Day: 1 Number of Drinks Per Day Comment: Occasional wine or mixed drinks about 23 times per year. No previous DWIs, problems with alcohol abuse, etc. Total Drinks Per Week: 0 Alcohol Use in Last Twelve Months: Yes Alcohol Use Frequency: Rarely - Recreational Drug Use Recreational Drug Use: No Recreational Drug Type: Denies: Amphetamines (Speed), Cocaine, Heroin, Inhalants (Glues, Solvents, Aerosols), LSD (Acid), Marijuana/Hashish, Methamphetamine, Morphine, Oxycodone - Living Situation & Occupation Living situation: Reports: (2006, 3 children), with Family (Daughter) Occupation: Retired ([employer] ) ED ROS GENERAL - Review of Systems Review Of Systems: Comprehensive ROS is negative, except as noted in HPI. ED EXAM, GENERAL - Physical Exam Exam: See Below Exam Limited By: No Limitations General Appearance: Alert, WD/WN, No Apparent Distress Head: Atraumatic, Normocephalic. No: Facial Swelling, Facial Tenderness, Sinus Tenderness Neck: Supple, Non-Tender, Full Range of Motion, Carotid Bruit (Mild bilateral carotid bruits versus transmitted heart sounds). No: Limited Range of Motion, Lymphadenopathy (L), Lymphadenopathy (R), Thyromegaly Respiratory/Chest: No Respiratory Distress, Lungs Clear, Normal Breath Sounds, No Accessory Muscle Use, Chest Non-Tender. No: Pleural Rub, Retractions Cardiovascular: Normal Peripheral Pulses, Regular Rate, Rhythm, No Edema, No Gallop, No JVD, No Rub, Systolic Murmur (Significantly improved 1/6 RAYSHAWN of the aortic and mitral valves). No: Gallop/S3, Gallop/S4, Friction Rub Peripheral Pulses: 2+: Radial (L), Radial (R) GI/Abdominal: Normal Bowel Sounds, Soft, Non-Tender, No Organomegaly, No Distention, No Abnormal Bruit, No Mass. No: Guarding (Female) Exam: Deferred Rectal (Female) Exam: Deferred Back Exam: Normal Inspection, Full Range of Motion. No: CVA Tenderness (L), CVA Tenderness (R), Muscle Spasm Extremities: Normal Inspection, Normal Range of Motion, Non-Tender, Normal Capillary Refill, No Pedal Edema Neurological: Alert, Oriented, CN II-XII Intact, Normal Cognition, Normal Gait, No Motor/Sensory Deficits Psychiatric: Normal Affect, Normal Mood Skin Exam: Warm, Dry, Intact, Normal Color, No Rash. No: Diaphoretic, Wound/ Incision Lymphatic: No Adenopathy Course - Vital Signs Last Recorded V/S: Last Vital Signs Temp 37.1 C 03/28/20 11:06 Pulse 96 03/28/20 11:06 Resp 18 03/28/20 11:06 BP 140/66 03/28/20 11:06 Pulse Ox 98 03/28/20 11:06 Vital Signs - 24 hr 03/28/20 11:06 Temperature [ 37.1 C Temporal] Pulse, 96 Peripheral [ Right Pulse Oximetry] Respiratory 18 Rate Blood Pressure 140/66 [Right Upper Arm] O2 Sat by Pulse 98 Oximetry - Orders/Labs/Meds Orders: Active Orders 24 hr Category Date Time Status Peripheral IV Care [RC] . DIRECTED Care 03/28/20 11:39 Active Abdomen Pelvis wo Cont [CT] Stat Exams 03/28/20 11:38 Taken CULTURE URINE [RM] Routine Lab 03/28/20 11:18 Received Sodium Chloride 0.9% [Saline Flush] Med 03/28/20 11:39 Active 10 ml FLUSH ASDIRECTED PRN Obtain Past Medical Record [OM.PC] Routine Oth 03/28/20 11:15 Active Peripheral IV Insertion Adult [OM.PC] Routine Oth 03/28/20 11:39 Ordered Medication Orders Sodium Chloride (Saline Flush) 10 ml FLUSH ASDIRECTED PRN PRN Reason: Keep Vein Open Last Admin: 03/28/20 13:00 Dose: 10 ml Admin: 03/28/20 11:51 Dose: 10 ml Labs: Laboratory Tests 03/28/20 03/28/20 03/28/20 Range/Units 11:18 11:45 11:45 WBC 52.7 H* (4.0-10.2) K/uL RBC 3.88 (3.77-5.09) M/uL Hgb 11.3 L D (11.7-15.5) g/dL Hct 37.0 (34.0-46.0) % MCV 95.4 (84.0-98.0) fL MCH 29.1 (28.2-33.3) pg MCHC 30.5 L (31.7-36.0) g/dL RDW 13.6 (11.2-14.1) % Plt Count 140 L D (150-350) K/uL Add Manual Diff Yes Neutrophils % (Manual) 9 Lymphocytes % (Manual) 88 Monocytes % (Manual) 1 Eosinophils % (Manual) 2 Absolute Neutrophils 4.7430 Lymphocytes # (Manual) 46.3760 Monocytes # (Manual) 0.5270 Eosinophils # (Manual) 1.0540 Sodium 142 (136-145) mmol/L Potassium 4.4 (3.5-5.1) mmol/L Chloride 104 (98-107) mmol/L Carbon Dioxide 29.6 (21.0-32.0) mmol/L BUN 45 H (7-18) mg/dL Creatinine 1.41 H (0.51-1.17) mg/dL Est Cr Clr Drug Dosing 20.53 mL/min Estimated GFR (MDRD) 35 mL/min Glucose 106 (74-106) mg/dL Uric Acid (2.6-7.2) mg/dL Calcium 9.6 (8.5-10.1) mg/dL Total Bilirubin 0.7 (0.2-1.0) mg/dL AST 27 (15-37) U/L ALT 26 (12-78) U/L Alkaline Phosphatase 86 (46-116) IU/L Total Protein 7.7 (6.4-8.2) g/dL Albumin 4.4 (3.4-5.0) g/dL Specimen Type Urincc Urine Color Red Urine Appearance Slightly cloudy Urine pH 5.5 (5.0-9.0) Ur Specific [place] 1.015 (1.005-1.030) Urine Protein 100 H (NEGATIVE) mg/dL Urine Glucose (UA) Negative (NEGATIVE) mg/dL Urine Ketones Negative (NEGATIVE) mg/dL Urine Occult Blood Large H (NEGATIVE) Urine Nitrite Negative (NEGATIVE) Urine Bilirubin Negative (NEGATIVE) Urine Urobilinogen 0.2 (0.2-1.0) E.U./dL Ur Leukocyte Esterase Negative (NEGATIVE) Urine RBC Packed /HPF Urine WBC 0-5 /HPF Ur Epithelial Cells Few /LPF Urine Bacteria Few (NONE TO FEW) /HPF 03/28/20 Range/Units 11:45 WBC (4.0-10.2) K/uL RBC (3.77-5.09) M/uL Hgb (11.7-15.5) g/dL Hct (34.0-46.0) % MCV (84.0-98.0) fL MCH (28.2-33.3) pg MCHC (31.7-36.0) g/dL RDW (11.2-14.1) % Plt Count (150-350) K/uL Add Manual Diff Neutrophils % (Manual) Lymphocytes % (Manual) Monocytes % (Manual) Eosinophils % (Manual) Absolute Neutrophils Lymphocytes # (Manual) Monocytes # (Manual) Eosinophils # (Manual) Sodium (136-145) mmol/L Potassium (3.5-5.1) mmol/L Chloride (98-107) mmol/L Carbon Dioxide (21.0-32.0) mmol/L BUN (7-18) mg/dL Creatinine (0.51-1.17) mg/dL Est Cr Clr Drug Dosing mL/min Estimated GFR (MDRD) mL/min Glucose (74-106) mg/dL Uric Acid 7.5 H (2.6-7.2) mg/dL Calcium (8.5-10.1) mg/dL Total Bilirubin (0.2-1.0) mg/dL AST (15-37) U/L ALT (12-78) U/L Alkaline Phosphatase (46-116) IU/L Total Protein (6.4-8.2) g/dL Albumin (3.4-5.0) g/dL Specimen Type Urine Color Urine Appearance Urine pH (5.0-9.0) Ur Specific [place] (1.005-1.030) Urine Protein (NEGATIVE) mg/dL Urine Glucose (UA) (NEGATIVE) mg/dL Urine Ketones (NEGATIVE) mg/dL Urine Occult Blood (NEGATIVE) Urine Nitrite (NEGATIVE) Urine Bilirubin (NEGATIVE) Urine Urobilinogen (0.2-1.0) E.U./dL Ur Leukocyte Esterase (NEGATIVE) Urine RBC /HPF Urine WBC /HPF Ur Epithelial Cells /LPF Urine Bacteria (NONE TO FEW) /HPF Urine specimen set up for culture and sensitivity Meds: Medications Generic Name Dose Route Start Last Admin Trade Name Freq PRN Reason Stop Dose Admin Sodium Chloride 10 ml 03/28/20 11:39 03/28/20 13:00 Saline Flush FLUSH 10 ml ASDIRECTED PRN Administration Keep Vein Open Discontinued Medications Generic Name Dose Route Start Last Admin Trade Name Freq PRN Reason Stop Dose Admin Ceftriaxone Sodium 1 gm/ 100 mls @ 200 mls/hr 03/28/20 12:54 03/28/20 13:00 Sodium Chloride IV 03/28/20 13:23 200 mls/hr ONETIME ONE Administration - Radiology Interpretation Free Text/Narrative:: Telephone consultation at 12:20 hours with the radiology department at . Moderate to marked left-sided hydronephrosis secondary to multiple stacked kidney stones in the left distal ureter with large most distal lesion about [address] Results Date: 03/28/20 CT Results Time: 12:20 Departure - Departure Time of Disposition: 14:12 Disposition: DC/Tfer to Acute Hospital 02 Condition: Good Clinical Impression: CLL (chronic lymphocytic leukemia), Mixed anxiety depressive disorder, Peptic reflux disease, Hyperuricemia, Renal insufficiency Osteoarthritis Qualifiers: Osteoarthritis location: multiple joints Osteoarthritis type: primary Qualified Code(s): M89.49 - Other hypertrophic osteoarthropathy, multiple sites Aortic valve stenosis Qualifiers: Cardiac valve disease etiology: nonrheumatic Qualified Code(s): I35.0 - Nonrheumatic aortic (valve) stenosis Urolithiasis Qualifiers: Urinary calculus location: lower urinary tract Qualified Code(s): N21.9 - Calculus of lower urinary tract, unspecified Hydronephrosis Qualifiers: Hydronephrosis type: with ureteral calculous obstruction Qualified Code(s): N13.2 - Hydronephrosis with renal and ureteral calculous obstruction - Discharge Information *PRESCRIPTION DRUG MONITORING PROGRAM REVIEWED*: Not Applicable *COPY OF PRESCRIPTION DRUG MONITORING REPORT IN PATIENT BISHOP: Not Applicable Instructions: Kidney Stones, [id number], Dietary Guidelines to Help Prevent Kidney Stones Referrals: Venessa Husain PA-C [Primary Care Provider] - Forms: ED Department Discharge, Interfacility Transfer JAMAR Additional Instructions: 1. Your daughter is to drive you to [facility] for direct admission into that facility as discussed 2. You are being discharged with a saline lock. 3. Immediately after this visit verify that your cellular telephone's voicemail has been activated and is empty. Also verify that your home telephone 's answering machine is operating properly and has space to receive messages. Note that it is sometimes necessary for us to be able to contact you at a later date to discuss your medical care. 4. Please remember that we are ALWAYS here for you and want to answer any questions you may have. Feel free to call the hospital any time and we call you back [facility]. Sepsis Event Note - Evaluation Sepsis Screening Result: No Definite Risk - Focused Exam Vital Signs: Vital Signs Temp Pulse Resp BP Pulse Ox 03/28/20 11:06 37.1 C 96 18 140/66 98 Date Exam was Performed: 03/28/20 Time Exam was Performed: 14:52 - Problem List & Annotations (1) Urolithiasis SNOMED Code(s): 55998438, 540979992 Code(s): N20.9 - URINARY CALCULUS, UNSPECIFIED Status: Acute Priority: High Current Visit: Yes Onset Date: 03/28/20 Annotation/Comment:: Per consultation with radiologist as above the patient will not likely past the large 9 mm stone especially in light of multiple stacks of further stones immediately proximal to this lesion with secondary marked left-sided hydronephrosis. Initial telephone consultation at 12:25 PM with with subsequent telephone consultation at 12:[address] Rick, hospitalist at , who does agree to accept the patient for direct admission, with no further treatment recommendations given. He is aware of private automobile transfer secondary to ambulance availability, etc.. Note that initially IV antibiotics were to be initiated in their facility, however secondary to delay of patient's transfer because of the lack of bed availability 1 g of IV Rocephin was given prior to patient's transfer. No sequelae secondary to delay in patient's transfer with stable vital signs and clinical exam prior to discharge from this facility. The patient 's daughter was updated per telephone concerning treatment plan, etc. Patient was provided dietary information concerning recurrent urolithiasis. Qualifiers: Urinary calculus location: lower urinary tract Qualified Code(s): N21.9 - Calculus of lower urinary tract, unspecified; N21 - Calculus of lower urinary tract (2) Hydronephrosis SNOMED Code(s): 39506991 Code(s): N13.30 - UNSPECIFIED HYDRONEPHROSIS Status: Acute Priority: High Current Visit: Yes Onset Date: 03/28/20 Annotation/Comment:: As above Qualifiers: Hydronephrosis type: with ureteral calculous obstruction Qualified Code(s) : N13.2 - Hydronephrosis with renal and ureteral calculous obstruction (3) CLL (chronic lymphocytic leukemia) SNOMED Code(s): 55267205 Code(s): C91.10 - CHRONIC LYMPHOCYTIC LEUK OF B-CELL TYPE NOT ACHIEVE REMIS Status: Chronic Priority: High Current Visit: Yes Annotation/Comment:: Note significant leukocytosis secondary to her CLL, which is currently under observation program. Stable mild anemia and thrombocytopenia at this time. No recent fever, signs of infection, bronchitic type symptoms, etc. (4) Hyperuricemia SNOMED Code(s): 61931407 Code(s): E79.0 - HYPERURICEMIA W/O SIGNS OF INFLAM ARTHRIT AND TOPHACEOUS DIS Status: Acute Priority: Medium Current Visit: Yes Onset Date: Annotation/Comment:: As below (5) Aortic valve stenosis SNOMED Code(s): 57953418 Code(s): I35.0 - NONRHEUMATIC AORTIC (VALVE) STENOSIS Status: Acute Priority: Medium Current Visit: Yes Onset Date: 03/31/16 Annotation/ Comment:: Note recent successful TVAR on 08/15/19. No chest pain or anginal type symptoms. No evidence of CHF by clinical exam. Qualifiers: Cardiac valve disease etiology: nonrheumatic Qualified Code(s): I35.0 - Nonrheumatic aortic (valve) stenosis (6) Osteoarthritis SNOMED Code(s): 419405308 Code(s): M19.90 - UNSPECIFIED OSTEOARTHRITIS, UNSPECIFIED SITE Status: Chronic Priority: Medium Current Visit: Yes Annotation/Comment:: Stable by patient history with no history of gout or hyperuricemia, however note previous history of distant left-sided urolithiasis requiring lithotripsy in about 1997 as above. Qualifiers: Osteoarthritis location: multiple joints Osteoarthritis type: primary Qualified Code(s): M89.49 - Other hypertrophic osteoarthropathy, multiple sites (7) Anemia SNOMED Code(s): 943371557 Code(s): D64.9 - ANEMIA, UNSPECIFIED Status: Acute Current Visit: Yes Onset Date: 08/29/17 Annotation/Comment:: As above Qualifiers: Anemia type: unspecified type Qualified Code(s): D64.9 - Anemia, unspecified (8) Mixed anxiety depressive disorder SNOMED Code(s): 786252871 Code(s): F41.8 - OTHER SPECIFIED ANXIETY DISORDERS Status: Chronic Priority: Medium Current Visit: Yes Annotation/Comment:: Stable by history (9) Peptic reflux disease SNOMED Code(s): 368604167 Code(s): K21.9 - GASTRO-ESOPHAGEAL REFLUX DISEASE WITHOUT ESOPHAGITIS Status: Chronic Priority: Medium Current Visit: Yes Annotation/Comment:: Stable by history. No evidence of abdominal pain or acute GI bleed. (10) Renal insufficiency SNOMED Code(s): 836514906, 210498911 Code(s): N28.9 - DISORDER OF KIDNEY AND URETER, UNSPECIFIED Status: Chronic Priority: Medium Current Visit: Yes Annotation/Comment:: Stable by history - Problem List Review Problem List Initiated/Reviewed/Updated: Yes - My Orders Last 24 Hours: My Active Orders 03/28/20 11:15 Obtain Past Medical Record [OM.PC] Routine 03/28/20 11:18 CULTURE URINE [RM] Routine 03/28/20 11:38 Abdomen Pelvis wo Cont [CT] Stat 03/28/20 11:39 Peripheral IV Care [RC] . DIRECTED Sodium Chloride 0.9% [Saline Flush] 10 ml FLUSH ASDIRECTED PRN Peripheral IV Insertion Adult [OM.PC] Routine - Assessment/Plan Last 24 Hours: My Active Orders 03/28/20 11:15 Obtain Past Medical Record [OM.PC] Routine 03/28/20 11:18 CULTURE URINE [RM] Routine 03/28/20 11:38 Abdomen Pelvis wo Cont [CT] Stat 03/28/20 11:39 Peripheral IV Care [RC] . DIRECTED Sodium Chloride 0.9% [Saline Flush] 10 ml FLUSH ASDIRECTED PRN Peripheral IV Insertion Adult [OM.PC] Routine Assessment:: As above Plan: As above. Extensive precautions were given to the patient and her daughter, Rhonda, by telephone, who are in agreement with the treatment plan. Extensive precautions were given to the patient, who is in agreement with the treatment plan.
[2020-03-28] MEDS: Sodium Chloride 0.9% 10 ML Syringe FLUSH PRN ×2 (11:51→13:00)
[2020-03-28] MEDS ORDERED: cefTRIAXone 1 GM in Sodium Chloride 0.9% 100 ML IV ONE (12:54)
== END 2020-03-28 14:12 ==
LOC: LL.ED 11:03
DX: K27.9 Peptic ulcer, site unspecified, unspecified as acute or chronic, without hemorrhage or perforation (principal); M89.49 Other hypertrophic osteoarthropathy, multiple sites; N28.9 Disorder of kidney and ureter, unspecified; C91.10 Chronic lymphocytic leukemia of B-cell type not having achieved remission; F41.8 Other specified anxiety disorders; E79.0 Hyperuricemia without signs of inflammatory arthritis and tophaceous disease; I35.0 Nonrheumatic aortic (valve) stenosis; N13.2 Hydronephrosis with renal and ureteral calculous obstruction; I11.0 Hypertensive heart disease with heart failure; I50.9 Heart failure, unspecified; Z79.82 Long term (current) use of aspirin; Z79.899 Other long term (current) drug therapy
CPT/HCPCS: 36415; 74176; 80053; 81001; 84550; 85025; 87086; 96365; 99284-25; J0696; J7050

== ENCOUNTER 2020-09-11 20:28 | Emergency (ER) | payer MEDICARE, OTHER ==
[2020-09-11 20:35] VITALS: PULSE 98
[2020-09-11 21:00] VITALS: BP 120/55
--- NOTE | 2020-09-11 21:16 | EDM.PDOC ---
ED HPI GENERAL MEDICAL PROBLEM - General Chief Complaint: General Stated Complaint: LOOSE STOOLS Time Seen by Provider: 09/11/20 21:00 Source of Information: Reports: Patient History Limitations: Reports: No Limitations - History of Present Illness INITIAL COMMENTS - FREE TEXT/NARRATIVE: Patient concerned that she may have CDiff again. Had diagnosis of CDiff earlier this summer after antibiotic course and required several courses of antibiotics/Vanco for treatment. This week she noted about 3 sudden loose stools daily develop. No pain/fever/other complaints. Still eating and otherwise doing well. No respiratory changes/Covid complaints. - Related Data Allergies Allergy/AdvReac Type Severity Reaction Status Date / Time No Known Allergies Allergy Verified 09/11/20 20:36 Home Meds: Home Meds Calcium Carbonate/Vitamin D3 [Calcium 1,000 + D3 Caplet] 1 tab PO DAILY@1200,1800 02/23/17 [History] Lutein Extract/Zeaxanthin Ext [Lutein 15 MG Softgel] 1 cap PO DAILY 02/23/17 [History] Non-Formulary Medication [NF Drug] 1 tab PO DAILY 08/07/19 [History] Amoxicillin 2,000 mg PO ONETIME PRN 03/28/20 [History] Aspirin [Aspirin EC] 1 tab PO DAILY 03/28/20 [History] Metoprolol Succinate [Toprol XL] 25 mg PO DAILY 03/28/20 [History] Potassium Chloride [Klor-Con M10] 10 meq PO DAILY 03/28/20 [History] lisinopriL [Lisinopril] 2.5 mg PO DAILY 03/28/20 [History] Ferrous Sulfate [Slow Fe] 1 tab PO DAILY 09/11/20 [History] Furosemide [Lasix] 10 mg PO Q2D 09/11/20 [History] Lactobacillus Acidophilus [Probiotic] 1 each PO DAILY 09/11/20 [History] metroNIDAZOLE [Flagyl] 500 mg PO Q8H #20 tab 09/11/20 [Rx] Past Medical History HEENT History: Reports: Cataract, Impaired Vision. Denies: Allergic Rhinitis, Epistaxis, Glaucoma, Hard of Hearing, Macular Degeneration, Otitis Media, Retinal Detachment Other HEENT History: Wears glasses Cardiovascular History: Reports: Arrhythmia, Cardiomyopathy, Heart Failure, Heart Murmur, High Cholesterol, Hypertension, Pulmonary Hypertension. Denies: Afib, Aneurysm, Blood Clots/VTE/DVT, CAD, [place], PTCA, PVD, Stents, Syncope Other Cardiovascular History: Note status post porcine TVAR as below with known critical aortic valve stenosis by echocardiogram on 04/18/18 with ejection fraction of 65% and previous echocardiogram showing Severe aortic valve stenosis and moderate left atrial enlargement with additional grade 1 diastolic dysfunction initially diagnosed by echocardiogram on 03/31/16 with persistent mild mitral valve insufficiency, tricuspid valve insufficiency and pulmonary valve insufficiency by previous echocardiogram as below. Postprocedural echocardiogram on 08/15/19 did show some decreased ejection fraction of 3540 percent with the patient complaining our cardiac rehabilitation program. PACs, PVCs, couplets, bigeminy, and brief runs by Holter monitors per study in July 2014 as below. Respiratory History: Reports: Intubation, Previous. Denies: Asthma, Bronchitis, Recurrent, COPD, Intubation, Difficult, PE, Pneumothorax, Pulmonary Fibrosis, Sleep Apnea, TB Gastrointestinal History: Reports: Bowel Obstruction, Cholelithiasis, Chronic Diarrhea, Colon Polyp, Diverticulosis, Fecal Incontinence, Gastritis, GERD, Hemorrhoids, Other (See Below). Denies: Celiac Disease, GI Bleed, Hepatitis, Hiatal Hernia, Inflammatory Bowel Disease, Irritable Bowel Syndrome, Jaundice, Pancreatitis, PUD Other Gastrointestinal History: History of small bowel obstruction requiring surgery as below in April 2018. Right peritoneal abscess requiring aspiration as below in April 2018. 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 Recurrent benign colonic polyps including removal of tubular adenoma from the ascending colon 12/05/13 and history of tubulovillous adenoma of the ascending colon and benign polyp of the transverse colon at time of colonoscopy on 03/28/13 with no evidence of recurrence at time of last colon oscopy as below. Nonsymptomatic cholelithiasis by CT scan. Fatty liver. Genitourinary History: Reports: Pyelonephritis, Renal Calculus, Urinary Incontinence, Other (See Below). Denies: Acute Renal Failure, Chronic Renal Insuffiency, STD, UTI, Recurrent Other Genitourinary History: History of urolithiasis with lithotripsy as below. Benign renal cysts. 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 Denies: Dysfunctional Uterine Bleeding, Endometriosis, Fibroids, Spontaneous Other BUILDING SERVICES SUPERVISOR History: Surgical menopause in 1984 secondary to prolapsed uterus as below. Full term without complications during pregnancies or deliveries Musculoskeletal History: Reports: Arthritis, Back Pain, Chronic, Fracture, Neck Pain, Chronic, Osteoarthritis, Osteoporosis, Other (See Below). Denies: Amputation, Gout, RA, SLE Other Musculoskeletal History: L1L2 compression fractures Neurological History: Reports: None. Denies: Cerebral Aneurysms, Concussion, CVA, Headaches, Chronic, Head Trauma, Migraines, Neuropathy, Peripheral, Parkinson's, Seizure, TIA, Vertigo Psychiatric History: Reports: Anxiety, Depression, Other (See Below). Denies: Abuse, Victim of, ADD, ADHD, Addiction, Alzheimers Disease, Dementia, Hallucinations, PTSD, Suicide Attempt, Suicidal Ideation Other Psychiatric History: Anxiety depression disorder with initiation of medical therapy in July 2019. Endocrine/Metabolic History: Reports: Hypokalemia, Hypomagnesemia, Osteopenia, Osteoporosis, Other (See Below). Denies: Diabetes, Gestational, Diabetes, Type II, Diabetes Mellitus, Type 3c, Hyperparathyroidism, Hypothyroidism, IDDM Other Endocrine/Metabolic History: Borderline hyperglycemia. Hypoalbuminemia. Hematologic History: Reports: Other (See Below). Denies: Anemia, B12 Deficiency, Blood Transfusion(s), Iron Deficiency Other Hematologic History: CLL as below. Immunologic History: Reports: Immunosuppression, Other (See Below). Denies: AIDS, HIV, SLE Other Immunologic History: CLL Oncologic (Cancer) History: Reports: Leukemia, Other (See Below). Denies: Basal Cell Carcinoma, Breast, Cervix, Colon, Hodgkin's Lymphoma, Lymphoma, Malignant Melanoma, Non-Hodgkin's Lymphoma, Ovarian, Squamous Cell Carcinoma, Uterine Other Oncologic History: CLL currently under observation. Dermatologic History: Reports: Cellulitis, Seborrheic Dermatitis, Other (See Below). Denies: Eczema, Psoriasis, Venous Stasis Dermatitis Other Dermatologic History: Severe right periorbital cellulitis with borderline sinus abscess by CT scan on 08/29/17. Seborrheic dermatitis of the scalp region - Infectious Disease History Infectious Disease History: Reports: Chicken Pox, Measles, Mumps, Shingles ( Herpes zoster ophthalmicusright sided in August 2017). Denies: C-Difficile, Meningitis, Mononucleosis, MRSA, Pertussis (Whooping Cough), Rheumatic Fever, Rubella, Scarlet Fever, TB, VRE - Past Surgical History Head Surgeries/Procedures: Reports: None HEENT Surgical History: Reports: Cataract Surgery, Oral Surgery, Other (See Below). Denies: Adenoidectomy, Eye Surgery, Laser Surgery, LASIK, Myringotomy w Tube(s), Naso-Sinus Surgery, Tonsillectomy Other HEENT Surgeries/Procedures: [place] teeth extraction 4 in the , right cataract surgery in about 2013 Cardiovascular Surgical History: Reports: Valve Replacement, Other (See Below). 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 Respiratory Surgical History: Reports: Thoracentesis, Other (See Below) Other Respiratory Surgeries/Procedures: Bilateral thoracentesis on 08/15/19 with previous similar procedure on 08/08/19 and left-sided thoracentesis secondary to pleural effusion on 04/24/18. GI Surgical History: Reports: Colon, Colonoscopy, Polypectomy, Small Bowel, Other (See Below). Denies: Appendectomy, Cholecystectomy, EGD, Hernia, Abdominal, Hernia, Inguinal, Hernia Repair/Other Other GI Surgeries/Procedures: Distal small bowel resection on 04/22/18 secondary to obstruction with additional aspiration of large right pelvic/peritoneal abscess at that time. Last colonoscopy on 02/23/17 with no recurrence of her previous colonic polyps with previous colonoscopies on 03/06/08, 11/15/04, 03/28/13 and 12/05/13, previous distal rectosigmoid bowel resection secondary to benign colonic tumor in October 2000. Excision of multiple colonic polyps as above. Female Surgical History: Reports: Hysterectomy, Lithotripsy/ESWL, Oophore ctomy, Salpingo-Oophorectomy, Other (See Below). Denies: Breast Biopsy, Section, D&C Other Female Surgeries/Procedures: Hysterectomy with left-sided oophorectomy secondary to uterine prolapse in 1984, incidental right salpingo-oophorectomy at time of sigmoid resection in October 2000, left-sided lithotripsy in about 1988. Endocrine Surgical History: Reports: None. Denies: Thyroid Biopsy Neurological Surgical History: Reports: None. Denies: C-Spine, Discectomy, Laminectomy, Lumbar Spine, Sacral Spine, Spinal Fusion, Thoracic Spine, Vertebroplasty Musculoskeletal Surgical History: Reports: None. Denies: Arthroscopic Knee, Arthroscopic Procedure, Carpal Tunnel, Ganglion Cyst, Joint Replacement, ORIF, Shoulder Surgery Oncologic Surgical History: Reports: None. Denies: Bone Marrow Aspiration Dermatological Surgical History: Reports: None - Past Imaging History Past Imaging History: Reports: Cardiac Echo (Last post TAVR echocardiogram on 08/15/19 with previous echocardiogram on 04/22/18 with critical aortic valve stenosis at that time with ejection fraction of 65% and otherwise findings as above. Additional echocardiograms on 01/11/16, 03/31/16, and 03/08/13), CAT Scan (CTA of the chest on 08/07/19. CT of the abdomen and pelvis on 04/22/18 and 04/17/18. CTA of the abdomen and pelvis on 04/19/18. CT of the maxillofacial region on 08/29/17. CT of the chest, abdomen and pelvis on 08/13/09), DEXA Scan (Last on 03/31/15 and 03/15/11), Holter Monitor (07/24/19 positive for arrhythmia as above.), Mammogram (Last on 08/10/17), Stress Testing (Low level cardiac stress test on 09/04/19.) Social & Family History - Family History HEENT: Reports: None. Denies: Glaucoma, Macular Degeneration, Retinal Detachment Cardiac: Reports: CAD, Heart Failure, High Cholesterol, Hypertension, [place], Other (See Below). Denies: Afib, Aneurysm, Arrhythmia, Blood Clots/VTE/DVT, Bypass, Heart Murmur, PVD/COD, Syncope Other Cardiac Family History: Father with fatal [place] and CHF at age 79, daughter and son with hyperlipidemia, sister with hypertension Respiratory: Reports: None. Denies: Asthma, COPD, PE, Pneumothorax, Sleep Apnea GI: Reports: None. Denies: Celiac Disease, Cholelithiasis, Colon Polyps, GERD, GI bleed, Inflammatory Bowel Disease, Irritable Bowel Syndrome, PUD : Reports: None. Denies: Renal Calculus, Renal Disease/Insufficiency OBGYN: Reports: None. Denies: Dysfunctional uterine bleeding, Endometriosis, Recurrent Spontaneous Musculoskeletal: Reports: Arthritis, Gout, Osteoarthritis, Osteoporosis, Other (See Below). Denies: RA, SLE Other Musculoskeletal Family History: Sister with osteoarthritis, father with gout Neurological: Reports: Other (See Below). Denies: Alzheimers Disease, Cerebral Aneurysms, CVA, Dementia, Migraines, MS, Parkinson's, Seizure, TIA Other Neurological Family History: Daughter with cavernous malformation requiring surgery some secondary mild secondary dystaxia and weakness. Psychiatric: Reports: None. Denies: Abuse, Victim of, ADD, ADHD, Anxiety, Depression, Psych Hospitalization(s), PTSD, Suicide Attempt Endocrine/Metabolic: Reports: Diabetes, type II, Other (See Below). Denies: Diabetes, Gestational, Diabetes, Type I, Diabetes Mellitus, Type 3c, Hypothyroidism, IDDM Other Endocrine/Metabolic Family History: Father with diabetes mellitus Hematologic: Reports: None. Denies: Anemia Immunologic: Reports: None. Denies: AIDS, HIV, SLE Dermatologic: Reports: None, Angiodema. Denies: Eczema, Psoriasis Oncologic: Reports: None - Caffeine Use Caffeine Use: Reports: Coffee (12 cups per day). Denies: Energy Drinks, Soda, Tea - Living Situation & Occupation Living situation: Reports: (2005, 3 children), with Family (Daughter) Occupation: Retired ([employer] ) ED ROS GENERAL - Review of Systems Review Of Systems: Comprehensive ROS is negative, except as noted in HPI. ED EXAM, GENERAL - Physical Exam Exam: See Below Exam Limited By: No Limitations General Appearance: Alert, WD/WN, No Apparent Distress Eye Exam: Bilateral Eye: EOMI, PERRL Ears: Hearing Grossly Normal Nose: No: Nasal Deformity, Nasal Swelling, Nasal Drainage Throat/Mouth: Normal Lips, Normal Voice, No Airway Compromise Head: Atraumatic, Normocephalic Neck: Supple, Non-Tender Respiratory/Chest: No Respiratory Distress, Lungs Clear, Normal Breath Sounds, No Accessory Muscle Use Cardiovascular: Normal Peripheral Pulses, Regular Rate, Rhythm, No Edema, No Murmur GI/Abdominal: Normal Bowel Sounds, Soft, Non-Tender, No Distention (Female) Exam: Deferred Rectal (Female) Exam: Deferred Back Exam: No: CVA Tenderness (L), CVA Tenderness (R), Muscle Spasm, Paraspinal Tenderness, Vertebral Tenderness Extremities: Normal Range of Motion, Normal Capillary Refill Neurological: Alert, Oriented, Normal Cognition, No Motor/Sensory Deficits Psychiatric: Normal Affect, Normal Mood Skin Exam: Warm, Dry, Intact, Normal Color Course - Vital Signs Last Recorded V/S: Last Vital Signs Temp 37.4 C 09/11/20 20:30 Pulse 98 09/11/20 21:00 Resp 16 09/11/20 21:00 BP 120/55 L 09/11/20 21:00 Pulse Ox 98 09/11/20 21:00 - Orders/Labs/Meds Orders: Active Orders 24 hr Category Date Time Status BMP [BASIC METABOLIC PANEL,BMP] [CHEM] Stat Lab 09/11/20 20:50 Received C DIFICILE TOXIN BY PCR CONF [MREF] Routine Lab 09/11/20 20:50 Ordered CBC WITH AUTO DIFF [HEME] Stat Lab 09/11/20 20:50 Received CORONAVIRUS COVID-19 ART [MOLEC] Routine Lab 09/11/20 20:46 Ordered UA W/MICROSCOPIC [URIN] Stat Lab 09/11/20 20:46 Received - Re-Assessments/Exams Free Text/Narrative Re-Assessment/Exam: 09/11/20 21:30 Patient had baseline CBC/CBC performed. WBC 123,000 however patient has history of CLL. Cr 1.2, improved from previous level of 1.4 last March. Potassium slightly low at 3.2 Single dose Imodium and potassium ordered. No additional Imodium recommended at this time. Patient doing well/afebrile/stable. No indication for admission. Unable to provide stool sample for CDiff testing so she was sent home with collection kit to obtain specimen. Patient is to bring back the specimen and it will be tested for CDiff. Will also add Covid testing as this does count as a potential GI symptom, however patient has no additional symptoms that would be suggestive of Covid. Precautions reviewed. To follow up next week with primary care provider for recheck. Would like patient to have potassium level rechecked Monday. Can have that performed here as outpatient if she cannot follow up with her primary. Will start patient on Flagyl/ER outpatient pack. Departure - Departure Time of Disposition: 21:45 Disposition: Home, Self-Care 01 Condition: Good Clinical Impression: Diarrhea Qualifiers: Diarrhea type: unspecified type Qualified Code(s): R19.7 - Diarrhea, unspecified - Discharge Information *PRESCRIPTION DRUG MONITORING PROGRAM REVIEWED*: Not Applicable *COPY OF PRESCRIPTION DRUG MONITORING REPORT IN PATIENT BISHOP: Not Applicable Prescriptions: metroNIDAZOLE [Flagyl] 500 mg PO Q8H #20 tab Instructions: Diarrhea, Adult, [id number] Referrals: Venessa Husain PA-C [Primary Care Provider] - Additional Instructions: Please obtain stool sample and bring it back to us so we can test for C.Diff infection. We will also run a Covid test for you tomorrow to make certain that is not causing the diarrhea. You will need to get your potassium level rechecked on Monday. It was a bit low tonight and this is likely due to the loose stools. If it is still low then you will need to take extra potassium. See if you can get this done at your clinic. If not, we can have you get it performed here as an outpatient. Start the Flagyl and take one tablet three times a day. Follow up as needed over the weekend if you have sudden worsening problems. Sepsis Event Note (ED) - Evaluation Sepsis Screening Result: No Definite Risk - Focused Exam Vital Signs: Vital Signs Temp Pulse Resp BP Pulse Ox 09/11/20 21:00 98 16 120/55 L 98 09/11/20 20:30 37.4 C 98 18 144/98 H 98 - My Orders Last 24 Hours: My Active Orders 09/11/20 20:46 CORONAVIRUS COVID-19 ART [MOLEC] Routine UA W/MICROSCOPIC [URIN] Stat 09/11/20 20:50 BMP [BASIC METABOLIC PANEL,BMP] [CHEM] Stat C DIFICILE TOXIN BY PCR CONF [MREF] Routine CBC WITH AUTO DIFF [HEME] Stat - Assessment/Plan Last 24 Hours: My Active Orders 09/11/20 20:46 CORONAVIRUS COVID-19 ART [MOLEC] Routine UA W/MICROSCOPIC [URIN] Stat 09/11/20 20:50 BMP [BASIC METABOLIC PANEL,BMP] [CHEM] Stat C DIFICILE TOXIN BY PCR CONF [MREF] Routine CBC WITH AUTO DIFF [HEME] Stat
[2020-09-11] MEDS ORDERED: Loperamide 2 MG Tab PO ONE (21:28)
[2020-09-11] MEDS ORDERED: Potassium Chloride 20 MEQ Tab.ER PO ONE (21:28)
== END 2020-09-11 22:20 | disposition home or self-care (01) ==
LOC: LL.ED 20:28
DX: R19.7 Diarrhea, unspecified (principal); I11.0 Hypertensive heart disease with heart failure; I50.9 Heart failure, unspecified; M19.90 Unspecified osteoarthritis, unspecified site; Z79.82 Long term (current) use of aspirin; Z79.899 Other long term (current) drug therapy; Z20.828 Contact with and (suspected) exposure to other viral communicable diseases
CPT/HCPCS: 36415; 80048; 81001; 85025; 99283; 99284; A9270; U0002

== ENCOUNTER 2020-10-21 20:31 | Emergency (ER) | payer MEDICARE, OTHER ==
[2020-10-21] MEDS ORDERED: Sodium Chloride 0.9% 1,000 ML IV ONE (21:00)
--- NOTE | 2020-10-21 22:32 | EDM.PDOC ---
ED HPI GENERAL MEDICAL PROBLEM - General Chief Complaint: General Stated Complaint: fever, weakness, cough, diarrhea Time Seen by Provider: 10/21/20 20:45 Source of Information: Reports: Patient History Limitations: Reports: No Limitations - History of Present Illness INITIAL COMMENTS - FREE TEXT/NARRATIVE: Pt with fever beginning today Also with hx/o C diff diarrhea for 6 months Has been on Vanco and Flagyl in past currently on Dificd Has antibody infusion scheduled for tomorrow at [facility] GI Has been weak for several weeks Dry cough today Daughter and son-in-law who she lives with Covid positive 2 weeks ago Onset: Gradual Duration: Week(s):, Chronic Location: Reports: Generalized Associated Symptoms: Reports: Cough, Fever/Chills, Other (Diarrhea) - Related Data Allergies Allergy/AdvReac Type Severity Reaction Status Date / Time No Known Allergies Allergy Verified 10/21/20 20:52 Home Meds: Home Meds Calcium Carbonate/Vitamin D3 [Calcium 1,000 + D3 Caplet] 1 tab PO DAILY@12 00,1800 02/23/17 [History] Lutein Extract/Zeaxanthin Ext [Lutein 15 MG Softgel] 1 cap PO DAILY 02/23/17 [History] Non-Formulary Medication [NF Drug] 1 tab PO DAILY 08/07/19 [History] Amoxicillin 2,000 mg PO ONETIME PRN 03/28/20 [History] Aspirin [Aspirin EC] 1 tab PO DAILY 03/28/20 [History] Metoprolol Succinate [Toprol XL] 25 mg PO DAILY 03/28/20 [History] Potassium Chloride [Klor-Con M10] 10 meq PO DAILY 03/28/20 [History] lisinopriL [Lisinopril] 2.5 mg PO DAILY 03/28/20 [History] Ferrous Sulfate [Slow Fe] 1 tab PO DAILY 09/11/20 [History] Furosemide [Lasix] 10 mg PO Q2D 09/11/20 [History] Lactobacillus Acidophilus [Probiotic] 1 each PO DAILY 09/11/20 [History] metroNIDAZOLE [Flagyl] 500 mg PO Q8H #20 tab 09/11/20 [Rx] Past Medical History HEENT History: Reports: Cataract, Impaired Vision Other HEENT History: Wears glasses Cardiovascular History: Reports: Arrhythmia, Cardiomyopathy, Heart Failure, Heart Murmur, High Cholesterol, Hypertension, Pulmonary Hypertension Other Cardiovascular History: Note status post porcine TVAR as below with known critical aortic valve stenosis by echocardiogram on 04/18/18 with ejection fraction of 65% and previous echocardiogram showing Severe aortic valve stenosis and moderate left atrial enlargement with additional grade 1 diastolic dysfunction initially diagnosed by echocardiogram on 03/31/16 with persistent mild mitral valve insufficiency, tricuspid valve insufficiency and pulmonary valve insufficiency by previous echocardiogram as below. Postprocedural echocardiogram on 08/15/19 did show some decreased ejection fraction of 3540 percent with the patient complaining our cardiac rehabilitation program. PACs, PVCs, couplets, bigeminy, and brief runs by Holter monitors per study in July 2014 as below. Respiratory History: Reports: Intubation, Previous Gastrointestinal History: Reports: Bowel Obstruction, Cholelithiasis, Chronic Diarrhea, Colon Polyp, Diverticulosis, Fecal Incontinence, Gastritis, GERD, Hemorrhoids, Other (See Below) Other Gastrointestinal History: History of small bowel obstruction requiring surgery as below in April 2018. Right peritoneal abscess requiring aspiration as below in April 2018. 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 Recurrent benign colonic polyps including removal of tubular adenoma from the ascending colon 12/05/13 and history of tubulovillous adenoma of the ascending colon and benign polyp of the transverse colon at time of colonoscopy on 03/28/13 with no evidence of recurrence at time of last colonoscopy as below. Nonsymptomatic cholelithiasis by CT scan. Fatty liver. Genitourinary History: Reports: Pyelonephritis, Renal Calculus, Urinary Incontinence, Other (See Below) Other Genitourinary History: History of urolithiasis with lithotripsy as below. Benign renal cysts. 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 Full term without complications during pregnancies or deliveries Musculoskeletal History: Reports: Arthritis, Back Pain, Chronic, Fracture, Neck Pain, Chronic, Osteoarthritis, Osteoporosis, Other (See Below) Other Musculoskeletal History: L1L2 compression fractures Neurological History: Reports: None Psychiatric History: Reports: Anxiety, Depression, Other (See Below) Other Psychiatric History: Anxiety depression disorder with initiation of medical therapy in July 2019. Endocrine/Metabolic History: Reports: Hypokalemia, Hypomagnesemia, Osteopenia, Osteoporosis, Other (See Below) Other Endocrine/Metabolic History: Borderline hyperglycemia. Hypoalbuminemia. Hematologic History: Reports: Other (See Below) Other Hematologic History: CLL as below. Immunologic History: Reports: Immunosuppression, Other (See Below) Other Immunologic History: CLL Oncologic (Cancer) History: Reports: Leukemia, Other (See Below) Other Oncologic History: CLL currently under observation. Dermatologic History: Reports: Cellulitis, Seborrheic Dermatitis, Other (See Below) Other Dermatologic History: Severe right periorbital cellulitis with borderline sinus abscess by CT scan on 08/29/17. 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 Respiratory Surgical History: Reports: Thoracentesis, Other (See Below) Other Respiratory Surgeries/Procedures: Bilateral thoracentesis on 08/15/19 with previous similar procedure on 08/08/19 and left-sided thoracentesis secondary to pleural effusion on 04/24/18. GI Surgical History: Reports: Colon, Colonoscopy, Polypectomy, Small Bowel, Other (See Below) Other GI Surgeries/Procedures: Distal small bowel resection on 04/22/18 secondary to obstruction with additional aspiration of large right pelvic/peritoneal abscess at that time. Last colonoscopy on 02/23/17 with no recurrence of her previous colonic polyps with previous colonoscopies on 03/06/08, 11/15/04, 03/28/13 and 12/05/13, previous distal rectosigmoid bowel resection secondary to benign colonic tumor in October 2000. Excision of multiple colonic polyps as above. Female Surgical History: Reports: Hysterectomy, Lithotripsy/ESWL, Oophorectomy, Salpingo-Oophorectomy, Other (See Below) Other Female Surgeries/Procedures: Hysterectomy with left-sided oophorectomy secondary to uterine prolapse in 1984, incidental right salpingo-oophorectomy at time of sigmoid resection in October 2000, left-sided lithotripsy in about 1988. Endocrine Surgical History: Reports: None Neurological Surgical History: Reports: None Musculoskeletal Surgical History: Reports: None Oncologic Surgical History: Reports: None Dermatological Surgical History: Reports: None - Past Imaging History Past Imaging History: Reports: Cardiac Echo (Last post TAVR echocardiogram on 08/15/19 with previous echocardiogram on 04/22/18 with critical aortic valve stenosis at that time with ejection fraction of 65% and otherwise findings as above. Additional echocardiograms on 01/11/16, 03/31/16, and 03/08/13), CAT Scan (CTA of the chest on 08/07/19. CT of the abdomen and pelvis on 04/22/18 and 04/17/18. CTA of the abdomen and pelvis on 04/19/18. CT of the maxillofacial region on 08/29/17. CT of the chest, abdomen and pelvis on 08/13/09), DEXA Scan (Last on 03/31/15 and 03/15/11), Holter Monitor (07/24/19 positive for arrhythmia as above.), Mammogram (Last on 08/10/17), Stress Testing (Low level cardiac stress test on 09/04/19.) Social & Family History - Family History HEENT: Reports: None Cardiac: Reports: CAD, Heart Failure, High Cholesterol, Hypertension, UT, Other (See Below) Other Cardiac Family History: Father with fatal UT and CHF at age 79, daughter and son with hyperlipidemia, sister with hypertension Respiratory: Reports: None GI: Reports: None : Reports: None OBGYN: Reports: None Musculoskeletal: Reports: Arthritis, Gout, Osteoarthritis, Osteoporosis, Other (See Below) Other Musculoskeletal Family History: Sister with osteoarthritis, father with gout Neurological: Reports: Other (See Below) Other Neurological Family History: Daughter with cavernous malformation requiring surgery some secondary mild secondary dystaxia and weakness. Psychiatric: Reports: None Endocrine/Metabolic: Reports: Diabetes, type II, Other (See Below) Other Endocrine/Metabolic Family History: Father with diabetes mellitus Hematologic: Reports: None Immunologic: Reports: None Dermatologic: Reports: None, Angiodema Oncologic: Reports: None - Tobacco Use Tobacco Use Status *Q: Never Tobacco User Second Hand Smoke Exposure: No - Caffeine Use Caffeine Use: Reports: None - Recreational Drug Use Recreational Drug Use: No - Living Situation & Occupation Living situation: Reports: (2006, 3 children), with Family (Daughter) Occupation: Retired ([employer] ) ED ROS GENERAL - Review of Systems Review Of Systems: See Below Constitutional: Reports: Fever, Malaise, Weakness, Decreased Appetite HEENT: Reports: No Symptoms Respiratory: Reports: Cough Cardiovascular: Reports: No Symptoms GI/Abdominal: Reports: Diarrhea : Reports: No Symptoms Musculoskeletal: Reports: No Symptoms Neurological: Reports: No Symptoms Psychiatric: Reports: No Symptoms ED EXAM, GENERAL - Physical Exam Exam: See Below Exam Limited By: No Limitations General Appearance: Alert, WD/WN, Mild Distress Throat/Mouth: Normal Oropharynx Neck: Supple Respiratory/Chest: Decreased Breath Sounds Cardiovascular: Tachycardia GI/Abdominal: Soft, Non-Tender Extremities: No Pedal Edema Neurological: Alert, Oriented Psychiatric: Normal Affect, Normal Mood Skin Exam: Warm, Dry Course - Vital Signs Last Recorded V/S: Last Vital Signs Temp 101.4 F H 10/21/20 20:55 Pulse 112 H 10/21/20 20:55 Resp 24 H 10/21/20 20:55 BP 131/79 10/21/20 20:55 Pulse Ox 92 L 10/21/20 20:55 - Orders/Labs/Meds Orders: Active Orders 24 hr Category Date Time Status EKG Documentation Completion [RC] ASDIRECTED Care 10/21/20 21:00 Active CXR [Chest 1V Frontal] [CR] Stat Exams 10/21/20 20:32 Taken CULTURE BLOOD [BC] Stat Lab 10/21/20 20:55 Received CULTURE BLOOD [BC] Stat Lab 10/21/20 21:00 Received Blood Culture x2 Reflex Set [OM.PC] Stat Oth 10/21/20 21:10 Ordered Labs: Laboratory Tests 10/21/20 10/21/20 10/21/20 Range/Units 20:55 20:55 20:55 WBC 51.1 H* (4.0-10.2) K/uL RBC 3.87 (3.77-5.09) M/uL Hgb 11.0 L (11.7-15.5) g/dL Hct 34.6 (34.0-46.0) % MCV 89.4 D (84.0-98.0) fL MCH 28.4 (28.2-33.3) pg MCHC 31.8 (31.7-36.0) g/dL RDW 14.8 H (11.2-14.1) % Plt Count 181 (150-350) K/uL Neut % (Auto) 20.4 L (45.0-80.0) % Lymph % (Auto) 74.7 H (10.0-50.0) % [place] % (Auto) 4.9 (2.0-14.0) % Eos % (Auto) 0.0 (0.0-5.0) % Baso % (Auto) 0.0 (0.0-2.0) % Neut # (Auto) 10.40 H (1.40-7.00) K/uL Lymph # (Auto) 38.14 H (0.50-3.50) K/uL [place] # (Auto) 2.52 H (0.00-1.00) K/uL Eos # (Auto) 0.01 (0.00-0.50) K/uL Baso # (Auto) 0.02 (0.00-0.20) K/uL Sodium 135 L (136-145) mmol/L Potassium 2.8 L* (3.5-5.1) mmol/L Chloride 98 (98-107) mmol/L Carbon Dioxide 23.3 (21.0-32.0) mmol/L BUN 29 H (7-18) mg/dL Creatinine 1.22 H (0.51-1.17) mg/dL Est Cr Clr Drug Dosing 24.43 mL/min Estimated GFR (MDRD) 42 mL/min Glucose 140 H (74-106) mg/dL Lactic Acid 1.9 (0.4-2.0) mmol/L Calcium 8.3 L (8.5-10.1) mg/dL Total Bilirubin 0.7 (0.2-1.0) mg/dL AST 33 (15-37) U/L ALT 19 (12-78) U/L Alkaline Phosphatase 58 (46-116) IU/L Total Protein 6.5 (6.4-8.2) g/dL Albumin 3.1 L (3.4-5.0) g/dL Meds: Medications Discontinued Medications Generic Name Dose Route Start Last Admin Trade Name Freq PRN Reason Stop Dose Admin Sodium Chloride 1,000 mls @ 999 mls/hr 10/21/20 21:00 10/21/20 21:07 Normal Saline IV 10/21/20 22:00 999 mls/hr .BOLUS ONE Administration - Re-Assessments/Exams Free Text/Narrative Re-Assessment/Exam: 10/21/20 22:29 See lab Has hx/o elevated WBC due to CLL Pt given 1 L NS IVF D/W Dr Segura [facility] On-call hospitalist Will accept in transfer Transfer via EMS Departure - Departure Time of Disposition: 22:30 Disposition: DC/Tfer to [facility] 02 Clinical Impression: Exposure to COVID-19 virus Fever Qualifiers: Fever type: unspecified Qualified Code(s): R50.9 - Fever, unspecified Diarrhea Qualifiers: Diarrhea type: unspecified type Qualified Code(s): R19.7 - Diarrhea, unspecified - Discharge Information *PRESCRIPTION DRUG MONITORING PROGRAM REVIEWED*: Not Applicable *COPY OF PRESCRIPTION DRUG MONITORING REPORT IN PATIENT BISHOP: Not Applicable Referrals: PCP,None [Primary Care Provider] - Forms: ED Department Discharge Sepsis Event Note (ED) - Evaluation Sepsis Screening Result: Possible Sepsis Risk - Focused Exam Vital Signs: Vital Signs Temp Pulse Resp BP Pulse Ox 10/21/20 20:55 101.4 F H 112 H 24 H 131/79 92 L - My Orders Last 24 Hours: My Active Orders 10/21/20 20:32 CXR [Chest 1V Frontal] [CR] Stat 10/21/20 20:55 CULTURE BLOOD [BC] Stat 10/21/20 21:00 EKG Documentation Completion [RC] ASDIRECTED CULTURE BLOOD [BC] Stat 10/21/20 21:10 Blood Culture x2 Reflex Set [OM.PC] Stat - Assessment/Plan Last 24 Hours: My Active Orders 10/21/20 20:32 CXR [Chest 1V Frontal] [CR] Stat 10/21/20 20:55 CULTURE BLOOD [BC] Stat 10/21/20 21:00 EKG Documentation Completion [RC] ASDIRECTED CULTURE BLOOD [BC] Stat 10/21/20 21:10 Blood Culture x2 Reflex Set [OM.PC] Stat
[2020-10-21] MEDS ORDERED: Acetaminophen 325 MG Tab ONE (22:53)
[2020-10-21] MEDS ORDERED: Acetaminophen 325 MG Tab PO ONE (22:58)
[2020-10-21 23:00] VITALS: BP 146/69; PULSE 101
[2020-10-21] MEDS ORDERED: Sodium Chloride 0.9% 1,000 ML IV SCH (23:00)
== END 2020-10-21 23:15 ==
LOC: LL.ED 20:31
DX: R50.9 Fever, unspecified (principal); R19.7 Diarrhea, unspecified; I11.0 Hypertensive heart disease with heart failure; I50.9 Heart failure, unspecified; M19.90 Unspecified osteoarthritis, unspecified site; Z20.828 Contact with and (suspected) exposure to other viral communicable diseases; Z79.82 Long term (current) use of aspirin; Z79.899 Other long term (current) drug therapy
CPT/HCPCS: 36415; 71045; 80053; 83605; 85025; 87040; 93005; 99285-25; A9270-GY; J7030